=== PATIENT | female | born 1965 | race Two or more races ===

== ENCOUNTER → 2020-03-02 13:28 | Outpatient (BNVA) | payer OTHER, SELFPAY | PROVIDERS: PCP Internal Medicine; Visit Provider Urology | DX: N39.46 Mixed incontinence (principal) | CPT/HCPCS: 51798; 99204 ==

== ENCOUNTER → 2020-03-20 11:02 | Outpatient (BNVA) | payer OTHER, SELFPAY | PROVIDERS: PCP Internal Medicine; Referring Provider Internal Medicine; Visit Provider Dietitian, Registered | DX: Z76.89 Persons encountering health services in other specified circumstances (principal) ==

== ENCOUNTER 2020-04-12 07:14 | Outpatient (REF) | payer OTHER, SELFPAY ==
[2020-04-12 07:55] LABS: MANUAL DIFF FLAG NO
[2020-04-12 07:57] LABS: Basophils Absolute Auto 0.1 X10*3/uL (0.0-0.2); Basophils Percent Auto 1.4 % (0-2); Eosinophils Absolute Auto 0.3 X10*3/uL (0.0-0.4); Eosinophils Percent Auto 5.2 % (0-4); Hematocrit 37.7 % (37-47); Hemoglobin 12.2 g/dl (12.0-16.0); Imm Gran Abs Auto 0.01 X10*3/uL (0.00-0.03); Imm Gran Pct Auto 0.2 % (0.0-0.4); Lymphocytes Absolute Auto 1.3 X10*3/uL (1.2-4.9); Lymphocytes Percent Auto 25.2 % (20-40); Mean Corpuscular HGB Conc 32.4 g/dl (31.0-35.0); Mean Corpuscular Hemoglobin 28.1 pg (27.0-33.0); Mean Corpuscular Volume 86.9 fL (80-98); Mean Platelet Volume 10.7 fL (9.4-12.3); Monocytes Absolute Auto 0.3 X10*3/uL (0.1-1.2); Monocytes Percent Auto 6.4 % (2-11); Neutrophils Absolute Auto 3.1 X10*3/uL (2.0-8.3); Neutrophils Percent Auto 61.6 % (45-73); Platelet Count 335 X10*3/uL (160-400); Red Blood Count 4.34 X10*6/uL (4.20-5.50); Red Cell Distribution Width 13.6 % (11.0-16.0)
[2020-04-12 08:24] LABS: Alanine Aminotransferase 18 U/L (0-31); Albumin Level 4.3 g/dL (3.5-5.0); Alkaline Phosphatase 98 U/L (39-117); Anion Gap 12 (12-20); Aspartate Amino Transferase 18 U/L (5-31); Bilirubin Total 0.4 mg/dL (0.0-1.0); Blood Urea Nitrogen 15 mg/dL (9-16); Calcium 9.1 mg/dL (8.4-10.2); Carbon Dioxide 27 mmol/L (22-29); Chloride 105 mmol/L (96-108); Cholesterol 195 mg/dL; Estimated Glomerular Filt Rate > 60; Glucose Fasting 116 mg/dL (60-99); HDL Cholesterol 38 mg/dL; LDL Cholesterol Calculated 136 mg/dl; Potassium 4.4 mmol/l (3.3-5.1); Sodium 140 mmol/L (135-145); Total Protein 7.6 g/dL (6.5-8.0); Triglycerides 106 mg/dL
[2020-04-12 08:49] LABS: TSH reflex Free T4 1.27 mIU/mL (0.32-4.0); Vitamin D 25-OH Total 45.8 ng/mL (>30)
== END 2020-04-12 07:15 | disposition home or self-care (01) ==
LOC: HO.LAB 07:14
PROVIDERS: PCP Internal Medicine; Visit Provider Internal Medicine
DX: E78.00 Pure hypercholesterolemia, unspecified (principal); D64.9 Anemia, unspecified; E03.9 Hypothyroidism, unspecified; E55.9 Vitamin D deficiency, unspecified
CPT/HCPCS: 36415; 80053; 80061; 82306; 84443; 85025

== ENCOUNTER → 2020-04-18 13:39 | Outpatient (BNVA) | payer OTHER, SELFPAY | PROVIDERS: PCP Internal Medicine; Referring Provider Internal Medicine; Visit Provider Obstetrics & Gynecology | DX: Z76.89 Persons encountering health services in other specified circumstances (principal) ==

== ENCOUNTER → 2020-04-20 10:43 | Outpatient (BNVA) | payer OTHER, SELFPAY | PROVIDERS: PCP Internal Medicine; Referring Provider Internal Medicine; Visit Provider Dietitian, Registered | DX: Z76.89 Persons encountering health services in other specified circumstances (principal) ==

== ENCOUNTER 2020-05-03 12:18 | Outpatient (REF) | payer OTHER, SELFPAY ==
[2020-05-03 13:57] LABS: Glucose Urine UA NEG (NEG); Leukocyte Esterase Urine NEG (NEG); Nitrite Urine NEG (NEG); PH 6.5 (5.0-8.0); Urine Blood NEG (NEG); Urine Ketones NEG (NEG); Urine Protein NEG (NEG-TRACE)
[2020-05-03 14:11] LABS: Appearance Urine CLEAR; Color Urine YELLOW
== END 2020-05-03 12:19 | disposition home or self-care (01) ==
LOC: HO.LAB 12:18
PROVIDERS: PCP Internal Medicine; Visit Provider Internal Medicine
DX: R30.0 Dysuria (principal)
CPT/HCPCS: 81003

== ENCOUNTER 2020-05-04 14:18 | Outpatient (REF) | payer OTHER, SELFPAY | END 2020-05-04 14:19 | disposition home or self-care (01) | LOC: HO.LAB 14:18 | PROVIDERS: Visit Provider Internal Medicine | DX: Z20.828 Contact with and (suspected) exposure to other viral communicable diseases (principal) | CPT/HCPCS: C9803; U0003 ==

== ENCOUNTER 2020-05-30 04:32 | Emergency (ER) | payer OTHER, SELFPAY ==
[2020-05-30 04:52] VITALS: BP 134/87; PULSE 70; RESP 18; TEMP 36.9; O2SAT 97; BMI 32.6
--- NOTE | 2020-05-30 05:44 | ED_ITS ---
HPI - URI/Sore Throat General Chief Complaint: Upper Respiratory Symptoms Stated Complaint: COVID+ Diff Breathing Time Seen by Provider: 05/30/20 05:44 Source: patient Mode of arrival: ambulatory History of Present Illness HPI Narrative: This is a 54-year-old female who has been recently diagnosed with COVID-19 and comes in with concerns about increased shortness of breath and sore throat. She denies any fevers, chills, chest pain/palpitations at this time or GI symptoms. Related Data Home Medications Medication Instructions Recorded Confirmed aripiprazole 5 mg tablet 5 mg PO DAILY 03/02/20 04/18/20 cetirizine 10 mg tablet 10 mg PO DAILY 03/02/20 04/18/20 cholecalciferol (vitamin D3) 50 50 mcg PO DAILY 03/02/20 04/18/20 mcg (2,000 unit) capsule cyclobenzaprine 10 mg tablet 10 mg PO TID PRN 03/02/20 04/18/20 gabapentin 100 mg capsule mg PO 03/02/20 04/18/20 hydroxyzine HCl 25 mg tablet 25 mg PO TID 03/02/20 04/18/20 loratadine 10 mg tablet 10 mg PO DAILY 03/02/20 04/18/20 lorazepam 0.5 mg tablet 0.5 mg PO DAILY PRN 03/02/20 04/18/20 mometasone 0.1 % topical cream applic TOPICAL DAILY 03/02/20 04/18/20 pantoprazole 40 mg tablet,delayed 40 mg PO DAILY 03/02/20 04/18/20 release ropinirole 0.5 mg tablet 0.5 mg PO BEDTIME 03/02/20 04/18/20 rosuvastatin 10 mg tablet 10 mg PO BEDTIME 03/02/20 04/18/20 sertraline 100 mg tablet mg PO 03/02/20 04/18/20 sertraline 50 mg tablet 50 mg PO DAILY 03/02/20 04/18/20 simethicone 125 mg chewable tablet 125 mg PO QID PRN 03/02/20 04/18/20 Previous Rx's Medication Instructions Recorded oxybutynin chloride 5 mg 5 mg PO DAILY #30 tab 03/02/20 tablet,extended release 24 hr levothyroxine 112 mcg tablet 112 mcg PO DAILY #90 tab 05/02/20 albuterol sulfate 90 mcg/actuation 1 - 2 puff INHALATION Q4-6H PRN 30 05/29/20 aerosol inhaler Days #8.5 g prednisone 40 mg PO DAILY 4 Days #8 tab 05/30/20 Allergies Allergy/AdvReac Type Severity Reaction Status Date / Time Sulfa (Sulfonamide Allergy Severe SWELLING Unverified 02/16/20 15:37 Antibiotics) [Sulfa (Sulfonamides)] cbd Allergy Unknown chest pain Uncoded 01/04/20 00:00 Pt states no known allergy to Allergy Unknown Uncoded 01/03/20 00:00 sulfa Allergy Unknown swelling Uncoded 01/04/20 00:00 Review of Systems Review of Systems: Pertinent positives and negatives as stated in HPI 10 point review of systems is otherwise negative. [facility] Past Medical History Source: nursing notes reviewed Medical History Anxiety Asthma Depression Fatty liver Fibromyalgia High cholesterol Hypothyroid Osteoarthritis Surgical History H/O oophorectomy Tubal ligation status Family History Family History Sister Breast CA Social History Social History Alcohol intake: never Smoking Status: Never smoker Advance Directives: No Advance Directives Information Provided: No Physical Exam Vital Signs: Vital Signs: Last Vital Signs Temp 98.4 F 05/30/20 04:52 Pulse 70 05/30/20 04:52 Resp 18 05/30/20 04:52 BP 134/87 05/30/20 04:52 Pulse Ox 98 05/30/20 06:20 Body Mass Index 32.6 VITAL SIGNS: Reviewed. GENERAL: Well developed, well nourished, in no acute distress. HEAD: Normocephalic/atraumatic, EYES: PERRLA, EOMI intact without pain EARS: Ext canals without abnormality, TMs non-bulging and non-erythematous NOSE: Nares patent bilateral OROPHARYNX: no oral lesions noted, posterior pharynx clear and non-erythematous NECK: Supple, no adenopathy LUNGS: Normal breath sounds. No adventitious sounds or accessory muscle use. SpO2<98> CARDIOVASCULAR: Regular rate and rhythm without noted murmurs, no JVD or lower extremity edema. ABDOMEN: Soft, non-tender, non-distended with bowel sounds. No rigidity. No guarding. No palpable masses or hernias noted NEUROLOGIC: Alert and oriented x 4. Strength and sensation to light touch were grossly intact x 4. Course Course Course Narrative: This is a 54-year-old female with history and clinical presentation consistent with mild asthma exacerbation. Patient is neither hypoxic, tachypneic. Patient received albuterol puffs as well as initial p.o. prednisone and on re-evaluation states she is feeling better. She was discharged in stable condition. Discharge Plan Discharge Clinical Impression: Asthma Qualifiers: Asthma severity: mild Asthma persistence: unspecified Asthma complication type: uncomplicated Qualified Code(s): J45.909 - Unspecified asthma, uncomplicated Patient Disposition: Home, Self-Care Instructions: Asthma (ED) Additional Instructions: Resume all home medications as prescribed. Please do not hesitate to return to the emergency department should you develop any acute worsening of your symptoms. Prescriptions: New prednisone 20 mg tablet 40 mg PO DAILY 4 Days Qty: 8 RF: 0 No Action levothyroxine 112 mcg tablet 112 mcg PO DAILY Qty: 90 RF: 1 albuterol sulfate 90 mcg/actuation HFA aerosol inhaler 1 - 2 puff inhalation Q4-6H PRN (Reason: dyspnea) 30 Days Qty: 8.5 RF: 6 sertraline 50 mg tablet 50 mg PO DAILY RF: 0 pantoprazole 40 mg tablet,delayed release (DR/EC) 40 mg PO DAILY RF: 0 sertraline 100 mg tablet PO RF: 0 cholecalciferol (vitamin D3) 50 mcg (2,000 unit) capsule 50 mcg PO DAILY RF: 0 rosuvastatin 10 mg tablet 10 mg PO BEDTIME RF: 0 lorazepam 0.5 mg tablet 0.5 mg PO DAILY PRNRF: 0 ropinirole 0.5 mg tablet 0.5 mg PO BEDTIME RF: 0 cetirizine 10 mg tablet 10 mg PO DAILY RF: 0 hydroxyzine HCl 25 mg tablet 25 mg PO TID RF: 0 mometasone 0.1 % cream topical DAILY RF: 0 loratadine 10 mg tablet 10 mg PO DAILY RF: 0 gabapentin 100 mg capsule PO RF: 0 simethicone 125 mg tablet,chewable 125 mg PO QID PRNRF: 0 aripiprazole 5 mg tablet 5 mg PO DAILY RF: 0 cyclobenzaprine 10 mg tablet 10 mg PO TID PRNRF: 0 oxybutynin chloride 5 mg tablet extended release 24hr 5 mg PO DAILY Qty: 30 RF: 6 Referrals: Physician,Unknown [Primary Care Provider] - 2 days (Re-evaluation)
[2020-05-30] MEDS: predniSONE 20 MG TABLET 40 MG PO (05:52)
[2020-05-30] MEDS: Albuterol Sulfate 90 MCG 8 GM INHALER 4 PUFF INHALE (06:04)
[2020-05-30 06:20] VITALS: PULSE 78; O2SAT 98
== END 2020-05-30 06:50 | disposition home or self-care (01) ==
PROVIDERS: Emergency Provider Student in an Organized Health Care Education/Training Program
DX: J45.901 Unspecified asthma with (acute) exacerbation (principal); Z86.19 Personal history of other infectious and parasitic diseases; Z79.899 Other long term (current) drug therapy
CPT/HCPCS: 99283; 99284

== ENCOUNTER → 2020-06-05 14:11 | Outpatient (BNVA) | payer OTHER, SELFPAY | PROVIDERS: PCP Internal Medicine; Visit Provider Dietitian, Registered | DX: Z76.89 Persons encountering health services in other specified circumstances (principal) ==

== ENCOUNTER 2020-06-08 10:07 | Outpatient (REF) | payer OTHER, SELFPAY ==
--- NOTE | 2020-06-08 10:24 | XR_ITS ---
EXAMINATION: XR CHEST CLINICAL INFORMATION: Shortness of breath COMPARISON: Previous chest x-ray most recent November 2019 TECHNIQUE: 2 views of the chest were obtained. FINDINGS: The cardiac and mediastinal contours are normal. There are increased markings at the left lung base questionable for bronchial wall thickening or infiltrate. The lungs are otherwise clear. There is no pleural effusion or pneumothorax. Bony structures are unremarkable. XR/XR chest 2V IMPRESSION: Increased markings at the left lung base questionable for infiltrate.
[2020-06-08 10:51] LABS: MANUAL DIFF FLAG NO
[2020-06-08 10:57] LABS: Basophils Percent Auto 0.4 % (0-2); Eosinophils Absolute Auto 0.3 X10*3/uL (0.0-0.4); Eosinophils Percent Auto 3.6 % (0-4); Hematocrit 38.4 % (37-47); Imm Gran Abs Auto 0.03 X10*3/uL (0.00-0.03); Imm Gran Pct Auto 0.4 % (0.0-0.4); Lymphocytes Absolute Auto 1.7 X10*3/uL (1.2-4.9); Lymphocytes Percent Auto 23.4 % (20-40); Mean Corpuscular HGB Conc 31.3 g/dl (31.0-35.0); Mean Corpuscular Hemoglobin 27.5 pg (27.0-33.0); Mean Corpuscular Volume 87.9 fL (80-98); Mean Platelet Volume 10.2 fL (9.4-12.3); Monocytes Absolute Auto 0.5 X10*3/uL (0.1-1.2); Monocytes Percent Auto 6.7 % (2-11); Neutrophils Absolute Auto 4.9 X10*3/uL (2.0-8.3); Neutrophils Percent Auto 65.5 % (45-73); Platelet Count 323 X10*3/uL (160-400); Red Blood Count 4.37 X10*6/uL (4.20-5.50); Red Cell Distribution Width 13.2 % (11.0-16.0); White Blood Count 7.5 X10*3/uL (4.8-10.8)
[2020-06-08 11:25] LABS: Alanine Aminotransferase 19 U/L (0-31); Albumin Level 4.1 g/dL (3.5-5.0); Alkaline Phosphatase 94 U/L (39-117); Anion Gap 14 (12-20); Aspartate Amino Transferase 17 U/L (5-31); Bilirubin Total 0.4 mg/dL (0.0-1.0); Blood Urea Nitrogen 9 mg/dL (9-16); Calcium 8.8 mg/dL (8.4-10.2); Carbon Dioxide 25 mmol/L (22-29); Chloride 106 mmol/L (96-108); Estimated Glomerular Filt Rate > 60; Glucose Random 92 mg/dL (60-115); Potassium 4.5 mmol/l (3.3-5.1); Sodium 140 mmol/L (135-145); Total Protein 7.5 g/dL (6.5-8.0)
== END 2020-06-08 10:08 | disposition home or self-care (01) ==
LOC: HO.LAB 10:07
PROVIDERS: PCP Internal Medicine; Visit Provider Internal Medicine
DX: U07.1 COVID-19 (principal); R06.02 Shortness of breath; R11.0 Nausea
CPT/HCPCS: 36415; 71046; 80053; 85025

== ENCOUNTER → 2020-07-04 10:02 | Outpatient (BNVA) | payer OTHER, SELFPAY | PROVIDERS: Visit Provider Dietitian, Registered ==

== ENCOUNTER 2020-08-13 08:39 | Outpatient (REF) | payer OTHER, SELFPAY | END 2020-08-13 08:40 | disposition home or self-care (01) | LOC: HO.LAB 08:39 | PROVIDERS: PCP Internal Medicine; Visit Provider Obstetrics & Gynecology | DX: N95.0 Postmenopausal bleeding (principal) | CPT/HCPCS: 58100; 88305; 88342; 88360 ==

== ENCOUNTER → 2020-08-15 11:06 | Outpatient (BNVA) | payer OTHER, SELFPAY | PROVIDERS: PCP Internal Medicine; Visit Provider Obstetrics & Gynecology ==

== ENCOUNTER → 2020-08-20 11:43 | Outpatient (BNVA) | payer OTHER, SELFPAY | PROVIDERS: PCP Internal Medicine; Visit Provider Obstetrics & Gynecology ==

== ENCOUNTER → 2020-08-27 13:01 | Outpatient (BNVA) | payer OTHER, SELFPAY | PROVIDERS: PCP Internal Medicine; Visit Provider Physician Assistant ==

== ENCOUNTER → 2020-08-30 13:26 | Outpatient (BNVA) | payer OTHER, SELFPAY | PROVIDERS: PCP Internal Medicine; Visit Provider Student in an Organized Health Care Education/Training Program | DX: M25.50 Pain in unspecified joint (principal) | CPT/HCPCS: 99212 ==

== ENCOUNTER 2020-09-04 09:24 | Outpatient (REF) | payer OTHER, SELFPAY ==
[2020-09-04 10:03] LABS: MANUAL DIFF FLAG NO
[2020-09-04 10:13] LABS: Basophils Absolute Auto 0.1 X10*3/uL (0.0-0.2); Basophils Percent Auto 1.6 % (0-2); Eosinophils Absolute Auto 0.2 X10*3/uL (0.0-0.4); Eosinophils Percent Auto 4.9 % (0-4); Hematocrit 35.7 % (37-47); Hemoglobin 11.3 g/dl (12.0-16.0); Imm Gran Abs Auto 0.01 X10*3/uL (0.00-0.03); Imm Gran Pct Auto 0.2 % (0.0-0.4); Lymphocytes Absolute Auto 1.3 X10*3/uL (1.2-4.9); Lymphocytes Percent Auto 30.1 % (20-40); Mean Corpuscular HGB Conc 31.7 g/dl (31.0-35.0); Mean Corpuscular Hemoglobin 27.8 pg (27.0-33.0); Mean Corpuscular Volume 87.9 fL (80-98); Mean Platelet Volume 10.5 fL (9.4-12.3); Monocytes Absolute Auto 0.3 X10*3/uL (0.1-1.2); Monocytes Percent Auto 7.7 % (2-11); Neutrophils Absolute Auto 2.4 X10*3/uL (2.0-8.3); Neutrophils Percent Auto 55.5 % (45-73); Platelet Count 307 X10*3/uL (160-400); Red Blood Count 4.06 X10*6/uL (4.20-5.50); Red Cell Distribution Width 13.2 % (11.0-16.0); White Blood Count 4.3 X10*3/uL (4.8-10.8)
[2020-09-04 10:21] LABS: Alanine Aminotransferase 21 U/L (0-31); Albumin Level 4.1 g/dL (3.5-5.0); Alkaline Phosphatase 92 U/L (39-117); Anion Gap 11 (12-20); Aspartate Amino Transferase 19 U/L (5-31); Bilirubin Total 0.3 mg/dL (0.0-1.0); Blood Urea Nitrogen 13 mg/dL (9-16); Calcium 9.1 mg/dL (8.4-10.2); Carbon Dioxide 28 mmol/L (22-29); Chloride 105 mmol/L (96-108); Estimated Glomerular Filt Rate > 60; Glucose Random 92 mg/dL (60-115); Potassium 4.6 mmol/L (3.3-5.1); Rheumatoid Factor < 15.0 IU/mL (<15.0); Sodium 139 mmol/L (135-145); Total Protein 7.3 g/dL (6.5-8.0)
[2020-09-04 10:43] LABS: TSH reflex Free T4 1.03 uIU/mL (0.32-4.0)
[2020-09-04 11:25] LABS: Erythrocyte Sedimentation Rate 29 MM/HR (0-20)
[2020-09-05 12:11] LABS: Cyclic Citrullinated Peptide <16 UNITS
[2020-09-08 11:52] LABS: Vitamin D 25-OH, D2 6 ng/mL; Vitamin D 25-OH, D3 38 ng/mL; Vitamin D 25-OH, Total 44 ng/mL (30-100)
== END 2020-09-04 09:25 | disposition home or self-care (01) ==
LOC: HO.LAB 09:24
PROVIDERS: PCP Internal Medicine; Visit Provider Student in an Organized Health Care Education/Training Program
DX: M25.50 Pain in unspecified joint (principal); E03.9 Hypothyroidism, unspecified
CPT/HCPCS: 36415; 80053; 82306; 84443; 85025; 85652; 86140; 86200; 86431

== ENCOUNTER 2020-09-11 11:59 | Outpatient (REF) | payer OTHER, SELFPAY ==
--- NOTE | ~2020-09-11 | XR_ITS ---
EXAMINATION: XR CHEST CLINICAL INFORMATION: Cough COMPARISON: Previous chest x-ray 06/08/2019 TECHNIQUE: 2 views of the chest were obtained. FINDINGS: No significant abnormality is noted involving the heart, lungs, mediastinum, bony thorax or soft tissues. XR/XR chest 2V IMPRESSION: Unremarkable examination.
== END 2020-09-11 12:00 | disposition home or self-care (01) ==
LOC: HO.HMGCX 11:59
PROVIDERS: PCP Internal Medicine; Visit Provider Nurse Practitioner Family
DX: R05 Cough (principal); J45.909 Unspecified asthma, uncomplicated
CPT/HCPCS: 71046

== ENCOUNTER → 2020-10-02 10:00 | Outpatient (BNVA) | payer OTHER, SELFPAY | PROVIDERS: PCP Internal Medicine; Visit Provider Dietitian, Registered | DX: E66.9 Obesity, unspecified (principal); Z68.31 Body mass index [BMI] 31.0-31.9, adult | CPT/HCPCS: 97803 ==

== ENCOUNTER → 2020-10-03 08:13 | Outpatient (BNVA) | payer OTHER, SELFPAY | PROVIDERS: PCP Internal Medicine; Visit Provider Student in an Organized Health Care Education/Training Program | DX: M25.50 Pain in unspecified joint (principal) | CPT/HCPCS: 99212 ==

== ENCOUNTER 2020-10-10 06:18 | Outpatient (REF) | payer OTHER, SELFPAY ==
[2020-10-10 07:45] LABS: Hematocrit 37.2 % (37-47); Hemoglobin 11.8 g/dl (12.0-16.0); Mean Corpuscular HGB Conc 31.7 g/dl (31.0-35.0); Mean Corpuscular Hemoglobin 27.8 pg (27.0-33.0); Mean Corpuscular Volume 87.5 fL (80-98); Mean Platelet Volume 10.5 fL (9.4-12.3); Platelet Count 363 X10*3/uL (160-400); Red Blood Count 4.25 X10*6/uL (4.20-5.50); Red Cell Distribution Width 13.4 % (11.0-16.0); White Blood Count 5.7 X10*3/uL (4.8-10.8)
[2020-10-10 08:20] LABS: Alanine Aminotransferase 25 U/L (0-31); Albumin Level 4.1 g/dL (3.5-5.0); Alkaline Phosphatase 98 U/L (39-117); Anion Gap 14 (12-20); Aspartate Amino Transferase 22 U/L (5-31); Blood Urea Nitrogen 13 mg/dL (9-16); Calcium 9.4 mg/dL (8.4-10.2); Carbon Dioxide 27 mmol/L (22-29); Chloride 105 mmol/L (96-108); Cholesterol 219 mg/dL; Estimated Glomerular Filt Rate > 60; Glucose Fasting 118 mg/dL (60-99); HDL Cholesterol 48 mg/dL; LDL Cholesterol Calculated 152 mg/dl; Potassium 4.6 mmol/L (3.3-5.1); Sodium 141 mmol/L (135-145); Triglycerides 97 mg/dL
[2020-10-10 08:28] LABS: Bilirubin Total 0.3 mg/dL (0.0-1.0)
== END 2020-10-10 06:19 | disposition home or self-care (01) ==
LOC: HO.LAB 06:18
PROVIDERS: PCP Internal Medicine; Visit Provider Physician Assistant
DX: Z13.220 Encounter for screening for lipoid disorders (principal); E03.9 Hypothyroidism, unspecified; I10 Essential (primary) hypertension
CPT/HCPCS: 36415; 80053; 80061; 84443; 85027

== ENCOUNTER 2020-10-24 11:14 | Emergency (ER) | payer OTHER, SELFPAY ==
--- NOTE | 2020-10-24 | ECG_ITS ---
Test Reason : CP Blood Pressure : / mmHG Vent. Rate : 057 BPM Atrial Rate : 057 BPM P-R Int : 110 ms QRS Dur : 116 ms QT Int : 446 ms P-R-T Axes : 015 -08 029 degrees QTc Int : 434 ms Sinus bradycardia Preexcitation pattern; possible WPW ST depression lateral leads Abnormal ECG When compared with ECG of 29-DEC-2019 18:24, changes noted Referred By: Generic ED Physician Electronically Signed By:JOSEPHINE KAPADIA
--- NOTE | ~2020-10-24 | CT_ITS ---
EXAMINATION: CT ANGIOGRAM OF THE CHEST WITH AND WITHOUT CONTRAST (CT PULMONARY ANGIOGRAM FOR PE) CLINICAL INFORMATION: Reason for Exam Chest pain, elevated D-dimer COMPARISON: Previous chest CTA June 2019 chest x-ray most recent from earlier the same day TECHNIQUE: Prior to contrast administration, noncontrast localization images were obtained. Subsequently, multidetector volumetric imaging was performed from the thoracic inlet to below the diaphragms following the administration of 80 mL Omnipaque 350 intravenous contrast. No contrast reaction reported Sagittal, coronal, and MIP oblique sagittal reformatted images were obtained on the CT workstation, uploaded to PACS, and reviewed. This CT examination was performed using dose optimization techniques as appropriate, variously including the following: *Automated exposure control *Adjustment of mA and/or kV according to patient size (this includes techniques or standardized protocols for targeted exams where dose is matched to indication/reason for exam; i.e. extremities or head) *Use of iterative reconstruction technique Total exam dose-length product 308 mGy-cm FINDINGS: QUALITY OF STUDY/CONTRAST BOLUS: Satisfactory. PULMONARY ARTERIES: No central or segmental pulmonary emboli. THORACIC AORTA: No aneurysm or dissection. LUNG: No focal consolidation, nodules or masses. PLEURA: No pleural effusion or pneumothorax. MEDIASTINUM: Normal heart size. No pericardial effusion. No hilar or mediastinal lymphadenopathy. No evidence of septal bowing or right heart strain. The esophagus is slightly dilated and filled with air. There is question of a abnormal wall thickening of the GE junction versus small hiatal hernia. This is similar to previous exam.. CHEST WALL/AXILLA: No axillary or internal mammary lymphadenopathy. OSSEOUS STRUCTURES: No acute or suspicious osseous abnormality. There are mild degenerative changes of the spine. UPPER ABDOMEN: Unremarkable. No reflux of contrast into the hepatic veins to suggest elevated right heart pressures. CT/CT angio chest PE protocol IMPRESSION: No evidence of pulmonary embolism. Dilated air-filled esophagus and question wall thickening at the GE junction versus small hiatal hernia. This is similar to previous exam. VTE: negative
--- NOTE | ~2020-10-24 | XR_ITS ---
EXAMINATION: XR CHEST CLINICAL INFORMATION: Chest pressure, cough COMPARISON: None TECHNIQUE: 2 views of the chest were obtained. FINDINGS: No significant abnormality is noted involving the heart, lungs, mediastinum, bony thorax or soft tissues. XR/XR chest 2V IMPRESSION: Unremarkable chest examination.
[2020-10-24 11:17] VITALS: BP 123/84; PULSE 64; RESP 20; TEMP 36.4; O2SAT 99; BMI 31.3
[2020-10-24 12:00] VITALS: BP 125/76; PULSE 60; RESP 16; O2SAT 97
--- NOTE | 2020-10-24 12:26 | ED.CHESTPAIN ---
HPI - Chest Pain General Chief Complaint: Chest Pain <RIVER Lopez - Last Filed: 10/24/20 23:05> Stated Complaint: chest pain, eye issue <RIVER Lopez - Last Filed: 10/24/20 23:05> Time Seen by Provider: 10/24/20 12:04 <RIVER Lopez - Last Filed: 10/24/20 23:05> Source: patient, RN notes reviewed and old records reviewed <RIVER Lopez - Last Filed: 10/24/20 23:05> Mode of arrival: ambulatory <RIVER Lopez - Last Filed: 10/24/20 23:05> Limitations: no limitations <RIVER Lopez - Last Filed: 10/24/20 23:05> History of Present Illness HPI narrative: 54 years old female with past medical history dyslipidemia, depression with anxiety, shortness of breath, dysphagia, asthma, hypothyroidism, 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 She reports that her symptom has been going on for the last few months since she was diagnosed with COVID back in May. Patient reports that she also has seasonal allergies. She also reports that she has shortness of breath with exertion. Denies any recent COVID exposures. Denies any GI or any other respiratory symptoms. <RIVER Lopez - Last Filed: 10/24/20 23:05> Related Data Home Medications: Home Medications Medication Instructions Recorded Confirmed aripiprazole 5 mg tablet 5 mg PO DAILY 03/02/20 10/17/20 cholecalciferol (vitamin D3) 50 50 mcg PO DAILY 03/02/20 10/17/20 mcg (2,000 unit) capsule lorazepam 0.5 mg tablet 0.5 mg PO DAILY PRN 03/02/20 10/17/20 ropinirole 0.5 mg tablet 0.5 mg PO BEDTIME 03/02/20 10/17/20 rosuvastatin 10 mg tablet 10 mg PO BEDTIME 03/02/20 10/17/20 sertraline 100 mg tablet mg PO 03/02/20 10/17/20 sertraline 50 mg tablet 50 mg PO DAILY 03/02/20 10/17/20 Previous Rx's Medication Instructions Recorded albuterol sulfate 90 mcg/actuation 1 - 2 puff INHALATION Q4-6H PRN 30 05/29/20 aerosol inhaler Days #8.5 g pantoprazole 40 mg tablet,delayed 40 mg PO DAILY 30 Days #30 tab 08/27/20 release albuterol sulfate 90 mcg/actuation 2 puff INHALATION Q4-6H PRN #6.7 g 09/11/20 aerosol inhaler oxybutynin chloride 5 mg 5 mg PO DAILY #30 tab 10/10/20 tablet,extended release 24 hr loratadine 10 mg tablet 10 mg PO DAILY 90 Days #90 tab 10/17/20 simethicone 125 mg chewable tablet 125 mg PO QID PRN 30 Days #120 tab 10/17/20 levothyroxine 112 mcg tablet 112 mcg PO DAILY #90 tab 10/23/20 meloxicam 15 mg tablet 15 mg PO DAILY #30 tab 10/28/20 <[facility] - Last Filed: 10/24/20 23:05> Allergies/Adverse Reactions: Allergies Allergy/AdvReac Type Severity Reaction Status Date / Time Sulfa (Sulfonamide Allergy Severe SWELLING Verified 10/24/20 11:16 Antibiotics) [Sulfa (Sulfonamides)] cbd Allergy Intermediate chest pain Uncoded 10/17/20 15:16 <VOLODYMYR Lopez - Last Filed: 10/24/20 23:05> Review of Systems Review of Systems: Constitutional : No Weight loss, No Fever, No Chills, No Night Sweats, No Fatigue, No Malaise ENT/Mouth : No Hearing loss, No Ear Pain, No Nasal Congestion, No Sinus Pain, No Hoarseness, No sore throat, No Rhinorrhea, No Swallowing Difficulty Eyes: No Eye Pain, No Swelling, right eye Redness, No Foreign Body, No Discharge, No Vision Changes Cardiovascular : Chest Pain, SOB with exertion, Dyspnea on Exertion, No Orthopnea, No Edema, No Palpitations Respiratory : No Cough, No Sputum, No Wheezing, No Smoke Exposure, No Dyspnea Gastrointestinal : No Nausea, No Vomiting, No Diarrhea, No Constipation, No abdominal Pain, No Hematochezia, No Melena Genitourinary : no irregular bleeding, No Dysuria, No Urinary Frequency, No Hematuria, No Urinary Incontinence, No Urgency, No Flank Pain, No Urinary Flow Changes, No Hesitancy Musculoskeletal : No joint pain, No Myalgias, No Joint Swelling Skin : No Skin Lesions, No rash Neuro : No Weakness, No Numbness, No Paresthesias, No Loss of Consciousness, No Dizziness, No Headache Psych : No Anxiety/Panic, No Depression, No SI/HI/AH/VH, No Social Issues, Heme/Lymph: No Bruising, No Bleeding,No Lymphadenopathy Endocrine : No Polyuria, No Polydipsia, No Temperature Intolerance <RIVER Lopez - Last Filed: 10/24/20 23:05> Yes all other systems are reviewed and are negative <RIVER Lopez - Last Filed: 10/24/20 23:05> [facility] Past Medical History Medical History: Medical History Anxiety Asthma COVID-19 Depression Depression with anxiety Dyslipidemia Dysphagia Fatty liver Fibromyalgia High cholesterol Hypothyroid Hypothyroidism Nausea Osteoarthritis Polyarthralgia 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 Shortness of breath <RIVER Lopez - Last Filed: 10/24/20 23:05> Surgical History: Surgical History H/O oophorectomy History of blepharoplasty History of removal of ovarian cyst Tubal ligation status <RIVER Lopez - Last Filed: 10/24/20 23:05> Family History Family History: Family History Sister Breast CA Pancreatic cancer Sister Breast CA Father Myocardial infarction Diabetes Hypertension CVD (cardiovascular disease) Mother Heart problem Daughter In good health <RIVER Lopez - Last Filed: 10/24/20 23:05> Social History Social History: Social History Household Members: None Alcohol intake: never Current occupational status: disabled <SHOAIB LopezP-BC - Last Filed: 10/24/20 23:05> Physical Exam Vital Signs: Vital Signs: Last Vital Signs Temp 97.6 F 10/24/20 11:17 Pulse 58 10/24/20 14:00 Resp 18 10/24/20 14:00 BP 124/78 10/24/20 14:00 Pulse Ox 99 10/24/20 14:00 Body Mass Index 31.3 <Francia Norm Solis SKYLA-BC - Last Filed: 10/24/20 23:05> Vital Signs: Last Vital Signs Temp 97.6 F 10/24/20 11:17 Pulse 58 10/24/20 14:00 Resp 18 10/24/20 14:00 BP 124/78 10/24/20 14:00 Pulse Ox 99 10/24/20 14:00 Body Mass Index 31.3 <Mina Hobson MD - Last Filed: 11/26/20 15:07> Const: General: healthy appearing, no acute distress and well developed <Francia Norm Solis SKYLA-BC - Last Filed: 10/24/20 23:05> Nutritional Appearance: well nourished <Francia Norm Solis SKYLA-BC - Last Filed: 10/24/20 23:05> Orientation/consciousness: patient oriented x3 <Francia Norm Solis VOLODYMYRBC - Last Filed: 10/24/20 23:05> Eyes: Other: Right eye redness <Franciaradha Solis SKYLA-BC - Last Filed: 10/24/20 23:05> Direct Ophthalmoscopy: no photophobia <Francia Norm Solis SKYLA-BC - Last Filed: 10/24/20 23:05> Neck: Neck: Yes normal visual inspection, Yes full ROM and Yes trachea midline <Franciaradha Solis SKYLA-BC - Last Filed: 10/24/20 23:05> Thyroid: Thyroid normal <Franciaradha Solis [employer]INTER-BC - Last Filed: 10/24/20 23:05> Resp: Auscultation: clear to auscultation bilaterally <Franciaradha Solis [employer]BC - Last Filed: 10/24/20 23:05> Cardio: Rate: bradycardic <RIVER Lopez - Last Filed: 10/24/20 23:05> Rhythm: regular rhythm <RIVER Lpoez - Last Filed: 10/24/20 23:05> GI: Inspection: Yes normal to inspection and No distended <RIVER Lopez - Last Filed: 10/24/20 23:05> Palpation (GI): No hepatosplenomegaly present <RIVER Lopez - Last Filed: 10/24/20 23:05> Auscultation: normal bowel sounds <RIVER Lopez - Last Filed: 10/24/20 23:05> Skin: General skin exam: elasticity normal, turgor normal and dry skin <RIVER Lopez - Last Filed: 10/24/20 23:05> Neuro: General: patient oriented x3 <RIVER Lopez - Last Filed: 10/24/20 23:05> Course Course Course Narrative: 54 years old female here today complaining of chest pressure. She reports that the chest pressure has been going on since she was diagnosed with COVID. Will do CT to rule out PE, will order lab work, troponin. Complains of difficulty of swalling, however she has history of GERD and anxiety with depression. Pharynx examined and normal, no neck swelling. Continue to monitor pending CT results <RIVER Lopez - Last Filed: 10/24/20 23:05> Patient with chest pain and likely anxiety, resting comfortably, no neck swelling, pharynx normal, Will CT chest to rule out PE <Mina Hobson MD - Last Filed: 11/26/20 15:07> Reevaluation(s) Reevaluation #1: Patient resting. Reports that her symptoms come and go. Reports that she is feeling better when her mask is off. Just came back from her CT scan awaiting results. All labs reviewed and negative for any abnormal findings. <Franciajacoby AyersoRIVER - Last Filed: 10/24/20 23:05> I have reviewed the chart <Mina Hobson MD - Last Filed: 11/26/20 15:07> Reevaluation #2: CT of the chest negative for PE. Patient is relaxing no signs and symptoms of distress. Her symptom could be related to her asthma and seasonal allergies. I will send her home with Flonase and Zyrtec. Patient verbalizes understanding and is agreeable to plan of care. She was given the opportunity to ask questions and all questions answered. <SKYLA Lopez-BC - Last Filed: 10/24/20 23:05> Time: 15:36 <Francia Solis [employer]INTER-BC - Last Filed: 10/24/20 23:05> MDM - Chest Pain Lab Data Result diagrams: : 10/24/20 12:28 10/24/20 12:28 <SKYLA Lopez-BC - Last Filed: 10/24/20 23:05> Labs: Lab Results 10/24/20 10/24/20 10/24/20 Range/Units 12:28 12:28 12:28 WBC 6.7 (4.8-10.8) X10*3/uL RBC 3.97 L (4.20-5.50) X10*6/uL Hgb 11.1 L (12.0-16.0) g/dl Hct 34.8 L (37-47) % MCV 87.7 (80-98) fL MCH 28.0 (27.0-33.0) pg MCHC 31.9 (31.0-35.0) g/dl RDW 13.2 (11.0-16.0) % Plt Count 299 (160-400) X10*3/uL MPV 10.5 (9.4-12.3) fL Immature Gran % (Auto) 0.3 (0.0-0.4) % Neut % (Auto) 56.2 (45-73) % Lymph % (Auto) 29.1 (20-40) % [place] % (Auto) 7.4 (2-11) % Eos % (Auto) 5.6 H (0-4) % Baso % (Auto) 1.4 (0-2) % Lymph # (Auto) 1.9 (1.2-4.9) X10*3/uL [place] # (Auto) 0.5 (0.1-1.2) X10*3/uL Eos # (Auto) 0.4 (0.0-0.4) X10*3/uL Baso # (Auto) 0.1 (0.0-0.2) X10*3/uL Abs Immat Gran (auto) 0.02 (0.00-0.03) X10*3/uL Absolute Neuts (auto) 3.8 (2.0-8.3) X10*3/uL Absolute Nucleated RBC 0.000 (0.0-0.012) X10*3/uL Nucleated RBC % (auto) 0.0 (0.0-0.2) /100WBC D-Dimer NG/ML Sodium 137 (135-145) mmol/L Potassium 4.7 (3.3-5.1) mmol/L Chloride 103 (96-108) mmol/L Carbon Dioxide 25 (22-29) mmol/L Anion Gap 14 (12-20) BUN 15 (9-16) mg/dL Creatinine 0.84 (0.5-1.4) mg/dL Estim Creat Clear Calc 86.4 Estimated GFR > 60 Random Glucose 85 (60-115) mg/dL Calcium 9.4 (8.4-10.2) mg/dL Total Bilirubin 0.3 (0.0-1.0) mg/dL AST 28 (5-31) U/L ALT 22 (0-31) U/L Alkaline Phosphatase 94 (39-117) U/L Troponin I High Sens < 3.5 (<3.5-17.0) ng/L Total Protein 7.4 (6.5-8.0) g/dL Albumin 4.1 (3.5-5.0) g/dL 10/24/20 Range/Units 12:28 WBC (4.8-10.8) X10*3/uL RBC (4.20-5.50) X10*6/uL Hgb (12.0-16.0) g/dl Hct (37-47) % MCV (80-98) fL MCH (27.0-33.0) pg MCHC (31.0-35.0) g/dl RDW (11.0-16.0) % Plt Count (160-400) X10*3/uL MPV (9.4-12.3) fL Immature Gran % (Auto) (0.0-0.4) % Neut % (Auto) (45-73) % Lymph % (Auto) (20-40) % [place] % (Auto) (2-11) % Eos % (Auto) (0-4) % Baso % (Auto) (0-2) % Lymph # (Auto) (1.2-4.9) X10*3/uL [place] # (Auto) (0.1-1.2) X10*3/uL Eos # (Auto) (0.0-0.4) X10*3/uL Baso # (Auto) (0.0-0.2) X10*3/uL Abs Immat Gran (auto) (0.00-0.03) X10*3/uL Absolute Neuts (auto) (2.0-8.3) X10*3/uL Absolute Nucleated RBC (0.0-0.012) X10*3/uL Nucleated RBC % (auto) (0.0-0.2) /100WBC D-Dimer 899 NG/ML Sodium (135-145) mmol/L Potassium (3.3-5.1) mmol/L Chloride (96-108) mmol/L Carbon Dioxide (22-29) mmol/L Anion Gap (12-20) BUN (9-16) mg/dL Creatinine (0.5-1.4) mg/dL Estim Creat Clear Calc Estimated GFR Random Glucose (60-115) mg/dL Calcium (8.4-10.2) mg/dL Total Bilirubin (0.0-1.0) mg/dL AST (5-31) U/L ALT (0-31) U/L Alkaline Phosphatase (39-117) U/L Troponin I High Sens (<3.5-17.0) ng/L Total Protein (6.5-8.0) g/dL Albumin (3.5-5.0) g/dL <Francia Solis, [employer]INTER-BC - Last Filed: 10/24/20 23:05> Lab Results 10/24/20 10/24/20 10/24/20 Range/Units 12:28 12:28 12:28 WBC 6.7 (4.8-10.8) X10*3/uL RBC 3.97 L (4.20-5.50) X10*6/uL Hgb 11.1 L (12.0-16.0) g/dl Hct 34.8 L (37-47) % MCV 87.7 (80-98) fL MCH 28.0 (27.0-33.0) pg MCHC 31.9 (31.0-35.0) g/dl RDW 13.2 (11.0-16.0) % Plt Count 299 (160-400) X10*3/uL MPV 10.5 (9.4-12.3) fL Immature Gran % (Auto) 0.3 (0.0-0.4) % Neut % (Auto) 56.2 (45-73) % Lymph % (Auto) 29.1 (20-40) % [place] % (Auto) 7.4 (2-11) % Eos % (Auto) 5.6 H (0-4) % Baso % (Auto) 1.4 (0-2) % Lymph # (Auto) 1.9 (1.2-4.9) X10*3/uL [place] # (Auto) 0.5 (0.1-1.2) X10*3/uL Eos # (Auto) 0.4 (0.0-0.4) X10*3/uL Baso # (Auto) 0.1 (0.0-0.2) X10*3/uL Abs Immat Gran (auto) 0.02 (0.00-0.03) X10*3/uL Absolute Neuts (auto) 3.8 (2.0-8.3) X10*3/uL Absolute Nucleated RBC 0.000 (0.0-0.012) X10*3/uL Nucleated RBC % (auto) 0.0 (0.0-0.2) /100WBC D-Dimer NG/ML Sodium 137 (135-145) mmol/L Potassium 4.7 (3.3-5.1) mmol/L Chloride 103 (96-108) mmol/L Carbon Dioxide 25 (22-29) mmol/L Anion Gap 14 (12-20) BUN 15 (9-16) mg/dL Creatinine 0.84 (0.5-1.4) mg/dL Estim Creat Clear Calc 86.4 Estimated GFR > 60 Random Glucose 85 (60-115) mg/dL Calcium 9.4 (8.4-10.2) mg/dL Total Bilirubin 0.3 (0.0-1.0) mg/dL AST 28 (5-31) U/L ALT 22 (0-31) U/L Alkaline Phosphatase 94 (39-117) U/L Troponin I High Sens < 3.5 (<3.5-17.0) ng/L Total Protein 7.4 (6.5-8.0) g/dL Albumin 4.1 (3.5-5.0) g/dL 10/24/20 Range/Units 12:28 WBC (4.8-10.8) X10*3/uL RBC (4.20-5.50) X10*6/uL Hgb (12.0-16.0) g/dl Hct (37-47) % MCV (80-98) fL MCH (27.0-33.0) pg MCHC (31.0-35.0) g/dl RDW (11.0-16.0) % Plt Count (160-400) X10*3/uL MPV (9.4-12.3) fL Immature Gran % (Auto) (0.0-0.4) % Neut % (Auto) (45-73) % Lymph % (Auto) (20-40) % [place] % (Auto) (2-11) % Eos % (Auto) (0-4) % Baso % (Auto) (0-2) % Lymph # (Auto) (1.2-4.9) X10*3/uL [place] # (Auto) (0.1-1.2) X10*3/uL Eos # (Auto) (0.0-0.4) X10*3/uL Baso # (Auto) (0.0-0.2) X10*3/uL Abs Immat Gran (auto) (0.00-0.03) X10*3/uL Absolute Neuts (auto) (2.0-8.3) X10*3/uL Absolute Nucleated RBC (0.0-0.012) X10*3/uL Nucleated RBC % (auto) (0.0-0.2) /100WBC D-Dimer 899 NG/ML Sodium (135-145) mmol/L Potassium (3.3-5.1) mmol/L Chloride (96-108) mmol/L Carbon Dioxide (22-29) mmol/L Anion Gap (12-20) BUN (9-16) mg/dL Creatinine (0.5-1.4) mg/dL Estim Creat Clear Calc Estimated GFR Random Glucose (60-115) mg/dL Calcium (8.4-10.2) mg/dL Total Bilirubin (0.0-1.0) mg/dL AST (5-31) U/L ALT (0-31) U/L Alkaline Phosphatase (39-117) U/L Troponin I High Sens (<3.5-17.0) ng/L Total Protein (6.5-8.0) g/dL Albumin (3.5-5.0) g/dL <Mina Hobson MD - Last Filed: 11/26/20 15:07> Imaging Data Chest x-ray: Radiologist's impression: FINDINGS: No significant abnormality is noted involving the heart, lungs, mediastinum, bony thorax or soft tissues. XR/XR chest 2V IMPRESSION: Unremarkable chest examination. <Francia Solis [employer] PAINTER-BC - Last Filed: 10/24/20 23:05> CT scan - chest: Radiologist's impression: FINDINGS: QUALITY OF STUDY/CONTRAST BOLUS: Satisfactory. PULMONARY ARTERIES: No central or segmental pulmonary emboli. THORACIC AORTA: No aneurysm or dissection. LUNG: No focal consolidation, nodules or masses. PLEURA: No pleural effusion or pneumothorax. MEDIASTINUM: Normal heart size. No pericardial effusion. No hilar or mediastinal lymphadenopathy. No evidence of septal bowing or right heart strain. The esophagus is slightly dilated and filled with air. There is question of a abnormal wall thickening of the GE junction versus small hiatal hernia. This is similar to previous exam.. CHEST WALL/AXILLA: No axillary or internal mammary lymphadenopathy. OSSEOUS STRUCTURES: No acute or suspicious osseous abnormality. There are mild degenerative changes of the spine. UPPER ABDOMEN: Unremarkable. No reflux of contrast into the hepatic veins to suggest elevated right heart pressures. CT/CT angio chest PE protocol IMPRESSION: No evidence of pulmonary embolism. Dilated air-filled esophagus and question wall thickening at the GE junction versus small hiatal hernia. This is similar to previous exam. VTE: negative <RIVER Lopez - Last Filed: 10/24/20 23:05> Discharge Plan Discharge Clinical Impression: Gastro-esophageal reflux disease without esophagitis, Asthma, Shortness of breath, Atypical chest pain <Francia Norm WillRIVER - Last Filed: 10/24/20 23:05> Patient Disposition: Home, Self-Care <RIVER Lopez - Last Filed: 10/24/20 23:05> Instructions: Asthma (ED) <RIVER Lopez - Last Filed: 10/24/20 23:05> Additional Instructions: You were seen here today for shortness of breath and chest pain. Your exam, lab work, chest x-ray and CT scan were all negative for any abnormal findings. Please follow up with your primary care in 2-3 days. You may return to emergency department if you symptoms get worse or if you will experience any other concerning symptoms <RIVER Lopez - Last Filed: 10/24/20 23:05> Prescriptions: No Action albuterol sulfate 90 mcg/actuation HFA aerosol inhaler 1 - 2 puff inhalation Q4-6H PRN (Reason: dyspnea) 30 Days Qty: 8.5 RF: 6 oxybutynin chloride 5 mg tablet extended release 24hr 5 mg PO DAILY Qty: 30 RF: 6 levothyroxine 112 mcg tablet 112 mcg PO DAILY Qty: 90 RF: 1 meloxicam 15 mg tablet 15 mg PO DAILY Qty: 30 RF: 1 loratadine 10 mg tablet 10 mg PO DAILY 90 Days Qty: 90 RF: 2 simethicone 125 mg tablet,chewable 125 mg PO QID PRN (Reason: abdominal distention) 30 Days Qty: 120 RF: 6 albuterol sulfate 90 mcg/actuation HFA aerosol inhaler 2 puff inhalation Q4-6H PRN (Reason: shortness of breath or wheezing) Qty: 6.7 RF: 0 sertraline 50 mg tablet 50 mg PO DAILY RF: 0 sertraline 100 mg tablet PO RF: 0 cholecalciferol (vitamin D3) 50 mcg (2,000 unit) capsule 50 mcg PO DAILY RF: 0 rosuvastatin 10 mg tablet 10 mg PO BEDTIME RF: 0 lorazepam 0.5 mg tablet 0.5 mg PO DAILY PRNRF: 0 ropinirole 0.5 mg tablet 0.5 mg PO BEDTIME RF: 0 aripiprazole 5 mg tablet 5 mg PO DAILY RF: 0 pantoprazole 40 mg tablet,delayed release (DR/EC) 40 mg PO DAILY 30 Days Qty: 30 RF: 11 <RIVER Lopez - Last Filed: 10/24/20 23:05> Interventions: ED Discharge Assessment Last Done: 10/24/20 16:01 <RIVER Lopez - Last Filed: 10/24/20 23:05> Discharge Date/Time: 10/24/20 16:02 <RIVER Lopez - Last Filed: 10/24/20 23:05>
[2020-10-24 12:36] LABS: MANUAL DIFF FLAG NO
[2020-10-24 12:41] LABS: Basophils Absolute Auto 0.1 X10*3/uL (0.0-0.2); Basophils Percent Auto 1.4 % (0-2); Eosinophils Absolute Auto 0.4 X10*3/uL (0.0-0.4); Eosinophils Percent Auto 5.6 % (0-4); Hematocrit 34.8 % (37-47); Hemoglobin 11.1 g/dl (12.0-16.0); Imm Gran Abs Auto 0.02 X10*3/uL (0.00-0.03); Imm Gran Pct Auto 0.3 % (0.0-0.4); Lymphocytes Absolute Auto 1.9 X10*3/uL (1.2-4.9); Lymphocytes Percent Auto 29.1 % (20-40); Mean Corpuscular HGB Conc 31.9 g/dl (31.0-35.0); Mean Corpuscular Volume 87.7 fL (80-98); Mean Platelet Volume 10.5 fL (9.4-12.3); Monocytes Absolute Auto 0.5 X10*3/uL (0.1-1.2); Monocytes Percent Auto 7.4 % (2-11); Neutrophils Absolute Auto 3.8 X10*3/uL (2.0-8.3); Neutrophils Percent Auto 56.2 % (45-73); Platelet Count 299 X10*3/uL (160-400); Red Blood Count 3.97 X10*6/uL (4.20-5.50); Red Cell Distribution Width 13.2 % (11.0-16.0); White Blood Count 6.7 X10*3/uL (4.8-10.8)
[2020-10-24 12:48] LABS: D Dimer 899 NG/ML
[2020-10-24 13:09] LABS: Alanine Aminotransferase 22 U/L (0-31); Albumin Level 4.1 g/dL (3.5-5.0); Alkaline Phosphatase 94 U/L (39-117); Anion Gap 14 (12-20); Aspartate Amino Transferase 28 U/L (5-31); Bilirubin Total 0.3 mg/dL (0.0-1.0); Blood Urea Nitrogen 15 mg/dL (9-16); Calcium 9.4 mg/dL (8.4-10.2); Carbon Dioxide 25 mmol/L (22-29); Chloride 103 mmol/L (96-108); Creatinine Clr Calc Pharmacy 86.4; Estimated Glomerular Filt Rate > 60; Glucose Random 85 mg/dL (60-115); Potassium 4.7 mmol/L (3.3-5.1); Sodium 137 mmol/L (135-145); Total Protein 7.4 g/dL (6.5-8.0)
[2020-10-24 13:15] LABS: Troponin-I High Sensitivity < 3.5 ng/L (<3.5-17.0)
[2020-10-24 14:00] VITALS: BP 124/78; PULSE 58; RESP 18; O2SAT 99
[2020-10-24] MEDS: iohexoL 350 MG/ML 100 ML INFUS..BTL IV (15:01)
--- NOTE | 2020-10-24 15:53 | PC.NURSE ---
late note from 151 This rn went into room to introduce self,patient not inroom at this time
== END 2020-10-24 16:02 | disposition home or self-care (01) ==
PROVIDERS: Nurse Practitioner Family; Emergency Provider Emergency Medicine; PCP Internal Medicine
DX: K21.9 Gastro-esophageal reflux disease without esophagitis (principal); J45.909 Unspecified asthma, uncomplicated; R07.89 Other chest pain; Z79.899 Other long term (current) drug therapy; Z86.16 Personal history of COVID-19
CPT/HCPCS: 36415; 71046; 71275; 80053; 84484; 85025; 85379; 93005; 99284; Q9967

== ENCOUNTER 2020-10-26 08:33 | Outpatient (REF) | payer OTHER, SELFPAY ==
--- NOTE | ~2020-10-26 | FL_ITS ---
EXAMINATION: FL BARIUM SWALLOW CLINICAL INFORMATION: Dysphagia COMPARISON: Previous barium swallow 2014 TECHNIQUE: Barium swallow examination is performed using fluoroscopic evaluation in addition to multiple fluoroscopic spot views. The patient is imaged both upright and prone and using both thick and thin sulfate along with effervescent granules. Barium tablet was also administered Fluoroscopy time: 1.4 minutes DAP: 9.2 Gycm2 Images: 44 FINDINGS: The swallowing mechanism is normal. No aspiration or penetration is seen. Esophageal motility is normal. The esophagus appears slightly distended and filled with air. There is temporary stasis of the barium tablet at the GE junction. There is severe gastroesophageal reflux. No hernia is seen. There is question of slight narrowing and mild mucosal irregularity at the GE junction as this does not appear as patulous and smooth as seen on July 2014 exam. Correlation with endoscopy recommended.. FL/FL barium swallow IMPRESSION: Severe gastroesophageal reflux. There is temporary stasis of barium tablet at the GE junction. There is question of slight narrowing at the GE junction and mild mucosal irregularity when compared with previous exam July 2014. Endoscopic correlation should be considered.
== END 2020-10-26 08:34 | disposition home or self-care (01) ==
LOC: HO.XRAY 08:33
PROVIDERS: PCP Internal Medicine; Visit Provider Internal Medicine
DX: R13.10 Dysphagia, unspecified (principal)
CPT/HCPCS: 74220

== ENCOUNTER 2020-11-13 07:46 | Outpatient (REF) | payer OTHER, SELFPAY ==
--- NOTE | 2020-11-13 | PFT_ITS ---
INDICATION: Shortness of breath. SPIROMETRY: The FEV1 to FVC 87% with an FEV1 of 2.62 L, which is 89% predicted and an FVC of 3 L, which is 82% predicted. No significant response to bronchodilators noted. Maximum voluntary ventilation 113% predicted. LUNG VOLUMES: Total lung capacity 74% predicted with a residual volume of 59% predicted and expiratory reserve volume of 55% predicted. DIFFUSION CAPACITY: DLCO 67% predicted. INTERPRETATION: No obstructive ventilatory defect and no significant response to bronchodilators noted. There is a normal maximum voluntary ventilation. However, the patient does have a mild restrictive ventilatory defect, which could be rental representative underlying interstitial lung conditions. Her expiratory reserve volume is decreased, which suggests that there may be a component of an elevated BMI. In addition to that, there is a [id number] diffusion impairment secondary to the above finding. This number does correct to normal when correcting for the alveolar volume. Clinical correlation warranted. MD SCAR Nuñez/MODL / [id number]
== END 2020-11-13 07:47 | disposition home or self-care (01) ==
LOC: HO.RESP 07:46
PROVIDERS: PCP Internal Medicine; Visit Provider Internal Medicine
DX: R06.02 Shortness of breath (principal)
CPT/HCPCS: 94060; 94727; 94729

== ENCOUNTER 2020-12-06 10:36 | Outpatient (REF) | payer OTHER, SELFPAY ==
--- NOTE | ~2020-12-06 | MM_ITS ---
EXAMINATION: MM SCREENING DIGITAL BREAST TOMOSYNTHESIS, BILATERAL CLINICAL INFORMATION: Screening. Asymptomatic. The lifetime risk of breast cancer based on the Tyrer-Cuzick Model is 14%. COMPARISON: Mammography: December 01, 2019 and studies dating back to August 21, 2014 TECHNIQUE: Digital breast tomosynthesis is performed in both the craniocaudal and mediolateral oblique views along with computer-aided detection (CAD). Synthesized 2D images are generated from the tomosynthesis. FINDINGS: The breasts are heterogeneously dense, which may obscure small masses (ACR BI-RADS breast composition Category c). There are no significant masses, abnormal calcifications, or other abnormalities. MM/MM tomosynthesis screening BI IMPRESSION: There are no significant changes from prior study. ASSESSMENT: BI-RADS 1: Negative RECOMMENDATION: Routine annual mammography screening. This patient's information was entered into a reminder system with a target due date for their next mammogram.
== END 2020-12-06 10:37 | disposition home or self-care (01) ==
LOC: HO.MAMMO 10:36
PROVIDERS: PCP Internal Medicine; Visit Provider Surgery
DX: Z12.31 Encounter for screening mammogram for malignant neoplasm of breast (principal)
CPT/HCPCS: 77063; 77067

== ENCOUNTER 2020-12-13 08:51 | Outpatient (REF) | payer OTHER, SELFPAY ==
--- NOTE | ~2020-12-13 | XR_ITS ---
EXAMINATION: XR KNEE, RIGHT CLINICAL INFORMATION: Right knee osteoarthritis. COMPARISON: Radiographs dated 10/28/2013. TECHNIQUE: Four views of the right knee. FINDINGS: Moderate lateral and mild medial compartment joint space narrowing. Tricompartmental marginal osteophytes. Mild lateral compartment subchondral sclerosis and cystic change. No significant joint effusion. No abnormal soft tissue calcification. XR/XR knee RT 3V IMPRESSION: Icdywpza-[id number]-fbfxmn lateral as well as mild medial and patellofemoral compartment osteophyte arthritis, progressed when compared to the prior radiographs.
== END 2020-12-13 08:52 | disposition home or self-care (01) ==
LOC: HO.XRAY 08:51
PROVIDERS: PCP Internal Medicine; Visit Provider Student in an Organized Health Care Education/Training Program
DX: M17.11 Unilateral primary osteoarthritis, right knee (principal)
CPT/HCPCS: 73562

== ENCOUNTER → 2020-12-25 08:53 | Outpatient (BNVA) | payer OTHER, SELFPAY | PROVIDERS: Visit Provider Orthopaedic Surgery | DX: M17.11 Unilateral primary osteoarthritis, right knee (principal) | CPT/HCPCS: 20610; 99202; J1040 ==

== ENCOUNTER → 2021-01-08 13:14 | Outpatient (BNVA) | payer SELFPAY | PROVIDERS: Visit Provider Physician Assistant ==

== ENCOUNTER 2021-02-14 07:46 | Outpatient (REF) | payer MEDICARE, MEDICAID, SELFPAY ==
[2021-02-14 08:37] LABS: MANUAL DIFF FLAG NO
[2021-02-14 08:45] LABS: Basophils Absolute Auto 0.1 X10*3/uL (0.0-0.2); Basophils Percent Auto 1.2 % (0-2); Eosinophils Absolute Auto 0.3 X10*3/uL (0.0-0.4); Eosinophils Percent Auto 5.8 % (0-4); Hematocrit 36.8 % (37-47); Hemoglobin 11.6 g/dl (12.0-16.0); Imm Gran Abs Auto 0.01 X10*3/uL (0.00-0.03); Imm Gran Pct Auto 0.2 % (0.0-0.4); Lymphocytes Absolute Auto 1.3 X10*3/uL (1.2-4.9); Mean Corpuscular HGB Conc 31.5 g/dl (31.0-35.0); Mean Corpuscular Hemoglobin 28.3 pg (27.0-33.0); Mean Corpuscular Volume 89.8 fL (80-98); Mean Platelet Volume 10.6 fL (9.4-12.3); Monocytes Absolute Auto 0.4 X10*3/uL (0.1-1.2); Monocytes Percent Auto 7.4 % (2-11); Neutrophils Percent Auto 60.4 % (45-73); Platelet Count 283 X10*3/uL (160-400); Red Cell Distribution Width 12.8 % (11.0-16.0)
[2021-02-14 09:03] LABS: Alanine Aminotransferase 22 U/L (0-31); Albumin Level 4.1 g/dL (3.5-5.0); Alkaline Phosphatase 89 U/L (39-117); Anion Gap 9 (12-20); Aspartate Amino Transferase 20 U/L (5-31); Bilirubin Total 0.6 mg/dL (0.0-1.0); Blood Urea Nitrogen 10 mg/dL (9-16); Calcium 9.5 mg/dL (8.4-10.2); Carbon Dioxide 29 mmol/L (22-29); Chloride 107 mmol/L (96-108); Cholesterol 144 mg/dL; Estimated Glomerular Filt Rate > 60; Glucose Fasting 118 mg/dL (60-99); HDL Cholesterol 47 mg/dL; LDL Cholesterol Calculated 82 mg/dl; Potassium 4.3 mmol/L (3.3-5.1); Sodium 141 mmol/L (135-145); Total Protein 7.1 g/dL (6.5-8.0); Triglycerides 76 mg/dL
[2021-02-14 09:34] LABS: Thyroid Stimulating Hormone 0.26 uIU/mL (0.32-4.0)
[2021-02-19 15:56] LABS: Vitamin D 25-OH, D2 5 ng/mL; Vitamin D 25-OH, D3 26 ng/mL; Vitamin D 25-OH, Total 31 ng/mL (30-100)
== END 2021-02-14 07:47 | disposition home or self-care (01) ==
LOC: HO.LAB 07:46
PROVIDERS: Absent Provider Internal Medicine; PCP Internal Medicine; Visit Provider Physician Assistant
DX: E78.5 Hyperlipidemia, unspecified (principal); D64.9 Anemia, unspecified; E03.9 Hypothyroidism, unspecified; E55.9 Vitamin D deficiency, unspecified
CPT/HCPCS: 36415; 80053; 80061; 82306; 84443; 85025

== ENCOUNTER → 2021-04-05 09:54 | Outpatient (BNVA) | payer MEDICARE, MEDICAID, SELFPAY | PROVIDERS: PCP Internal Medicine; Visit Provider Dietitian, Registered | DX: E66.9 Obesity, unspecified (principal) | CPT/HCPCS: 97803 ==

== ENCOUNTER → 2021-05-17 11:33 | Outpatient (BNVA) | payer MEDICARE, MEDICAID, SELFPAY | PROVIDERS: PCP Internal Medicine; Visit Provider Dietitian, Registered | DX: E66.9 Obesity, unspecified (principal); Z68.33 Body mass index [BMI] 33.0-33.9, adult | CPT/HCPCS: 97803 ==

== ENCOUNTER 2021-06-18 08:14 | Outpatient (REF) | payer MEDICARE, MEDICAID, SELFPAY ==
[2021-06-18 08:28] LABS: MANUAL DIFF FLAG NO
[2021-06-18 09:04] LABS: Basophils Absolute Auto 0.1 X10*3/uL (0.0-0.2); Basophils Percent Auto 1.4 % (0-2); Eosinophils Absolute Auto 0.3 X10*3/uL (0.0-0.4); Eosinophils Percent Auto 5.1 % (0-4); Hematocrit 37.5 % (37.0-47.0); Hemoglobin 11.8 g/dl (12.0-16.0); Imm Gran Abs Auto 0.02 X10*3/uL (0.00-0.03); Imm Gran Pct Auto 0.3 % (0.0-0.4); Lymphocytes Absolute Auto 1.8 X10*3/uL (1.2-4.9); Lymphocytes Percent Auto 28.1 % (20-40); Mean Corpuscular HGB Conc 31.5 g/dl (31.0-35.0); Mean Corpuscular Hemoglobin 28.5 pg (27.0-33.0); Mean Corpuscular Volume 90.6 fL (80.0-98.0); Mean Platelet Volume 10.2 fL (9.4-12.3); Monocytes Absolute Auto 0.4 X10*3/uL (0.1-1.2); Monocytes Percent Auto 5.7 % (2-11); Neutrophils Absolute Auto 3.9 x10*3/uL (2.0-8.3); Neutrophils Percent Auto 59.4 % (45-73); Platelet Count 305 X10*3/uL (160-400); Red Blood Count 4.14 X10*6/uL (4.20-5.50); Red Cell Distribution Width 13.9 % (11.0-16.0); White Blood Count 6.5 X10*3/uL (4.8-10.8)
[2021-06-18 09:19] LABS: Estimated Average Glucose 123 mg/dL; Hemoglobin A1C 132.5761 umol/L; Hemoglobin A1c % 5.9 %
[2021-06-18 09:42] LABS: Alanine Aminotransferase 26 U/L (0-31); Albumin Level 4.2 g/dL (3.5-5.0); Alkaline Phosphatase 89 U/L (39-117); Anion Gap 13 (12-20); Aspartate Amino Transferase 24 U/L (5-31); Bilirubin Total 0.5 mg/dL (0.0-1.0); Blood Urea Nitrogen 18 mg/dL (9-16); Calcium 9.8 mg/dL (8.4-10.2); Carbon Dioxide 29 mmol/L (22-29); Chloride 104 mmol/L (96-108); Cholesterol 168 mg/dL; Estimated Glomerular Filt Rate 52; Glucose Random 111 mg/dL (60-115); HDL Cholesterol 46 mg/dL; LDL Cholesterol Calculated 101 mg/dl; Potassium 4.7 mmol/L (3.3-5.1); Sodium 141 mmol/L (135-145); Total Protein 7.8 g/dL (6.5-8.0); Triglycerides 109 mg/dL
[2021-06-18 09:52] LABS: Thyroid Stimulating Hormone 21.18 uIU/mL (0.32-4.0)
== END 2021-06-18 08:15 | disposition home or self-care (01) ==
LOC: HO.LAB 08:14
PROVIDERS: Nurse Practitioner Acute Care; PCP Internal Medicine; Visit Provider Internal Medicine
DX: R10.11 Right upper quadrant pain (principal); K76.0 Fatty (change of) liver, not elsewhere classified; R74.01 Elevation of levels of liver transaminase levels; E03.9 Hypothyroidism, unspecified
CPT/HCPCS: 36415; 80053; 80061; 83036; 84443; 85025

== ENCOUNTER 2021-07-08 12:53 | Outpatient (REF) | payer MEDICARE, MEDICAID, SELFPAY ==
--- NOTE | ~2021-07-08 | XR_ITS ---
EXAMINATION: XR LUMBOSACRAL SPINE CLINICAL INFORMATION: Lower back pain. COMPARISON: Most recent lumbar spine radiographs dated 11/12/2018. TECHNIQUE: Three views of the lumbosacral spine. FINDINGS: Normal vertebral body alignment. The lumbar lordosis is maintained. No acute fracture or subluxation. No loss of vertebral body height. Loss of intervertebral disc height with endplate osteophytes at L4-L5 and L5-S1 with bilateral facet arthropathy, progressed when compared to the prior examination. No lytic or blastic osseous lesion. No abnormal soft tissue calcification. XR/XR lumbar spine 2-3V IMPRESSION: Moderate to severe degenerative disc disease at L4-L5 and L5-S1 with bilateral facet arthropathy, progressed when compared to the radiographs from 2019.
--- NOTE | ~2021-07-08 | US_ITS ---
EXAMINATION: US THYROID CLINICAL INFORMATION: Nontoxic goiter COMPARISON: Thyroid ultrasound 10/27/2017 TECHNIQUE: Linear transducer grayscale and color Doppler examination with attention to the region of the thyroid. FINDINGS: SIZE: Measurements of the thyroid lobes and nodules are given in sagittal, anteroposterior and transverse dimensions respectively. Right Thyroid Lobe: 1.6 x 1.0 x 0.8 cm, volume 0.7 mL. Previously: 2.1 x 1.0 x 1.0 cm, volume 1.1 mL. Parenchyma: The gland echotexture is homogeneous. Thyroid vascularity is normal. Left Thyroid Lobe: 1.2 x 0.6 x 0.8 cm, volume 0.3 mL. Previously 1.5 x 0.6 x 0.5 cm, volume 0.2 mL. Parenchyma: The gland echotexture is homogeneous. Thyroid vascularity is normal. Isthmus: 0.2 cm in maximum AP dimension. NODULES: No suspicious thyroid nodules visualized. NODES: No lymphadenopathy is seen in the tissue surrounding the thyroid gland. US/US thyroid IMPRESSION: Again demonstrated is an atrophic thyroid gland. No discrete thyroid nodules visualized.
== END 2021-07-08 12:54 | disposition home or self-care (01) ==
LOC: HO.US 12:53
PROVIDERS: PCP Internal Medicine; Visit Provider Internal Medicine
DX: E04.9 Nontoxic goiter, unspecified (principal); M54.50 Low back pain, unspecified
CPT/HCPCS: 72100; 76536

== ENCOUNTER → 2021-07-16 07:55 | Outpatient (BNVA) | payer MEDICARE, MEDICAID, SELFPAY | PROVIDERS: PCP Internal Medicine; Referring Provider Internal Medicine; Visit Provider Physician Assistant | DX: K76.0 Fatty (change of) liver, not elsewhere classified (principal); K59.09 Other constipation; R13.10 Dysphagia, unspecified | CPT/HCPCS: 99212 ==

== ENCOUNTER → 2021-07-19 11:27 | Outpatient (BNVA) | payer MEDICARE, MEDICAID, SELFPAY | PROVIDERS: PCP Student in an Organized Health Care Education/Training Program; Visit Provider Dietitian, Registered | DX: E66.9 Obesity, unspecified (principal); Z68.35 Body mass index [BMI] 35.0-35.9, adult | CPT/HCPCS: 97803 ==

== ENCOUNTER 2021-07-21 16:29 | Emergency (ER) | payer MEDICARE, MEDICAID, SELFPAY ==
--- NOTE | 2021-07-21 | ECG_ITS ---
Test Reason : CHEST PAIN Blood Pressure : / mmHG Vent. Rate : 064 BPM Atrial Rate : 064 BPM P-R Int : 146 ms QRS Dur : 090 ms QT Int : 418 ms P-R-T Axes : 023 -05 004 degrees QTc Int : 431 ms Normal sinus rhythm Minimal voltage criteria for LVH, may be normal variant ( R in aVL ) Nonspecific ST and T wave abnormality Abnormal ECG When compared with ECG of 24-OCT-2020 11:44, Hfoud-Qjuaiotrh-Pbaca is no longer Present Referred By: Generic ED Physician Electronically Signed By:JOSEPHINE KAPADIA
[2021-07-21 16:39] VITALS: BP 140/69; PULSE 66; RESP 18; TEMP 36.8; O2SAT 99; BMI 34.4
[2021-07-21 17:08] LABS: MANUAL DIFF FLAG NO
[2021-07-21 17:09] LABS: Basophils Absolute Auto 0.1 X10*3/uL (0.0-0.2); Eosinophils Absolute Auto 0.4 X10*3/uL (0.0-0.4); Eosinophils Percent Auto 4.8 % (0-4); Hematocrit 35.7 % (37.0-47.0); Hemoglobin 11.5 g/dl (12.0-16.0); Imm Gran Abs Auto 0.02 X10*3/uL (0.00-0.03); Imm Gran Pct Auto 0.3 % (0.0-0.4); Lymphocytes Absolute Auto 1.9 X10*3/uL (1.2-4.9); Lymphocytes Percent Auto 26.3 % (20-40); Mean Corpuscular HGB Conc 32.2 g/dl (31.0-35.0); Mean Corpuscular Hemoglobin 29.4 pg (27.0-33.0); Mean Corpuscular Volume 91.3 fL (80.0-98.0); Mean Platelet Volume 10.1 fL (9.4-12.3); Monocytes Absolute Auto 0.4 X10*3/uL (0.1-1.2); Neutrophils Absolute Auto 4.6 x10*3/uL (2.0-8.3); Neutrophils Percent Auto 62.6 % (45-73); Platelet Count 285 X10*3/uL (160-400); Red Blood Count 3.91 X10*6/uL (4.20-5.50); Red Cell Distribution Width 13.2 % (11.0-16.0); White Blood Count 7.3 X10*3/uL (4.8-10.8)
[2021-07-21 17:25] LABS: Alanine Aminotransferase 23 U/L (0-31); Albumin Level 4.4 g/dL (3.5-5.0); Alkaline Phosphatase 93 U/L (39-117); Anion Gap 11 (12-20); Aspartate Amino Transferase 26 U/L (5-31); Bilirubin Total 0.3 mg/dL (0.0-1.0); Blood Urea Nitrogen 10 mg/dL (9-16); Calcium 9.5 mg/dL (8.4-10.2); Carbon Dioxide 28 mmol/L (22-29); Chloride 104 mmol/L (96-108); Creatinine Clr Calc Pharmacy 74.5; Estimated Glomerular Filt Rate 56; Glucose Random 103 mg/dL (60-115); Potassium 4.1 mmol/L (3.3-5.1); Sodium 139 mmol/L (135-145); Total Protein 7.8 g/dL (6.5-8.0)
[2021-07-21 17:30] LABS: Troponin-I High Sensitivity < 3.5 ng/L (<3.5-17.0)
[2021-07-21 20:57] VITALS: BP 126/69; PULSE 64; RESP 18; O2SAT 98
== END 2021-07-21 22:33 | disposition left against medical advice (07) ==
PROVIDERS: Emergency Provider Emergency Medicine; PCP Internal Medicine
DX: M79.601 Pain in right arm (principal); R07.89 Other chest pain; Z79.899 Other long term (current) drug therapy
CPT/HCPCS: 36415; 80053; 84484; 85025; 93005; 99283

== ENCOUNTER 2021-07-23 08:18 | Outpatient (REF) | payer MEDICARE, MEDICAID, SELFPAY | END 2021-07-23 08:19 | disposition home or self-care (01) | LOC: HO.HOSX 08:18 | PROVIDERS: Visit Provider Physician Assistant | DX: Z13.89 Encounter for screening for other disorder (principal) ==

== ENCOUNTER 2021-08-22 06:41 | Outpatient (REF) | payer MEDICARE, MEDICAID, SELFPAY ==
[2021-08-22 08:53] LABS: Thyroid Stimulating Hormone 6.94 uIU/mL (0.32-4.0)
== END 2021-08-22 06:42 | disposition home or self-care (01) ==
LOC: HO.LAB 06:41
PROVIDERS: PCP Internal Medicine; Visit Provider Internal Medicine
DX: E03.9 Hypothyroidism, unspecified (principal)
CPT/HCPCS: 36415; 84443

== ENCOUNTER 2021-08-29 09:42 | Outpatient (REF) | payer MEDICARE, MEDICAID, SELFPAY ==
--- NOTE | ~2021-08-29 | FL_ITS ---
PROCEDURE: FL BARIUM SWALLOW CLINICAL INFORMATION: Acid reflux. Dysphagia. COMPARISON: 10/26/2020 TECHNIQUE: Barium swallow examination is performed using fluoroscopic evaluation in addition to multiple fluoroscopic spot views. The patient is imaged both upright and prone and using both thick and thin sulfate along with effervescent granules. Barium-coated chicken was also ingested. Fluoroscopy time: 1.8 minutes DAP: 8.45 cGy-cm2 Images: 50 FINDINGS: There is normal apposition of the vocal cords while saying E . There is normal elevation of the soft palate while saying candy . Patient swallowed materials without difficulty. No nasopharyngeal reflux or tracheal aspiration identified. No Zenker's diverticulum or cricopharyngeal hypertrophy seen. There is normal esophageal motility. No persistent stricture or mucosal abnormalities are seen. No hiatal hernia is noted. On this study there was no evidence of gastroesophageal reflux including with water siphon test. There is distention of the esophagus. FL/FL barium swallow IMPRESSION: No significant abnormality of the esophagus identified. Previously noted free gastroesophageal reflux was not seen today including with water siphon test.
--- NOTE | ~2021-08-29 | XR_ITS ---
EXAMINATION: XR HIP WITH AP PELVIS, RIGHT CLINICAL INFORMATION: Pain without injury. COMPARISON: None TECHNIQUE: AP and frog-leg lateral views of the right hip are submitted, together with an AP view of the pelvis. FINDINGS: Bony alignment and mineralization are normal. The acetabular joint spaces are well maintained. There are tiny peripheral osteophytes of the acetabular roofs. No fracture or dislocation is seen. The femoral heads are smooth. The sacroiliac joints are symmetric, and the pubic symphysis is intact. The soft tissue planes are unremarkable. XR/XR hip RT w PEL1V IMPRESSION: There are very mild degenerative changes of the bilateral hips. No fracture or dislocation is seen.
== END 2021-08-29 09:43 | disposition home or self-care (01) ==
LOC: HO.XRAY 09:42
PROVIDERS: Visit Provider Physician Assistant
DX: M25.551 Pain in right hip (principal); R13.10 Dysphagia, unspecified
CPT/HCPCS: 73502; 74220

== ENCOUNTER → 2021-09-10 10:16 | Outpatient (BNVA) | payer MEDICARE, MEDICAID, SELFPAY | PROVIDERS: PCP Internal Medicine; Referring Provider Internal Medicine; Visit Provider Physician Assistant | DX: K59.09 Other constipation (principal); K76.0 Fatty (change of) liver, not elsewhere classified; J45.909 Unspecified asthma, uncomplicated; R13.10 Dysphagia, unspecified | CPT/HCPCS: 99212 ==

== ENCOUNTER 2021-09-18 06:00 | Outpatient (REF) | payer MEDICARE, MEDICAID, SELFPAY ==
[2021-09-18 08:28] LABS: Thyroid Stimulating Hormone 5.71 uIU/mL (0.32-4.0)
== END 2021-09-18 06:01 | disposition home or self-care (01) ==
LOC: HO.LAB 06:00
PROVIDERS: PCP Internal Medicine; Visit Provider Internal Medicine
DX: E03.9 Hypothyroidism, unspecified (principal)
CPT/HCPCS: 36415; 84443

== ENCOUNTER → 2021-09-26 12:50 | Outpatient (BNVA) | payer MEDICARE, MEDICAID, SELFPAY | PROVIDERS: Visit Provider Physician Assistant | DX: M17.11 Unilateral primary osteoarthritis, right knee (principal) | CPT/HCPCS: 20610; 99212; J1040 ==

== ENCOUNTER 2021-10-14 13:06 | Outpatient (REF) | payer MEDICARE, MEDICAID, SELFPAY ==
--- NOTE | ~2021-10-14 | XR_ITS ---
EXAMINATION: XR CHEST CLINICAL INFORMATION: Asthma. Acute exacerbation. COMPARISON: None TECHNIQUE: Frontal view of the chest was obtained. FINDINGS: No significant abnormality is noted involving the heart, lungs, mediastinum, bony thorax or soft tissues. XR/XR chest 1V IMPRESSION: Unremarkable chest examination.
== END 2021-10-14 13:07 | disposition home or self-care (01) ==
LOC: HO.XRAY 13:06
PROVIDERS: PCP Internal Medicine; Visit Provider Hospitalist
DX: R07.9 Chest pain, unspecified (principal); J45.901 Unspecified asthma with (acute) exacerbation
CPT/HCPCS: 71045

== ENCOUNTER → 2021-10-16 11:34 | Outpatient (BNVA) | payer MEDICARE, MEDICAID, SELFPAY | PROVIDERS: Visit Provider Obstetrics & Gynecology | DX: Z01.419 Encounter for gynecological examination (general) (routine) without abnormal findings (principal) ==

== ENCOUNTER → 2021-10-29 14:45 | Outpatient (BNVA) | payer MEDICARE, MEDICAID, SELFPAY | PROVIDERS: PCP Internal Medicine; Visit Provider Internal Medicine Endocrinology, Diabetes & Metabolism | DX: E03.9 Hypothyroidism, unspecified (principal) | CPT/HCPCS: 99202 ==

== ENCOUNTER 2021-11-09 08:14 | Outpatient (REF) | payer MEDICARE, MEDICAID, SELFPAY ==
[2021-11-09 10:02] LABS: Free T4 (Free Thyroxine) 1.11 ng/dL (0.71-1.85); Thyroid Stimulating Hormone 0.42 uIU/mL (0.32-4.0)
[2021-11-11 14:45] LABS: Thyroid Peroxidase Antibodies 6 IU/mL (<9)
== END 2021-11-09 08:15 | disposition home or self-care (01) ==
LOC: HO.LAB 08:14
PROVIDERS: Absent Provider Internal Medicine; PCP Internal Medicine; Visit Provider Internal Medicine Endocrinology, Diabetes & Metabolism
DX: E03.9 Hypothyroidism, unspecified (principal)
CPT/HCPCS: 36415; 84439; 84443; 86376

== ENCOUNTER 2021-12-09 10:08 | Outpatient (REF) | payer MEDICARE, MEDICAID, SELFPAY ==
--- NOTE | ~2021-12-09 | MM_ITS ---
EXAMINATION: MM SCREENING DIGITAL BREAST TOMOSYNTHESIS, BILATERAL CLINICAL INFORMATION: Screening. Asymptomatic. The lifetime risk of breast cancer based on the Tyrer-Cuzick Model is 16%. COMPARISON: Mammography: 12/06/2020, 12/01/2019, 08/19/2018 TECHNIQUE: Digital breast tomosynthesis is performed in both the craniocaudal and mediolateral oblique views along with computer-aided detection (CAD). Synthesized 2D images are generated from the tomosynthesis. FINDINGS: The breasts are heterogeneously dense, which may obscure small masses (ACR BI-RADS breast composition Category c). Parenchymal pattern is similar to prior studies. There is no developing density or architectural abnormality. Left breast has incidental small intramammary node mid outer quadrant. Right breast has chronic oval nodular asymmetry with some associated peripheral coarse calcifications suggesting degenerating fibroadenoma. The axilla and skin contours are unremarkable. No significant changes. MM/MM tomosynthesis screening BI IMPRESSION: No significant changes from prior exams. ASSESSMENT: BI-RADS 2: Benign RECOMMENDATION: Routine annual mammography screening. This patient's information was entered into a reminder system with a target due date for their next mammogram.
== END 2021-12-09 10:09 | disposition home or self-care (01) ==
LOC: HO.MAMMO 10:08
PROVIDERS: PCP Internal Medicine; Visit Provider Internal Medicine
DX: Z12.31 Encounter for screening mammogram for malignant neoplasm of breast (principal)
CPT/HCPCS: 77063; 77067

== ENCOUNTER 2021-12-11 17:30 | Outpatient (REF) | payer MEDICARE, MEDICAID, SELFPAY | END 2021-12-11 17:31 | disposition home or self-care (01) | LOC: HO.LNP 17:30 | PROVIDERS: Visit Provider Internal Medicine | DX: R30.0 Dysuria (principal) | CPT/HCPCS: 87086 ==

== ENCOUNTER 2021-12-12 11:47 | Outpatient (REF) | payer MEDICARE, MEDICAID, SELFPAY ==
--- NOTE | ~2021-12-12 | XR_ITS ---
EXAMINATION: XR ABDOMEN KUB CLINICAL INDICATION: Calculus of kidney COMPARISON: None TECHNIQUE: AP view of the abdomen. FINDINGS: There is scattered moderate stool in the colon without any distention. The small bowel loops are normal caliber. There is no organomegaly. No radiopaque calculi seen in the kidneys or the bladder. XR/XR KUB IMPRESSION: Mild constipation. No radiopaque calculi seen in the kidneys, however limited due to overlying colon containing gas and stool.
== END 2021-12-12 11:48 | disposition home or self-care (01) ==
LOC: HO.XRAY 11:47
PROVIDERS: PCP Internal Medicine; Visit Provider Internal Medicine
DX: N20.0 Calculus of kidney (principal)
CPT/HCPCS: 74018

== ENCOUNTER 2021-12-16 06:23 | Outpatient (REF) | payer MEDICARE, MEDICAID, SELFPAY ==
[2021-12-16 08:11] LABS: Thyroid Stimulating Hormone 0.83 uIU/mL (0.32-4.0)
== END 2021-12-16 06:24 | disposition home or self-care (01) ==
LOC: HO.LAB 06:23
PROVIDERS: PCP Internal Medicine; Visit Provider Internal Medicine
DX: R10.2 Pelvic and perineal pain (principal); E03.9 Hypothyroidism, unspecified
CPT/HCPCS: 36415; 84443

== ENCOUNTER 2021-12-17 11:28 | Outpatient (REF) | payer MEDICARE, MEDICAID, SELFPAY ==
[2021-12-17 11:35] LABS: Appearance Urine CLEAR; Color Urine YELLOW; Glucose Urine UA NEG (NEG); Leukocyte Esterase Urine 1+ (NEG); Nitrite Urine NEG (NEG); Specific Gravity - Urine <= 1.005 (1.005-1.025); Urine Blood NEG (NEG); Urine Ketones NEG (NEG); Urine Protein NEG (NEG-TRACE)
[2021-12-17 11:44] LABS: Bacteria Urine 1+ /LPF; RBC Urine 0 /HPF (0); Squamous Epithelial Cell Urine 1+ /LPF
[2021-12-17 11:45] LABS: Amorphous Sediment Urine 1+ /LPF
== END 2021-12-17 11:29 | disposition home or self-care (01) ==
LOC: HO.LNP 11:28
PROVIDERS: Visit Provider Family Medicine
DX: R30.0 Dysuria (principal)
CPT/HCPCS: 81001; 87086

== ENCOUNTER 2021-12-30 07:45 | Outpatient (REF) | payer MEDICARE, MEDICAID, SELFPAY ==
--- NOTE | ~2021-12-30 | XR_ITS ---
EXAMINATION: XR AP STANDING BILATERAL KNEES XR RIGHT KNEE CLINICAL INFORMATION: Pain. COMPARISON: None. TECHNIQUE: AP bilateral knee standing. Right knee 2 views. FINDINGS: AP BILATERAL KNEE: There is a loss of medial compartment joint space both knees with periarticular spurring right knee. No bony erosive changes. No loose bodies. No visible acute fracture or dislocation. Right Knee: There is mild loss of patellofemoral compartment joint space with minimal superior patellar enthesophyte. No abnormal joint effusion seen. No visible acute fracture or dislocation seen. XR/XR knee RT 2V IMPRESSION: Mild degenerative changes tricompartment right knee with periarticular spurring lateral and patellofemoral compartments. No visible acute fracture or dislocation seen. No abnormal joint effusion. Mild reduction in the medial compartment left knee joint suggestive of early degenerative changes.
--- NOTE | ~2021-12-30 | XR_ITS ---
EXAMINATION: XR AP STANDING BILATERAL KNEES XR RIGHT KNEE CLINICAL INFORMATION: Pain. COMPARISON: None. TECHNIQUE: AP bilateral knee standing. Right knee 2 views. FINDINGS: AP BILATERAL KNEE: There is a loss of medial compartment joint space both knees with periarticular spurring right knee. No bony erosive changes. No loose bodies. No visible acute fracture or dislocation. Right Knee: There is mild loss of patellofemoral compartment joint space with minimal superior patellar enthesophyte. No abnormal joint effusion seen. No visible acute fracture or dislocation seen. XR/XR knee standing BI IMPRESSION: Mild degenerative changes tricompartment right knee with periarticular spurring lateral and patellofemoral compartments. No visible acute fracture or dislocation seen. No abnormal joint effusion. Mild reduction in the medial compartment left knee joint suggestive of early degenerative changes.
== END 2021-12-30 07:46 | disposition home or self-care (01) ==
LOC: HO.HOSX 07:45
PROVIDERS: Visit Provider Physician Assistant
DX: M17.11 Unilateral primary osteoarthritis, right knee (principal); M25.562 Pain in left knee
CPT/HCPCS: 73560; 73565; 99212

== ENCOUNTER → 2022-02-07 08:53 | Outpatient (BNVA) | payer MEDICARE, MEDICAID, SELFPAY | PROVIDERS: PCP Internal Medicine; Visit Provider Physician Assistant | DX: M17.11 Unilateral primary osteoarthritis, right knee (principal) | CPT/HCPCS: 20610; J7318 ==

== ENCOUNTER 2022-02-14 08:52 | Outpatient (REF) | payer MEDICARE, MEDICAID, SELFPAY ==
[2022-02-14 10:09] LABS: Appearance Urine Cloudy; Color Urine Yellow; Glucose Urine UA Negative (Negative); Leukocyte Esterase Urine Large (3+) (Negative); Nitrite Urine Negative (Negative); PH 7.5 (5.0-9.0); UMIC TRIGGER UA YES; Urine Blood Negative (Negative); Urine Ketones Negative (Negative); Urine Protein Trace mg/dL (Neg-Trace)
[2022-02-14 10:28] LABS: Bacteria Urine 4+ (None Seen); Squamous Epithelial Cell Urine >20 /HPF (0-2); WBC Urine 21-50 /HPF (0-5)
[2022-02-14 10:41] LABS: Thyroid Stimulating Hormone 1.76 uIU/mL (0.32-4.0)
== END 2022-02-14 08:53 | disposition home or self-care (01) ==
LOC: HO.LAB 08:52
PROVIDERS: Family Medicine; PCP Internal Medicine; Visit Provider Internal Medicine
DX: E03.9 Hypothyroidism, unspecified (principal)
CPT/HCPCS: 36415; 81001; 81003; 84443

== ENCOUNTER 2022-02-18 14:46 | Outpatient (REF) | payer MEDICARE, MEDICAID, SELFPAY ==
--- NOTE | ~2022-02-18 | US_ITS ---
EXAMINATION: US PELVIS CLINICAL INFORMATION: Pain. History of unilateral oophorectomy COMPARISON: Previous pelvic ultrasounds most recent January 2020 TECHNIQUE: Ultrasound of the pelvis is performed using both transabdominal and transvaginal transducers along with Doppler. Transvaginal imaging is performed due to inadequate visualization transabdominally. FINDINGS: The uterus is anteverted and measures 6 x 3.3 x 3.9 cm in dimension. There are 2 focal uterine lesions suggestive of fibroids subserosal to the fundus measuring 1 cm and right lateral uterine body measuring 1 cm. No other focal uterine lesion. Endometrial thickness is normal measuring 0.4 cm. There are nabothian cysts in the cervix. Ovaries are not seen. There is no fluid in the pelvis. US/US pelvic and transvaginal IMPRESSION: Small uterine fibroids. Normal thickness endometrium. Ovaries not seen.
== END 2022-02-18 14:47 | disposition home or self-care (01) ==
LOC: HO.US 14:46
PROVIDERS: Visit Provider Internal Medicine
DX: R10.2 Pelvic and perineal pain (principal)
CPT/HCPCS: 76830; 76856

== ENCOUNTER → 2022-02-25 09:30 | Outpatient (BNVA) | payer MEDICARE, MEDICAID, SELFPAY | PROVIDERS: PCP Internal Medicine; Visit Provider Internal Medicine Endocrinology, Diabetes & Metabolism | DX: E03.9 Hypothyroidism, unspecified (principal) | CPT/HCPCS: 99212 ==

== ENCOUNTER → 2022-02-26 09:13 | Outpatient (BNVA) | payer MEDICARE, MEDICAID, SELFPAY | PROVIDERS: PCP Internal Medicine; Visit Provider Dietitian, Registered | DX: E66.9 Obesity, unspecified (principal); Z71.3 Dietary counseling and surveillance | CPT/HCPCS: 97803 ==

== ENCOUNTER → 2022-03-13 07:59 | Outpatient (BNVA) | payer MEDICARE, MEDICAID, SELFPAY | PROVIDERS: PCP Internal Medicine; Referring Provider Internal Medicine; Visit Provider Physician Assistant | DX: R13.10 Dysphagia, unspecified (principal); R10.11 Right upper quadrant pain; K76.0 Fatty (change of) liver, not elsewhere classified; J45.909 Unspecified asthma, uncomplicated; K21.9 Gastro-esophageal reflux disease without esophagitis | CPT/HCPCS: 99212 ==

== ENCOUNTER 2022-03-17 07:18 | Outpatient (REF) | payer MEDICARE, MEDICAID, SELFPAY ==
[2022-03-17 07:23] LABS: MANUAL DIFF FLAG NO
[2022-03-17 08:10] LABS: Basophils Absolute Auto 0.1 X10*3/uL (0.0-0.2); Basophils Percent Auto 1.3 % (0-2); Eosinophils Absolute Auto 0.3 X10*3/uL (0.0-0.4); Eosinophils Percent Auto 5.8 % (0-4); Hematocrit 36.3 % (37.0-47.0); Hemoglobin 11.7 g/dl (12.0-16.0); Imm Gran Abs Auto 0.01 X10*3/uL (0.00-0.03); Imm Gran Pct Auto 0.2 % (0.0-0.4); Lymphocytes Absolute Auto 1.6 X10*3/uL (1.2-4.9); Lymphocytes Percent Auto 28.3 % (20-40); Mean Corpuscular HGB Conc 32.2 g/dl (31.0-35.0); Mean Corpuscular Hemoglobin 28.8 pg (27.0-33.0); Mean Corpuscular Volume 89.4 fL (80.0-98.0); Mean Platelet Volume 10.8 fL (9.4-12.3); Monocytes Absolute Auto 0.4 X10*3/uL (0.1-1.2); Monocytes Percent Auto 7.1 % (2-11); Neutrophils Absolute Auto 3.1 x10*3/uL (2.0-8.3); Neutrophils Percent Auto 57.3 % (45-73); Platelet Count 300 X10*3/uL (160-400); Red Blood Count 4.06 X10*6/uL (4.20-5.50); White Blood Count 5.5 X10*3/uL (4.8-10.8)
[2022-03-17 08:46] LABS: Alanine Aminotransferase 29 U/L (0-31); Albumin Level 4.3 g/dL (3.5-5.0); Alkaline Phosphatase 95 U/L (39-117); Aspartate Amino Transferase 24 U/L (5-31); Bilirubin Direct 0.2 mg/dL (0.0-0.5); Bilirubin Total 0.5 mg/dL (0.0-1.0); Cholesterol 143 mg/dL; HDL Cholesterol 45 mg/dL; LDL Cholesterol Calculated 81 mg/dl; Total Protein 7.5 g/dL (6.5-8.0); Triglycerides 89 mg/dL
== END 2022-03-17 07:19 | disposition home or self-care (01) ==
LOC: HO.LAB 07:18
PROVIDERS: PCP Internal Medicine; Visit Provider Physician Assistant
DX: R10.11 Right upper quadrant pain (principal); R13.10 Dysphagia, unspecified; K76.0 Fatty (change of) liver, not elsewhere classified
CPT/HCPCS: 36415; 80061; 80076; 85025

== ENCOUNTER 2022-03-27 09:34 | Outpatient (REF) | payer MEDICARE, MEDICAID, SELFPAY ==
[2022-03-27 11:19] LABS: Appearance Urine Clear; Color Urine Yellow; Glucose Urine UA Negative (Negative); Leukocyte Esterase Urine Negative (Negative); Nitrite Urine Negative (Negative); Urine Blood Negative (Negative); Urine Ketones Negative (Negative); Urine Protein Negative (Neg-Trace)
[2022-03-27 11:27] LABS: Bacteria Urine None Seen (None Seen); Hyaline Casts Urine 0-2 /LPF (0-2); RBC Urine 0-2 /HPF (0-2); Squamous Epithelial Cell Urine 0-2 /HPF (0-2); WBC Urine 0-5 /HPF (0-5)
== END 2022-03-27 09:35 | disposition home or self-care (01) ==
LOC: HO.LAB 09:34
PROVIDERS: PCP Internal Medicine; Visit Provider Internal Medicine
DX: R30.0 Dysuria (principal)
CPT/HCPCS: 81003

== ENCOUNTER 2022-04-21 08:14 | Outpatient (REF) | payer MEDICARE, MEDICAID, SELFPAY ==
[2022-04-21 09:03] LABS: Appearance Urine Cloudy; Color Urine Yellow; Glucose Urine UA Negative (Negative); Leukocyte Esterase Urine Trace (Negative); Nitrite Urine Negative (Negative); PH 6.5 (5.0-9.0); UMIC TRIGGER UA YES; Urine Blood Negative (Negative); Urine Ketones Negative (Negative); Urine Protein Negative (Neg-Trace)
[2022-04-21 09:09] LABS: Bacteria Urine 1+ (None Seen); Hyaline Casts Urine 0-2 /LPF (0-2); RBC Urine 0-2 /HPF (0-2); WBC Urine 0-5 /HPF (0-5)
[2022-04-21 09:43] LABS: Thyroid Stimulating Hormone 1.17 uIU/mL (0.32-4.0)
== END 2022-04-21 08:15 | disposition home or self-care (01) ==
LOC: HO.LAB 08:14
PROVIDERS: Family Medicine; PCP Internal Medicine; Visit Provider Internal Medicine
DX: E03.9 Hypothyroidism, unspecified (principal)
CPT/HCPCS: 36415; 81001; 81003; 84443

== ENCOUNTER 2022-05-29 08:25 | Emergency (ER) | payer MEDICARE, MEDICAID, SELFPAY ==
--- NOTE | ~2022-05-29 | XR_ITS ---
EXAMINATION: XR CHEST CLINICAL INFORMATION: SOB/cough COMPARISON: None TECHNIQUE: Frontal view of the chest was obtained. FINDINGS: No significant abnormality is noted involving the heart, lungs, mediastinum, bony thorax or soft tissues. XR/XR chest 1V IMPRESSION: Unremarkable chest.
[2022-05-29 08:29] VITALS: BP 138/90; PULSE 72; RESP 18; TEMP 36.6; O2SAT 96; BMI 35.2
[2022-05-29 08:45] LABS: MANUAL DIFF FLAG NO
[2022-05-29 08:46] LABS: Basophils Percent Auto 0.6 % (0-2); Eosinophils Absolute Auto 0.1 X10*3/uL (0.0-0.4); Eosinophils Percent Auto 1.4 % (0-4); Hemoglobin 12.6 g/dl (12.0-16.0); Imm Gran Abs Auto 0.02 X10*3/uL (0.00-0.03); Imm Gran Pct Auto 0.3 % (0.0-0.4); Lymphocytes Absolute Auto 1.6 X10*3/uL (1.2-4.9); Lymphocytes Percent Auto 25.4 % (20-40); Mean Corpuscular HGB Conc 31.5 g/dl (31.0-35.0); Mean Corpuscular Hemoglobin 27.7 pg (27.0-33.0); Mean Corpuscular Volume 87.9 fL (80.0-98.0); Mean Platelet Volume 9.7 fL (9.4-12.3); Monocytes Absolute Auto 0.5 X10*3/uL (0.1-1.2); Monocytes Percent Auto 7.4 % (2-11); Neutrophils Absolute Auto 4.2 x10*3/uL (2.0-8.3); Neutrophils Percent Auto 64.9 % (45-73); Platelet Count 279 X10*3/uL (160-400); Red Blood Count 4.55 X10*6/uL (4.20-5.50); Red Cell Distribution Width 12.8 % (11.0-16.0); White Blood Count 6.4 X10*3/uL (4.8-10.8)
[2022-05-29 09:23] LABS: Influenza A PCR POSITIVE (Negative); Influenza B PCR NEGATIVE (Negative); Resp Syncy Virus RNA Qual PCR NEGATIVE (Negative); SARS COV2 PCR INHOUSE NEGATIVE (Negative)
[2022-05-29 10:07] LABS: Anion Gap 14 (12-20); Blood Urea Nitrogen 12 mg/dL (9-16); Carbon Dioxide 25 mmol/L (22-29); Chloride 105 mmol/L (96-108); Creatinine Clr Calc Pharmacy 79.2; Estimated Glomerular Filt Rate > 60; Glucose Random 126 mg/dL (60-115); Potassium 4.2 mmol/L (3.3-5.1); Sodium 140 mmol/L (135-145)
--- NOTE | 2022-05-29 10:18 | ED_ITS ---
HPI - URI/Sore Throat General Chief Complaint: Upper Respiratory Symptoms Stated Complaint: diff breathing chest pain cough Time Seen by Provider: 05/29/22 10:16 Source: patient Mode of arrival: ambulatory Limitations: no limitations History of Present Illness HPI Narrative: 56-year-old female with past medical history of asthma, post COVID-19 syndrome, hypothyroid, polyarthralgia, and GERD presents to the emergency department today for complaints of coughing up phlegm with blood x4 days with associated sore th roat, left ear pain, and shortness of breath. She reporst she has used her albuterol inhalers at home with mild reduction in shortness or breath. She states she has been managing her cough at home with van and honey with moderate effect in reduction of cough. She denies fever, chills, headache, changes in vision, or chest pain. MD elicited complaint: cough Pertinent past history: asthma Onset (ago): day(s) (4) Consistency: constant Severity: moderate Description of mucous: clear and bloody Able to tolerate fluids by mouth: Yes Exacerbating factors: deep breaths Relieving factors: nothing Treatments prior to arrival: none Related Data Home Medications Medication Instructions Recorded Confirmed lorazepam 0.5 mg tablet 0.5 mg PO DAILY PRN 03/02/20 05/06/22 ropinirole 0.5 mg tablet 0.5 mg PO BEDTIME 03/02/20 05/06/22 sertraline 50 mg tablet 50 mg PO DAILY 03/02/20 05/06/22 sertraline 100 mg tablet 100 mg PO 10/29/21 05/06/22 Previous Rx's Medication Instructions Recorded loratadine 10 mg tablet 10 mg PO DAILY 90 days #90 tabs 10/17/20 Knee brace #1 ea 12/04/20 cholecalciferol (vitamin D3) 50 50 mcg PO DAILY #30 caps 06/04/21 mcg (2,000 unit) capsule docusate sodium 100 mg capsule 200 mg PO BEDTIME #60 caps 07/16/21 (Colace) polyethylene glycol 3350 17 17 g PO DAILY #510 grams 07/16/21 gram/dose oral powder (Miralax) simethicone 125 mg chewable tablet 125 mg PO QID PRN abdominal 07/16/21 distention 30 days #120 tabs albuterol sulfate 90 mcg/actuation 2 puff inhalation Q4-6H PRN 10/14/21 aerosol inhaler shortness of breath or wheezing #6.7 grams cetirizine 10 mg tablet (All Day 10 mg PO DAILY #90 tabs 10/14/21 Allergy (cetirizine)) fluticasone propionate 50 2 spray intranasal DAILY 1 month 10/14/21 mcg/actuation nasal #16 grams spray,suspension (Allergy Relief (fluticasone)) Grab bar #2 ea 10/15/21 fluticasone furoate 50 1 inh inhalation DAILY 30 days #30 10/15/21 mcg/actuation blister powder for ea inhalation (Arnuity Ellipta) commode #1 ea 12/11/21 levothyroxine 112 mcg tablet 112 mcg PO DAILY 90 days #90 tabs 12/11/21 rosuvastatin 10 mg tablet 10 mg PO BEDTIME 90 days #90 tabs 02/13/22 bisacodyl 5 mg tablet,delayed 10 mg PO ONCE colonoscopy prep 1 03/13/22 release (Dulcolax (bisacodyl)) day #2 tabs polyethylene glycol 3350 17 238 g PO ONCE 1 day #238 grams 03/13/22 gram/dose oral powder (Miralax) pantoprazole 40 mg tablet,delayed 40 mg PO DAILY #30 tabs 03/14/22 release meloxicam 15 mg tablet 15 mg PO DAILY #30 tabs 05/11/22 Allergies Allergy/AdvReac Type Severity Reaction Status Date / Time Sulfa (Sulfonamide Allergy Severe SWELLING Verified 05/06/22 12:54 Antibiotics) [Sulfa (Sulfonamides)] cbd Allergy Intermediate chest pain Uncoded 05/06/22 12:54 Review of Systems Review of Systems: In addition to documented HPI above, the additional ROS was obtained: Constitutional: No Weight loss, No Fever, No Chills ENT/Mouth: No Sinus Pain, No Hoarseness, No Rhinorrhea, No Swallowing Difficulty Cardiovascular: No Chest Pain, Respiratory: No Wheezing Gastrointestinal: No Diarrhea, No Constipation, No Abdominal pain Genitourinary: No Dysuria, No Urinary Frequency, No Hematuria, No Urgency Musculoskeletal: No joint pain, No Myalgias, No Joint Swelling Skin: No Skin Lesions, No rash Neuro: No Weakness, No Numbness, No Paresthesias Yes all other systems are reviewed and are negative PMFSH Past Medical History Attestation statement: The following information was validated with the patient. Source: old records reviewed Medical History Anxiety Asthma COVID-19 Depression with anxiety Dyslipidemia Dysphagia Fatty liver Fibromyalgia HUONG (generalized anxiety disorder) High cholesterol Hypothyroid Hypothyroidism Lumbar pain Mild recurrent major depression Nausea Osteoarthritis Osteoarthritis of left hip Osteoarthritis of right knee Polyarthralgia [id number] syndrome Shortness of breath Surgical History H/O oophorectomy History of blepharoplasty History of removal of ovarian cyst Tubal ligation status Family History Family History Sister Breast CA Pancreatic cancer Sister Breast CA Father Myocardial infarction Diabetes Hypertension CVD (cardiovascular disease) Mother Heart problem Daughter In good health Social History Social History Household Members: None Housing: Apartment Alcohol intake: never Patient Tobacco Use Status: Former Tobacco user Tobacco use type: Cigarette e-Cigarette/Vaping Use: Never Used Second Hand Smoke Exposure: No Advance Directives: No Advance Directives Information Provided: Yes service: No Current occupational status: disabled Cognitive needs: Yes Hearing needs: No Vision needs: No Physical Exam Vital Signs: Vital Signs: Last Vital Signs Temp 98.3 F 05/29/22 11:05 Pulse 76 05/29/22 11:30 Resp 17 05/29/22 11:30 BP 123/83 05/29/22 11:05 Pulse Ox 97 05/29/22 11:05 O2 Del Method 05/29/22 11:05 BMI result Body Mass Index 35.2 Const: General: cooperative, alert and awake Nutritional Appearance: well nourished Orientation/consciousness: patient oriented x3 Limitations: no limitations HEENT: Head: Yes normal to inspection, Yes normocephalic and Yes atraumatic Ears: hearing grossly normal bilaterally, external ears normal, TM normal on the right and TM abnormal with fluid behind the TM on the left General nose exam: Normal external nose present and Normal nares present Face and sinus: Yes normal facial exam and Yes face symmetric Mouth: Normal oral and palatal mucosa present and tongue normal Teeth and gingiva: dentition normal Throat: Yes posterior oropharynx normal, Yes tonsils normal and Yes uvula midline Eyes: General: appearance normal, both eyes and all related structures Visual Beard: normal visual beard by confrontation Alignment and Position: alignment normal Periorbital: periorbital findings normal Eyelids: Yes eyelids normal Conjunctivae: conjunctivae normal Sclerae: sclerae normal Corneas: corneas normal Pupils: Equal, round and reactive pupils present EOM: EOMs intact bilaterally Neck: Neck: Yes normal visual inspection, Yes full ROM and Yes no lymphadenopathy Chest: Chest palpation & inspection: normal inspection of the chest Resp: Effort & Inspection: normal respiratory effort, Actively coughing and not labored Auscultation: clear to auscultation bilaterally, no crackles, no rhonchi and no wheezes Cardio: Rate: regular rate Rhythm: regular rhythm Back/Spine/Pelvis: Cervical Spine: cervical ROM normal Thoracic/Lumbar Spine: thoraco-lumbar ROM normal Skin: General skin exam: no rashes or lesions noted Neuro: General: patient oriented x3, tone normal and moves all extremities Cranial nerves: Yes Equal, round and reactive pupils present Cognition (Neuro): normal cognition Gait exam (Neuro): Normal gait present Motor exam (neuro): 5/5 motor strength present throughout Extrem: General: Yes normal to inspection, Yes full ROM and Yes capillary refill normal Psych: Appearance: grossly normal Mental Status: mental status grossly normal Speech and movement: Normal speech and movement present Affect: normal affect Attitude: cooperative Thought process: Normal thought process present Thought content: Normal thought content present Insight: Good insight present (Psych) Judgement: Good judgement present (Psych) Medications Administered Discontinued Medications Generic Name Dose Route Start Last Admin Trade Name Freq PRN Reason Stop Dose Admin Albuterol Sulfate 2.5 mg/ 5 mg 05/29/22 10:33 05/29/22 11:28 Albuterol Sulfate 2.5 mg INHALE 05/29/22 10:34 5 mg ONCE ONE Administration Medical Decision Making Medical Decision Making MDM Narrative: 56-year-old female with past medical history of asthma, post COVID-19 syndrome, hypothyroid, polyarthralgia, and GERD presents to the emergency department today for complaints of coughing up phlegm with blood x 4 days with associated sore throat, left ear pain, and shortness of breath. Serology positive for influenza A, negative for influenze B, RSV, or Covid-19. Chest xray unremarkable. Albuterol neb treatment given in the ED with Lab Data MDM Lab Attestation statement: I reviewed the patient's lab results. Result Diagrams: 05/29/22 08:41 05/29/22 08:41 Labs: Lab Results 05/29/22 05/29/22 05/29/22 Range/Units 08:41 08:41 08:41 WBC 6.4 (4.8-10.8) X10*3/uL RBC 4.55 (4.20-5.50) X10*6/uL Hgb 12.6 (12.0-16.0) g/dl Hct 40.0 (37.0-47.0) % MCV 87.9 (80.0-98.0) fL MCH 27.7 (27.0-33.0) pg MCHC 31.5 (31.0-35.0) g/dl RDW 12.8 (11.0-16.0) % Plt Count 279 (160-400) X10*3/uL MPV 9.7 (9.4-12.3) fL Immature Gran % (Auto) 0.3 (0.0-0.4) % Neut % (Auto) 64.9 (45-73) % Lymph % (Auto) 25.4 (20-40) % [place] % (Auto) 7.4 (2-11) % Eos % (Auto) 1.4 (0-4) % Baso % (Auto) 0.6 (0-2) % Lymph # (Auto) 1.6 (1.2-4.9) X10*3/uL [place] # (Auto) 0.5 (0.1-1.2) X10*3/uL Eos # (Auto) 0.1 (0.0-0.4) X10*3/uL Baso # (Auto) 0.0 (0.0-0.2) X10*3/uL Abs Immat Gran (auto) 0.02 (0.00-0.03) X10*3/uL Absolute Neuts (auto) 4.2 (2.0-8.3) x10*3/uL Absolute Nucleated RBC 0.000 (0.0-0.012) X10*3/uL Nucleated RBC % (auto) 0.0 (0.0-0.2) /100WBC Sodium 140 (135-145) mmol/L Potassium 4.2 (3.3-5.1) mmol/L Chloride 105 (96-108) mmol/L Carbon Dioxide 25 (22-29) mmol/L Anion Gap 14 (12-20) BUN 12 (9-16) mg/dL Creatinine 0.95 (0.5-1.4) mg/dL Estim Creat Clear Calc 79.2 Estimated GFR > 60 Random Glucose 126 H (60-115) mg/dL Calcium 9.0 (8.4-10.2) mg/dL Influenza Type A (PCR) POSITIVE A (Negative) Influenza Type B (PCR) NEGATIVE (Negative) RSV RNA Qual (PCR) NEGATIVE (Negative) SARS-CoV-2 RNA (RT-PCR) NEGATIVE (Negative) Radiology Impression Discussion of test interpretation with radiology: I have reviewed the radiologist's reading. Radiologist Impression: EXAMINATION: XR CHEST CLINICAL INFORMATION: SOB/cough COMPARISON: None TECHNIQUE: Frontal view of the chest was obtained. FINDINGS: No significant abnormality is noted involving the heart, lungs, mediastinum, bony thorax or soft tissues. XR/XR chest 1V IMPRESSION: Unremarkable chest. ? Dictated By: Mich Small MD Signed By: <Electronically signed by Mich Small MD in OV> 05/29/22 0929 DD/ 0845 TD/TT:? 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 This is a viral infection that does not require antibiotics. He may manage her symptoms at home with the use of [id number] Tylenol, Motrin, and or cough/cold medications. Your chest x-ray is negative for infection. Prescriptions: No Action (DME) Knee brace Misc See Rx Instructions .ROUTE .MEDSUPPLY Qty: 1 0RF Rx Instructions: As directed Arnuity Ellipta 50 mcg/actuation blister with device 1 inh inhalation DAILY 30 Days Qty: 30 2RF (DME) Grab bar Misc See Rx Instructions .Route Qty: 2 0RF Rx Instructions: As directed rosuvastatin 10 mg tablet 10 mg PO BEDTIME 90 Days Qty: 90 3RF pantoprazole 40 mg tablet,delayed release (DR/EC) 40 mg PO DAILY Qty: 30 1RF meloxicam 15 mg tablet 15 mg PO DAILY Qty: 30 1RF loratadine 10 mg tablet 10 mg PO DAILY 90 Days Qty: 90 2RF cholecalciferol (vitamin D3) 50 mcg (2,000 unit) capsule 50 mcg PO DAILY Qty: 30 11RF cetirizine [All Day Allergy (cetirizine)] 10 mg tablet 10 mg PO DAILY Qty: 90 1RF albuterol sulfate 90 mcg/actuation HFA aerosol inhaler 2 puff inhalation Q4-6H PRN (Reason: shortness of breath or wheezing) Qty: 6.7 7RF fluticasone propionate [Allergy Relief (fluticasone)] 50 mcg/actuation spray,suspension 2 spray intranasal DAILY 30 Days Qty: 16 5RF Rx Instructions: administer into each nostril levothyroxine 112 mcg tablet 112 mcg PO DAILY 90 Days Qty: 90 1RF (DME) commode Kit See Rx Instructions .Route Qty: 1 0RF Rx Instructions: As directed sertraline 50 mg tablet 50 mg PO DAILY lorazepam 0.5 mg tablet 0.5 mg PO DAILY PRN ropinirole 0.5 mg tablet 0.5 mg PO BEDTIME sertraline 100 mg tablet 100 mg PO docusate sodium [Colace] 100 mg capsule 200 mg PO BEDTIME Qty: 60 5RF simethicone 125 mg tablet,chewable 125 mg PO QID PRN (Reason: abdominal distention) 30 Days Qty: 120 6RF polyethylene glycol 3350 [Miralax] 17 gram/dose powder 17 g PO DAILY Qty: 510 2RF bisacodyl [Dulcolax (bisacodyl)] 5 mg tablet,delayed release (DR/EC) 10 mg PO ONCE 1 Days Qty: 2 0RF Rx Instructions: Take 2 tablets by mouth at 12:00pm the day before your procedure. polyethylene glycol 3350 [Miralax] 17 gram/dose powder 238 g PO ONCE 1 Days Qty: 238 0RF Rx Instructions: Take as directed by mouth the day before your procedure.
[2022-05-29 11:05] VITALS: BP 123/83; PULSE 76; RESP 16; TEMP 36.8; O2SAT 97
[2022-05-29] MEDS: Albuterol Sulfate 2.5 MG, Albuterol Sulfate (0.083%) 2.5 MG 5 MG INHALE (11:28)
[2022-05-29 11:30] VITALS: PULSE 76; RESP 17; O2SAT 97
== END 2022-05-29 12:21 | disposition home or self-care (01) ==
PROVIDERS: Emergency Provider Student in an Organized Health Care Education/Training Program; PCP Internal Medicine
DX: J11.1 Influenza due to unidentified influenza virus with other respiratory manifestations (principal); Z87.891 Personal history of nicotine dependence; Z20.822 Contact with and (suspected) exposure to COVID-19
CPT/HCPCS: 0241U; 36415; 71045; 80048; 85025; 94640; 99283; 99284

== ENCOUNTER 2022-09-02 11:31 | Outpatient (REF) | payer OTHER, SELFPAY ==
--- NOTE | ~2022-09-02 | XR_ITS ---
EXAMINATION: XR ABDOMEN KUB CLINICAL INDICATION: Unspecified symptoms and signs involving the genitourinary system COMPARISON: None available. TECHNIQUE: AP view of the abdomen. FINDINGS: Evaluation for stone is limited due to overlying bowel gas. No definite stone is seen. No evidence of obstruction or free air. There are degenerative changes of the lower lumbar spine. XR/XR KUB IMPRESSION: Limited evaluation for stone due to overlying bowel gas. No stone seen.
== END 2022-09-02 11:32 | disposition home or self-care (01) ==
LOC: HO.XRAY 11:31
PROVIDERS: PCP Internal Medicine; Visit Provider Nurse Practitioner Family
DX: R39.9 Unspecified symptoms and signs involving the genitourinary system (principal)
CPT/HCPCS: 74018

== ENCOUNTER 2022-09-02 13:51 | Outpatient (REF) | payer OTHER, SELFPAY ==
[2022-09-03 11:59] LABS: Appearance Urine Clear; Color Urine Yellow; Glucose Urine UA Negative (Negative); Leukocyte Esterase Urine Negative (Negative); Nitrite Urine Negative (Negative); Specific Gravity - Urine <= 1.005 (1.005-1.025); Urine Blood Negative (Negative); Urine Ketones Negative (Negative); Urine Protein Negative (Neg-Trace)
== END 2022-09-02 13:52 | disposition home or self-care (01) ==
LOC: HO.LAB 13:51
PROVIDERS: Visit Provider Nurse Practitioner Family
DX: R39.9 Unspecified symptoms and signs involving the genitourinary system (principal)
CPT/HCPCS: 81003

== ENCOUNTER 2022-09-06 06:10 | Emergency (ER) | payer OTHER, SELFPAY ==
--- NOTE | ~2022-09-06 | CT_ITS ---
EXAMINATION: CT abdomen pelvis wo IV con CLINICAL INFORMATION: Right-sided flank pain COMPARISON: Prior CT 2014 TECHNIQUE: Multidetector volumetric imaging was performed from the superior aspect of the liver through the pubic symphysis , noncontrasted study Sagittal and coronal reformatted images were obtained on the technologist's workstation. This CT examination was performed using dose optimization techniques as appropriate, variously including the following: *Automated exposure control *Adjustment of mA and/or kV according to patient size (this includes techniques or standardized protocols for targeted exams where dose is matched to indication/reason for exam; i.e. extremities or head) *Use of iterative reconstruction technique DLP: 853 mGy-cm FINDINGS: LOWER THORAX: Included lung bases are clear. HEPATOBILIARY: No focal hepatic lesions. No biliary ductal dilatation. GALLBLADDER: Gallbladder unremarkable. SPLEEN: Spleen is normal in size. PANCREAS: No focal mass or ductal dilatation. STOMACH AND GASTROINTESTINAL TRACT: There is fullness at the the gastroesophageal junction although nonspecific, commonly found to be nondistended sliding hiatal hernia, this can be further evaluated with barium esophagogram if clinically indicated. Stomach is grossly unremarkable. There is no bowel distention or thickening. No CT evidence of appendicitis. ADRENALS: No adrenal nodules. KIDNEYS/URETERS: No hydronephrosis, stones or solid mass lesions. URINARY BLADDER: Partially decompressed. PELVIC VISCERA: Bilateral uterine tubal ligation devices. Unremarkable PERITONEUM: No free air or fluid. LYMPH NODES: No lymphadenopathy. VASCULAR:Abdominal aorta normal in size, no aneurysm found. BONES, ABDOMINAL WALL AND SOFT TISSUES: There is a right-sided inguinal hernia containing fat only. Spondylosis, degenerative disc disease with vacuum phenomenon at L4-L5 and L5-S1, no destructive bone lesion, no fractures. CT/CT abdomen pelvis wo IV con IMPRESSION: * No CT evidence of kidney stones or hydronephrosis. No evidence of appendicitis, normal appendix identified. * There is a right-sided inguinal hernia containing fat only. * Spondylosis, degenerative disc disease at L4-L5 and L5-S1.
[2022-09-06 06:25] VITALS: BP 124/86; PULSE 70; RESP 18; TEMP 36.6; O2SAT 98; BMI 34.4
--- NOTE | 2022-09-06 07:33 | ED_ITS ---
HPI - Female Genitourinary General Chief complaint: Urogenital-Female Stated complaint: problems urinating /burning/ lower back pain Time Seen by Provider: 09/06/22 07:15 Source: patient Mode of arrival: ambulatory Limitations: no limitations History of Present Illness HPI Narrative: 56-year-old female came in for evaluation of right flank pain and increased frequency urination with dysuria. Patient started to have symptoms about a week ago, symptoms was associated with nausea but no vomiting, no fever, no chills. Declined any history of back injury. Patient with history of osteoarthritis of the back causing chronic back pain and patient needs cane to ambulate for over a year now. No fever, no history of IV drug abuser, no urinary incontinence, no weakness or numbness, no concern of epidural occupying mass. Related Data Home Medications Medication Instructions Recorded Confirmed lorazepam 0.5 mg tablet 0.5 mg PO DAILY PRN 03/02/20 09/02/22 ropinirole 0.5 mg tablet 0.5 mg PO BEDTIME 03/02/20 09/02/22 sertraline 50 mg tablet 50 mg PO DAILY 03/02/20 09/02/22 sertraline 100 mg tablet 100 mg PO 10/29/21 09/02/22 Previous Rx's Medication Instructions Recorded Knee brace #1 ea 12/04/20 polyethylene glycol 3350 17 17 g PO DAILY #510 grams 07/16/21 gram/dose oral powder (Miralax) simethicone 125 mg chewable tablet 125 mg PO QID PRN abdominal 07/16/21 distention 30 days #120 tabs Grab bar #2 ea 10/15/21 commode #1 ea 12/11/21 bisacodyl 5 mg tablet,delayed 10 mg PO ONCE colonoscopy prep 1 03/13/22 release (Dulcolax (bisacodyl)) day #2 tabs polyethylene glycol 3350 17 238 g PO ONCE 1 day #238 grams 03/13/22 gram/dose oral powder (Miralax) levothyroxine 112 mcg tablet 112 mcg PO DAILY 90 days #90 tabs 06/05/22 fluticasone propionate 50 2 spray intranasal DAILY 1 month 06/11/22 mcg/actuation nasal #16 grams spray,suspension (Allergy Relief (fluticasone)) cholecalciferol (vitamin D3) 50 50 mcg PO DAILY #30 caps 06/23/22 mcg (2,000 unit) capsule meloxicam 15 mg tablet 15 mg PO DAILY #30 tabs 07/10/22 albuterol sulfate 90 mcg/actuation 2 puff inhalation Q4-6H PRN 07/29/22 aerosol inhaler shortness of breath or wheezing #6.7 grams cetirizine 10 mg tablet (All Day 10 mg PO DAILY #90 tabs 07/29/22 Allergy (cetirizine)) docusate sodium 100 mg capsule 200 mg PO BEDTIME #60 caps 07/29/22 (Colace) fluticasone furoate 50 1 inh inhalation DAILY 30 days #30 07/29/22 mcg/actuation blister powder for ea inhalation (Arnuity Ellipta) loratadine 10 mg tablet 10 mg PO DAILY 90 days #90 tabs 07/29/22 rosuvastatin 10 mg tablet 10 mg PO BEDTIME 90 days #90 tabs 07/29/22 pantoprazole 40 mg tablet,delayed 40 mg PO DAILY 90 days #90 tabs 08/01/22 release hydroxyzine HCl 25 mg tablet 25 mg PO BEDTIME PRN insomnia #14 08/05/22 tabs ibuprofen 600 mg tablet 600 mg PO Q8H PRN pain #60 tabs 09/02/22 Allergies Allergy/AdvReac Type Severity Reaction Status Date / Time Sulfa (Sulfonamide Allergy Severe SWELLING Verified 09/06/22 06:33 Antibiotics) [Sulfa (Sulfonamides)] cbd Allergy Intermediate chest pain Uncoded 09/02/22 10:51 Review of Systems Review of Systems: All other systems are reviewed and are negative Constitutional: Reports as per HPI and Reports no additional constitutional complaints Eyes: Reports as per HPI and Reports no additional eye complaints Reports system reviewed and no additional complaints, except as documented Cardiovascular: Reports as per HPI and Reports no additional cardiovascular complaints Respiratory: Reports as per HPI and Reports no additional respiratory complaints Gastrointestinal: Reports as per HPI and Reports no additional gastrointestinal complaints Genitourinary: Reports no additional female genitourinary complaints Musculoskeletal: Reports no additional musculoskeletal complaints Skin/Breast: Reports system reviewed and no additional complaints, except as docu Psychiatric: Reports no additional psychiatric complaints Endocrine: Reports no additional endocrine complaints Hematologic/Lymphatic: Reports no additional hematologic/lymphatic complaints Allergic/Immunologic: Reports no additional allergic/immunologic complaints Reports system reviewed and no additional complaints, except as documented and Reports Abnormal speech present [facility] Past Medical History Medical History Anxiety Asthma COVID-19 Depression with anxiety Dyslipidemia Dysphagia Fatty liver Fibromyalgia HUONG (generalized anxiety disorder) High cholesterol Hypothyroid Hypothyroidism Lumbar pain Mild recurrent major depression Nausea Osteoarthritis Osteoarthritis of left hip Osteoarthritis of right knee Polyarthralgia 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 Shortness of breath Surgical History H/O oophorectomy History of blepharoplasty History of removal of ovarian cyst Tubal ligation status Family History Family History Sister Breast CA Pancreatic cancer Sister Breast CA Father Myocardial infarction Diabetes Hypertension CVD (cardiovascular disease) Mother Heart problem Daughter In good health Social History Social History Household Members: None Housing: Apartment Alcohol intake: never Patient Tobacco Use Status: Former Tobacco user Tobacco use type: Cigarette Smoked in Last 30 Days: No e-Cigarette/Vaping Use: Never Used Second Hand Smoke Exposure: No Use of substances other than those prescribed or required for medical reasons: No Advance Directives: No service: No Current occupational status: disabled Cognitive needs: Yes Hearing needs: No Vision needs: No Physical Exam Vital Signs: Vital Signs: Last Vital Signs Temp 97.8 F 09/06/22 06:25 Pulse 58 09/06/22 07:44 Resp 16 09/06/22 07:44 BP 124/80 09/06/22 07:44 Pulse Ox 97 09/06/22 07:44 O2 Del Method Room Air 09/06/22 07:44 BMI result Body Mass Index 34.4 Vital signs have been reviewed as appeared to be correct. Blood pressure normal. Heart rate normal. Respiration rate normal. Temperature normal. Oxygen saturation normal. Appearance: Alert. Oriented X3. No acute distress. Head: Normal external exam. Normocephalic. Atraumatic. No Portillo signs noted. No raccoon eyes noted Eyes: PERRLA. EOMI. Conjunctiva and sclera normal. Eyelids normal. ENT: TM's Normal. Pharynx normal. Uvula midline. Moist mucous membranes. No trismus noted. No drooling noted. No muffled voice noted. Neck: Normal inspection. Neck supple. FROM. No adenopathy. Thyroid Normal. No meningeal signs. No neck mass noted. CVS: Normal heart rate and rhythm. Heart sound normal. No murmurs noted. Pulses normal throughout. Respiratory: No respiratory distress. Painless inspiration. Breath sounds normal. No wheezes/rales/rhonchi noted. Chest nontender. No accessory muscle usage noted or decreased air movement noted. Abdomen: Soft and nontender. Bowel sounds normal in all 4 quadrants. No distention noted. No organomegaly noted. No visible injury noted. Back: No CVA tenderness. Full range of motion noted. Skin: Skin warm and dry. Normal skin color. Normal skin turgor. No rashes/lesions/lacerations noted. Extremities: No lower extremity edema. Extremities exhibit normal range of motion. Extremities nontender. Neuro: Oriented X 3. Cranial nerve exam: II-XII are grossly intact No motor deficit. No sensory deficit. Reflexes normal. Course Course Course Narrative: Back pain which is likely related to patient's chronic osteoarthritis. Unremarkable CT of the abdomen, unremarkable labs and UA. Patient was instructed to follow-up with PCP use NSAIDs if needed for pain. Medical Decision Making Differential Diagnosis Differential Diagnoses: The differential diagnosis associated with the presentation includes (Ureteric stone, pyelonephritis, UTI, acute appendicitis, lumbar radiculopathy, lumbar spine osteoarthritis.) Lab Data MDM Lab Attestation statement: I reviewed the patient's lab results. 09/06/22 07:41 09/06/22 07:41 Labs: Lab Results 09/06/22 09/06/22 09/06/22 Range/Units 06:47 07:41 07:41 WBC 5.3 (4.8-10.8) X10*3/uL RBC 4.43 (4.20-5.50) X10*6/uL Hgb 12.3 (12.0-16.0) g/dl Hct 38.0 (37.0-47.0) % MCV 85.8 (80.0-98.0) fL MCH 27.8 (27.0-33.0) pg MCHC 32.4 (31.0-35.0) g/dl RDW 13.5 (11.0-16.0) % Plt Count 294 (160-400) X10*3/uL MPV 10.2 (9.4-12.3) fL Immature Gran % (Auto) 0.2 (0.0-0.4) % Neut % (Auto) 53.8 (45-73) % Lymph % (Auto) 30.7 (20-40) % [place] % (Auto) 8.5 (2-11) % Eos % (Auto) 5.5 H (0-4) % Baso % (Auto) 1.3 (0-2) % Lymph # (Auto) 1.6 (1.2-4.9) X10*3/uL [place] # (Auto) 0.5 (0.1-1.2) X10*3/uL Eos # (Auto) 0.3 (0.0-0.4) X10*3/uL Baso # (Auto) 0.1 (0.0-0.2) X10*3/uL Abs Immat Gran (auto) 0.01 (0.00-0.03) X10*3/uL Absolute Neuts (auto) 2.8 (2.0-8.3) x10*3/uL Absolute Nucleated RBC 0.000 (0.0-0.012) X10*3/uL Nucleated RBC % (auto) 0.0 (0.0-0.2) /100WBC Sodium 139 (135-145) mmol/L Potassium 4.3 (3.3-5.1) mmol/L Chloride 105 (96-108) mmol/L Carbon Dioxide 27 (22-29) mmol/L Anion Gap 11 L (12-20) BUN 12 (9-16) mg/dL Creatinine 0.81 (0.5-1.4) mg/dL Estim Creat Clear Calc 91.8 Estimated GFR > 60 Random Glucose 117 H (60-115) mg/dL Calcium 9.3 (8.4-10.2) mg/dL Total Bilirubin 0.5 (0.0-1.0) mg/dL Direct Bilirubin < 0.2 (0.0-0.5) mg/dL AST 23 (5-31) U/L ALT 23 (0-31) U/L Alkaline Phosphatase 89 (39-117) U/L Total Protein 7.5 (6.5-8.0) g/dL Albumin 4.1 (3.5-5.0) g/dL Lipase 31 (8-78) U/L Urine Color Yellow Urine Appearance Clear Urine pH 7.5 (5.0-9.0) Ur Specific [place] 1.015 (1.005-1.025) Urine Protein Negative (Neg-Trace) mg/dL Urine Glucose (UA) Negative (Negative) mg/dL Urine Ketones Negative (Negative) mg/dL Urine Blood Negative (Negative) Urine Nitrite Negative (Negative) Ur Leukocyte Esterase Negative (Negative) Independent Interpretation I performed an independent interpretation of an: CT Scan (Abdomen and pelvis: No acute intracranial pathology.) Radiology Impression Discussion of test interpretation with radiology: I have reviewed the radiologist's reading. Discharge Plan Discharge Clinical Impression: Lumbar pain, Back pain Patient Disposition: Home, Self-Care Instructions: Back Pain (ED) Prescriptions: No Action (DME) Knee brace Misc See Rx Instructions .ROUTE .MEDSUPPLY Qty: 1 0RF Rx Instructions: As directed (DME) Grab bar Misc See Rx Instructions .Route Qty: 2 0RF Rx Instructions: As directed levothyroxine 112 mcg tablet 112 mcg PO DAILY 90 Days Qty: 90 1RF cholecalciferol (vitamin D3) 50 mcg (2,000 unit) capsule 50 mcg PO DAILY Qty: 30 11RF meloxicam 15 mg tablet 15 mg PO DAILY Qty: 30 1RF albuterol sulfate 90 mcg/actuation HFA aerosol inhaler 2 puff inhalation Q4-6H PRN (Reason: shortness of breath or wheezing) Qty: 6.7 7RF cetirizine [All Day Allergy (cetirizine)] 10 mg tablet 10 mg PO DAILY Qty: 90 1RF docusate sodium [Colace] 100 mg capsule 200 mg PO BEDTIME Qty: 60 5RF Arnuity Ellipta 50 mcg/actuation blister with device 1 inh inhalation DAILY 30 Days Qty: 30 2RF loratadine 10 mg tablet 10 mg PO DAILY 90 Days Qty: 90 2RF rosuvastatin 10 mg tablet 10 mg PO BEDTIME 90 Days Qty: 90 3RF pantoprazole 40 mg tablet,delayed release (DR/EC) 40 mg PO DAILY 90 Days Qty: 90 3RF (DME) commode Kit See Rx Instructions .Route Qty: 1 0RF Rx Instructions: As directed fluticasone propionate [Allergy Relief (fluticasone)] 50 mcg/actuation spray,suspension 2 spray intranasal DAILY 30 Days Qty: 16 5RF Rx Instructions: administer into each nostril hydroxyzine HCl 25 mg tablet 25 mg PO BEDTIME PRN (Reason: insomnia) Qty: 14 0RF ibuprofen 600 mg tablet 600 mg PO Q8H PRN (Reason: pain) Qty: 60 0RF sertraline 50 mg tablet 50 mg PO DAILY lorazepam 0.5 mg tablet 0.5 mg PO DAILY PRN ropinirole 0.5 mg tablet 0.5 mg PO BEDTIME sertraline 100 mg tablet 100 mg PO simethicone 125 mg tablet,chewable 125 mg PO QID PRN (Reason: abdominal distention) 30 Days Qty: 120 6RF polyethylene glycol 3350 [Miralax] 17 gram/dose powder 17 g PO DAILY Qty: 510 2RF bisacodyl [Dulcolax (bisacodyl)] 5 mg tablet,delayed release (DR/EC) 10 mg PO ONCE 1 Days Qty: 2 0RF Rx Instructions: Take 2 tablets by mouth at 12:00pm the day before your procedure. polyethylene glycol 3350 [Miralax] 17 gram/dose powder 238 g PO ONCE 1 Days Qty: 238 0RF Rx Instructions: Take as directed by mouth the day before your procedure. Referrals: Kim Batres MD [Primary Care Provider] -
[2022-09-06 07:35] LABS: Appearance Urine Clear; Color Urine Yellow; Glucose Urine UA Negative (Negative); Leukocyte Esterase Urine Negative (Negative); Nitrite Urine Negative (Negative); PH 7.5 (5.0-9.0); Specific Gravity - Urine 1.015 (1.005-1.025); Urine Blood Negative (Negative); Urine Ketones Negative (Negative); Urine Protein Negative (Neg-Trace)
[2022-09-06 07:44] VITALS: BP 124/80; PULSE 58; RESP 16; O2SAT 97
[2022-09-06 07:45] LABS: MANUAL DIFF FLAG NO
[2022-09-06 07:46] LABS: Basophils Absolute Auto 0.1 X10*3/uL (0.0-0.2); Basophils Percent Auto 1.3 % (0-2); Eosinophils Absolute Auto 0.3 X10*3/uL (0.0-0.4); Eosinophils Percent Auto 5.5 % (0-4); Hemoglobin 12.3 g/dl (12.0-16.0); Imm Gran Abs Auto 0.01 X10*3/uL (0.00-0.03); Imm Gran Pct Auto 0.2 % (0.0-0.4); Lymphocytes Absolute Auto 1.6 X10*3/uL (1.2-4.9); Lymphocytes Percent Auto 30.7 % (20-40); Mean Corpuscular HGB Conc 32.4 g/dl (31.0-35.0); Mean Corpuscular Hemoglobin 27.8 pg (27.0-33.0); Mean Corpuscular Volume 85.8 fL (80.0-98.0); Mean Platelet Volume 10.2 fL (9.4-12.3); Monocytes Absolute Auto 0.5 X10*3/uL (0.1-1.2); Monocytes Percent Auto 8.5 % (2-11); Neutrophils Absolute Auto 2.8 x10*3/uL (2.0-8.3); Neutrophils Percent Auto 53.8 % (45-73); Platelet Count 294 X10*3/uL (160-400); Red Blood Count 4.43 X10*6/uL (4.20-5.50); Red Cell Distribution Width 13.5 % (11.0-16.0); White Blood Count 5.3 X10*3/uL (4.8-10.8)
--- NOTE | 2022-09-06 07:46 | PC.NURSE ---
Pt is alert/oriented. Reports low back pain x 5 days worse with a full bladder but reports no difficulty voiding or hematuria but urinary incontinence. Skin pwd. Pain 8/. Denies meds for pain at this time. VSS. IV established, labs sent
[2022-09-06 08:03] LABS: Alanine Aminotransferase 23 U/L (0-31); Albumin Level 4.1 g/dL (3.5-5.0); Alkaline Phosphatase 89 U/L (39-117); Anion Gap 11 (12-20); Aspartate Amino Transferase 23 U/L (5-31); Bilirubin Direct < 0.2 mg/dL (0.0-0.5); Bilirubin Total 0.5 mg/dL (0.0-1.0); Blood Urea Nitrogen 12 mg/dL (9-16); Calcium 9.3 mg/dL (8.4-10.2); Carbon Dioxide 27 mmol/L (22-29); Chloride 105 mmol/L (96-108); Creatinine Clr Calc Pharmacy 91.8; Estimated Glomerular Filt Rate > 60; Glucose Random 117 mg/dL (60-115); Lipase 31 U/L (8-78); Potassium 4.3 mmol/L (3.3-5.1); Sodium 139 mmol/L (135-145); Total Protein 7.5 g/dL (6.5-8.0)
== END 2022-09-06 10:05 | disposition home or self-care (01) ==
PROVIDERS: Emergency Provider Emergency Medicine; PCP Internal Medicine
DX: M54.50 Low back pain, unspecified (principal); R10.9 Unspecified abdominal pain; E78.5 Hyperlipidemia, unspecified; Z79.899 Other long term (current) drug therapy; Z79.02 Long term (current) use of antithrombotics/antiplatelets; Z87.891 Personal history of nicotine dependence
CPT/HCPCS: 36415; 74176; 80048; 80076; 81003; 83690; 85025; 99284

== ENCOUNTER 2022-09-16 13:51 | Outpatient (REF) | payer OTHER, SELFPAY ==
[2022-09-16 14:57] LABS: Appearance Urine Clear; Color Urine Yellow; Glucose Urine UA Negative (Negative); Leukocyte Esterase Urine Trace (Negative); Nitrite Urine Negative (Negative); UMIC TRIGGER UACC YES; Urine Blood Negative (Negative); Urine Ketones Negative (Negative); Urine Protein Negative (Neg-Trace)
[2022-09-16 15:00] LABS: Bacteria Urine None Seen (None Seen); Hyaline Casts Urine 0-2 /LPF (0-2); RBC Urine 0-2 /HPF (0-2); WBC Urine 0-5 /HPF (0-5)
[2022-09-16 15:36] LABS: Alanine Aminotransferase 23 U/L (0-31); Albumin Level 4.2 g/dL (3.5-5.0); Alkaline Phosphatase 84 U/L (39-117); Anion Gap 13 (12-20); Aspartate Amino Transferase 21 U/L (5-31); Bilirubin Total 0.4 mg/dL (0.0-1.0); Blood Urea Nitrogen 16 mg/dL (9-16); Calcium 9.3 mg/dL (8.4-10.2); Carbon Dioxide 26 mmol/L (22-29); Chloride 100 mmol/L (96-108); Cholesterol 226 mg/dL; Estimated Glomerular Filt Rate > 60; Glucose Fasting 119 mg/dL (60-99); HDL Cholesterol 42 mg/dL; LDL Cholesterol Calculated 163 mg/dl; Potassium 4.5 mmol/L (3.3-5.1); Sodium 134 mmol/L (135-145); Total Protein 7.5 g/dL (6.5-8.0); Triglycerides 107 mg/dL
[2022-09-16 15:46] LABS: Thyroid Stimulating Hormone 1.23 uIU/mL (0.32-4.0); Vitamin D 25-OH Total 55.2 ng/mL (>30)
== END 2022-09-16 13:52 | disposition home or self-care (01) ==
LOC: HO.LAB 13:51
PROVIDERS: PCP Internal Medicine; Visit Provider Internal Medicine
DX: E03.9 Hypothyroidism, unspecified (principal); E55.9 Vitamin D deficiency, unspecified; E78.5 Hyperlipidemia, unspecified
CPT/HCPCS: 36415; 80053; 80061; 81001; 82306; 84443

== ENCOUNTER 2022-09-17 14:23 | Outpatient (REF) | payer OTHER, SELFPAY ==
[2022-09-18 03:44] LABS: CT PCR NOT DETECTED (Not Detect.); NG PCR NOT DETECTED (Not Detect.)
[2022-09-18 11:07] LABS: BV Int Neg Control Negative (Negative); BV Int Pos Control Positive (Positive)
== END 2022-09-17 14:24 | disposition home or self-care (01) ==
LOC: HO.LNP 14:23
PROVIDERS: PCP Internal Medicine; Visit Provider Obstetrics & Gynecology
DX: R10.2 Pelvic and perineal pain (principal); N94.89 Other specified conditions associated with female genital organs and menstrual cycle
CPT/HCPCS: 0353U; 81003; 87480; 87510; 87660; 99212

== ENCOUNTER 2022-09-19 09:10 | Outpatient (REF) | payer OTHER, SELFPAY ==
[2022-09-19 10:37] LABS: HBsAGNum1 0.38 S/CO (0.00-0.99); HIV AB/AG Nonreactive (Nonreactive); HIV Num 1 0.07 S/CO (0.00-0.99); Hepatitis B Surface Antigen Negative (Negative); Syphilis Screen Nonreactive (Nonreactive); ~HepC Num1 0.12 S/CO (0.00-0.79); ~Hepatitis C Antibody Nonreactive (Nonreactive)
[2022-09-19 11:37] LABS: Appearance Urine Clear; Color Urine Yellow; Glucose Urine UA Negative (Negative); Leukocyte Esterase Urine Trace (Negative); Nitrite Urine Negative (Negative); PH 6.5 (5.0-9.0); Specific Gravity - Urine 1.015 (1.005-1.025); UMIC TRIGGER UACC YES; Urine Blood Negative (Negative); Urine Ketones Negative (Negative); Urine Protein Negative (Neg-Trace)
[2022-09-19 11:43] LABS: Bacteria Urine None Seen (None Seen); Hyaline Casts Urine 0-2 /LPF (0-2); RBC Urine 0-2 /HPF (0-2); WBC Urine 0-5 /HPF (0-5)
== END 2022-09-19 09:11 | disposition home or self-care (01) ==
LOC: HO.LAB 09:10
PROVIDERS: PCP Internal Medicine; Visit Provider Obstetrics & Gynecology
DX: N76.0 Acute vaginitis (principal); B96.89 Other specified bacterial agents as the cause of diseases classified elsewhere; R30.0 Dysuria
CPT/HCPCS: 36415; 81001; 81003; 86780; 86803; 87340; 87389

== ENCOUNTER → 2022-09-23 11:16 | Outpatient (BNVA) | payer OTHER, SELFPAY | PROVIDERS: PCP Internal Medicine; Visit Provider Nurse Practitioner Family | DX: R30.0 Dysuria (principal); R35.0 Frequency of micturition; R39.89 Other symptoms and signs involving the genitourinary system | CPT/HCPCS: 99202 ==

== ENCOUNTER 2022-09-25 12:25 | Outpatient (REF) | payer OTHER, SELFPAY ==
--- NOTE | ~2022-09-25 | US_ITS ---
EXAMINATION: US PELVIS CLINICAL INFORMATION: Pelvic pain COMPARISON: 02/18/2022 history of left oophorectomy TECHNIQUE: Ultrasound of the pelvis is performed using both transabdominal and transvaginal transducers along with Doppler. Transvaginal imaging is performed due to inadequate visualization transabdominally. FINDINGS: Uterus: The uterus is anteverted and measures 7.1 x 3.4 x 3.6 cm. The double wall endometrial thickness is 3 mm. The uterus is smooth in contour and has normal myometrial echogenicity. Left fundal subserosal 1.1 cm fibroid. Right intramural 1.2 cm fibroid. Adnexa: Right ovary is not visualized. No large right adnexal mass. Left ovary is surgically absent. US/US pelvic and transvaginal IMPRESSION: Uterine fibroids.
== END 2022-09-25 12:26 | disposition home or self-care (01) ==
LOC: HO.US 12:25
PROVIDERS: PCP Internal Medicine; Visit Provider Obstetrics & Gynecology
DX: R10.2 Pelvic and perineal pain (principal)
CPT/HCPCS: 76830; 76856

== ENCOUNTER → 2022-10-16 08:41 | Outpatient (BNVA) | payer OTHER, SELFPAY | PROVIDERS: PCP Internal Medicine; Visit Provider Physician Assistant | DX: K21.9 Gastro-esophageal reflux disease without esophagitis (principal); K76.0 Fatty (change of) liver, not elsewhere classified | CPT/HCPCS: 99212 ==

== ENCOUNTER 2022-10-20 09:40 | Outpatient (REF) | payer OTHER, SELFPAY ==
--- NOTE | ~2022-10-20 | US_ITS ---
EXAMINATION: US RETROPERITONEAL COMPLETE (RENAL) CLINICAL INFORMATION: Dysuria. COMPARISON: CT abdomen and pelvis 09/06/2022. X-ray abdomen KUB 09/02/2022 and 12/12/2021. US abdomen complete with liver elastography 05/16/2019. Ultrasound abdomen complete 02/11/2018. TECHNIQUE: Real-time imaging of the kidneys and bladder. FINDINGS: RIGHT KIDNEY: 9.5 x 4.8 x 5.8 cm (SAG x AP x TRV). The kidney is normal in size, contour, and echogenicity. Renal cortical thickness is normal. No calculi or focal parenchymal lesions. No hydronephrosis. Limited visualization of the lower pole due to bowel gas. LEFT KIDNEY: 11.3 x 5.2 x 5.2 cm (SAG x AP x TRV). The kidney is normal in size, contour, and echogenicity. Renal cortical thickness is normal. No calculi or focal parenchymal lesions. No hydronephrosis. BLADDER: Well distended and normal. Bilateral ureteral jets are demonstrated. Prevoid bladder volume is 269.8 mL. Postvoid bladder volume is 16.7 mL. US/US retroperitoneal comp IMPRESSION: Unremarkable exam. Lower pole right kidney not optimally visualized due to bowel gas.
== END 2022-10-20 09:41 | disposition home or self-care (01) ==
LOC: HO.US 09:40
PROVIDERS: PCP Internal Medicine; Visit Provider Nurse Practitioner Family
DX: R30.0 Dysuria (principal); R35.0 Frequency of micturition; R39.89 Other symptoms and signs involving the genitourinary system
CPT/HCPCS: 76770

== ENCOUNTER 2022-10-31 07:23 | Outpatient (REF) | payer OTHER, SELFPAY ==
[2022-10-31 09:22] LABS: Appearance Urine Clear; Color Urine Yellow; Glucose Urine UA Negative (Negative); Leukocyte Esterase Urine Small (1+) (Negative); Nitrite Urine Negative (Negative); PH 7.5 (5.0-9.0); Specific Gravity - Urine 1.015 (1.005-1.025); UMIC TRIGGER UA YES; UMIC TRIGGER UACC YES; Urine Blood Negative (Negative); Urine Ketones Negative (Negative); Urine Protein Negative (Neg-Trace)
[2022-10-31 09:31] LABS: Bacteria Urine Trace (None Seen); Hyaline Casts Urine 0-2 /LPF (0-2); RBC Urine 0-2 /HPF (0-2); UACC Culture Trigger YES; WBC Urine 0-5 /HPF (0-5)
== END 2022-10-31 07:24 | disposition home or self-care (01) ==
LOC: HO.LAB 07:23
PROVIDERS: PCP Internal Medicine; Visit Provider Internal Medicine
DX: Z00.00 Encounter for general adult medical examination without abnormal findings (principal); R30.0 Dysuria
CPT/HCPCS: 81001; 87086

== ENCOUNTER → 2022-11-07 09:22 | Outpatient (BNVA) | payer OTHER, SELFPAY | PROVIDERS: PCP Internal Medicine; Visit Provider Nurse Practitioner Family | DX: R35.0 Frequency of micturition (principal); R30.0 Dysuria; R10.2 Pelvic and perineal pain; R35.1 Nocturia | CPT/HCPCS: 51798; 99212 ==

== ENCOUNTER 2022-11-10 11:04 | Emergency (ER) | payer OTHER, SELFPAY ==
--- NOTE | ~2022-11-10 | XR_ITS ---
EXAMINATION: XR CHEST CLINICAL INFORMATION: Chest pain and shortness of breath COMPARISON: Previous chest x-ray most recent from 2020 TECHNIQUE: 2 views of the chest were obtained. FINDINGS: No significant abnormality is noted involving the heart, lungs, mediastinum, bony thorax or soft tissues. XR/XR chest 2V IMPRESSION: Unremarkable examination.
--- NOTE | 2022-11-10 11:09 | ECG_ITS ---
Test Reason : chest pain Blood Pressure : / mmHG Vent. Rate : 060 BPM Atrial Rate : 060 BPM P-R Int : 138 ms QRS Dur : 090 ms QT Int : 424 ms P-R-T Axes : 022 -02 -10 degrees QTc Int : 424 ms Normal sinus rhythm Minimal voltage criteria for LVH, may be normal variant ( R in aVL ) Anterior infarct (cited on or before 10-NOV-2022) Abnormal ECG When compared with ECG of 21-JUL-2021 16:55, No significant change was found Referred By: Generic ED Physician Electronically Signed By:TITO HUSSEIN MD
--- NOTE | 2022-11-10 11:14 | MHC.EDTECH ---
EKG completed and signed by
[2022-11-10 11:19] VITALS: BP 131/74; PULSE 64; RESP 19; TEMP 36.6; O2SAT 98; BMI 34.5
--- NOTE | 2022-11-10 11:19 | ED_ITS ---
HPI - Chest Pain General Chief Complaint: Chest Pain Stated Complaint: Chest pain Time Seen by Provider: 11/10/22 13:02 Source: patient Mode of arrival: ambulatory Limitations: no limitations History of Present Illness HPI narrative: Patient is a 56 year old assigned female at with a history of HUONG presenting to the emergency department today with left sided chest pain. Patient states that yesterday she had an episode of left sided chest pain. Patient states that the pain is worse with a deep breath. Patient states that she contacted her PCP who recommended she come to the Emergency Department. Patient denies any dizziness, lightheadedness, abdominal pain, nausea, vomiting, fever, chills, blurry vision, double vision, loss of vision, difficulty breathing, shortness of breath, back pain, night sweats, pain with urination, increased urinary frequency, increased urinary urgency, blood in her urine or stool, syncope or a near syncopal episode, recent trauma or falls, bowel incontinence, bladder incontinence, bowel retention, bladder retention, or any other complaints at this time. MD complaint: chest pain Onset (ago): day(s) (2) Severity: mild Pain scale (0-10): 3 Quality: dull Relieving factors: nothing Exacerbating factors: inspiration Treatment prior to arrival: none Related Data Home Medications Medication Instructions Recorded Confirmed lorazepam 0.5 mg tablet 0.5 mg PO DAILY PRN 03/02/20 11/10/22 ropinirole 0.5 mg tablet 0.5 mg PO BEDTIME 03/02/20 11/10/22 sertraline 50 mg tablet 50 mg PO DAILY 03/02/20 11/10/22 sertraline 100 mg tablet 100 mg PO 10/29/21 11/10/22 Previous Rx's Medication Instructions Recorded Knee brace #1 ea 12/04/20 simethicone 125 mg chewable tablet 125 mg PO QID PRN abdominal 07/16/21 distention 30 days #120 tabs Grab bar #2 ea 10/15/21 commode #1 ea 12/11/21 bisacodyl 5 mg tablet,delayed 10 mg PO ONCE colonoscopy prep 1 03/13/22 release (Dulcolax (bisacodyl)) day #2 tabs polyethylene glycol 3350 17 238 g PO ONCE 1 day #238 grams 03/13/22 gram/dose oral powder (Miralax) levothyroxine 112 mcg tablet 112 mcg PO DAILY 90 days #90 tabs 06/05/22 fluticasone propionate 50 2 spray intranasal DAILY 1 month 06/11/22 mcg/actuation nasal #16 grams spray,suspension (Allergy Relief (fluticasone)) cholecalciferol (vitamin D3) 50 50 mcg PO DAILY #30 caps 06/23/22 mcg (2,000 unit) capsule albuterol sulfate 90 mcg/actuation 2 puff inhalation Q4-6H PRN 07/29/22 aerosol inhaler shortness of breath or wheezing #6.7 grams cetirizine 10 mg tablet (All Day 10 mg PO DAILY #90 tabs 07/29/22 Allergy (cetirizine)) docusate sodium 100 mg capsule 200 mg PO BEDTIME #60 caps 07/29/22 (Colace) fluticasone furoate 50 1 inh inhalation DAILY 30 days #30 07/29/22 mcg/actuation blister powder for ea inhalation (Arnuity Ellipta) rosuvastatin 10 mg tablet 10 mg PO BEDTIME 90 days #90 tabs 07/29/22 ibuprofen 600 mg tablet 600 mg PO Q8H PRN pain #60 tabs 09/02/22 mirabegron 25 mg tablet,extended 25 mg PO DAILY 30 days #30 tabs 09/23/22 release 24 hr (Myrbetriq) pantoprazole 40 mg tablet,delayed 40 mg PO DAILY 90 days #90 tabs 09/30/22 release cane #1 ea 11/10/22 meloxicam 15 mg tablet 15 mg PO DAILY #30 tabs 11/10/22 Allergies Allergy/AdvReac Type Severity Reaction Status Date / Time Sulfa (Sulfonamide Allergy Severe SWELLING Verified 11/10/22 11:19 Antibiotics) [Sulfa (Sulfonamides)] cbd Allergy Intermediate chest pain Uncoded 11/10/22 11:19 Review of Systems Constitutional: Constitutional: Reports no additional constitutional complaints, Denies chills, Denies fever(s) and Denies night sweats Eyes: Eyes: Reports no additional eye complaints, Denies blurry vision, Denies change in vision, Denies diplopia, Denies eye discharge, Denies loss of vision and Denies eye pain ENT: Denies dizziness Cardiovascular: Cardiovascular: Reports no additional cardiovascular complaints, Reports chest pain, Denies lightheadedness, Denies Loss of Consciousness and Denies dyspnea Respiratory: Respiratory: Reports no additional respiratory complaints and Den ies dyspnea Gastrointestinal: Gastrointestinal: Reports no additional gastrointestinal complaints, Denies abdominal pain, Denies melena, Denies hematochezia, Denies change in bowel habits and Denies change in stool character Genitourinary: Genitourinary: Denies hematuria, Denies urinary frequency, Denies dysuria, Denies urinary incontinence, Denies urinary hesitancy and Denies urinary urgency Musculoskeletal: Musculoskeletal: Reports no additional musculoskeletal complaints, Denies numbness and Denies tingling Neurologic: Denies dizziness, Denies loss of vision, Denies numbness and Denies tingling Psychiatric: Psychiatric: Reports no additional psychiatric complaints Endocrine: Endocrine: Reports no additional endocrine complaints Hematologic/Lymphatic: Hematologic/Lymphatic: Reports no additional hematologic/lymphatic complaints Allergic/Immunologic: Allergic/Immunologic: Reports no additional allergic/immunologic complaints PMFSH Past Medical History Attestation statement: The following information was validated with the patient. 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 Shortness of breath Surgical History H/O oophorectomy History of blepharoplasty History of removal of ovarian cyst Tubal ligation status Family History Family History Sister Breast CA Pancreatic cancer Sister Breast CA Father Myocardial infarction Diabetes Hypertension CVD (cardiovascular disease) Mother Heart problem Daughter In good health Social History Social History Household Members: None Housing: Apartment Alcohol intake: never Patient Tobacco Use Status: Former Tobacco user Tobacco use type: Cigarette e-Cigarette/Vaping Use: Never Used Second Hand Smoke Exposure: No Advance Directives: No Advance Directives Information Provided: Yes service: No Current occupational status: disabled Cognitive needs: Yes Hearing needs: No Vision needs: No Physical Exam Vital Signs: Vital Signs: Last Vital Signs Temp 98 F 11/10/22 11:19 Pulse 64 11/10/22 11:19 Resp 19 11/10/22 11:19 BP 131/74 11/10/22 11:19 Pulse Ox 98 11/10/22 11:19 O2 Del Method Room Air 11/10/22 11:19 BMI result Body Mass Index 34.5 Const: General: cooperative, no acute distress, alert and awake Nutritional Appearance: well nourished Orientation/consciousness: patient oriented x3 Limitations: no limitations HEENT: Head: Yes normal to inspection and Yes atraumatic Ears: hearing gr ossly normal bilaterally and external ears normal General nose exam: Normal external nose present, no nasal discharge noted and no epistaxis Face and sinus: Yes normal facial exam, No abrasion and No laceration Mouth: Normal oral and palatal mucosa present, no drooling and no muffled voice Eyes: General: appearance normal, both eyes and all related structures Periorbital: periorbital findings normal Eyelids: Yes eyelids normal Conjunctivae: conjunctivae normal Pupils: Equal, round and reactive pupils present EOM: EOMs intact bilaterally Neck: Neck: Yes normal visual inspection, Yes full ROM and Yes no lymphadenopathy Chest: Chest palpation & inspection: normal inspection of the chest Resp: Effort & Inspection: normal respiratory effort and able to speak in c omplete sentences Auscultation: clear to auscultation bilaterally Cardio: Rate: regular rate Rhythm: regular rhythm GI: Inspection: Yes normal to inspection Palpation (GI): Soft to palpation, not firm, nontender and no guarding Neuro: General: patient oriented x3 and moves all extremities Cranial nerves: Yes Equal, round and reactive pupils present Cognition (Neuro): normal cognition Motor exam (neuro): 5/5 motor strength present throughout Sensory Exam: Normal double simultaneous stimulation for sensation Coordination: [id number] test normal Extrem: General: Yes normal to inspection, Yes full ROM and Yes capillary refill normal Psych: Appearance: grossly normal Mental Status: mental status grossly normal Affect: normal affect Attitude: cooperative Thought process: Normal thought process present Thought content: Normal thought content present Insight: Good insight present (Psych) Course Course Course Narrative: RME: 56yo F w/PMHx asthma, OA, HLD, hypothyroid, presenting to the ED complaining of intermittent SOB and CP since yesterday. Describes chest pain worse with deep inspiration. Was seen at PCPs office this morning sent to the ED. Admits to similar sx inthe past Lungs CTA, satting 100% on RA, no pedal edema EKG, labs, CXR, COVID/flu ordered Full HPI, ROS and PE to be performed by primary ED provider. Medical Decision Making Medical Decision Making [facility] Narrative: Patient is a 56 year old assigned female at with a history of HUONG presenting to the emergency department today with left sided chest pain. Patient's physical exam was unremarkable. Patient's blood work was unremarkable. Patient's EKG was unremarkable. Patient's chest x-ray showed no acute process. I explained my physical exam findings as well as all test results to the patient. I answered all questions asked by the patient. I stressed the importance of the patient taking her medication as prescribed. I stressed the importance of the patient following up with her primary care provider and her director inpatient headache program. I stressed the importance of the patient returning to the emergency department immediately if her symptoms were to worsen or if she were to develop any dizziness, shortness of breath, difficulty breathing, chest pain, blurry vision, loss of vision, nausea, vomiting, abdominal pain, fever, chills, back pain, or any other complaints. Patient verbalized agreement and understanding with this treatment plan and discharge. Differential Diagnosis Differential Diagnoses: The differential diagnosis associated with the presentation includes chest pain, chest wall pain Admission/Observation Consideration of admission/observation: Escalation of care including admission/observation considered Patient would have been admitted to the hospital had her work up had any findings where hospital admission was appropriate. Lab Data MDM Lab Attestation statement: I reviewed the patient's lab results. My interpretation of these studies and their corresponding values is that they are grossly normal. 11/10/22 11:26 11/10/22 11:26 Labs: Lab Results 11/10/22 11/10/22 11/10/22 Range/Units 11:26 11:26 11:26 WBC 5.7 (4.8-10.8) X10*3/uL RBC 4.12 L (4.20-5.50) X10*6/uL Hgb 11.5 L (12.0-16.0) g/dl Hct 35.7 L (37.0-47.0) % MCV 86.7 (80.0-98.0) fL MCH 27.9 (27.0-33.0) pg MCHC 32.2 (31.0-35.0) g/dl RDW 13.4 (11.0-16.0) % Plt Count 276 (160-400) X10*3/uL MPV 10.0 (9.4-12.3) fL Immature Gran % (Auto) 0.2 (0.0-0.4) % Neut % (Auto) 53.4 (45-73) % Lymph % (Auto) 30.7 (20-40) % [place] % (Auto) 8.4 (2-11) % Eos % (Auto) 6.1 H (0-4) % Baso % (Auto) 1.2 (0-2) % Lymph # (Auto) 1.8 (1.2-4.9) X10*3/uL [place] # (Auto) 0.5 (0.1-1.2) X10*3/uL Eos # (Auto) 0.4 (0.0-0.4) X10*3/uL Baso # (Auto) 0.1 (0.0-0.2) X10*3/uL Abs Immat Gran (auto) 0.01 (0.00-0.03) X10*3/uL Absolute Neuts (auto) 3.1 (2.0-8.3) x10*3/uL Absolute Nucleated RBC 0.000 (0.0-0.012) X10*3/uL Nucleated RBC % (auto) 0.0 (0.0-0.2) /100WBC PT (10.0-13.1) SEC INR (0.9-1.1) Sodium 137 (135-145) mmol/L Potassium 4.2 (3.3-5.1) mmol/L Chloride 107 (96-108) mmol/L Carbon Dioxide 24 (22-29) mmol/L Anion Gap 10 L (12-20) BUN 17 H (9-16) mg/dL Creatinine 0.84 (0.5-1.4) mg/dL Estim Creat Clear Calc 88.7 Estimated GFR > 60 Random Glucose 91 (60-115) mg/dL Calcium 9.3 (8.4-10.2) mg/dL Total Bilirubin 0.6 (0.0-1.0) mg/dL Direct Bilirubin 0.1 (0.0-0.5) mg/dL AST 23 (5-31) U/L ALT 26 (0-31) U/L Alkaline Phosphatase 81 (39-117) U/L Troponin I High Sens < 2.7 (<3.5-17.0) ng/L B-Natriuretic Peptide (<100) pg/mL Total Protein 7.4 (6.5-8.0) g/dL Albumin 4.1 (3.5-5.0) g/dL COVID-19 (PRIYANKA) (Negative) COVID-19 Clin Com Influenza Type A ([facility]) (Negative) Influenza Type B ([facility]) (Negative) Influenza A & B Note 11/10/22 11/10/22 11/10/22 Range/Units 11:26 11:27 11:27 WBC (4.8-10.8) X10*3/uL RBC (4.20-5.50) X10*6/uL Hgb (12.0-16.0) g/dl Hct (37.0-47.0) % MCV (80.0-98.0) fL MCH (27.0-33.0) pg MCHC (31.0-35.0) g/dl RDW (11.0-16.0) % Plt Count (160-400) X10*3/uL MPV (9.4-12.3) fL Immature Gran % (Auto) (0.0-0.4) % Neut % (Auto) (45-73) % Lymph % (Auto) (20-40) % [place] % (Auto) (2-11) % Eos % (Auto) (0-4) % Baso % (Auto) (0-2) % Lymph # (Auto) (1.2-4.9) X10*3/uL [place] # (Auto) (0.1-1.2) X10*3/uL Eos # (Auto) (0.0-0.4) X10*3/uL Baso # (Auto) (0.0-0.2) X10*3/uL Abs Immat Gran (auto) (0.00-0.03) X10*3/uL Absolute Neuts (auto) (2.0-8.3) x10*3/uL Absolute Nucleated RBC (0.0-0.012) X10*3/uL Nucleated RBC % (auto) (0.0-0.2) /100WBC PT 11.2 (10.0-13.1) SEC INR 1.0 (0.9-1.1) Sodium (135-145) mmol/L Potassium (3.3-5.1) mmol/L Chloride (96-108) mmol/L Carbon Dioxide (22-29) mmol/L Anion Gap (12-20) BUN (9-16) mg/dL Creatinine (0.5-1.4) mg/dL Estim Creat Clear Calc Estimated GFR Random Glucose (60-115) mg/dL Calcium (8.4-10.2) mg/dL Total Bilirubin (0.0-1.0) mg/dL Direct Bilirubin (0.0-0.5) mg/dL AST (5-31) U/L ALT (0-31) U/L Alkaline Phosphatase (39-117) U/L Troponin I High Sens (<3.5-17.0) ng/L B-Natriuretic Peptide 62 (<100) pg/mL Total Protein (6.5-8.0) g/dL Albumin (3.5-5.0) g/dL COVID-19 (PRIYANKA) (Negative) COVID-19 Clin Com Influenza Type A ([facility]) Negative (Negative) Influenza Type B ([facility]) Negative (Negative) Influenza A & B Note See Note 11/10/22 Range/Units 11:27 WBC (4.8-10.8) X10*3/uL RBC (4.20-5.50) X10*6/uL Hgb (12.0-16.0) g/dl Hct (37.0-47.0) % MCV (80.0-98.0) fL MCH (27.0-33.0) pg MCHC (31.0-35.0) g/dl RDW (11.0-16.0) % Plt Count (160-400) X10*3/uL MPV (9.4-12.3) fL Immature Gran % (Auto) (0.0-0.4) % Neut % (Auto) (45-73) % Lymph % (Auto) (20-40) % [place] % (Auto) (2-11) % Eos % (Auto) (0-4) % Baso % (Auto) (0-2) % Lymph # (Auto) (1.2-4.9) X10*3/uL [place] # (Auto) (0.1-1.2) X10*3/uL Eos # (Auto) (0.0-0.4) X10*3/uL Baso # (Auto) (0.0-0.2) X10*3/uL Abs Immat Gran (auto) (0.00-0.03) X10*3/uL Absolute Neuts (auto) (2.0-8.3) x10*3/uL Absolute Nucleated RBC (0.0-0.012) X10*3/uL Nucleated RBC % (auto) (0.0-0.2) /100WBC PT (10.0-13.1) SEC INR (0.9-1.1) Sodium (135-145) mmol/L Potassium (3.3-5.1) mmol/L Chloride (96-108) mmol/L Carbon Dioxide (22-29) mmol/L Anion Gap (12-20) BUN (9-16) mg/dL Creatinine (0.5-1.4) mg/dL Estim Creat Clear Calc Estimated GFR Random Glucose (60-115) mg/dL Calcium (8.4-10.2) mg/dL Total Bilirubin (0.0-1.0) mg/dL Direct Bilirubin (0.0-0.5) mg/dL AST (5-31) U/L ALT (0-31) U/L Alkaline Phosphatase (39-117) U/L Troponin I High Sens (<3.5-17.0) ng/L B-Natriuretic Peptide (<100) pg/mL Total Protein (6.5-8.0) g/dL Albumin (3.5-5.0) g/dL COVID-19 (PRIYANKA) Negative (Negative) COVID-19 Clin Com See Note Influenza Type A ([facility]) (Negative) Influenza Type B ([facility]) (Negative) Influenza A & B Note Independent Interpretation I performed an independent interpretation of an: EKG and Plain X-Ray Interpretation: Vent. Rate: 060 BPM ? ? Atrial Rate: 060 BPM P-R Int: 138 ms? QRS Dur: 090 ms QT Int: 424 ms ? ? ? P-R-T Axes: 022 -02 -10 degrees QTc Int: 424 ms ? Normal sinus rhythm Minimal voltage criteria for LVH, may be normal variant ( R in aVL ) Anterior infarct (cited on or before 10-NOV-2022) Abnormal ECG When compared with ECG of 21-JUL-2021 16:55, No significant change was found ? Electronically Signed By:GREGORY HUSSEIN MD Dictated By: Gregory Hussein MD Signed By: Electronically signed by Gregory Hussein MD 11/10/22 1137 My interpretation is in agreement with the radiologist's impression of this imaging study. EXAMINATION: XR CHEST CLINICAL INFORMATION: Chest pain and shortness of breath COMPARISON: Previous chest x-ray most recent from 2020 TECHNIQUE: 2 views of the chest were obtained. FINDINGS: No significant abnormality is noted involving the heart, lungs, mediastinum, bony thorax or soft tissues. XR/XR chest 2V IMPRESSION: Unremarkable examination. Dictated By: Tamara Hauser MD Signed By: Electronically signed by Tamara Hauser MD 11/10/22 1224 Scores Heart Score History: -0- slightly suspicious ECG: -0- normal Age: -1- >45 - <65 Risk factory: -1- 1 or 2 risk factors Troponin: -0- < or = normal limit Score: 2 Risk: 1.7% Discharge Plan Discharge Clinical Impression: Chest pain Patient Disposition: Home, Self-Care Instructions: Chest Pain (DC) Additional Instructions: Follow up with your primary care provider and a director inpatient headache program. Return to the emergency department immediately if your symptoms worsen or if you develop any dizziness, shortness of breath, difficulty breathing, chest pain, blurry vision, loss of vision, nausea, vomiting, abdominal pain, fever, chills, back pain, or any other complaints. Prescriptions: No Action (DME) Knee brace Misc See Rx Instructions .ROUTE .MEDSUPPLY Qty: 1 0RF Rx Instructions: As directed (DME) Grab bar Misc See Rx Instructions .Route Qty: 2 0RF Rx Instructions: As directed levothyroxine 112 mcg tablet 112 mcg PO DAILY 90 Days Qty: 90 1RF cholecalciferol (vitamin D3) 50 mcg (2,000 unit) capsule 50 mcg PO DAILY Qty: 30 11RF albuterol sulfate 90 mcg/actuation HFA aerosol inhaler 2 puff inhalation Q4-6H PRN (Reason: shortness of breath or wheezing) Qty: 6.7 7RF cetirizine [All Day Allergy (cetirizine)] 10 mg tablet 10 mg PO DAILY Qty: 90 1RF docusate sodium [Colace] 100 mg capsule 200 mg PO BEDTIME Qty: 60 5RF Arnuity Ellipta 50 mcg/actuation blister with device 1 inh inhalation DAILY 30 Days Qty: 30 2RF rosuvastatin 10 mg tablet 10 mg PO BEDTIME 90 Days Qty: 90 3RF pantoprazole 40 mg tablet,delayed release (DR/EC) 40 mg PO DAILY 90 Days Qty: 90 3RF meloxicam 15 mg tablet 15 mg PO DAILY Qty: 30 1RF (DME) commode Kit See Rx Instructions .Route Qty: 1 0RF Rx Instructions: As directed (DME) cane Device See Rx Instructions .Route Qty: 1 0RF Rx Instructions: As directed fluticasone propionate [Allergy Relief (fluticasone)] 50 mcg/actuation spray,suspension 2 spray intranasal DAILY 30 Days Qty: 16 5RF Rx Instructions: administer into each nostril ibuprofen 600 mg tablet 600 mg PO Q8H PRN (Reason: pain) Qty: 60 0RF sertraline 50 mg tablet 50 mg PO DAILY lorazepam 0.5 mg tablet 0.5 mg PO DAILY PRN ropinirole 0.5 mg tablet 0.5 mg PO BEDTIME sertraline 100 mg tablet 100 mg PO simethicone 125 mg tablet,chewable 125 mg PO QID PRN (Reason: abdominal distention) 30 Days Qty: 120 6RF bisacodyl [Dulcolax (bisacodyl)] 5 mg tablet,delayed release (DR/EC) 10 mg PO ONCE 1 Days Qty: 2 0RF Rx Instructions: Take 2 tablets by mouth at 12:00pm the day before your procedure. polyethylene glycol 3350 [Miralax] 17 gram/dose powder 238 g PO ONCE 1 Days Qty: 238 0RF Rx Instructions: Take as directed by mouth the day before your procedure. Myrbetriq 25 mg tablet extended release 24 hr 25 mg PO DAILY 30 Days Qty: 30 1RF Ref[place]: [facility] [place] Group] (Call to establish and follow up with a director inpatient headache program.) Kim Batres MD [Primary Care Provider] - Interventions: ED Discharge Assessment Last Done: 11/10/22 13:28 Discharge Date/Time: 11/10/22 13:28 Print Language: Bhutanese
--- NOTE | 2022-11-10 11:29 | MHC.EDTECH ---
Labs, covid and flu swab collected and sent to lab
[2022-11-10 11:31] LABS: MANUAL DIFF FLAG NO
[2022-11-10 11:38] LABS: Basophils Absolute Auto 0.1 X10*3/uL (0.0-0.2); Basophils Percent Auto 1.2 % (0-2); Eosinophils Absolute Auto 0.4 X10*3/uL (0.0-0.4); Eosinophils Percent Auto 6.1 % (0-4); Hematocrit 35.7 % (37.0-47.0); Hemoglobin 11.5 g/dl (12.0-16.0); Imm Gran Abs Auto 0.01 X10*3/uL (0.00-0.03); Imm Gran Pct Auto 0.2 % (0.0-0.4); Lymphocytes Absolute Auto 1.8 X10*3/uL (1.2-4.9); Lymphocytes Percent Auto 30.7 % (20-40); Mean Corpuscular HGB Conc 32.2 g/dl (31.0-35.0); Mean Corpuscular Hemoglobin 27.9 pg (27.0-33.0); Mean Corpuscular Volume 86.7 fL (80.0-98.0); Monocytes Absolute Auto 0.5 X10*3/uL (0.1-1.2); Monocytes Percent Auto 8.4 % (2-11); Neutrophils Absolute Auto 3.1 x10*3/uL (2.0-8.3); Neutrophils Percent Auto 53.4 % (45-73); Platelet Count 276 X10*3/uL (160-400); Red Blood Count 4.12 X10*6/uL (4.20-5.50); Red Cell Distribution Width 13.4 % (11.0-16.0); White Blood Count 5.7 X10*3/uL (4.8-10.8)
[2022-11-10 11:44] LABS: Prothrombin Time 11.2 SEC (10.0-13.1)
[2022-11-10 11:49] LABS: Alanine Aminotransferase 26 U/L (0-31); Albumin Level 4.1 g/dL (3.5-5.0); Alkaline Phosphatase 81 U/L (39-117); Anion Gap 10 (12-20); Aspartate Amino Transferase 23 U/L (5-31); Bilirubin Direct 0.1 mg/dL (0.0-0.5); Bilirubin Total 0.6 mg/dL (0.0-1.0); Blood Urea Nitrogen 17 mg/dL (9-16); Calcium 9.3 mg/dL (8.4-10.2); Carbon Dioxide 24 mmol/L (22-29); Chloride 107 mmol/L (96-108); Creatinine Clr Calc Pharmacy 88.7; Estimated Glomerular Filt Rate > 60; Glucose Random 91 mg/dL (60-115); Potassium 4.2 mmol/L (3.3-5.1); Sodium 137 mmol/L (135-145); Total Protein 7.4 g/dL (6.5-8.0)
[2022-11-10 11:53] LABS: B Type Natriuretic Peptide 62 pg/mL (<100)
[2022-11-10 11:56] LABS: Troponin-I High Sensitivity < 2.7 ng/L (<3.5-17.0)
[2022-11-10 11:57] LABS: IDNOW Serial# 9DB6401D; Influenza A Negative (Negative); Influenza B2 Negative (Negative)
[2022-11-10 11:58] LABS: COVID-19 Test Negative (Negative); IDNOW Serial# 08D9AD1C
== END 2022-11-10 13:28 | disposition home or self-care (01) ==
PROVIDERS: Physician Assistant; Emergency Provider Emergency Medicine; PCP Internal Medicine
DX: R07.9 Chest pain, unspecified (principal); R06.02 Shortness of breath; Z20.822 Contact with and (suspected) exposure to COVID-19
CPT/HCPCS: 71046; 80048; 80076; 83880; 84484; 85025; 85610; 87502; 87635; 93005; 99283

== ENCOUNTER 2022-11-13 08:15 | Day surgery (SDC) | payer OTHER, SELFPAY ==
--- NOTE | 2022-11-12 13:15 | HO.ANESPROP2 ---
Documented by User: Mirian Temple NP 11/12/22 13:19 HPI - Anesthesia Eval Consult details Narrative: 57yo F for Upper Endoscopy and Colonoscopy Sent to ED by PCP 11/10/22 for CP. Abnormal EKG (no change from previous), but no ACS. Pt to establish care with cardiology. Per PCP, ok to proceed with EGD/[place]. PMFSH Active Problems Active Problems: All Active Problems (Updated 11/11/22 @ 00:06 by Zia Prescott) Chest pain (Acute) Nocturia (Acute) Bladder pain (Acute) Urinary frequency (Acute) Bacterial vaginosis (Acute) Vulvar burning (Acute) Lower urinary tract symptoms (LUTS) (Acute) Insomnia (Acute) URI (upper respiratory infection) (Acute) Physical exam (Acute) Pelvic pain in female (Acute) Osteoarthritis of lumbar spine (Acute) Dysuria (Acute) Well woman exam (Acute) Seasonal allergies (Acute) Right-sided chest pain (Acute) Asthma exacerbation (Acute) Lumbar pain (Acute) Osteoarthritis of left hip (Acute) HUONG (generalized anxiety disorder) (Acute) Mild recurrent major depression (Acute) Chronic constipation (Acute) Primary osteoarthritis of right knee (Acute) Dyslipidemia (Acute) Dysphagia (Acute) Asthma (Acute) Cough (Acute) 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 (Acute) Polyarthralgia (Acute) Hypothyroidism (Acute) COVID-19 (Acute) Nausea (Acute) Stress incontinence (Acute) Urge incontinence (Acute) Urgency of micturition (Acute) Fatty (change of) liver, not elsewhere classified (Acute) Gastro-esophageal reflux disease without esophagitis (Acute) Obesity (BMI 30-39.9) (Acute) Postmenopausal bleeding (Acute) Past Medical History Medical History Anxiety Asthma COVID-19 Depression with anxiety Dyslipidemia Dysphagia Fatty liver Fibromyalgia HUONG (generalized anxiety disorder) High cholesterol Hypothyroid Hypothyroidism Lumbar pain Mild recurrent major depression Nausea Osteoarthritis Osteoarthritis of left hip Osteoarthritis of right knee Polyarthralgia 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 Shortness of breath Family History Family History Sister Breast CA Pancreatic cancer Sister Breast CA Father Myocardial infarction Diabetes Hypertension CVD (cardiovascular disease) Mother Heart problem Daughter In good health Surgical History Surgical History H/O oophorectomy History of blepharoplasty History of removal of ovarian cyst Tubal ligation status Social History Social History Household Members: None Housing: Apartment Alcohol intake: never Patient Tobacco Use Status: Former Tobacco user Tobacco use type: Cigarette e-Cigarette/Vaping Use: Never Used Second Hand Smoke Exposure: No Are you DNR?: No Advance Directives: No Advance Directives Information Provided: Yes Nutrition Risks: No Nutritional Risk service: No Current occupational status: disabled Cognitive needs: Yes Hearing needs: No Vision needs: No Meds Allergies Allergy/AdvReac Type Severity Reaction Status Date / Time Sulfa (Sulfonamide Allergy Severe SWELLING Verified 11/13/22 09:25 Antibiotics) [Sulfa (Sulfonamides)] cbd Allergy Intermediate chest pain Uncoded 11/13/22 09:25 Home Medications Medication Instructions Recorded Confirmed Last Taken Type lorazepam 0.5 mg tablet 0.5 mg PO DAILY PRN 03/02/20 11/10/22 Unknown History ropinirole 0.5 mg tablet 0.5 mg PO BEDTIME 03/02/20 11/10/22 Unknown History sertraline 50 mg tablet 50 mg PO DAILY 03/02/20 11/10/22 Unknown History sertraline 100 mg tablet 100 mg PO 10/29/21 11/10/22 Unknown History Exam Exam Date and Time: November 12, 2022 1315 Pertinent Lab Results Pertinent Lab Results: Laboratory Tests 11/10/22 11/10/22 11:26 11:26 WBC 5.7 Hgb 11.5 L Hct 35.7 L Plt Count 276 Sodium 137 Potassium 4.2 Chloride 107 Carbon Dioxide 24 BUN 17 H Creatinine 0.84 Narrative Narrative: EKG 10/2022 Vent. Rate : 060 BPM ? ? Atrial Rate : 060 BPM ?? P-R Int : 138 ms? QRS Dur : 090 ms ? ? QT Int : 424 ms ? ? ? P-R-T Axes : 022 -02 -10 degrees ?? QTc Int : 424 ms ? Normal sinus rhythm Minimal voltage criteria for LVH, may be normal variant ( R in aVL ) Anterior infarct (cited on or before 10-NOV-2022) Abnormal ECG When compared with ECG of 21-JUL-2021 16:55, No significant change was found Assessment and Plan Assessment Anesthesia Assessment: Chart Reviewed Documented by User: Tri Lui MD 11/13/22 12:24 [facility] Past Medical History Medical History Anxiety Asthma COVID-19 Depression with anxiety Dyslipidemia Dysphagia Fatty liver Fibromyalgia HUONG (generalized anxiety disorder) High cholesterol Hypothyroid Hypothyroidism Lumbar pain Mild recurrent major depression Nausea Osteoarthritis Osteoarthritis of left hip Osteoarthritis of right knee Polyarthralgia [id number] syndrome Shortness of breath Family History Family History Sister Breast CA Pancreatic cancer Sister Breast CA Father Myocardial infarction Diabetes Hypertension CVD (cardiovascular disease) Mother Heart problem Daughter In good health Family history of problems with anesthesia: No Surgical History Surgical History H/O oophorectomy History of blepharoplasty History of removal of ovarian cyst Tubal ligation status History of Problems with Anesthesia: No Social History Social History Household Members: None Housing: Apartment Alcohol intake: never Patient Tobacco Use Status: Former Tobacco user Tobacco use type: Cigarette e-Cigarette/Vaping Use: Never Used Second Hand Smoke Exposure: No Are you DNR?: No Advance Directives: No Advance Directives Information Provided: Yes Nutrition Risks: No Nutritional Risk service: No Current occupational status: disabled Cognitive needs: Yes Hearing needs: No Vision needs: No Meds Allergies Allergy/AdvReac Type Severity Reaction Status Date / Time Sulfa (Sulfonamide Allergy Severe SWELLING Verified 11/13/22 09:25 Antibiotics) [Sulfa (Sulfonamides)] cbd Allergy Intermediate chest pain Uncoded 11/13/22 09:25 Home Medications Medication Instructions Recorded Confirmed Last Taken Type lorazepam 0.5 mg tablet 0.5 mg PO DAILY PRN 03/02/20 11/10/22 Unknown History ropinirole 0.5 mg tablet 0.5 mg PO BEDTIME 03/02/20 11/10/22 Unknown History sertraline 50 mg tablet 50 mg PO DAILY 03/02/20 11/10/22 Unknown History sertraline 100 mg tablet 100 mg PO 10/29/21 11/10/22 Unknown History Exam Airway Mallampati Class: I TM Dist: >3cm Neck ROM: Full Partial: Upper Loose/Missing/Broken Teeth: No Heart: rr Lungs: cta Assessment and Plan Final Anesthetic Review Family History of Problems with Anesthesia: No History of Problems with Anesthesia: No NPO: Yes ASA Class: II Final Preanesthetic Review: No Changes in Pt Med Stat, Meds/Allgs Chart Reviewed, Consent Obtained/Reviewed and Anes Risks/Benef Reviewed Patient Risk: Low Anesthetic Plan Anesthetic Plan: MAC:
[2022-11-13] MEDS: Lactated Ringers 1,000 ML 100 ML IVCONT (08:29)
[2022-11-13 08:38] VITALS: BMI 34.5
[2022-11-13 08:55] VITALS: BP 122/83; PULSE 65; RESP 18; TEMP 36.7; O2SAT 96
--- NOTE | 2022-11-13 09:14 | MHC.SHP ---
Pre-Procedural Eval Section A Date of Service: 11/13/22 The History & Physical has been completed within 30 days and I have reviewed it.: Yes Section B Chief Complaint: Dysphagia, rectal bleed Allergies: Allergies Allergy/AdvReac Type Severity Reaction Status Date / Time Sulfa (Sulfonamide Allergy Severe SWELLING Verified 11/10/22 11:19 Antibiotics) [Sulfa (Sulfonamides)] cbd Allergy Intermediate chest pain Uncoded 11/10/22 11:19 Plan Diagnosis/Plan: Unchanged I have reviewed the history and physical and performed a pertinent physical examination on my patient. No changes have occurred unless specified. Time Spent With Patient Time: Total time managing care of this patient today ____ minutes.
--- NOTE | 2022-11-13 10:51 | P.OP_ITS ---
Operative Note Operative Note Date of Service: 11/13/22 Narrative: Procedure:?Esophagogastroduodenoscopy and colonoscopy Endoscopist:?Nanda Streeter MD Indication:?Dysphagia, rectal bleeding ?? Anesthesia Provider:?Dr Tri Lui Anesthesia Type:?MAC Instrument:?Olympus GIF-H190, PCF-190L, [id number] EGD Procedure:?? The procedure, indications, preparation and potential complications were reviewed with the patient, who indicated understanding and gave written informed consent to proceed. A physical exam was performed. The endoscope was introduced through the mouth, and advanced to the second part of duodenum. The mucosa was carefully examined on slow withdrawal of the endoscope. The patient tolerated the procedure well. There were no immediate complications.? EGD Findings:? * Esophagus:? Normal mucosa noted in the entire esophagus. The Z line was at 30 cm.? A hiatal hernia was seen with diaphragmatic hiatus at 35 cm. * Stomach:? Normal gastric mucosa. Retroflexion in the fundus confirmed size and morphology of the hiatal hernia as Hill grade 3. * Duodenum:? Normal mucosa was noted in the duodenum to the extent examined. Cold forceps biopsies were taken from the second portion of the duodenum to r/o celiac disease. Additional intervention: Soft tip Savary wire was advanced through the biopsy channel in left in the antrum. The gastroscope was then backed out. A Savary Davi bougie was advanced over the wire and the esophagus was intimately dilated from 18 mm to 20 mm. No heme or tear was noted post dilation. Colonoscopy Procedure:? The patient was then turned for the colonoscopy. A digital rectal exam was performed which was abnormal for external hemorrhoids.? A distal attachment cap was affixed to the tip of the scope and the colonoscope was then inserted through the anus and advanced through the colon however cecum could not be reached through the PCF scope so it was then changed to CF (adult) scope. We were then able advance to the cecum at 80 cm, and terminal ileum.? Appendiceal orifice and ileocecal valve were identified.? Mucosa was carefully examined under high definition white light as the instrument was slowly withdrawn in a retrograde panoramic fashion. Retroflexion was performed in rectum. The procedure was difficult due to looping of the scope and redundant colon. There were no immediate obvious complications. The quality of the prep was BBPS: 2+3+3 = adequate Withdrawal time 8 minutes. Limitations: No limitations.? Findings: Mucosa: Normal mucosa to cecum and terminal ileum. Protruding lesions: * Large internal hemorrhoids without stigmata of recent bleeding. Impression: 1. Normal esophagus (dilation) 2. Hill grade III hiatal hernia 3. Normal stomach 4. Normal duodenum (biopsy) 5. Normal colon and terminal ileum mucosa 6. Internal and external hemorrhoids Recommendations:?? * Follow biopsy results, office will call or send a letter within 7-10 days.? * Future colonoscopy for asymptomatic CRC screening in 10 years. Findings were reviewed with the patient.
[2022-11-13 11:45] VITALS: BP 116/67; PULSE 68; RESP 16; TEMP 36.1; O2SAT 98
[2022-11-13 12:00] VITALS: BP 103/80; PULSE 64; RESP 16; TEMP 36.1; O2SAT 98
== END 2022-11-13 13:19 | disposition home or self-care (01) ==
PROVIDERS: PCP Internal Medicine; Visit Provider Internal Medicine
PROC: (CPT 45378; principal; 2022-11-13 10:00)
DX: K62.5 Hemorrhage of anus and rectum (principal); K64.8 Other hemorrhoids; K64.4 Residual hemorrhoidal skin tags; K76.0 Fatty (change of) liver, not elsewhere classified; R13.10 Dysphagia, unspecified; K21.9 Gastro-esophageal reflux disease without esophagitis; K44.9 Diaphragmatic hernia without obstruction or gangrene; E78.00 Pure hypercholesterolemia, unspecified; M79.7 Fibromyalgia; J45.909 Unspecified asthma, uncomplicated; E03.9 Hypothyroidism, unspecified; F41.8 Other specified anxiety disorders; M15.9 Polyosteoarthritis, unspecified; Z79.51 Long term (current) use of inhaled steroids; Z79.1 Long term (current) use of non-steroidal anti-inflammatories (NSAID); Z79.899 Other long term (current) drug therapy; Z88.2 Allergy status to sulfonamides; Z88.8 Allergy status to other drugs, medicaments and biological substances; Z86.16 Personal history of COVID-19; Z87.891 Personal history of nicotine dependence
CPT/HCPCS: 45378; 43249; 43239; 88305; C1769; J2405; J2765

== ENCOUNTER 2022-12-03 09:13 | Outpatient (REF) | payer OTHER, SELFPAY | END 2022-12-03 09:14 | disposition home or self-care (01) | LOC: HO.LAB 09:13 | PROVIDERS: PCP Internal Medicine; Visit Provider Physician Assistant | DX: K21.9 Gastro-esophageal reflux disease without esophagitis (principal); K59.09 Other constipation; K64.9 Unspecified hemorrhoids; E66.9 Obesity, unspecified; Z79.899 Other long term (current) drug therapy | CPT/HCPCS: 36415; 83036; 99212 ==

== ENCOUNTER 2022-12-11 08:08 | Outpatient (REF) | payer OTHER, SELFPAY ==
--- NOTE | ~2022-12-11 | MM_ITS ---
EXAMINATION: MM SCREENING DIGITAL BREAST TOMOSYNTHESIS, BILATERAL CLINICAL INFORMATION: Screening. Asymptomatic. The lifetime risk of breast cancer based on the Tyrer-Cuzick Model is 14.6%. COMPARISON: Mammography: This study is compared with prior exams dating back to 2018. TECHNIQUE: Digital breast tomosynthesis is performed in both the craniocaudal and mediolateral oblique views along with computer-aided detection (CAD). Synthesized 2D images are generated from the tomosynthesis. FINDINGS: There are scattered areas of fibroglandular density (ACR BI-RADS breast composition Category b). There are no significant masses, abnormal calcifications, or other abnormalities. There is an unchanged, or oval, partially coarsely calcified mass in the upper outer quadrant of the right breast. This is an involuting fibroadenoma which is a benign entity. MM/MM tomosynthesis screening BI IMPRESSION: No mammographic evidence of malignancy. ASSESSMENT: BI-RADS BI-RADS 2 - Benign Findings RECOMMENDATION: Routine annual mammography screening. 1 year F/U This examination should not preclude the clinical evaluation of a suspicious palpable abnormality. This patient's information was entered into a reminder system with a target due date for their next mammogram.
== END 2022-12-11 08:09 | disposition home or self-care (01) ==
LOC: HO.MAMMO 08:08
PROVIDERS: PCP Internal Medicine; Visit Provider Internal Medicine
DX: Z12.31 Encounter for screening mammogram for malignant neoplasm of breast (principal)
CPT/HCPCS: 77063; 77067

== ENCOUNTER → 2022-12-11 08:15 | Outpatient (BNV) | payer OTHER, SELFPAY | PROVIDERS: PCP Internal Medicine; Visit Provider Radiology Diagnostic Radiology | DX: Z12.31 Encounter for screening mammogram for malignant neoplasm of breast (principal) | CPT/HCPCS: 77063; 77067 ==

== ENCOUNTER → 2023-02-23 12:59 | Outpatient (BNVA) | payer OTHER, SELFPAY | PROVIDERS: Visit Provider Obstetrics & Gynecology ==

== ENCOUNTER 2023-02-23 13:05 | Outpatient (AMB) | payer OTHER, SELFPAY ==
[2023-02-23 13:08] VITALS: BP 116/76; BMI 34.5
--- NOTE | 2023-02-23 13:08 | A.OFFVIS_ITS ---
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 No complaints. Last Pap/HPV was negative in 02/18 Last Mammogram was BI-RADS 2 in 12/18 Last Colonoscopy was done in 11/21, the recommendation was to repeat in 10 years [facility], [facility] Medical History Lumbar pain Osteoarthritis of left hip UHONG (generalized anxiety disorder) Mild recurrent major depression Osteoarthritis of right knee Dyslipidemia Depression with anxiety Shortness of breath Dysphagia [id number] syndrome Polyarthralgia Hypothyroidism COVID-19 Nausea Osteoarthritis Fatty liver Anxiety Fibromyalgia Hypothyroid High cholesterol Asthma Surgical History History of esophagogastroduodenoscopy (EGD) Hx of colonoscopy History of blepharoplasty History of removal of ovarian cyst Tubal ligation status H/O oophorectomy Family History Sister Breast CA Pancreatic cancer Sister Breast CA Father Myocardial infarction Diabetes Hypertension CVD (cardiovascular disease) Mother Heart problem Daughter In good health Social History Household Members: None Housing: Apartment Alcohol intake: never Patient Tobacco Use Status: Former Tobacco user Tobacco use type: Cigarette e-Cigarette/Vaping Use: Never Used Second Hand Smoke Exposure: No service: No Current occupational status: disabled Cognitive needs: Yes Hearing needs: No Vision needs: No Female Reproductive History Menstrual Age of Menarche: 11 control method: permanent sterilization Total pregnancies: 3 Full term: 3 Number of Living Children: 3 Date of last pap smear: 02/21/20 (negative) Date of Mammogram: 12/11/22 Review of Systems Const All systems reviewed & are unremarkable except as noted in HPI and below Card Reports as per HPI Resp Reports as per HPI GI Reports as per HPI and Reports no additional complaints Reports as per HPI Physical Exam Vital Signs: Last Vital Signs BP 116/76 02/23/23 13:08 BMI result Body Mass Index 34.5 Const General: cooperative, healthy appearing and comfortable Chest Chest palpation & inspection: normal inspection of the chest and normal palpation of entire chest wall Breast/axilla inspection: normal inspection of the breasts and normal inspection of the axillae Breast/axilla palpation: normal palpation of the breasts, normal palpation of the axillae and no axillary lymphadenopathy Resp Effort & Inspection: normal respiratory effort Auscultation: clear to auscultation bilaterally Percussion: percussion normal Cardio Palpation: normal PMI Rate: regular rate Rhythm: regular rhythm Heart sounds: no murmurs and no rubs Peripheral pulses: Peripheral pulses 2+ throughout GI Inspection: Yes normal to inspection Palpation (GI): Soft to palpation, nontender, no guarding, not rigid and No hepatosplenomegaly present Percussion: Yes normal to percussion Auscultation: normal bowel sounds Rectal Exam - Female: deferred General: Yes bladder normal to palpation External Female Exam: No lesion Speculum Exam - Vagina: normal appearance of the vagina, normal palpation, normal vaginal discharge and not erythematous Speculum Exam - Cervix: normal appearance of the cervix and normal palpation Bimanual exam- vagina & uterus: normal bimanual exam, normal palpation, uterine size normal, bladder normal to palpation, consistency normal and normal palpation Bimanual Exam- Adnexa, other: normal adnexae, no masses and no tenderness Assessment & Plan Assessment & Plan (1) Well woman exam: Code(s): Z01.419 - Encounter for gynecological examination (general) (routine) without abnormal findings Plan: Co testing not indicated this year. Counseled the patient about the recommended dietary allowance of 1200 mg of Calcium & 600 IU of vitamin D. Instruction given to patient to schedule next screening Mammogram in 12/22 The patient was referred to GI for screening colonoscopy . The patient was instructed to perform monthly self-breast exams and schedule annual exam in a year. All questions answered and the patient verbalized understanding. Coding Level of Care Code Est Pt Prev Care 40-64y(82213) Diagnoses Well woman exam Z01.419
== END 2023-02-23 13:41 | disposition home or self-care (01) ==
PROVIDERS: PCP Internal Medicine; Visit Provider Obstetrics & Gynecology
DX: Z01.419 Encounter for gynecological examination (general) (routine) without abnormal findings (principal)
CPT/HCPCS: 99396

== ENCOUNTER 2023-03-12 10:03 | Outpatient (REF) | payer OTHER, SELFPAY ==
[2023-03-12 10:52] LABS: Appearance Urine Clear; Color Urine Yellow; Glucose Urine UA Negative (Negative); Leukocyte Esterase Urine Trace (Negative); Nitrite Urine Negative (Negative); PH 7.5 (5.0-9.0); UMIC TRIGGER UA YES; Urine Blood Negative (Negative); Urine Ketones Negative (Negative); Urine Protein Negative (Neg-Trace)
[2023-03-12 10:57] LABS: Bacteria Urine None Seen (None Seen); Hyaline Casts Urine 0-2 /LPF (0-2); RBC Urine 0-2 /HPF (0-2); Squamous Epithelial Cell Urine 0-2 /HPF (0-2); WBC Urine 0-5 /HPF (0-5)
== END 2023-03-12 10:04 | disposition home or self-care (01) ==
LOC: HO.LAB 10:03
PROVIDERS: Nurse Practitioner Family; PCP Internal Medicine; Visit Provider Internal Medicine
DX: R35.0 Frequency of micturition (principal)
CPT/HCPCS: 81001; 87086

== ENCOUNTER 2023-03-17 13:41 | Outpatient (AMB) | payer OTHER, SELFPAY ==
--- NOTE | 2023-03-17 13:53 | MHC.PC.OV ---
Vital Signs 03/17/23 14:11 Height 5 ft 7 in Weight 218 lb 4 oz BMI 34.2 BP 118/72 Blood Pressure Location Lt brachial Position Sitting Respiration 17 Pulse 65 Pulse Source Pulse Oximeter Pulse Oximetry (%) 98 Oxygen Delivery Method Room Air Intake Visit Reasons: lower back pain for two weeks, frequent urination Intake Note: Pt here for LBP and frequent urination for the past three weeks. 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 Required: No Accompanied by: Self / Same As Patient Allergies Sulfa (Sulfonamide Antibiotics) [Sulfa (Sulfonamides)] Allergy (Severe, Verified 03/17/23 14:15) SWELLING cbd Allergy (Intermediate, Uncoded 03/17/23 14:12) chest pain Medication List - Last Reconciled 03/17/23 by Jono Contreras PA-C albuterol sulfate 90 mcg/actuation 2 puffs inhalation Q4-6H PRN cane As directed cetirizine (All Day Allergy (cetirizine)) 10 mg PO DAILY cholecalciferol (vitamin D3) 50 mcg PO DAILY commode As directed docusate sodium (Colace) 200 mg (2 x 100 mg) PO BEDTIME fluticasone furoate 50 mcg/actuation (Arnuity Ellipta) 1 inh inhalation DAILY 30 days fluticasone propionate 50 mcg/actuation (Allergy Relief (fluticasone)) 2 sprays intranasal DAILY 1 month Grab bar As directed ibuprofen 600 mg PO Q8H PRN Knee brace As directed levothyroxine 112 mcg PO DAILY 90 days lorazepam 0.5 mg PO DAILY PRN meloxicam 15 mg PO DAILY mirabegron ER (Myrbetriq) 25 mg PO DAILY 90 days pantoprazole 40 mg PO DAILY 90 days polyethylene glycol 3350 (Miralax) 17 grams PO DAILY rosuvastatin 10 mg PO BEDTIME 90 days sertraline 50 mg PO DAILY sertraline 100 mg PO simethicone 125 mg PO QID PRN 30 days Tobacco use date assessed: 08/05/22 Dental Screening Dental Screen Date: 03/17/23 Did you have a dental visit in the last 12 months?: Yes Did you have a dental problem in the last 6 months where you did not have access to dental care?: No Was dental information given to patient?: Patient has dentist HPI lower back pain for two weeks, frequent urination HPI Details Patient is a 57-year-old female here today for problem visit. She reports having lower back pain and frequent urination over the last 2 weeks. She has a history of cystitis and she reached out to urologist and got urinalysis that did show leukocytes though no evident UTI. She reports she continues to have lower back pain . Has tried lidocaine patches and Aleve without much relief. Urinalysis today in office showing 1+ leukocytes Otherwise denies any fever chills. 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 Polyarthralgia Hypothyroidism COVID-19 Nausea Osteoarthritis Fatty liver Anxiety Fibromyalgia Hypothyroid High cholesterol Asthma Surgical History History of esophagogastroduodenoscopy (EGD) Hx of colonoscopy History of blepharoplasty History of removal of ovarian cyst Tubal ligation status H/O oophorectomy Family History Sister Breast CA Pancreatic cancer Sister Breast CA Father Myocardial infarction Diabetes Hypertension CVD (cardiovascular disease) Mother Heart problem Daughter In good health Social History Household Members: None Housing: Apartment Alcohol intake: never Patient Tobacco Use Status: Former Tobacco user Tobacco use type: Cigarette e-Cigarette/Vaping Use: Never Used Second Hand Smoke Exposure: No service: No Current occupational status: disabled Cognitive needs: Yes Hearing needs: No Vision needs: No Female Reproductive History Menstrual Age of Menarche: 11 Questionnaire Thrive Questionnaire Date Thrive assessed: 06/11/22 HUONG-7 AMB Questionnaire HUONG-7 Date HUONG - 7 assessed: 06/11/22 Source: Developed by Drs. William Noel, Gavi Yu, Hayden Sagastume and colleagues, with an educational gris from [employer]. Review of Systems Const Denies headache(s) Eyes Denies loss of vision ENT Denies vertigo, Denies dizziness, Denies headache(s) and Denies sore throat Card Denies chest pain, Denies leg edema and Denies lightheadedness Resp Denies cough, Denies hemoptysis and Denies wheezing GI Denies abdominal pain, Denies melena, Denies constipation, Denies diarrhea and Denies vomiting Details: + urinary frequency Denies urinary frequency, Denies dysuria and Denies urinary urgency Musc Reports back pain, Denies arthralgias, Denies joint swelling, Denies numbness and Denies tingling Neuro Denies Abnormal speech present, Denies behavioral changes, Denies vertigo, Denies dizziness, Denies headache(s), Denies loss of vision, Denies memory loss, Denies numbness and Denies tingling Psych Denies anxiety, Denies behavioral changes, Denies depression, Denies memory loss and Denies panic attacks Sudhakar/Lymph Denies easy bleeding and Denies easy bruising Aller/Immun Denies wheezing Physical exam (Primary Care) Vital Signs: Last Vital Signs Pulse 65 03/17/23 14:11 Resp 17 03/17/23 14:11 BP 118/72 03/17/23 14:11 Pulse Ox 98 03/17/23 14:11 Oxygen Delivery Method Room Air 03/17/23 14:11 BMI result Body Mass Index 34.2 Tobacco/Smoking Status: Tobacco use Status Tobacco use date assessed 08/05/22 03/17/23 13:53 Patient Tobacco Use Status Former Tobacco user 03/17/23 13:53 Tobacco use type Cigarette 03/17/23 13:53 e-Cigarette/Vaping Use Never Used 03/17/23 13:53 Thrive Assessment: Date of Thrive Assessment Date Thrive assessed 06/11/22 03/17/23 13:53 Const General: healthy appearing, no acute distress, alert and awake Nutritional Appearance: well nourished Orientation/consciousness: oriented to person, oriented to place and oriented to time HENMT Ears: TM's normal bilaterally General nose exam: Normal nasal mucous membranes and turbinates present Eyes Conjunctivae: conjunctivae normal Sclerae: sclerae normal Pupils: Equal, round and reactive pupils present Neck Neck: Yes no lymphadenopathy and Yes no JVD Thyroid: Thyroid normal Carotids: no bruits Resp Effort & Inspection: normal respiratory effort and not tachypneic Auscultation: no crackles, no rales, no rhonchi and no wheezes Cardio Rate: regular rate Rhythm: regular rhythm Heart sounds: no murmurs and normal S1 and S2 GI Palpation (GI): Soft to palpation, nontender, no hepatomegaly and no splenomegaly Auscultation: normal bowel sounds Skin General skin exam: no rashes or lesions noted and dry skin Neuro General: oriented to person, oriented to place and oriented to time Cranial nerves: Yes Equal, round and reactive pupils present Speech: No Abnormal speech present Gait exam (Neuro): Normal gait present Motor exam (neuro): no tremor noted Extrem Right upper extremity: full ROM Left upper extremity: full ROM Right lower extremity: full ROM; no edema Left lower extremity: full ROM; no edema Psych Mental Status: mental status grossly normal Speech and movement: Normal speech and movement present Affect: normal affect Attitude: cooperative Thought process: Normal thought process present Results AMB Urinalysis, Automated UA Leukoctes 15 Akua/uL Last Edit by LINDA Partida on 03/17/23 14:15 UA Nitrite Negative Last Edit by LINDA Partida on 03/17/23 14:15 UA Urobilinogen 0 mg/dL Last Edit by LINDA Partida on 03/17/23 14:15 UA Protein 0 mg/dL Last Edit by LINDA Partida on 03/17/23 14:15 UA pH 6.0 Last Edit by LINDA Partida on 03/17/23 14:15 UA Blood 0 Jacobo/uL Last Edit by LINDA Partida on 03/17/23 14:15 UA Specific [place] 1.015 Last Edit by LINDA Partida on 03/17/23 14:15 UA Ketone Negative Last Edit by LINDA Partida on 03/17/23 14:15 UA Bilirubin 0 mg/dL Last Edit by LINDA Partida on 03/17/23 14:15 UA Glucose 0 mg/dL Last Edit by LINDA Partida on 03/17/23 14:15 Results Reviewed Results Reviewed: Laboratory Last Values Urine pH (Auto) 6.0 03/17/23 14:13 Specific [place] (Auto) 1.015 03/17/23 14:13 Urine Protein (Auto) 0 mg/dL 03/17/23 14:13 Glucose (UA)(Auto) 0 mg/dL 03/17/23 14:13 Urine Ketones (Auto) Negative 03/17/23 14:13 Urine Blood (Auto) 0 Jacobo/uL 03/17/23 14:13 Urine Nitrite (Auto) Negative 03/17/23 14:13 Urine Bilirubin (Auto) 0 mg/dL 03/17/23 14:13 Urine Urobilinogen (Auto) 0 mg/dL 03/17/23 14:13 Leukocyte Esterase (Auto) 15 Akua/uL 03/17/23 14:13 Assessment and Plan Assessment & Plan (1) Cystitis: Code(s): N30.90 - Cystitis, unspecified without hematuria Plan: Patient does follow urology has been diagnosis cystitis. Urinalysis showing 1+ leukocytes though urine culture without evident UTI. Patient continues to have urinary frequency thus will empirically treat with Augmentin. For the inflammation will send a few days of prednisone and for pain Tylenol 3. (2) Lumbar radiculopathy: Code(s): M54.16 - Radiculopathy, lumbar region Orders: Orders AMB Urinalysis Automated Today R35.0 - Frequency of micturition XR lumbar spine 2-3V Today M54.16 - Radiculopathy, lumbar region XR KUB Today N30.90 - Cystitis, unspecified without hematuria Urine Culture Today N30.90 - Cystitis, unspecified without hematuria Medications: New prednisone 20 mg PO DAILY 5 days 5 tabs 0RF N30.90 - Cystitis, unspecified without hematuria amoxicillin-pot clavulanate 875-125 mg 1 tab PO BID 7 days 14 tabs 0RF N30.90 - Cystitis, unspecified without hematuria acetaminophen-codeine 300-30 mg 1 tab PO Q8H 4 days PRN 12 tabs 0RF pain N30.90 - Cystitis, unspecified without hematuria Coding Level of Care Code Est Pt Level 3 (43888) Diagnoses Cystitis N30.90 Lumbar radiculopathy M54.16
[2023-03-17 14:11] VITALS: BP 118/72; PULSE 65; RESP 17; O2SAT 98; BMI 34.2
== END 2023-03-17 15:25 | disposition home or self-care (01) ==
PROVIDERS: PCP Internal Medicine; Visit Provider Physician Assistant
DX: N30.90 Cystitis, unspecified without hematuria (principal); M54.16 Radiculopathy, lumbar region; R35.0 Frequency of micturition
CPT/HCPCS: 81003; 99213

== ENCOUNTER 2023-03-17 18:02 | Outpatient (REF) | payer OTHER, SELFPAY | END 2023-03-17 18:03 | disposition home or self-care (01) | LOC: HO.LNP 18:02 | PROVIDERS: Visit Provider Physician Assistant | DX: N30.90 Cystitis, unspecified without hematuria (principal); R35.0 Frequency of micturition | CPT/HCPCS: 87086 ==

== ENCOUNTER 2023-03-18 07:38 | Outpatient (REF) | payer OTHER, SELFPAY ==
--- NOTE | ~2023-03-18 | XR_ITS ---
EXAMINATION: XR ABDOMEN KUB XR LUMBAR SPINE CLINICAL INDICATION: Radiculopathy lumbar region. Cystitis without hematuria. Pain within 2 weeks. COMPARISON: Ultrasound retroperitoneum 10/20/2022. CT abdomen and pelvis 09/06/2022. KUB 09/02/2022. TECHNIQUE: 2 AP views of the abdomen. 3 views of the lumbar spine. FINDINGS: ABDOMEN: Visualization limited due to multiple air-filled loops of bowel. Moderate amount of stool in the colon. No definitive renal calculi identified, although visualization limited due to overlying bowel. LUMBAR SPINE: Progression of advanced degenerative changes at L4-L5 and L5-S1 with loss of disc space height and hypertrophic change. Asymmetric degenerative changes in the right sacroiliac joint greater than left. XR/XR KUB IMPRESSION: 1. No definitive renal calculi identified, although visualization limited due to overlying bowel. 2. Multiple air-filled loops of bowel. Correlation with clinical exam recommended to determine further management including possible followup imaging. 3. Progression of advanced degenerative changes at L4-L5 and L5-S1 with loss of disc space height and hypertrophic change.
--- NOTE | ~2023-03-18 | XR_ITS ---
EXAMINATION: XR ABDOMEN KUB XR LUMBAR SPINE CLINICAL INDICATION: Radiculopathy lumbar region. Cystitis without hematuria. Pain within 2 weeks. COMPARISON: Ultrasound retroperitoneum 10/20/2022. CT abdomen and pelvis 09/06/2022. KUB 09/02/2022. TECHNIQUE: 2 AP views of the abdomen. 3 views of the lumbar spine. FINDINGS: ABDOMEN: Visualization limited due to multiple air-filled loops of bowel. Moderate amount of stool in the colon. No definitive renal calculi identified, although visualization limited due to overlying bowel. LUMBAR SPINE: Progression of advanced degenerative changes at L4-L5 and L5-S1 with loss of disc space height and hypertrophic change. Asymmetric degenerative changes in the right sacroiliac joint greater than left. XR/XR lumbar spine 2-3V IMPRESSION: 1. No definitive renal calculi identified, although visualization limited due to overlying bowel. 2. Multiple air-filled loops of bowel. Correlation with clinical exam recommended to determine further management including possible followup imaging. 3. Progression of advanced degenerative changes at L4-L5 and L5-S1 with loss of disc space height and hypertrophic change.
== END 2023-03-18 07:39 | disposition home or self-care (01) ==
LOC: HO.XRAY 07:38
PROVIDERS: PCP Internal Medicine; Visit Provider Physician Assistant
DX: M54.16 Radiculopathy, lumbar region (principal); N30.90 Cystitis, unspecified without hematuria
CPT/HCPCS: 72100; 74018

== ENCOUNTER 2023-05-06 09:13 | Outpatient (AMB) | payer OTHER, SELFPAY ==
--- NOTE | 2023-05-06 09:46 | MHC.OFFVIS ---
Intake Intake Visit Reasons: 6m follow up/PVR Intake Note: Patient is Present for Follow Up PVR Urology Medication: Myrbetriq, Antibiotic Allergies: Sulfa Blood Thinners: None PVR: 37 Compliants: Patient states she believes that the myrbetriq has helped Allergies Sulfa (Sulfonamide Antibiotics) [Sulfa (Sulfonamides)] Allergy (Severe, Verified 05/06/23 10:15) SWELLING cbd Allergy (Intermediate, Uncoded 05/06/23 10:15) chest pain Medication List - Last Reconciled 05/06/23 by SKYLA Camacho- acetaminophen-codeine 300-30 mg 1 tab PO Q8H PRN 4 days albuterol sulfate 90 mcg/actuation 2 puffs inhalation Q4-6H PRN cane As directed cetirizine (All Day Allergy (cetirizine)) 10 mg PO DAILY cholecalciferol (vitamin D3) 50 mcg PO DAILY commode As directed docusate sodium (Colace) 200 mg (2 x 100 mg) PO BEDTIME fluticasone furoate 50 mcg/actuation (Arnuity Ellipta) 1 inh inhalation DAILY 30 days fluticasone propionate 50 mcg/actuation (Allergy Relief (fluticasone)) 2 sprays intranasal DAILY 1 month Grab bar As directed ibuprofen 600 mg PO Q8H PRN Knee brace As directed levothyroxine 112 mcg PO DAILY 90 days lorazepam 0.5 mg PO DAILY PRN meloxicam 15 mg PO DAILY mirabegron ER (Myrbetriq) 25 mg PO DAILY 90 days pantoprazole 40 mg PO DAILY 90 days polyethylene glycol 3350 (Miralax) 17 grams PO DAILY prednisone 20 mg PO DAILY 5 days rosuvastatin 10 mg PO BEDTIME 90 days sertraline 50 mg PO DAILY sertraline 100 mg PO simethicone 125 mg PO QID PRN 30 days HPI HPI Comments History of Present Illness Details Harini is a pleasant 57 year old Greenlandic speaking patient of Dr. Gilbert Wang. She has a PMH of asthma, depression, anxiety, dyslipidemia, fatty liver, fibromyalgia, hypothyroidism, and osteoarthritis. She presents to the office today for a follow up. When asked patient reports to be doing and feeling well. She reports compliance with Myrbetriq 25 mg daily and feels this has significantly improved her urinary symptoms. She does discuss following up with her PCP approximately 2 months ago for lower back pain as well as urinary frequency. She reports the symptoms have since subsided. However, she discusses feeling urinary issues arise when she is constipated. Discussed at length correlation of constipation with lower urinary tract symptoms and or urinary tract infections. She currently denies any bothersome urinary issues or concerns. In office urinalysis results reviewed with the patient today. PVR 37 mL. Previous workup has included a retroperitoneal ultrasound noting bilateral kidneys with no lesions, calculi, or hydronephrosis noted. The bladder is well distended and normal. Prevoid bladder volume is approximately 270 mL. Postvoid bladder volume is approximately 15 mL. Discussed bladder triggers/irritants as well as importance of maintaining adequate amount of fluid daily. Patient otherwise denies any issues or concerns at this time. [facility] Medical History Lumbar pain Osteoarthritis of left hip HUONG (generalized anxiety disorder) Mild recurrent major depression Osteoarthritis of right knee Dyslipidemia Depression with anxiety Shortness of breath Dysphagia [id number] syndrome Polyarthralgia Hypothyroidism COVID-19 Nausea Osteoarthritis Fatty liver Anxiety Fibromyalgia Hypothyroid High cholesterol Asthma Surgical History History of esophagogastroduodenoscopy (EGD) Hx of colonoscopy History of blepharoplasty History of removal of ovarian cyst Tubal ligation status H/O oophorectomy Family History Sister Breast CA Pancreatic cancer Sister Breast CA Father Myocardial infarction Diabetes Hypertension CVD (cardiovascular disease) Mother Heart problem Daughter In good health Social History Household Members: None Housing: Apartment Alcohol intake: never Patient Tobacco Use Status: Former Tobacco user Tobacco use type: Cigarette e-Cigarette/Vaping Use: Never Used Second Hand Smoke Exposure: No service: No Current occupational status: disabled Cognitive needs: Yes Hearing needs: No Vision needs: No Female Reproductive History Menstrual Age of Menarche: 11 Review of Systems Const Reports as per HPI Eyes Reports no additional complaints ENT Reports no additional complaints Card Reports no additional complaints Resp Reports as per HPI GI Reports no additional complaints Reports as per HPI Musc Reports as per HPI Neuro Reports no additional complaints Psych Reports as per [facility] Sudhakar/Lymph Reports no additional complaints Aller/Immun Reports as per [facility] Physical Exam Const General: cooperative, comfortable, no acute distress, well developed, alert and awake Nutritional Appearance: overweight Orientation/consciousness: patient oriented x3 Limitations: ambulation with cane HEENT Head: Yes normal to inspection, Yes normocephalic and Yes atraumatic Ears: hearing grossly normal bilaterally Eyes General: appearance normal, both eyes and all related structures Neck Neck: Yes normal visual inspection and Yes trachea midline Chest Chest palpation & inspection: normal inspection of the chest Resp Effort & Inspection: normal respiratory effort and able to speak in complete sentences Cardio Rate: regular rate GI Inspection: Yes normal to inspection General: Yes no CVA tenderness Back/Spine/Pelvis Back: no CVA tenderness Skin General skin exam: no rashes or lesions noted Neuro General: patient oriented x3 Extrem General: Yes normal to inspection Psych Appearance: grossly normal and well kempt Mental Status: mental status grossly normal Speech and movement: Normal speech and movement present and Clear speech present Affect: normal affect Attitude: cooperative Thought process: Normal thought process present Thought content: Normal thought content present Insight: Fair insight present (Psych) Judgement: Fair judgement present (Psych) Office Procedures Post Void Residual Post Residual Void Post Void Residual (PVR): 37 [id number] Void Residual by ultrasound Results AMB Urinalysis, Automated UA Leukoctes 0 Akua/uL Last Edit by DANY Key on 05/06/23 10:03 UA Nitrite Negative Last Edit by DANY Key on 05/06/23 10:03 UA Urobilinogen 0.2 mg/dL Last Edit by DANY Key on 05/06/23 10:03 UA Protein 0 mg/dL Last Edit by DANY Key on 05/06/23 10:03 UA pH 6.5 Last Edit by DANY Key on 05/06/23 10:03 UA Blood 0 Jacobo/uL Last Edit by DANY Key on 05/06/23 10:03 UA Specific [place] 1.015 Last Edit by DANY Key on 05/06/23 10:03 UA Ketone Negative Last Edit by DANY Key on 05/06/23 10:03 UA Bilirubin 0 mg/dL Last Edit by DANY Key on 05/06/23 10:03 UA Glucose 0 mg/dL Last Edit by DANY Key on 05/06/23 10:03 Results Reviewed Results Reviewed: Laboratory Last Values Urine pH (Auto) 6.5 05/06/23 09:53 Specific [place] (Auto) 1.015 05/06/23 09:53 Urine Protein (Auto) 0 mg/dL 05/06/23 09:53 Glucose (UA)(Auto) 0 mg/dL 05/06/23 09:53 Urine Ketones (Auto) Negative 05/06/23 09:53 Urine Blood (Auto) 0 Jacobo/uL 05/06/23 09:53 Urine Nitrite (Auto) Negative 05/06/23 09:53 Urine Bilirubin (Auto) 0 mg/dL 05/06/23 09:53 Urine Urobilinogen (Auto) 0.2 mg/dL 05/06/23 09:53 Leukocyte Esterase (Auto) 0 Akua/uL 05/06/23 09:53 Assessment & Plan Assessment & Plan (1) Cystitis: Code(s): N30.90 - Cystitis, unspecified without hematuria (2) Urinary frequency: Code(s): R35.0 - Frequency of micturition (3) Lower urinary tract symptoms (LUTS): Code(s): R39.9 - Unspecified symptoms and signs involving the genitourinary system Plan In office urinalysis results reviewed with the patient today; as noted above. PVR 37 mL Patient denies any bothersome urinary issues or concerns at this time. Continue Myrbetriq 25 mg daily as discussed and prescribed. Discussed, educated, and encouraged on the importance of drinking plenty of water daily. Discussed bladder triggers/irritants. Follow-up in 3 months with PVR; or sooner with any issues, concerns, and or questions. Orders: Orders AMB Urinalysis Automated Today Z13.9 - Encounter for screening, unspecified AMB Post Void Residual by ultrasound Today N39.41 - Urge incontinence Patient Instructions: The patient had an opportunity to ask questions regarding the treatment plan. All questions were answered. Physical exam, labs, and imaging were discussed and reviewed in detail. As well as risks, benefits, and discussion of treatment choices. No major barriers to understanding were identified. The patient expressed understanding and agreement with the above treatment plan. The patient was made aware they should contact our office by phone for worsening of their current condition, the appearance of new symptoms, or with any questions or concerns. Compliance is encouraged with any medications and follow up testing that is ordered. It is a privilege to be allowed the opportunity to participate in? your urological care.? Again, if you have any questions or concerns If you have any questions or concerns please do not hesitate to contact me. The office is [phone]. This note is constructed using voice recognition software. While every effort has been made to ensure accuracy agricultural equipment sales manager errors may have been included. Yours sincerely, RIVER Camacho Coding Level of Care Code Est Pt Level 3 (06632) Diagnoses Cystitis N30.90 Urinary frequency R35.0 Lower urinary tract symptoms (LUTS) R39.9 CPT Codes Post Residual Void - PVR CPT Code: 56590-Mjgn Void Residual by ultrasound ([id number])
== END 2023-05-06 10:17 | disposition home or self-care (01) ==
PROVIDERS: PCP Internal Medicine; Visit Provider Nurse Practitioner Family
DX: N30.90 Cystitis, unspecified without hematuria (principal); R35.0 Frequency of micturition; R39.9 Unspecified symptoms and signs involving the genitourinary system
CPT/HCPCS: 99213

== ENCOUNTER → 2023-05-06 09:13 | Outpatient (BNVA) | payer OTHER, SELFPAY | PROVIDERS: PCP Internal Medicine; Visit Provider Nurse Practitioner Family | DX: N30.90 Cystitis, unspecified without hematuria (principal); R35.0 Frequency of micturition; R39.9 Unspecified symptoms and signs involving the genitourinary system | CPT/HCPCS: 51798; 81003; 99212 ==

== ENCOUNTER 2023-05-20 10:32 | Outpatient (AMB) | payer OTHER, SELFPAY ==
[2023-05-20 10:34] VITALS: BP 120/80; BMI 35.4
--- NOTE | 2023-05-20 10:34 | A.OFFPC_ITS ---
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 Accompanied by: Self / Same As Patient Allergies Sulfa (Sulfonamide Antibiotics) [Sulfa (Sulfonamides)] Allergy (Severe, Verified 05/20/23 10:46) SWELLING cbd Allergy (Intermediate, Uncoded 05/20/23 10:46) chest pain Medication List - Last Reconciled 05/20/23 by Kim Wang MD albuterol sulfate 90 mcg/actuation 2 puffs inhalation Q4-6H PRN cane As directed cetirizine (All Day Allergy (cetirizine)) 10 mg PO DAILY cholecalciferol (vitamin D3) 50 mcg PO DAILY commode As directed docusate sodium (Colace) 200 mg (2 x 100 mg) PO BEDTIME fluticasone furoate 50 mcg/actuation (Arnuity Ellipta) 1 inh inhalation DAILY 30 days fluticasone propionate 50 mcg/actuation (Allergy Relief (fluticasone)) 2 sprays intranasal DAILY 1 month Grab bar As directed ibuprofen 600 mg PO Q8H PRN Knee brace As directed levothyroxine 112 mcg PO DAILY 90 days lorazepam 0.5 mg PO DAILY PRN meloxicam 15 mg PO DAILY mirabegron ER (Myrbetriq) 25 mg PO DAILY 90 days pantoprazole 40 mg PO DAILY 90 days polyethylene glycol 3350 (Miralax) 17 grams PO DAILY rosuvastatin 10 mg PO BEDTIME 90 days sertraline 50 mg PO DAILY sertraline 100 mg PO simethicone 125 mg PO QID PRN 30 days Tobacco use date assessed: 08/05/22 Dental Screening Dental Screen Date: 05/20/23 Did you have a dental visit in the last 12 months?: Yes Did you have a dental problem in the last 6 months where you did not have access to dental care?: No Was dental information given to patient?: Patient has dentist HPI HPI Comments History of Present Illness Details This is a 57-year-old female with mild recurrent major depression that comes for her physical exam. Last mammogram was 2022 and was normal. Last Pap smear was 2019. Last colonoscopy was October 2022. No chest pain or shortness of breath. Compliant with medications. Complains of occasional dizziness and polyuria and polydipsia. Has gained weight. Depression stable with sertraline. [facility] Medical History Lumbar pain Osteoarthritis of left hip HUONG (generalized anxiety disorder) Mild recurrent major depression Osteoarthritis of right knee Dyslipidemia Depression with anxiety Shortness of breath Dysphagia [id number] syndrome Polyarthralgia Hypothyroidism COVID-19 Nausea Osteoarthritis Fatty liver Anxiety Fibromyalgia Hypothyroid High cholesterol Asthma Surgical History History of esophagogastroduodenoscopy (EGD) Hx of colonoscopy History of blepharoplasty History of removal of ovarian cyst Tubal ligation status H/O oophorectomy Family History Sister Breast CA Pancreatic cancer Sister Breast CA Father Myocardial infarction Diabetes Hypertension CVD (cardiovascular disease) Mother Heart problem Daughter In good health Social History (Updated 05/20/23 @ 10:50 by Kim Wang MD) Household Members: None Housing: Apartment Alcohol intake: current Alcohol intake frequency: holidays/special occasions only Alcohol type: hard liquor Patient Tobacco Use Status: Former Tobacco user Tobacco use type: Cigarette e-Cigarette/Vaping Use: Never Used Second Hand Smoke Exposure: No service: No Current occupational status: disabled Cognitive needs: Yes Hearing needs: No Vision needs: No Female Reproductive History Menstrual Age of Menarche: 11 Questionnaire Thrive Questionnaire Date Thrive assessed: 06/11/22 HUONG-7 AMB Questionnaire HUONG-7 Date HUONG - 7 assessed: 06/11/22 Source: Developed by Drs. William Noel, Gavi Yu, Hayden Sagastume and colleagues, with an educational gris from [employer]. Review of Systems Const All systems reviewed & are unremarkable except as noted in HPI and below Eyes Reports no additional complaints, Denies change in vision and Denies other visual disturbances Card Denies chest pain at rest, Denies chest pain with activity, Denies edema, Denies irregular heart rhythm, Denies claudication, Denies dyspnea, Denies dyspnea on exertion, Denies orthopnea, Denies paroxysmal nocturnal dyspnea and Denies slow heart rate Resp Denies cough, Denies dyspnea and Denies dyspnea on exertion GI Denies abdominal pain, Denies change in bowel habits, Denies excessive flatus, Denies nausea and Denies vomiting Denies urinary incontinence, Denies urinary hesitancy and Denies urinary urgency Musc Denies abnormal gait, Denies atrophy, Denies deformity and Denies limited range of motion Skin/Breast Denies bleeding lesions, Denies changing lesions and Denies rash Neuro Denies abnormal gait, Denies behavioral changes, Denies confusion and Denies lack of coordination Psych Denies behavioral changes and Denies confusion Physical exam (Primary Care) BMI result Body Mass Index 35.4 Tobacco/Smoking Status: Tobacco use Status Tobacco use date assessed 08/05/22 05/20/23 10:38 Patient Tobacco Use Status Former Tobacco user 05/20/23 10:50 Tobacco use type Cigarette 05/20/23 10:50 e-Cigarette/Vaping Use Never Used 05/20/23 10:50 Thrive Assessment: Date of Thrive Assessment Date Thrive assessed 06/11/22 05/20/23 10:38 Const General: No confusion Orientation/consciousness: patient oriented x3 and No confusion HENMT Head: Yes normal to inspection, Yes normocephalic and Yes atraumatic Ears: external ears normal Eyes General: appearance normal, both eyes and all related structures Eyelids: Yes eyelids normal Conjunctivae: conjunctivae normal Neck Neck: Yes normal visual inspection and Yes supple Resp Effort & Inspection: normal respiratory effort Auscultation: clear to auscultation bilaterally Cardio Jugular venous distension: no JVD Rate: regular rate Rhythm: regular rhythm Heart sounds: S1 normal heart sound present and S2 normal heart sound present GI Inspection: Yes normal to inspection Palpation (GI): Soft to palpation and nontender Auscultation: normal bowel sounds Skin General skin exam: no rashes or lesions noted Neuro General: patient oriented x3, no focal motor deficits and No confusion Extrem General: Yes full ROM Psych Appearance: grossly normal Assessment and Plan Assessment & Plan (1) Physical exam: Code(s): Z00.00 - Encounter for general adult medical examination without abnormal findings Plan: Repeat in a year. (2) Mild recurrent major depression: Code(s): F33.0 - Major depressive disorder, recurrent, mild Plan: Continue Sertraline. Orders: Orders Lipid Panel Today E78.5 - Hyperlipidemia, unspecified Complete Blood Count Auto Diff Today D64.9 - Anemia, unspecified IRON PROFILE Today D64.9 - Anemia, unspecified Vitamin B12 and Folate Today E53.8 - Deficiency of other specified B group vitamins Vitamin D 25-OH Total Today E55.9 - Vitamin D deficiency, unspecified Comprehensive Satartia. Panel Fast Today Z00.00 - Encounter for general adult medical examination without abnormal findings Thyroid Stimulating Hormone Today E03.9 - Hypothyroidism, unspecified Medications: Refilled cholecalciferol (vitamin D3) 50 mcg PO DAILY 30 caps 11RF Coding Level of Care Code Est Pt Prev Care 40-64y(21027) Diagnoses Physical exam Z00.00 Mild recurrent major depression F33.0 Time Spent (min) 33
== END 2023-05-20 10:59 | disposition home or self-care (01) ==
PROVIDERS: Visit Provider Internal Medicine
DX: Z00.00 Encounter for general adult medical examination without abnormal findings (principal); F33.0 Major depressive disorder, recurrent, mild
CPT/HCPCS: 99396

== ENCOUNTER 2023-05-21 08:22 | Outpatient (REF) | payer OTHER, SELFPAY ==
[2023-05-21 08:48] LABS: MANUAL DIFF FLAG NO
[2023-05-21 09:23] LABS: Basophils Absolute Auto 0.1 X10*3/uL (0.0-0.2); Basophils Percent Auto 1.5 % (0-2); Eosinophils Absolute Auto 0.4 X10*3/uL (0.0-0.4); Eosinophils Percent Auto 6.6 % (0-4); Hematocrit 38.3 % (37.0-47.0); Hemoglobin 12.3 g/dl (12.0-16.0); Imm Gran Abs Auto 0.01 X10*3/uL (0.00-0.03); Imm Gran Pct Auto 0.2 % (0.0-0.4); Lymphocytes Absolute Auto 1.4 X10*3/uL (1.2-4.9); Mean Corpuscular HGB Conc 32.1 g/dl (31.0-35.0); Mean Corpuscular Hemoglobin 28.7 pg (27.0-33.0); Mean Corpuscular Volume 89.5 fL (80.0-98.0); Mean Platelet Volume 10.4 fL (9.4-12.3); Monocytes Absolute Auto 0.4 X10*3/uL (0.1-1.2); Monocytes Percent Auto 7.5 % (2-11); Neutrophils Absolute Auto 3.1 x10*3/uL (2.0-8.3); Neutrophils Percent Auto 58.2 % (45-73); Platelet Count 302 X10*3/uL (160-400); Red Blood Count 4.28 X10*6/uL (4.20-5.50); Red Cell Distribution Width 13.1 % (11.0-16.0); White Blood Count 5.3 X10*3/uL (4.8-10.8)
[2023-05-21 09:32] LABS: Appearance Urine Cloudy; Color Urine Yellow; Glucose Urine UA Negative (Negative); Leukocyte Esterase Urine Small (1+) (Negative); Nitrite Urine Negative (Negative); PH 8.5 (5.0-9.0); UMIC TRIGGER UACC YES; Urine Blood Negative (Negative); Urine Ketones Negative (Negative); Urine Protein Negative (Neg-Trace)
[2023-05-21 09:38] LABS: Bacteria Urine 1+ (None Seen); Hyaline Casts Urine 0-2 /LPF (0-2); RBC Urine 0-2 /HPF (0-2); UACC Culture Trigger YES
[2023-05-21 09:56] LABS: Alanine Aminotransferase 24 U/L (0-31); Albumin Level 4.2 g/dL (3.5-5.0); Alkaline Phosphatase 94 U/L (39-117); Anion Gap 12 (12-20); Aspartate Amino Transferase 24 U/L (5-31); Bilirubin Total 0.4 mg/dL (0.0-1.0); Blood Urea Nitrogen 17 mg/dL (9-16); Calcium 9.6 mg/dL (8.4-10.2); Carbon Dioxide 28 mmol/L (22-29); Chloride 106 mmol/L (96-108); Cholesterol 173 mg/dL (<200); Estimated Glomerular Filt Rate > 60; Glucose Fasting 117 mg/dL (60-99); HDL Cholesterol 50 mg/dL (>40); Iron 69 mcg/dL (30-160); LDL Cholesterol Calculated 103 mg/dL (<100); Percent Iron Saturation 20 % (15-50); Potassium 4.2 mmol/L (3.3-5.1); Sodium 142 mmol/L (135-145); Total Iron Binding Capacity 344 mcg/dL (228-428); Total Protein 8.1 g/dL (6.5-8.0); Triglycerides 103 mg/dL (<150); Unsaturated Iron Binding 275 ug/dL
[2023-05-21 10:16] LABS: Folate 15.1 ng/mL (> or = 4.0); Vitamin B12 731 pg/mL (200-900)
[2023-05-21 10:17] LABS: Thyroid Stimulating Hormone 0.64 uIU/mL (0.32-4.0); Vitamin D 25-OH Total 53.4 ng/mL (>30)
== END 2023-05-21 08:23 | disposition home or self-care (01) ==
LOC: HO.LAB 08:22
PROVIDERS: PCP Internal Medicine; Visit Provider Internal Medicine
DX: Z00.00 Encounter for general adult medical examination without abnormal findings (principal); D64.9 Anemia, unspecified; E53.8 Deficiency of other specified B group vitamins; E55.9 Vitamin D deficiency, unspecified; E03.9 Hypothyroidism, unspecified; E78.5 Hyperlipidemia, unspecified; R30.0 Dysuria
CPT/HCPCS: 36415; 80053; 80061; 81001; 82306; 82607; 82746; 83540; 84443; 85025; 87086

== ENCOUNTER 2023-08-13 07:27 | Outpatient (AMB) | payer OTHER, SELFPAY ==
--- NOTE | 2023-08-13 07:39 | A.OFFVIS_ITS ---
Intake Vital Signs 08/13/23 07:42 Height 5 ft 7 in Weight 226 lb BMI 35.4 BP 112/65 Blood Pressure Location Lt brachial Position Sitting Pulse 66 Intake Visit Reasons: follow up Dysphagia Intake Note: Patient follow up for Dysphagia Patient cc: swallowing problems with solid and even saliva, acid reflex on and off, and constipation. 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 Streeter-she was fine up until 2 mos ago- began with dfifficulty swallowing- with meals- seems to be more - she drinks more liquids -she has choked- no issues swallowing saliva or liquids- odynophagia- last 1-2 months Daily inhalers- rinses- good oral hygiene Treated for strep throat in July- she retuned after antibx- strep negative per her report Appetite is good- she does eat soft diet- No N/V/D/ abdominalpain- fever or chills No URI sx-no cough, SOB- CP, HARRIS No bowel c/o 10/2022 Impression: 1. Normal esophagus (dilation) 2. Hill grade III hiatal hernia 3. Normal stomach 4. Normal duodenum (biopsy) 5. Normal colon and terminal ileum mucos a 6. Internal and external hemorrhoids PFSH Medical History Lumbar pain Osteoarthritis of left hip HUONG (generalized anxiety disorder) Mild recurrent major depression Osteoarthritis of right knee Dyslipidemia Depression with anxiety Shortness of breath Dysphagia [id number] syndrome Polyarthralgia Hypothyroidism COVID-19 Nausea Osteoarthritis Fatty liver Anxiety Fibromyalgia Hypothyroid High cholesterol Asthma Surgical History History of esophagogastroduodenoscopy (EGD) Hx of colonoscopy History of blepharoplasty History of removal of ovarian cyst Tubal ligation status H/O oophorectomy Family History Sister Breast CA Pancreatic cancer Sister Breast CA Father Myocardial infarction Diabetes Hypertension CVD (cardiovascular disease) Mother Heart problem Daughter In good health Social History Household Members: None Housing: Apartment Alcohol intake: current Alcohol intake frequency: holidays/special occasions only Alcohol type: hard liquor Patient Tobacco Use Status: Former Tobacco user Tobacco use type: Cigarette e-Cigarette/Vaping Use: Never Used Second Hand Smoke Exposure: No service: No Current occupational status: disabled Cognitive needs: Yes Hearing needs: No Vision needs: No Female Reproductive History Menstrual Age of Menarche: 11 Review of Systems Const All systems reviewed & are unremarkable except as noted in HPI and below Denies body aches, Denies chills, Denies fever(s) and Denies headache(s) ENT Reports dysphagia, Denies headache(s), Denies mouth lesions, Denies post nasal drip, Denies sinus pain, Reports sore throat, Denies throat swelling and Denies tongue swelling Card Denies chest pain and Denies dyspnea Resp Denies dyspnea GI Denies abdominal pain, Denies bloating, Denies hematochezia, Denies change in bowel habits, Reports dysphagia, Denies nausea and Denies vomiting Neuro Denies headache(s) Aller/Immun Denies throat swelling and Denies tongue swelling Physical Exam Vital Signs: Last Vital Signs Pulse 66 08/13/23 07:42 BP 112/65 08/13/23 07:42 BMI result Body Mass Index 35.4 Const General: cooperative, healthy appearing, comfortable and no acute distress Orientation/consciousness: patient oriented x3 Limitations: no limitations HEENT Mouth: Normal oral and palatal mucosa present, tongue normal and no drooling Throat: Yes uvula midline Eyes Sclerae: sclerae normal Neck Neck: Yes full ROM, Yes no lymphadenopathy and Yes supple Resp Effort & Inspection: normal respiratory effort and able to speak in complete sentences Auscultation: clear to auscultation bilaterally, no rales, no rhonchi and no wheezes Cardio Rate: regular rate Rhythm: regular rhythm Heart sounds: S1 normal heart sound present and S2 normal heart sound present GI Palpation (GI): Soft to palpation and nontender Auscultation: normal bowel sounds Skin General skin exam: no rashes or lesions noted Neuro General: patient oriented x3 Extrem General: Yes full ROM Results Reviewed Results Reviewed: 10/2022-Dr. Streeter- EGD Findings:? * Esophagus:? Normal mucosa noted in the entire esophagus. The Z line was at 30 cm.? A hiatal hernia was seen with diaphragmatic hiatus at 35 cm. * Stomach:? Normal gastric mucosa. Retroflexion in the fundus confirmed size and morphology of the hiatal hernia as Hill grade 3. * Duodenum:? Normal mucosa was noted in the duodenum to the extent examined. Cold forceps biopsies were taken from the second portion of the duodenum to r/o celiac disease.Additional intervention: Soft tip Savary wire was advanced through the biopsy channel in left in the antrum. The gastroscope was then backed out. A Savary Davi bougie was advanced over the wire and the esophagus was intimately dilated from 18 mm to 20 mm. No heme or tear was noted post dilation. * * Name: Harini Hoyos Age/Sex: 57/F Attending: Nanda Streeter MD : 1965 Submitted by: Nanda Streeter MD Copies to: Kim Batres MD MR #: [id number] Status: [facility] Collected: 11/13/22 Location: [facility] Received: 11/13/22 Diagnosis A. Duodenum, biopsy: Duodenal mucosa with preserved villi and no specific change. B. Esophagus, lower, biopsy: Squamocolumnar and cardia-fundic type mucosa with moderate chronic active inflammation; negative for intestinal metaplasia and dysplasia. C. Esophagus, middle, biopsy: Squamous mucosa with few focal intraepithelial neutrophils and eosinophils (up to 2 per high-power field), compatible with esophagitis; no evidence of eosinophilic esophagitis; no columnar mucosa present. Clinical History Pre-Op Dx: Dysphagia, rectal bleeding Post-Op Dx: Hiatal hernia, hemorrhoids Microscopic Description Microscopic sections examined. Material Received A: Bx duodenum B: Bx lower esophagus (r/o Garcia's) C: Bx middle esophagus (r/o EOE) 08/20 FL/FL barium swallow IMPRESSION: No significant abnormality of the esophagus identified. Previously noted free gastroesophageal reflux was not seen today including with water siphon test. Assessment & Plan Assessment & Plan (1) Dysphagia: Comment: Hx dilation- Dysphagia r/o strict/ esophagitis Viral- no lymph- Chew food well eat slowly Continue PPI-avoid culprits EGD poss dil- Dr. Streeter Code(s): R13.10 - Dysphagia, unspecified Plan EGD poss dil- Medications: New sucralfate 1 g (10 mL) PO QIDACHS 4 weeks 420 mL 0RF Patient Instructions: Worsening sx- ED- do not ignore Avoid choking/ aspiration Eat slowly Chew well Trial carafate- reflux precautions Encourage to call question or concerns Coding Level of Care Code Est Pt Level 3 (51299) Diagnoses Dysphagia R13.10 Time Spent (min) 35
[2023-08-13 07:42] VITALS: BP 112/65; PULSE 66; BMI 35.4
== END 2023-08-13 08:20 | disposition home or self-care (01) ==
PROVIDERS: PCP Internal Medicine; Visit Provider Physician Assistant
DX: R13.10 Dysphagia, unspecified (principal)
CPT/HCPCS: 99213

== ENCOUNTER → 2023-08-13 07:27 | Outpatient (BNVA) | payer OTHER, SELFPAY | PROVIDERS: PCP Internal Medicine; Visit Provider Physician Assistant | DX: R13.10 Dysphagia, unspecified (principal) | CPT/HCPCS: 99212 ==

== ENCOUNTER 2023-08-19 07:55 | Day surgery (SDC) | payer OTHER, SELFPAY ==
--- NOTE | 2023-08-18 08:17 | HO.ANESPROP2 ---
Documented by User: Mirian Temple NP 08/18/23 08:17 HPI - Anesthesia Eval Consult details Narrative: 57yo F for Upper Endoscopy with Dilitation PMFSH Active Problems Active Problems: All Active Problems (Updated 08/13/23 @ 08:21 by Neva Li PA-C) Lumbar radiculopathy (Acute) Cystitis (Acute) Cyclitis (Acute) Hemorrhoids (Acute) Chest pain (Acute) Nocturia (Acute) Bladder pain (Acute) Urinary frequency (Acute) Bacterial vaginosis (Acute) Vulvar burning (Acute) Lower urinary tract symptoms (LUTS) (Acute) Insomnia (Acute) URI (upper respiratory infection) (Acute) Physical exam (Acute) Pelvic pain in female (Acute) Osteoarthritis of lumbar spine (Acute) Dysuria (Acute) Well woman exam (Acute) Seasonal allergies (Acute) Right-sided chest pain (Acute) Asthma exacerbation (Acute) Lumbar pain (Acute) Osteoarthritis of left hip (Acute) HUONG (generalized anxiety disorder) (Acute) Mild recurrent major depression (Acute) Chronic constipation (Acute) Primary osteoarthritis of right knee (Acute) Dyslipidemia (Acute) Dysphagia (Acute) Asthma (Acute) Cough (Acute) [id number] syndrome (Acute) Polyarthralgia (Acute) Hypothyroidism (Acute) COVID-19 (Acute) Nausea (Acute) Stress incontinence (Acute) Urge incontinence (Acute) Urgency of micturition (Acute) Fatty (change of) liver, not elsewhere classified (Acute) Gastro-esophageal reflux disease without esophagitis (Acute) Obesity (BMI 30-39.9) (Acute) Postmenopausal bleeding (Acute) Past Medical History Medical History Lumbar pain Osteoarthritis of left hip HUONG (generalized anxiety disorder) Mild recurrent major depression Osteoarthritis of right knee Dyslipidemia Depression with anxiety Shortness of breath Dysphagia [id number] syndrome Polyarthralgia Hypothyroidism COVID-19 Nausea Osteoarthritis Fatty liver Anxiety Fibromyalgia Hypothyroid High cholesterol Asthma Family History Family History Sister Breast CA Pancreatic cancer Sister Breast CA Father Myocardial infarction Diabetes Hypertension CVD (cardiovascular disease) Mother Heart problem Daughter In good health Family history of problems with anesthesia: No Surgical History Surgical History History of esophagogastroduodenoscopy (EGD) Hx of colonoscopy History of blepharoplasty History of removal of ovarian cyst Tubal ligation status H/O oophorectomy History of Problems with Anesthesia: No Social History Social History Household Members: None Housing: Apartment Alcohol intake: current Alcohol intake frequency: holidays/special occasions only Alcohol type: hard liquor Patient Tobacco Use Status: Former Tobacco user Tobacco use type: Cigarette e-Cigarette/Vaping Use: Never Used Second Hand Smoke Exposure: No Use of substances other than those prescribed or required for medical reasons: No Are you DNR?: No Advance Directives: No Advance Directives Information Provided: Yes service: No Current occupational status: disabled Cognitive needs: Yes Hearing needs: No Vision needs: No Meds Allergies Allergy/AdvReac Type Severity Reaction Status Date / Time Sulfa (Sulfonamide Allergy Severe SWELLING Verified 08/19/23 08:37 Antibiotics) [Sulfa (Sulfonamides)] cbd Allergy Intermediate chest pain Uncoded 08/19/23 08:37 Home Medications Medication Instructions Recorded Confirmed Last Taken Type lorazepam 0.5 mg tablet 0.5 mg PO DAILY PRN Anxiety 03/02/20 05/20/23 Unknown History sertraline 50 mg tablet 50 mg PO DAILY 03/02/20 08/19/23 Unknown History sertraline 100 mg tablet 100 mg PO DAILY 10/29/21 08/19/23 Unknown History Assessment and Plan Assessment Anesthesia Assessment: Chart Reviewed Final Anesthetic Review Family History of Problems with Anesthesia: No History of Problems with Anesthesia: No Documented by User: Juana Castillo MD 08/19/23 09:12 [facility] Past Medical History Medical History Lumbar pain Osteoarthritis of left hip HUONG (generalized anxiety disorder) Mild recurrent major depression Osteoarthritis of right knee Dyslipidemia Depression with anxiety Shortness of breath Dysphagia [id number] syndrome Polyarthralgia Hypothyroidism COVID-19 Nausea Osteoarthritis Fatty liver Anxiety Fibromyalgia Hypothyroid High cholesterol Asthma Family History Family History Sister Breast CA Pancreatic cancer Sister Breast CA Father Myocardial infarction Diabetes Hypertension CVD (cardiovascular disease) Mother Heart problem Daughter In good health Surgical History Surgical History History of esophagogastroduodenoscopy (EGD) Hx of colonoscopy History of blepharoplasty History of removal of ovarian cyst Tubal ligation status H/O oophorectomy Social History Social History Household Members: None Housing: Apartment Alcohol intake: current Alcohol intake frequency: holidays/special occasions only Alcohol type: hard liquor Patient Tobacco Use Status: Former Tobacco user Tobacco use type: Cigarette e-Cigarette/Vaping Use: Never Used Second Hand Smoke Exposure: No Use of substances other than those prescribed or required for medical reasons: No Are you DNR?: No Advance Directives: No Advance Directives Information Provided: Yes service: No Current occupational status: disabled Cognitive needs: Yes Hearing needs: No Vision needs: No Meds Allergies Allergy/AdvReac Type Severity Reaction Status Date / Time Sulfa (Sulfonamide Allergy Severe SWELLING Verified 08/19/23 08:37 Antibiotics) [Sulfa (Sulfonamides)] cbd Allergy Intermediate chest pain Uncoded 08/19/23 08:37 Home Medications Medication Instructions Recorded Confirmed Last Taken Type lorazepam 0.5 mg tablet 0.5 mg PO DAILY PRN Anxiety 03/02/20 05/20/23 Unknown History sertraline 50 mg tablet 50 mg PO DAILY 03/02/20 08/19/23 Unknown History sertraline 100 mg tablet 100 mg PO DAILY 10/29/21 08/19/23 Unknown History Exam Airway Mallampati Class: II TM Dist: >3cm Neck ROM: Full Partial: Upper Heart: rrr Lungs: cta Assessment and Plan Assessment Anesthesia Assessment: Anesthesia Plan Discussed Final Anesthetic Review NPO: Yes ASA Class: III Final Preanesthetic Review: No Changes in Pt Med Stat, Meds/Allgs Chart Reviewed and Consent Obtained/Reviewed Patient Risk: Low Procedure Risk: Intermediate Anesthetic Plan Anesthetic Plan: MAC: Disposition: Standard PACU
[2023-08-19 08:18] VITALS: BMI 35.1
[2023-08-19 08:38] VITALS: BP 136/87; PULSE 74; RESP 16; O2SAT 97
[2023-08-19] MEDS: Lactated Ringers 1,000 ML 100 ML IVCONT (08:48)
--- NOTE | 2023-08-19 09:09 | MHC.SHP ---
Pre-Procedural Eval Section A - 24 Hr Update-Section A only Date of Service: 08/19/23 Section B - Complete if H&P > 30 days Chief Complaint: Dysphagia, unspecified Relevant Family History (Specify if Yes): No Relevant Social History: None Present Medications: see Short Stay Collaborative assessment Medical History: Significant History (nxiety Asthma COVID-19 Depression with anxiety Dyslipidemia Dysphagia Fatty liver Fibromyalgia HUONG (generalized anxiety disorder) High cholesterol Hypothyroid Hypothyroidism Lumbar pain Mild recurrent major depression Nausea Osteoarthritis Osteoarthritis of left hip Osteoarthritis of right knee Poly) History of Previous Operations: Relevant previous surgery/procedure and date(s) (H/O oophorectomy History of blepharoplasty History of removal of ovarian cyst Tubal ligation status) Allergies: Allergies Allergy/AdvReac Type Severity Reaction Status Date / Time Sulfa (Sulfonamide Allergy Severe SWELLING Verified 08/19/23 08:37 Antibiotics) [Sulfa (Sulfonamides)] cbd Allergy Intermediate chest pain Uncoded 08/19/23 08:37 Review of Systems Sugical H&P ROS: Negative: Constitution, Cardiovascular, Respiratory, Neurological, Psychiatric, Hem-Onc, Allergic/Immunologic, Gastrointestinal, Genitourinary, Musculoskeletal, Integumentary, Endocrine and Eyes/Ears/Nose/Throat Exam Surgical H&P Exam: Normal: HEENT, Normal: Heart, Normal: Lungs, Normal: Extremities, Normal: Abdomen, Normal: Skin and Normal: Neurological Plan Diagnosis/Plan: Unchanged I have reviewed the history and physical and performed a pertinent physical examination on my patient. No changes have occurred unless specified. Time Spent With Patient Time: Total time managing care of this patient today ____ minutes.
--- NOTE | 2023-08-19 09:16 | W.PM.OPN ---
Operative Note Operative Note Date of Service: 08/19/23 Narrative: Procedure Description: EGD Indication: dysphagia Anesthesia: MAC FLEXIBLE TRANSORAL UPPER GASTROINTESTINAL ENDOSCOPY UPPER ENDOSCOPY Consent: Indications for the procedure and potential complications of bleeding, perforation, reaction to medications and missed diagnosis were discussed with the patient and informed consent was obtained. Instrument: Olympus GIF H 190 J mid size upper endoscope Monitoring: Vital signs and clinical assessment, continuous EKG monitoring, Pulse oximetry, Carbon Dioxide monitoring and blood pressure monitoring were done throughout the procedure. Procedure: The patient was placed in the left lateral decubitis position and pre-procedure medications were administered and a bite block was placed. The endoscope was inserted into the mouth and advanced under direct vision to the third part of duodenum. A careful inspection was made as the upper endoscope was withdrawn including a retroflexed examination of the proximal stomach; Findings and interventions are described below. Findings: Larynx:normal Esophagus: GE junction at 35 cm, diaphragm hiatus at 38 cm, consistent with 3 cm sliding hiatal hernia, bx taken from GEJ, distal and proximal esophagus , balloon dilation done to 20 mm at UES and LES--no tears seen Stomach: mild gastritis . Biopsies were obtained. Grade 2 flap valve on retroflexed examination of the cardia. Duodenum: Normal bulb and descending duodenum, Intervention: Biopsies as noted above, balloon dilation Impression/Findings: gastritis esophagitis hiatal hernia schatzki ring PLAN: if compliant with PPI, consider changing and see if helps sx consider surgical referral for hernia repair if ongoing sx GERD precautions
[2023-08-19 09:35] VITALS: BP 113/70; PULSE 72; RESP 16; TEMP 37.4; O2SAT 92
[2023-08-19 09:50] VITALS: BP 120/94; PULSE 64; RESP 16; TEMP 36.4; O2SAT 98
== END 2023-08-19 10:35 | disposition home or self-care (01) ==
PROVIDERS: PCP Internal Medicine; Visit Provider Internal Medicine Gastroenterology
PROC: (CPT 43249; principal; 2023-08-19 09:10)
DX: R13.10 Dysphagia, unspecified (principal); K29.50 Unspecified chronic gastritis without bleeding; K22.2 Esophageal obstruction; K20.80 Other esophagitis without bleeding; K44.9 Diaphragmatic hernia without obstruction or gangrene; K76.0 Fatty (change of) liver, not elsewhere classified; E78.00 Pure hypercholesterolemia, unspecified; J45.909 Unspecified asthma, uncomplicated; M79.7 Fibromyalgia; F41.8 Other specified anxiety disorders; Z79.899 Other long term (current) drug therapy; Z88.2 Allergy status to sulfonamides; Z88.8 Allergy status to other drugs, medicaments and biological substances; Z87.891 Personal history of nicotine dependence; Z98.890 Other specified postprocedural states
CPT/HCPCS: 43249; 43239; 88305; 88313; 88342; C1726; J2704

== ENCOUNTER → 2023-08-19 07:55 | Outpatient (BNV) | payer OTHER, SELFPAY | PROVIDERS: PCP Internal Medicine; Visit Provider Internal Medicine Gastroenterology | DX: K22.2 Esophageal obstruction (principal); K29.70 Gastritis, unspecified, without bleeding; K20.90 Esophagitis, unspecified without bleeding | CPT/HCPCS: 43239; 43249 ==

== ENCOUNTER 2023-08-20 12:42 | Emergency (ER) | payer OTHER, SELFPAY ==
[2023-08-20 13:05] VITALS: BP 135/75; PULSE 59; RESP 16; TEMP 37.2; O2SAT 99; BMI 35.7
--- NOTE | 2023-08-20 13:07 | ED.GENADULT ---
HPI - General Adult General Chief complaint: Headache Stated complaint: r eye red swollen Time Seen by Provider: 08/20/23 18:42 Source: patient Mode of arrival: ambulatory Limitations: no limitations History of Present Illness HPI narrative: 57-year-old female came in for evaluation of lightheadedness, dizziness, right subconjunctival hemorrhage started after patient had a hard hug and squeezed by her son from the neck area. No syncopal episode, no severe headache, no neurological deficit. No blurry vision, no AC. Related Data Home Medications Medication Instructions Recorded Confirmed lorazepam 0.5 mg tablet 0.5 mg PO DAILY PRN Anxiety 03/02/20 05/20/23 sertraline 50 mg tablet 50 mg PO DAILY 03/02/20 08/19/23 sertraline 100 mg tablet 100 mg PO DAILY 10/29/21 08/19/23 Previous Rx's Medication Instructions Recorded Knee brace #1 ea 12/04/20 simethicone 125 mg chewable tablet 125 mg PO QID PRN abdominal 07/16/21 distention 30 days #120 tabs Grab bar #2 ea 10/15/21 commode #1 ea 12/11/21 fluticasone propionate 50 2 spray intranasal DAILY 1 month 06/11/22 mcg/actuation nasal #16 grams spray,suspension (Allergy Relief (fluticasone)) docusate sodium 100 mg capsule 200 mg (2 x 100 mg) PO BEDTIME #60 07/29/22 (Colace) caps fluticasone furoate 50 1 inh inhalation DAILY 30 days #30 07/29/22 mcg/actuation blister powder for ea inhalation (Arnuity Ellipta) rosuvastatin 10 mg tablet 10 mg PO BEDTIME 90 days #90 tabs 07/29/22 ibuprofen 600 mg tablet 600 mg PO Q8H PRN pain #60 tabs 09/02/22 pantoprazole 40 mg tablet,delayed 40 mg PO DAILY 90 days #90 tabs 09/30/22 release cane #1 ea 11/10/22 polyethylene glycol 3350 17 17 g PO DAILY #510 grams 12/03/22 gram/dose oral powder (Miralax) cetirizine 10 mg tablet (All Day 10 mg PO DAILY #90 tabs 02/07/23 Allergy (cetirizine)) mirabegron 25 mg tablet,extended 25 mg PO DAILY 90 days #90 tabs 03/12/23 release 24 hr (Myrbetriq) levothyroxine 112 mcg tablet 112 mcg PO DAILY 90 days #90 tabs 05/11/23 cholecalciferol (vitamin D3) 50 50 mcg PO DAILY #30 caps 06/03/23 mcg (2,000 unit) capsule meloxicam 15 mg tablet 15 mg PO DAILY #30 tabs 07/21/23 albuterol sulfate 90 mcg/actuation 2 puff inhalation Q4-6H PRN 08/04/23 aerosol inhaler shortness of breath or wheezing #6.7 grams sucralfate 100 mg/mL oral 1 g (10 mL) PO QIDACHS 4 weeks 08/13/23 suspension #420 mL Allergies Allergy/AdvReac Type Severity Reaction Status Date / Time Sulfa (Sulfonamide Allergy Severe SWELLING Verified 08/20/23 13:05 Antibiotics) [Sulfa (Sulfonamides)] cbd Allergy Intermediate chest pain Uncoded 08/19/23 08:37 Review of Systems Review of Systems: All other systems are reviewed and are negative Constitutional: Reports as per HPI and Reports no additional constitutional complaints Eyes: Reports as per HPI and Reports no additional eye complaints Reports system reviewed and no additional complaints, except as documented Cardiovascular: Reports as per HPI and Reports no additional cardiovascular complaints Respiratory: Reports as per HPI and Reports no additional respiratory complaints Gastrointestinal: Reports as per HPI and Reports no additional gastrointestinal complaints Genitourinary: Reports no additional female genitourinary complaints Musculoskeletal: Reports no additional musculoskeletal complaints Skin/Breast: Reports system reviewed and no additional complaints, except as docu Psychiatric: Reports no additional psychiatric complaints Endocrine: Reports no additional endocrine complaints Hematologic/Lymphatic: Reports no additional hematologic/lymphatic complaints Allergic/Immunologic: Reports no additional allergic/immunologic complaints Reports system reviewed and no additional complaints, except as documented and Reports Abnormal speech present [facility] Past Medical History Medical History Lumbar pain Osteoarthritis of left hip HUONG (generalized anxiety disorder) Mild recurrent major depression Osteoarthritis of right knee Dyslipidemia Depression with anxiety Shortness of breath Dysphagia [id number] syndrome Polyarthralgia Hypothyroidism COVID-19 Nausea Osteoarthritis Fatty liver Anxiety Fibromyalgia Hypothyroid High cholesterol Asthma Surgical History History of esophagogastroduodenoscopy (EGD) Hx of colonoscopy History of blepharoplasty History of removal of ovarian cyst Tubal ligation status H/O oophorectomy Family History Family History Sister Breast CA Pancreatic cancer Sister Breast CA Father Myocardial infarction Diabetes Hypertension CVD (cardiovascular disease) Mother Heart problem Daughter In good health Social History Social History Household Members: None Housing: Apartment Alcohol intake: current Alcohol intake frequency: does not drink Alcohol type: hard liquor Patient Tobacco Use Status: Former Tobacco user Tobacco use type: Cigarette Smoked in Last 30 Days: No e-Cigarette/Vaping Use: Never Used Second Hand Smoke Exposure: No Use of substances other than those prescribed or required for medical reasons: No Advance Directives: No service: No Current occupational status: disabled Cognitive needs: Yes Hearing needs: No Vision needs: No Physical Exam ED Vital Signs: Vital Signs - 24 hr 08/20/23 13:05 08/20/23 18:17 Temperature 98.9 F 97.9 F Pulse Rate 59 66 Respiratory Rate 16 18 Blood Pressure 135/75 128/70 Pulse Oximetry 99 98 Oxygen Delivery Method Room Air Room Air BMI result Body Mass Index 35.7 Vital signs have been reviewed and appear to be correct. Blood pressure elevated. Heart rate normal. Respiratory rate normal. Temperature normal. Oxygen saturation normal. Appearance: Alert. Oriented X3. No acute distress. Head: Normal external exam. Normocephalic. Atraumatic. No Portillo signs noted. No raccoon eyes noted Eyes: PERRLA. EOMI. Right subconjunctival hemorrhage from 3-9 o'clock, Eyelids normal. Patient eloped before checking visual acuity. ENT: TM's Normal. Pharynx normal. Uvula midline. Moist mucous membranes. No trismus noted. No drooling noted. No muffled voice noted. Neck: Normal inspection. Neck supple. FROM. No adenopathy. Thyroid Normal. No meningeal signs. No neck mass noted. CVS: Normal heart rate and rhythm. Heart sound normal. No murmurs noted. Pulses normal throughout. Respiratory: No respiratory distress. Painless inspiration. Breath sounds normal. No wheezes/rales/rhonchi noted. Chest nontender. No accessory muscle usage noted or decreased air movement noted. Abdomen: Soft and nontender. Bowel sounds normal in all 4 quadrants. No distention noted. No organomegaly noted. No visible injury noted. Back: No CVA tenderness. Full range of motion noted. Skin: Skin warm and dry. Normal skin color. Normal skin turgor. No rashes/lesions/lacerations noted. Extremities: No lower extremity edema. Extremities exhibit normal range of motion. Extremities nontender. Neuro: Oriented X 3. Cranial nerve exam: II-XII are grossly intact No motor deficit. No sensory deficit. Reflexes normal. Course Course Course Narrative: This is an RME: Additional HPI, ROS, PE not included below will be deferred to primary provider. 57 year old female present w/ r injected eye and headache s/p getting a big hug from son went to urgent care and told to come to ED for MRI... PE - R eye subconjunctival hemorrage. No pain w/ eye movments Plan- viral test, CT Reevaluation(s) Reevaluation #1: Patient eloped before CT head/neck, complete eye exam. Time: 21:05 Medical Decision Making Differential Diagnosis Differential Diagnoses: The differential diagnosis associated with the presentation includes (Subconjunctival hemorrhage, aortic dissection, neck contusion, CLARK, severe anemia.) Lab Data Labs: Lab Results 08/20/23 Range/Units 13:13 Influenza Type A (PCR) NEGATIVE (Negative) Influenza Type B (PCR) NEGATIVE (Negative) RSV RNA Qual (PCR) NEGATIVE (Negative) SARS-CoV-2 RNA (RT-PCR) NEGATIVE (Negative) Discharge Plan Discharge Clinical Impression: Subconjunctival bleed, Dizziness Patient Disposition: Elopement Prescriptions: No Action (DME) [facility] Instructions .ROUTE .MEDSUPPLY Qty: 1 0RF Rx Instructions: As directed (DME) Grab bar [facility] See Rx Instructions .Route Qty: 2 0RF Rx Instructions: As directed docusate sodium [Colace] 100 mg capsule 200 mg PO BEDTIME Qty: 60 5RF Arnuity Ellipta 50 mcg/actuation blister with device 1 inh inhalation DAILY 30 Days Qty: 30 2RF rosuvastatin 10 mg tablet 10 mg PO BEDTIME 90 Days Qty: 90 3RF pantoprazole 40 mg tablet,delayed release (DR/EC) 40 mg PO DAILY 90 Days Qty: 90 3RF cetirizine [All Day Allergy (cetirizine)] 10 mg tablet 10 mg PO DAILY Qty: 90 1RF Myrbetriq 25 mg tablet extended release 24 hr 25 mg PO DAILY 90 Days Qty: 90 1RF levothyroxine 112 mcg tablet 112 mcg PO DAILY 90 Days Qty: 90 1RF cholecalciferol (vitamin D3) 50 mcg (2,000 unit) capsule 50 mcg PO DAILY Qty: 30 11RF meloxicam 15 mg tablet 15 mg PO DAILY Qty: 30 1RF albuterol sulfate 90 mcg/actuation HFA aerosol inhaler 2 puff inhalation Q4-6H PRN (Reason: shortness of breath or wheezing) Qty: 6.7 7RF (DME) commode Kit See Rx Instructions .Route Qty: 1 0RF Rx Instructions: As directed (DME) cane Device See Rx Instructions .Route Qty: 1 0RF Rx Instructions: As directed fluticasone propionate [Allergy Relief (fluticasone)] 50 mcg/actuation spray,suspension 2 spray intranasal DAILY 30 Days Qty: 16 5RF Rx Instructions: administer into each nostril ibuprofen 600 mg tablet 600 mg PO Q8H PRN (Reason: pain) Qty: 60 0RF sertraline 50 mg tablet 50 mg PO DAILY lorazepam 0.5 mg tablet 0.5 mg PO DAILY PRN (Reason: Anxiety) sertraline 100 mg tablet 100 mg PO DAILY simethicone 125 mg tablet,chewable 125 mg PO QID PRN (Reason: abdominal distention) 30 Days Qty: 120 6RF polyethylene glycol 3350 [Miralax] 17 gram/dose powder 17 g PO DAILY Qty: 510 6RF sucralfate 100 mg/mL suspension 1 g PO QIDACHS 28 Days Qty: 420 0RF
[2023-08-20 14:30] LABS: Influenza A PCR NEGATIVE (Negative); Influenza B PCR NEGATIVE (Negative); Resp Syncy Virus RNA Qual PCR NEGATIVE (Negative); SARS COV2 PCR INHOUSE NEGATIVE (Negative)
[2023-08-20 18:17] VITALS: BP 128/70; PULSE 66; RESP 18; TEMP 36.6; O2SAT 98
--- NOTE | 2023-08-20 20:34 | PC.NURSE ---
Upon Pt contact, pt not in stretcher.
== END 2023-08-20 21:05 | disposition left against medical advice (07) ==
PROVIDERS: Physician Assistant; Emergency Provider Emergency Medicine; PCP Internal Medicine
DX: H11.31 Conjunctival hemorrhage, right eye (principal); R51.9 Headache, unspecified; Z11.52 Encounter for screening for COVID-19; Z20.822 Contact with and (suspected) exposure to COVID-19
CPT/HCPCS: 0241U; 99283; 99284

== ENCOUNTER 2023-09-02 11:25 | Outpatient (AMB) | payer OTHER, SELFPAY ==
--- NOTE | 2023-09-02 11:26 | A.OFFVIS_ITS ---
Intake Vital Signs 09/02/23 11:29 Height 5 ft 7 in Weight 222 lb BMI 34.8 BP 117/64 Blood Pressure Location Lt brachial Position Sitting Pulse 66 Intake Visit Reasons: s/p egd dil Intake Note: Patient follow up for EGD results. Patient cc: swallowing problem, gassy and constipation. 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 Accompanied by: Self / Same As Patient Allergies Sulfa (Sulfonamide Antibiotics) [Sulfa (Sulfonamides)] Allergy (Severe, Verified 09/02/23 11:26) SWELLING cbd Allergy (Intermediate, Uncoded 08/19/23 08:37) chest pain Medication List - Last Reconciled 09/02/23 by Neva Li PA-C albuterol sulfate 90 mcg/actuation 2 puffs inhalation Q4-6H PRN bismuth subsalicylate (Bismuth) 2 tabs PO QID PRN 14 days cane As directed cetirizine (All Day Allergy (cetirizine)) 10 mg PO DAILY cholecalciferol (vitamin D3) 50 mcg PO DAILY commode As directed docusate sodium (Colace) 200 mg (2 x 100 mg) PO BEDTIME fluticasone furoate 50 mcg/actuation (Arnuity Ellipta) 1 inh inhalation DAILY 30 days fluticasone propionate 50 mcg/actuation (Allergy Relief (fluticasone)) 2 sprays intranasal DAILY 1 month Grab bar As directed ibuprofen 600 mg PO Q8H PRN Knee brace As directed levothyroxine 112 mcg PO DAILY 90 days lorazepam 0.5 mg PO DAILY PRN meloxicam 15 mg PO DAILY metronidazole 250 mg PO QID 14 days mirabegron ER (Myrbetriq) 25 mg PO DAILY 90 days pantoprazole 20 mg PO BID 14 days pantoprazole 40 mg PO DAILY 90 days polyethylene glycol 3350 (Miralax) 17 grams PO DAILY rosuvastatin 10 mg PO BEDTIME 90 days sertraline 50 mg PO DAILY sertraline 100 mg PO DAILY simethicone 125 mg PO QID PRN 30 days tetracycline 500 mg PO Q6H 14 days HPI HPI Comments History of Present Illness Details A 57 y/o female f/u after repeat EGD with balloon dilation -for dysphagia-Dr. Quinones She tolerated procedure well-seems to have control symptoms Reviewed procedure report, pathology and recommendations Pathology reveals H pylori will treat quadruple therapy No nausea, vomiting, hematemesis, hematochezia fever or PFSH Medical History (Updated 09/02/23 @ 12:11 by Neva Li PA-C) Lumbar pain Osteoarthritis of left hip HUONG (generalized anxiety disorder) Mild recurrent major depression Osteoarthritis of right knee Dyslipidemia Depression with anxiety Shortness of breath Dysphagia [id number] syndrome Polyarthralgia Hypothyroidism COVID-19 Nausea Osteoarthritis Fatty liver Anxiety Fibromyalgia Hypothyroid High cholesterol Asthma Surgical History History of esophagogastroduodenoscopy (EGD) Hx of colonoscopy History of blepharoplasty History of removal of ovarian cyst Tubal ligation status H/O oophorectomy Family History Sister Breast CA Pancreatic cancer Sister Breast CA Father Myocardial infarction Diabetes Hypertension CVD (cardiovascular disease) Mother Heart problem Daughter In good health Social History Household Members: None Housing: Apartment Alcohol intake: current Alcohol intake frequency: does not drink Alcohol type: hard liquor Patient Tobacco Use Status: Former Tobacco user Tobacco use type: Cigarette e-Cigarette/Vaping Use: Never Used Second Hand Smoke Exposure: No service: No Current occupational status: disabled Cognitive needs: Yes Hearing needs: No Vision needs: No Female Reproductive History Menstrual Age of Menarche: 11 Review of Systems Const All systems reviewed & are unremarkable except as noted in HPI and below Physical Exam Vital Signs: Last Vital Signs Pulse 66 09/02/23 11:29 BP 117/64 09/02/23 11:29 BMI result Body Mass Index 34.8 Const General: cooperative, healthy appearing, comfortable and no acute distress Orientation/consciousness: patient oriented x3 Limitations: language barrier Resp Effort & Inspection: normal respiratory effort and able to speak in complete sentences Neuro General: patient oriented x3 Psych Appearance: grossly normal and well kempt Mental Status: mental status grossly normal Speech and movement: Normal speech and movement present Affect: normal affect Attitude: cooperative Thought process: Normal thought process present Results Reviewed Results Reviewed: 08/19/23- Joni Impression/Findings: gastritis esophagitis hiatal hernia schatzki ring PLAN: if compliant with PPI, consider changing and see if helps sx consider surgical referral for hernia repair if ongoing sx GERD precautions ddendum #1 (B): H. pylori immunostain is positive for rare organisms with appropriate control. Electronically Signed By: Imelda Rice 08/24/23 1237 Diagnosis A. Stomach, biopsy: Chronic gastritis with mild activity; negative for intestin al metaplasia and dysplasia (see comment). B. Gastroesophageal junction, biopsy: Columnar mucosa with chronic active inflammation; negative for intestinal metaplasia and dysplasia; no squamous component present. C. Esophagus, distal, biopsy: Squamous mucosa with no specific change; no columnar mucosa present. D. Esophagus, proximal, biopsy: Squamous mucosa with no specific change; no columnar mucosa present. Comment: (A): Immunostain for H. pylori is pending; addendum to follow. Clinical History Pre-Op Dx: Dysphagia, unspecified Post-Op Dx: Schatzki's ring, mild esophagitis, hiatal hernia, gastritis Microscopic Description Microscopic sections reviewed. AB/PAS stain on B is negative for intestinal metaplasia. Control stains appropriately. Material Received A. Stomach bx's B. GE junction C. Distal esophagus Patient: Harini Hoyos Age/Sex: 57/F MR#: [id number] Page 1 of 2 COLONOSCOPY 10/2022-Ferdinand-10/202211/13/22 Impression: 1. Normal esophagus (dilation) 2. Hill grade III hiatal hernia 3. Normal stomach 4. Normal duodenum (biopsy) 5. Normal colon and terminal ileum mucosa 6. Internal and external hemorrhoids Recommendations:?? * Follow biopsy results, office will call or send a letter within 7-10 days.? * Future colonoscopy for asymptomatic CRC screening in 10 years. Assessment & Plan Assessment & Plan (1) Gastro-esophageal reflux disease without esophagitis: Comment: Reviewed EGD pathology and recomm. Daughter present via phone for grades 1 6 tutor- patient declined H device Code(s): K21.9 - Gastro-esophageal reflux disease without esophagitis Plan: Consider surgical consult for hiatal hernia if symptoms proceed= (2) H. pylori infection: Code(s): A04.8 - Other specified bacterial intestinal infections Plan: 2 weeks quadruple Return 6 weeks for SAMANTHA NPO 1 hour prior to testing No antibiotics or PPI for 2 weeks prior testing Plan Treat H pylori Return 6 weeks for SAMANTHA Orders: Orders H Pylori Breath Test 6 Weeks A04.8 - Other specified bacterial intestinal infections Medications: New metronidazole 250 mg PO QID 56 tabs 0RF 14 days tetracycline 500 mg PO Q6H 56 caps 0RF 14 days bismuth subsalicylate (Bismuth) 2 tabs PO QID PRN 112 tabs 0RF diarrhea 14 days pantoprazole 20 mg PO BID 28 tabs 6RF 14 days Patient Instructions: H pylori positive EGD pathology 2 weeks quadruple Return 6 weeks for SAMANTHA NPO 1 hour prior to testing No antibiotics or PPI for 2 weeks prior testing Will further discuss symptoms-if persist recommend surgical consult for hiatal hernia Coding Level of Care Code Est Pt Level 3 (16561) Diagnoses Gastro-esophageal reflux disease without esophagitis K21.9 H. pylori infection A04.8 Time Spent (min) 25
[2023-09-02 11:29] VITALS: BP 117/64; PULSE 66; BMI 34.8
== END 2023-09-02 12:37 | disposition home or self-care (01) ==
PROVIDERS: PCP Internal Medicine; Visit Provider Physician Assistant
DX: K21.9 Gastro-esophageal reflux disease without esophagitis (principal); A04.8 Other specified bacterial intestinal infections
CPT/HCPCS: 99213

== ENCOUNTER → 2023-09-02 11:25 | Outpatient (BNVA) | payer OTHER, SELFPAY | PROVIDERS: PCP Internal Medicine; Visit Provider Physician Assistant | DX: K21.9 Gastro-esophageal reflux disease without esophagitis (principal); A04.8 Other specified bacterial intestinal infections | CPT/HCPCS: 99212 ==

== ENCOUNTER 2023-09-15 08:32 | Outpatient (AMB) | payer OTHER, SELFPAY ==
--- NOTE | 2023-09-15 08:53 | MHC.OFFVIS ---
Intake Intake Visit Reasons: 3m/PVR Intake Note: Patient presents today to established treatment for nocturia, frequency, and dysuria: Urology Medications: Myrbetriq Allergies to Antibiotic: Sulfa Blood Thinner: none PVR: 0ml's Surveyor Geophysical Prospecting Required: No Surveyor Geophysical Prospecting Name: SHRADDHA ALMONTESABINE Accompanied by: Self / Same As Patient Allergies Sulfa (Sulfonamide Antibiotics) [Sulfa (Sulfonamides)] Allergy (Severe, Verified 09/15/23 11:25) SWELLING cbd Allergy (Intermediate, Uncoded 09/15/23 11:25) chest pain Medication List - Last Reconciled 09/15/23 by SKYLA Camacho- albuterol sulfate 90 mcg/actuation 2 puffs inhalation Q4-6H PRN bismuth subsalicylate (Bismuth) 2 tabs PO QID PRN 14 days cane As directed cetirizine (All Day Allergy (cetirizine)) 10 mg PO DAILY cholecalciferol (vitamin D3) 50 mcg PO DAILY commode As directed docusate sodium (Colace) 200 mg (2 x 100 mg) PO BEDTIME fluticasone furoate 50 mcg/actuation (Arnuity Ellipta) 1 inh inhalation DAILY 30 days fluticasone propionate 50 mcg/actuation (Allergy Relief (fluticasone)) 2 sprays intranasal DAILY 1 month Grab bar As directed ibuprofen 600 mg PO Q8H PRN Knee brace As directed levothyroxine 112 mcg PO DAILY 90 days lorazepam 0.5 mg PO DAILY PRN meloxicam 15 mg PO DAILY metronidazole 250 mg PO QID 14 days mirabegron ER (Myrbetriq) 50 mg (2 x 25 mg) PO DAILY 90 days pantoprazole 20 mg PO BID 14 days pantoprazole 40 mg PO DAILY 90 days polyethylene glycol 3350 (Miralax) 17 grams PO DAILY rosuvastatin 10 mg PO BEDTIME 90 days sertraline 50 mg PO DAILY sertraline 100 mg PO DAILY simethicone 125 mg PO QID PRN 30 days tetracycline 500 mg PO Q6H 14 days HPI HPI Comments History of Present Illness Details Harini is a pleasant 57 year old Divehi speaking patient of Dr. Gilbert Wang. She has a PMH of asthma, depression, anxiety, dyslipidemia, fatty liver, fibromyalgia, hypothyroidism, and osteoarthritis. She presents to the office today for a follow up. When asked patient reports to be doing and feeling well. She reports compliance with Myrbetriq 25 mg daily and feels this has significantly improved her urinary symptoms. She reports feeling Myrbetriq has significantly improved her bladder spasm she had been experiencing. She does continue with episodes of nocturia up to 4 times per night and urinary urgency and frequency at times. She otherwise denies hematuria, dysuria, foul smelling urine, changes to urinary stream, flank pain, fever, and or chills. Previous workup has included a retroperitoneal ultrasound noting bilateral kidneys with no lesions, calculi, or hydronephrosis noted. The bladder is well distended and normal. Prevoid bladder volume is approximately 270 mL. Postvoid bladder volume is approximately 15 mL. Discussed bladder triggers/irritants as well as importance of maintaining adequate amount of fluid daily. In office urinalysis results reviewed with the patient today. PVR 0 mL. Patient otherwise denies any issues or concerns at this time. 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 Polyarthralgia Hypothyroidism COVID-19 Nausea Osteoarthritis Fatty liver Anxiety Fibromyalgia Hypothyroid High cholesterol Asthma Surgical History History of esophagogastroduodenoscopy (EGD) Hx of colonoscopy History of blepharoplasty History of removal of ovarian cyst Tubal ligation status H/O oophorectomy Family History Sister Breast CA Pancreatic cancer Sister Breast CA Father Myocardial infarction Diabetes Hypertension CVD (cardiovascular disease) Mother Heart problem Daughter In good health Social History Household Members: None Housing: Apartment Alcohol intake: current Alcohol intake frequency: does not drink Alcohol type: hard liquor Patient Tobacco Use Status: Former Tobacco user Tobacco use type: Cigarette e-Cigarette/Vaping Use: Never Used Second Hand Smoke Exposure: No service: No Current occupational status: disabled Cognitive needs: Yes Hearing needs: No Vision needs: No Female Reproductive History Menstrual Age of Menarche: 11 Review of Systems Const Reports as per [facility] Eyes Reports no additional complaints ENT Reports no additional complaints Card Reports no additional complaints Resp Reports as per [facility] GI Reports no additional complaints Reports as per [facility] Musc Reports as per [facility] Neuro Reports no additional complaints Psych Reports as per [facility] Sudhakar/Lymph Reports no additional complaints Aller/Immun Reports as per [facility] Physical Exam Const General: cooperative, healthy appearing, comfortable, no acute distress, well developed, alert and awake Nutritional Appearance: overweight Orientation/consciousness: patient oriented x3 Limitations: ambulation with cane HEENT Head: Yes normal to inspection, Yes normocephalic and Yes atraumatic Ears: hearing grossly normal bilaterally Eyes General: appearance normal, both eyes and all related structures Neck Neck: Yes normal visual inspection and Yes trachea midline Chest Chest palpation & inspection: normal inspection of the chest Resp Effort & Inspection: normal respiratory effort and able to speak in complete sentences Cardio Rate: regular rate GI Inspection: Yes normal to inspection General: Yes no CVA tenderness Back/Spine/Pelvis Back: no CVA tenderness Skin General skin exam: no rashes or lesions noted Neuro General: patient oriented x3 Extrem General: Yes normal to inspection Psych Appearance: grossly normal and well kempt Mental Status: mental status grossly normal Speech and movement: Normal speech and movement present and Clear speech present Affect: normal affect Attitude: cooperative Thought process: Normal thought process present Thought content: Normal thought content present Insight: Fair insight present (Psych) Judgement: Fair judgement present (Psych) Office Procedures Post Void Residual Post Residual Void Post Void Residual (PVR): 0 13065-Mcyx Void Residual by ultrasound Results AMB Urinalysis, Automated UA Leukoctes 15 Akua/uL Last Edit by Craig Freeman on 09/15/23 09:11 UA Nitrite Negative Last Edit by Craig Freeman on 09/15/23 09:11 UA Urobilinogen 0.2 mg/dL Last Edit by [email or web address] Freeman on 09/15/23 09:11 UA Protein 0 mg/dL Last Edit by Craig Freeman on 09/15/23 09:11 UA pH 6.5 Last Edit by Craig Freeman on 09/15/23 09:11 UA Blood 0 Jacobo/uL Last Edit by Craig Freeman on 09/15/23 09:11 UA Specific Hamlet 1.015 Last Edit by Craig Freeman on 09/15/23 09:11 UA Ketone Negative Last Edit by Craig Callespawan on 09/15/23 09:11 UA Bilirubin 0 mg/dL Last Edit by Craig Callespawan on 09/15/23 09:11 UA Glucose 0 mg/dL Last Edit by Craig Callespawan on 09/15/23 09:11 Results Reviewed Results Reviewed: Laboratory Last Values Urine pH (Auto) 6.5 09/15/23 09:10 Specific Hamlet (Auto) 1.015 09/15/23 09:10 Urine Protein (Auto) 0 mg/dL 09/15/23 09:10 Glucose (UA)(Auto) 0 mg/dL 09/15/23 09:10 Urine Ketones (Auto) Negative 09/15/23 09:10 Urine Blood (Auto) 0 Jacobo/uL 09/15/23 09:10 Urine Nitrite (Auto) Negative 09/15/23 09:10 Urine Bilirubin (Auto) 0 mg/dL 09/15/23 09:10 Urine Urobilinogen (Auto) 0.2 mg/dL 09/15/23 09:10 Leukocyte Esterase (Auto) 15 Akua/uL 09/15/23 09:10 Assessment & Plan Assessment & Plan (1) Cystitis: Code(s): N30.90 - Cystitis, unspecified without hematuria (2) Urinary frequency: Code(s): R35.0 - Frequency of micturition (3) Lower urinary tract symptoms (LUTS): Code(s): R39.9 - Unspecified symptoms and signs involving the genitourinary system Plan In office urinalysis results reviewed with the patient today; as noted above. PVR 0mls Patient denies any bothersome urinary issues or concerns at this time. Will increase Myrbetriq to 50 mg daily; refill provided Discussed trial of low-dose VESIcare for dual therapy. However will try increase in Myrbetriq prior as this has been helpful for her. Discussed, educated, and encouraged on the importance of drinking plenty of water daily. Discussed bladder triggers/irritants. Discussed importance of limiting fluids 2-3 hours prior to bed to decrease episodes of nocturia. Follow-up in 6-8 weeks; or sooner with any issues, concerns, and or questions. Orders: Orders AMB Urinalysis Automated Today Z13.9 - Encounter for screening, unspecified AMB Post Void Residual by ultrasound Today R35.1 - Nocturia Medications: Changed From mirabegron ER (Myrbetriq) 25 mg PO DAILY 90 days 90 tabs 1RF N30.10 - Interstitial cystitis (chronic) without hematuria, N32.81 - Overactive bladder, R35.1 - Nocturia, R39.15 - Urgency of urination To mirabegron ER (Myrbetriq) 50 mg (2 x 25 mg) PO DAILY 180 tabs 1RF 90 days N30.10 - Interstitial cystitis (chronic) without hematuria, N32.81 - Overactive bladder, R35.1 - Nocturia, R39.15 - Urgency of urination Patient Instructions: The patient had an opportunity to ask questions regarding the treatment plan. All questions were answered. Physical exam, labs, and imaging were discussed and reviewed in detail. As well as risks, benefits, and discussion of treatment choices. No major barriers to understanding were identified. The patient expressed understanding and agreement with the above treatment plan. The patient was made aware they should contact our office by phone for worsening of their current condition, the appearance of new symptoms, or with any questions or concerns. Compliance is encouraged with any medications and follow up testing that is ordered. It is a privilege to be allowed the opportunity to participate in? your urological care.? Again, if you have any questions or concerns If you have any questions or concerns please do not hesitate to contact me. The office is [phone]. This note is constructed using voice recognition software. While every effort has been made to ensure accuracy embroidery worker errors may have been included. Yours sincerely, VOLODYMYR Camacho Coding Level of Care Code Est Pt Level 3 (26134) Diagnoses Cystitis N30.90 Urinary frequency R35.0 Lower urinary tract symptoms (LUTS) R39.9 CPT Codes Post Residual Void - PVR CPT Code: 34815-Dbqb Void Residual by ultrasound ([id number])
== END 2023-09-15 09:21 | disposition home or self-care (01) ==
PROVIDERS: PCP Internal Medicine; Visit Provider Nurse Practitioner Family
DX: N30.90 Cystitis, unspecified without hematuria (principal); R35.0 Frequency of micturition; R39.9 Unspecified symptoms and signs involving the genitourinary system; Z13.9 Encounter for screening, unspecified
CPT/HCPCS: 99213

== ENCOUNTER → 2023-09-15 08:32 | Outpatient (BNVA) | payer OTHER, SELFPAY | PROVIDERS: PCP Internal Medicine; Visit Provider Nurse Practitioner Family | DX: N30.90 Cystitis, unspecified without hematuria (principal); R35.0 Frequency of micturition; R39.9 Unspecified symptoms and signs involving the genitourinary system | CPT/HCPCS: 51798; 81003; 99212 ==

== ENCOUNTER 2023-10-06 16:16 | Outpatient (AMB) | payer OTHER, SELFPAY ==
[2023-10-06 16:21] VITALS: BP 122/80; BMI 34.8
--- NOTE | 2023-10-06 16:21 | MHC.PC.OV ---
Vital Signs 10/06/23 16:21 Height 5 ft 7 in Weight 222 lb BMI 34.8 BP 122/80 Blood Pressure Location Lt brachial Position Sitting Intake Visit Reasons: Bronchitis Intake Note: Patient here for follow up Bronchitis Computed Tomography Technician Required: No Accompanied by: Self / Same As Patient Allergies Sulfa (Sulfonamide Antibiotics) [Sulfa (Sulfonamides)] Allergy (Severe, Verified 10/06/23 16:38) SWELLING cbd Allergy (Intermediate, Uncoded 10/06/23 16:38) chest pain Medication List - Last Reconciled 10/06/23 by Kim Wang MD albuterol sulfate 90 mcg/actuation 2 puffs inhalation Q4-6H PRN bismuth subsalicylate (Bismuth) 2 tabs PO QID PRN 14 days cane As directed cetirizine (All Day Allergy (cetirizine)) 10 mg PO DAILY cholecalciferol (vitamin D3) 50 mcg PO DAILY commode As directed docusate sodium (Colace) 200 mg (2 x 100 mg) PO BEDTIME fluticasone furoate 50 mcg/actuation (Arnuity Ellipta) 1 inh inhalation DAILY 30 days fluticasone propionate 50 mcg/actuation (Allergy Relief (fluticasone)) 2 sprays intranasal DAILY 1 month Grab bar As directed ibuprofen 600 mg PO Q8H PRN Knee brace As directed levothyroxine 112 mcg PO DAILY 90 days lorazepam 0.5 mg PO DAILY PRN meloxicam 15 mg PO DAILY mirabegron ER (Myrbetriq) 50 mg (2 x 25 mg) PO DAILY 90 days pantoprazole 40 mg PO DAILY 90 days polyethylene glycol 3350 (Miralax) 17 grams PO DAILY rosuvastatin 10 mg PO BEDTIME 90 days sertraline 50 mg PO DAILY sertraline 100 mg PO DAILY simethicone 125 mg PO QID PRN 30 days Tobacco use date assessed: 10/06/23 Dental Screening Dental Screen Date: 10/06/23 Did you have a dental visit in the last 12 months?: Yes Did you have a dental problem in the last 6 months where you did not have access to dental care?: No Was dental information given to patient?: Patient has dentist HPI HPI Comments History of Present Illness Details This is a 57-year-old female with hypothyroidism, dyslipidemia, chronic constipation and mild recurrent major depression that complains of cough that has been persistent after having bronchiolitis. X-ray of the chest will be order. TSH and lipid panel will be order. Constipation stable with Linzess. Depression well controlled with sertraline and this is follow by Psychiatry. No chest pain or shortness of breath. [facility] Medical History Lumbar pain Osteoarthritis of left hip HUONG (generalized anxiety disorder) Mild recurrent major depression Osteoarthritis of right knee Dyslipidemia Depression with anxiety Shortness of breath Dysphagia [id number]-80 syndrome Polyarthralgia Hypothyroidism COVID-19 Nausea Osteoarthritis Fatty liver Anxiety Fibromyalgia Hypothyroid High cholesterol Asthma Surgical History History of esophagogastroduodenoscopy (EGD) Hx of colonoscopy History of blepharoplasty History of removal of ovarian cyst Tubal ligation status H/O oophorectomy Family History Sister Breast CA Pancreatic cancer Sister Breast CA Father Myocardial infarction Diabetes Hypertension CVD (cardiovascular disease) Mother Heart problem Daughter In good health Social History Household Members: None Housing: Apartment Alcohol intake: current Alcohol intake frequency: does not drink Alcohol type: hard liquor Patient Tobacco Use Status: Former Tobacco user Tobacco use type: Cigarette e-Cigarette/Vaping Use: Never Used Second Hand Smoke Exposure: No service: No Current occupational status: disabled Cognitive needs: Yes Hearing needs: No Vision needs: No Female Reproductive History Menstrual Age of Menarche: 11 Questionnaire PHQ-9 Over the last 2 weeks, how often have you been bothered by any of the following problems? 1. Little interest or pleasure in doing things: not at all 2. Feeling down, depressed, or hopeless: not at all 3. Trouble falling or staying asleep, or sleeping too much: not at all 4. Feeling tired or having little energy: not at all 5. Poor appetite or overeating: not at all 6. Feeling bad about yourself - or that you are a failure or have let yourself or your family down: not at all 7. Trouble concentrating on things, such as reading the newspaper or watching television: not at all 8. Moving or speaking so slowly that other people could have noticed. Or the opposite - being so fidgety or restless that you have been moving around a lot more than usual: not at all 9. Thoughts that you would be better off or of hurting yourself in some way: not at all Total score: 0 Depression Screening Interpretation: Negative Depression Screening Done: Yes 46952 - PHQ-9 Billing: Yes Source: Developed by Drs. William Noel, Gavi Yu, Hayden Sagastume and colleagues, with an educational gris from [employer]. Thrive Questionnaire Date Thrive assessed: 10/06/23 I am a: Patient What is your living situation today?: I have a steady place to live Within the past 12 months, did the food you bought not last and you didn't have the money to get more?: Never true Within the past 12 months, did you worry whether your food would run out before you got money to buy more?: Never true Do you have trouble paying for medicines?: No Do you have trouble getting transportation to medical appointments?: No Do you have trouble paying your heating and electricity bill?: No Do you have trouble taking care of your child, family member or friend?: No Do you have trouble with day-to-day activities such as bathing, preparing meals, shopping, managing finances, etc.?: No Are you currently unemployed and looking for a job?: No Are you interested in more education?: No Please select the resources that you would like help with: None Currently or been in a relationship where the following occur: no concerns reported THRIVE Score: 0 AUDIT C Alcohol Use Questionnaire (AUDIT-C) 1. How often do you have a drink containing alcohol?: Never Total Score: 0 HUONG-7 AMB Questionnaire HUONG-7 Date HUONG - 7 assessed: 10/06/23 Feeling nervous, anxious, or on edge: 0 = Not at all Not being able to stop or control worryin = Not at all Worrying too much about different things: 0 = Not at all Trouble relaxin = Not at all Being so restless that it is hard to sit still: 0 = Not at all Becoming easily annoyed or irritable: 0 = Not at all Feeling afraid as if something awful might happen: 0 = Not at all Total HUONG-7 score (0-4 normal; 5-9 mild; 10-14 moderate; 15-21 severe): 0 Source: Developed by Drs. William Noel, Gavi Yu, Hayden Sagastume and colleagues, with an educational gris from [employer]. HUONG-7 Assessment Billing HUONG-7 Assessment Tool: HUONG-7 Assessment 04692 Review of Systems Const All systems reviewed & are unremarkable except as noted in HPI and below Eyes Reports no additional complaints, Denies change in vision and Denies other visual disturbances Card Denies chest pain at rest, Denies chest pain with activity, Denies edema, Denies irregular heart rhythm, Denies claudication, Denies dyspnea, Denies dyspnea on exertion, Denies orthopnea, Denies paroxysmal nocturnal dyspnea and Denies slow heart rate Resp Reports cough, Denies dyspnea and Denies dyspnea on exertion GI Denies abdominal pain, Denies change in bowel habits, Denies excessive flatus, Denies nausea and Denies vomiting Denies urinary incontinence, Denies urinary hesitancy and Denies urinary urgency Physical exam (Primary Care) Vital Signs: Last Vital Signs BP 122/80 10/06/23 16:21 BMI result Body Mass Index 34.8 Tobacco/Smoking Status: Tobacco use Status Tobacco use date assessed 10/06/23 10/06/23 16:29 Patient Tobacco Use Status Former Tobacco user 10/06/23 16:29 Tobacco use type Cigarette 10/06/23 16:29 e-Cigarette/Vaping Use Never Used 10/06/23 16:29 PHQ-9: PHQ-9 Score PHQ-9: Total score 0 10/06/23 16:41 Depression Screening Interpretation: Negative Thrive Assessment: Date of Thrive Assessment Date Thrive assessed 10/06/23 10/06/23 16:29 Currently or been in a relationship where the following occur: no concerns reported Resp Effort & Inspection: normal respiratory effort Auscultation: clear to auscultation bilaterally Cardio Jugular venous distension: no JVD Rate: regular rate Rhythm: regular rhythm Heart sounds: S1 normal heart sound present and S2 normal heart sound present Extrem General: Yes full ROM Assessment and Plan Assessment & Plan (1) Mild recurrent major depression: Code(s): F33.0 - Major depressive disorder, recurrent, mild Plan: Continue sertraline. Follow-up by Psychiatry. (2) Dyslipidemia: Code(s): E78.5 - Hyperlipidemia, unspecified Plan: Continue statins. Repeat lipid panel. (3) Chronic constipation: Comment: HFD, bowel regimen-be consistent-MiraLax prescription sent to pharmacy - repeat asymptomatic- 10years Code(s): K59.09 - Other constipation Plan: Continue Linzess. (4) Hypothyroidism: Code(s): E03.9 - Hypothyroidism, unspecified Qualifiers: Hypothyroidism type: unspecified Qualified Code(s): E03.9 - Hypothyroidism, unspecified Plan: Continue levothyroxine. Monitor TSH. (5) Cough: Code(s): R05 - Cough Plan: X-ray of the chest order. Orders: Orders XR chest 2V Today R05 - Cough Comprehensive Point Clear. Panel Fast Today M54.16 - Radiculopathy, lumbar region Thyroid Stimulating Hormone Today E03.9 - Hypothyroidism, unspecified Lipid Panel Today E78.5 - Hyperlipidemia, unspecified Vitamin D 25-OH Total Today E55.9 - Vitamin D deficiency, unspecified Complete Blood Count Auto Diff Today M54.16 - Radiculopathy, lumbar region Medications: Refilled fluticasone furoate 50 mcg/actuation (Arnuity Ellipta) 1 inh inhalation DAILY 30 ea 2RF 30 days Coding Level of Care Code Est Pt Level 4 (86298) Diagnoses Mild recurrent major depression F33.0 Dyslipidemia E78.5 Chronic constipation K59.09 Hypothyroidism, unspecified type E03.9 Hypothyroidism type: unspecified Cough R05 Additional Codes HUONG-7 Assessment Billing - HUONG-7 Assessment Tool: HUONG-7 Assessment 10456 ([id number]) Time Spent (min) 24
== END 2023-10-06 16:50 | disposition home or self-care (01) ==
PROVIDERS: PCP Internal Medicine; Visit Provider Internal Medicine
DX: R05.9 Cough, unspecified (principal); F33.0 Major depressive disorder, recurrent, mild; E78.5 Hyperlipidemia, unspecified; K59.09 Other constipation; E03.9 Hypothyroidism, unspecified
CPT/HCPCS: 99214

== ENCOUNTER 2023-10-07 07:00 | Outpatient (REF) | payer OTHER, SELFPAY ==
--- NOTE | ~2023-10-07 | XR_ITS ---
EXAMINATION: XR CHEST CLINICAL INFORMATION: Cough COMPARISON: Chest 11/10/2022, 05/29/2022 TECHNIQUE: 2 views of the chest were obtained. FINDINGS: No significant abnormality is noted involving the heart, lungs, mediastinum, bony thorax or soft tissues. XR/XR chest 2V IMPRESSION: Unremarkable examination.
[2023-10-07 07:12] LABS: MANUAL DIFF FLAG NO
[2023-10-07 08:03] LABS: Basophils Absolute Auto 0.1 X10*3/uL (0.0-0.2); Basophils Percent Auto 0.7 % (0-2); Eosinophils Absolute Auto 0.1 X10*3/uL (0.0-0.4); Eosinophils Percent Auto 1.5 % (0-4); Hematocrit 38.6 % (37.0-47.0); Hemoglobin 12.3 g/dl (12.0-16.0); Imm Gran Abs Auto 0.02 X10*3/uL (0.00-0.03); Imm Gran Pct Auto 0.2 % (0.0-0.4); Lymphocytes Absolute Auto 3.3 X10*3/uL (1.2-4.9); Lymphocytes Percent Auto 40.6 % (20-40); Mean Corpuscular HGB Conc 31.9 g/dl (31.0-35.0); Mean Corpuscular Hemoglobin 28.1 pg (27.0-33.0); Mean Corpuscular Volume 88.3 fL (80.0-98.0); Mean Platelet Volume 9.9 fL (9.4-12.3); Monocytes Absolute Auto 0.6 X10*3/uL (0.1-1.2); Monocytes Percent Auto 7.3 % (2-11); Neutrophils Absolute Auto 4.1 x10*3/uL (2.0-8.3); Neutrophils Percent Auto 49.7 % (45-73); Platelet Count 318 X10*3/uL (160-400); Red Blood Count 4.37 X10*6/uL (4.20-5.50); Red Cell Distribution Width 13.4 % (11.0-16.0); White Blood Count 8.2 X10*3/uL (4.8-10.8)
[2023-10-07 08:39] LABS: Alanine Aminotransferase 27 U/L (0-31); Albumin Level 4.1 g/dL (3.5-5.0); Alkaline Phosphatase 77 U/L (39-117); Anion Gap 13 (12-20); Aspartate Amino Transferase 19 U/L (5-31); Bilirubin Total 0.5 mg/dL (0.0-1.0); Blood Urea Nitrogen 14 mg/dL (9-16); Calcium 9.5 mg/dL (8.4-10.2); Carbon Dioxide 30 mmol/L (22-29); Chloride 105 mmol/L (96-108); Cholesterol 132 mg/dL (<200); Estimated Glomerular Filt Rate > 60; Glucose Fasting 86 mg/dL (60-99); HDL Cholesterol 48 mg/dL (>40); LDL Cholesterol Calculated 68 mg/dL (<100); Potassium 3.9 mmol/L (3.3-5.1); Sodium 144 mmol/L (135-145); Total Protein 7.8 g/dL (6.5-8.0); Triglycerides 83 mg/dL (<150)
[2023-10-07 08:57] LABS: Vitamin D 25-OH Total 46.2 ng/mL (>30)
== END 2023-10-07 07:01 | disposition home or self-care (01) ==
LOC: HO.XRAY 07:00
PROVIDERS: PCP Internal Medicine; Visit Provider Internal Medicine
DX: M54.16 Radiculopathy, lumbar region (principal); E78.5 Hyperlipidemia, unspecified; E55.9 Vitamin D deficiency, unspecified; E03.9 Hypothyroidism, unspecified; R05.9 Cough, unspecified
CPT/HCPCS: 36415; 71046; 80053; 80061; 82306; 84443; 85025

== ENCOUNTER 2023-11-04 08:11 | Outpatient (AMB) | payer OTHER, SELFPAY ==
--- NOTE | 2023-11-04 08:16 | A.OFFVIS_ITS ---
Vital Signs 11/04/23 08:27 Height 5 ft 7 in Weight 219 lb BMI 34.3 BP 117/70 Blood Pressure Location Lt brachial Position Sitting Pulse 61 Intake Visit Reasons: 8 week follow up Intake Note: Patient follow up for GERD. Patient cc: abdominal bloating, acid reflex with burning sensation, and constipation, Patient said she is swallowing better. Senior Asp Net Developer Required: Yes Senior Asp Net Developer Name: [facility] interpeter Accompanied by: Self / Same As Patient Allergies Sulfa (Sulfonamide Antibiotics) [Sulfa (Sulfonamides)] Allergy (Severe, Verified 11/04/23 08:15) SWELLING cbd Allergy (Intermediate, Uncoded 10/06/23 16:38) chest pain HPI Comments Details: A 57 y/o female f/u after tx HP- tolerated ok- She does regurg however unable to identify anything specific she begin She was to have SAMANTHA today however taking pantoprazole- She has nausea, vomiting, hematemesis, hematochezia, dysphagia, fever or chills PFSH Medical History (Updated 11/04/23 @ 09:05 by Neva Li PA-C) Lumbar pain Osteoarthritis of left hip HUONG (generalized anxiety disorder) Mild recurrent major depression Osteoarthritis of right knee Dyslipidemia Depression with anxiety Shortness of breath Dysphagia [id number] syndrome Polyarthralgia Hypothyroidism COVID-19 Nausea Osteoarthritis Fatty liver Anxiety Fibromyalgia Hypothyroid High cholesterol Asthma Surgical History History of esophagogastroduodenoscopy (EGD) Hx of colonoscopy History of blepharoplasty History of removal of ovarian cyst Tubal ligation status H/O oophorectomy Family History Sister Breast CA Pancreatic cancer Sister Breast CA Father Myocardial infarction Diabetes Hypertension CVD (cardiovascular disease) Mother Heart problem Daughter In good health Social History Household Members: None Housing: Apartment Alcohol intake: current Alcohol intake frequency: does not drink Alcohol type: hard liquor Patient Tobacco Use Status: Former Tobacco user Tobacco use type: Cigarette e-Cigarette/Vaping Use: Never Used Second Hand Smoke Exposure: No service: No Current occupational status: disabled Cognitive needs: Yes Hearing needs: No Vision needs: No Female Reproductive History Menstrual Age of Menarche: 11 Review of Systems Const All systems reviewed & are unremarkable except as noted in HPI and below GI Reports heartburn Physical Exam Vital Signs: Last Vital Signs Pulse 61 11/04/23 08:27 BP 117/70 11/04/23 08:27 BMI result Body Mass Index 34.3 Const General: cooperative, healthy appearing, comfortable and no acute distress Orientation/consciousness: patient oriented x3 Limitations: language barrier Eyes Sclerae: sclerae normal Neuro General: patient oriented x3 Extrem General: Yes full ROM Psych Appearance: grossly normal and well kempt Mental Status: mental status grossly normal Speech and movement: Normal speech and movement present Affect: normal affect Attitude: cooperative Thought process: Normal thought process present Thought content: Hallucination(s) present Assessment & Plan Assessment & Plan (1) H. pylori infection: Comment: Very pleasant 57-year-old female follows up after 2 week course antibiotics for H pylori diagnosed at EGD Code(s): A04.8 - Other specified bacterial intestinal infections Category: Medical Plan: d/c ppi x 2 week- carafate interim SAMANTHA HP stool 2 wks- she will call 48 hrs for result-plan of care- Orders: Orders H pylori Ag Stool 2 Weeks A04.8 - Other specified bacterial intestinal infections Medications: New sucralfate 1 g (10 mL) PO QIDACHS 2 weeks 420 mL 0RF Patient Instructions: d/c ppi x 2 week- carafate interim SAMANTHA HP stool 2 wks- she will call 48 hrs for result-plan of care- Coding Level of Care Code Est Pt Level 3 (18937) Diagnoses H. 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
[2023-11-04 08:27] VITALS: BP 117/70; PULSE 61; BMI 34.3
== END 2023-11-04 10:03 | disposition home or self-care (01) ==
PROVIDERS: PCP Internal Medicine; Visit Provider Physician Assistant
DX: A04.8 Other specified bacterial intestinal infections (principal)
CPT/HCPCS: 99213

== ENCOUNTER → 2023-11-04 08:11 | Outpatient (BNVA) | payer OTHER, SELFPAY | PROVIDERS: PCP Internal Medicine; Visit Provider Physician Assistant | DX: A04.8 Other specified bacterial intestinal infections (principal) | CPT/HCPCS: 99212 ==

== ENCOUNTER 2023-11-16 08:46 | Outpatient (AMB) | payer OTHER, SELFPAY ==
--- NOTE | 2023-11-16 08:47 | MHC.OFFVIS ---
Intake Visit Reasons: 2m follow up Intake Note: Patient presents today for tele visit follow up : Frequency and Incontinence Urology Medications: Myrbetriq Allergies to Antibiotic: Sulfa Blood Thinner: none Tumbler Plater Required: Yes Tumbler Plater Name: SHRADDHA ROSEANNE Accompanied by: Self / Same As Patient Allergies Sulfa (Sulfonamide Antibiotics) [Sulfa (Sulfonamides)] Allergy (Severe, Verified 11/16/23 09:03) SWELLING cbd Allergy (Intermediate, Uncoded 11/16/23 09:03) chest pain Medication List - Last Reconciled 11/16/23 by SKYLA Camacho- albuterol sulfate 90 mcg/actuation 2 puffs inhalation Q4-6H PRN bismuth subsalicylate (Bismuth) 2 tabs PO QID PRN 14 days cane As directed cetirizine (All Day Allergy (cetirizine)) 10 mg PO DAILY cholecalciferol (vitamin D3) 50 mcg PO DAILY commode As directed docusate sodium (Colace) 200 mg (2 x 100 mg) PO BEDTIME fluticasone furoate 50 mcg/actuation (Arnuity Ellipta) 1 inh inhalation DAILY 30 days fluticasone propionate 50 mcg/actuation (Allergy Relief (fluticasone)) 2 sprays intranasal DAILY 1 month Grab bar As directed ibuprofen 600 mg PO Q8H PRN Knee brace As directed levothyroxine 112 mcg PO DAILY 90 days lorazepam 0.5 mg PO DAILY PRN meloxicam 15 mg PO DAILY mirabegron ER (Myrbetriq) 50 mg (2 x 25 mg) PO DAILY 90 days pantoprazole 40 mg PO DAILY 90 days polyethylene glycol 3350 (Miralax) 17 grams PO DAILY rosuvastatin 10 mg PO BEDTIME 90 days sertraline 50 mg PO DAILY sertraline 100 mg PO DAILY simethicone 125 mg PO QID PRN 30 days sucralfate 1 g (10 mL) PO QIDACHS 2 weeks HPI Comments Details: Harini is a pleasant 58 year old Setswana speaking patient of Dr. Gilbert Wang. She has a PMH of asthma, depression, anxiety, dyslipidemia, fatty liver, fibromyalgia, hypothyroidism, and osteoarthritis. She is being followed up on today via telehealth. Of note, patient was seen approximately 2 months ago at which time her Myrbetriq was increased to 50 mg daily due to continuation of lower urinary tract symptoms patient had been reporting (urinary urgency, urinary frequency and nocturia.) In discussion with the patient today she reports feeling increase in Myrbetriq to 50 mg daily has been extremely helpful. She reports lower urinary tract symptoms she had been experiencing have significantly improved. She currently denies any bothersome urinary issues or concerns. She denies hematuria, dysuria, foul smelling urine, changes to urinary stream, flank pain, fever, and or chills. Previous workup has included a retroperitoneal ultrasound noting bilateral kidneys with no lesions, calculi, or hydronephrosis noted. The bladder is well distended and normal. Prevoid bladder volume is approximately 270 mL. Postvoid bladder volume is approximately 15 mL. Patient otherwise denies any issues or concerns at this time. [facility] Medical History Lumbar pain Osteoarthritis of left hip HUONG (generalized anxiety disorder) Mild recurrent major depression Osteoarthritis of right knee Dyslipidemia Depression with anxiety Shortness of breath Dysphagia [id number] syndrome Polyarthralgia Hypothyroidism COVID-19 Nausea Osteoarthritis Fatty liver Anxiety Fibromyalgia Hypothyroid High cholesterol Asthma Surgical History History of esophagogastroduodenoscopy (EGD) Hx of colonoscopy History of blepharoplasty History of removal of ovarian cyst Tubal ligation status H/O oophorectomy Family History Sister Breast CA Pancreatic cancer Sister Breast CA Father Myocardial infarction Diabetes Hypertension CVD (cardiovascular disease) Mother Heart problem Daughter In good health Social History Household Members: None Housing: Apartment Alcohol intake: current Alcohol intake frequency: does not drink Alcohol type: hard liquor Patient Tobacco Use Status: Former Tobacco user Tobacco use type: Cigarette e-Cigarette/Vaping Use: Never Used Second Hand Smoke Exposure: No service: No Current occupational status: disabled Cognitive needs: Yes Hearing needs: No Vision needs: No Female Reproductive History Menstrual Age of Menarche: 11 Review of Systems Const Reports as per HPI Eyes Reports no additional complaints ENT Reports no additional complaints Card Reports no additional complaints Resp Reports as per HPI GI Reports no additional complaints Reports as per HPI Musc Reports as per HPI Neuro Reports no additional complaints Psych Reports as per HPI Sudhakar/Lymph Reports no additional complaints Aller/Immun Reports as per HPI Physical Exam Const General: cooperative Orientation/consciousness: patient oriented x3 Resp Effort & Inspection: able to speak in complete sentences Neuro General: patient oriented x3 Psych Speech and movement: Clear speech present Attitude: cooperative Thought process: Normal thought process present Thought content: Normal thought content present Insight: Fair insight present (Psych) Judgement: Fair judgement present (Psych) Telehealth Telehealth Telehealth Platform: [employer] Location of provider rendering services: practice address Location of patient: address on file Patient Identification confirmed using: Name, : Yes Telehealth method: voice only Patient verbally consented to treatment: Yes Patient verbally consented to billing insurance company: Yes Patient informed of any privacy concerns related to visit: Yes Minutes spent on Phone/Video with Pt.: 15 Assessment & Plan Assessment & Plan (1) Cystitis: Code(s): N30.90 - Cystitis, unspecified without hematuria Category: Medical (2) Urinary frequency: Code(s): R35.0 - Frequency of micturition Category: Medical (3) Lower urinary tract symptoms (LUTS): Code(s): R39.9 - Unspecified symptoms and signs involving the genitourinary system Category: Medical Plan Patient denies any bothersome urinary issues or concerns at this time. Patient reports be happy with current voiding parameters on 50 mg of Myrbetriq daily; will continue; refill provided Discussed, educated, and encouraged on the importance of drinking plenty of water daily. Discussed bladder triggers/irritants. Follow-up in 6 months with [facility]; or sooner with any issues, concerns, and or questions. Medications: Refilled mirabegron ER (Myrbetriq) 50 mg (2 x 25 mg) PO DAILY 180 tabs 3RF 90 days N30.10 - Interstitial cystitis (chronic) without hematuria, N32.81 - Overactive bladder, R35.1 - Nocturia, R39.15 - Urgency of urination Patient Instructions: The patient had an opportunity to ask questions regarding the treatment plan. All questions were answered. Physical exam, labs, and imaging were discussed and reviewed in detail. As well as risks, benefits, and discussion of treatment choices. No major barriers to understanding were identified. The patient expressed understanding and agreement with the above treatment plan. The patient was made aware they should contact our office by phone for worsening of their current condition, the appearance of new symptoms, or with any questions or concerns. Compliance is encouraged with any medications and follow up testing that is ordered. It is a privilege to be allowed the opportunity to participate in? your urological care.? Again, if you have any questions or concerns If you have any questions or concerns please do not hesitate to contact me. The office is [phone]. This note is constructed using voice recognition software. While every effort has been made to ensure accuracy media arts professor errors may have been included. Yours sincerely, RIVER Camacho Coding Level of Care Code Tele Est Pt Level 3 (26324) Diagnoses Cystitis N30.90 Urinary frequency R35.0 Lower urinary tract symptoms (LUTS) R39.9
== END 2023-11-16 09:51 | disposition home or self-care (01) ==
LOC: HO.HUSH 08:46
PROVIDERS: PCP Internal Medicine; Visit Provider Nurse Practitioner Family
DX: N30.90 Cystitis, unspecified without hematuria (principal); R35.0 Frequency of micturition; R39.9 Unspecified symptoms and signs involving the genitourinary system
CPT/HCPCS: 99442

== ENCOUNTER → 2023-11-16 08:46 | Outpatient (BNVA) | payer OTHER, SELFPAY | PROVIDERS: PCP Internal Medicine; Visit Provider Nurse Practitioner Family ==

== ENCOUNTER 2023-11-18 08:08 | Outpatient (REF) | payer OTHER, SELFPAY | END 2023-11-18 08:09 | disposition home or self-care (01) | LOC: HO.LNP 08:08 | PROVIDERS: Visit Provider Physician Assistant | DX: A04.8 Other specified bacterial intestinal infections (principal) | CPT/HCPCS: 87338 ==

== ENCOUNTER 2023-11-24 09:59 | Outpatient (AMB) | payer OTHER, SELFPAY ==
--- NOTE | 2023-11-24 10:19 | MHC.PC.OV ---
Vital Signs 11/24/23 10:20 Height 5 ft 7 in Weight 216 lb BMI 33.8 BP 118/80 Blood Pressure Location Lt brachial Position Sitting Intake Visit Reasons: thyroid Intake Note: Patient here for a follow up Thyroid Medicare Specialist Required: No Accompanied by: Self / Same As Patient Allergies Sulfa (Sulfonamide Antibiotics) [Sulfa (Sulfonamides)] Allergy (Severe, Verified 11/24/23 10:41) SWELLING cbd Allergy (Intermediate, Uncoded 11/24/23 10:41) chest pain Medication List - Last Reconciled 11/24/23 by Kim Wang MD albuterol sulfate 90 mcg/actuation 2 puffs inhalation Q4-6H PRN bismuth subsalicylate (Bismuth) 2 tabs PO QID PRN 14 days cane As directed cetirizine (All Day Allergy (cetirizine)) 10 mg PO DAILY cholecalciferol (vitamin D3) 50 mcg PO DAILY commode As directed docusate sodium (Colace) 200 mg (2 x 100 mg) PO BEDTIME fluticasone furoate 50 mcg/actuation (Arnuity Ellipta) 1 inh inhalation DAILY 30 days fluticasone propionate 50 mcg/actuation (Allergy Relief (fluticasone)) 2 sprays intranasal DAILY 1 month Grab bar As directed ibuprofen 600 mg PO Q8H PRN Knee brace As directed levothyroxine 112 mcg PO DAILY 90 days lorazepam 0.5 mg PO DAILY PRN meloxicam 15 mg PO DAILY mirabegron ER (Myrbetriq) 50 mg PO DAILY 90 days pantoprazole 40 mg PO DAILY 90 days polyethylene glycol 3350 (Miralax) 17 grams PO DAILY rosuvastatin 10 mg PO BEDTIME 90 days sertraline 50 mg PO DAILY sertraline 100 mg PO DAILY simethicone 125 mg PO QID PRN 30 days Tobacco use date assessed: 10/06/23 Dental Screening Dental Screen Date: 10/06/23 HPI HPI Comments History of Present Illness Details This is a 58-year-old female with mild major depression, anxiety, chronic constipation and hypothyroidism that comes today for follow-up on her conditions. Depression and anxiety are follow by Psychiatry and has been stable with medications. Constipation well controlled with MiraLax and docusate as needed. Was advised to add more fiber to her diet. Last TSH was normal and this will be repeated in 6 months. Compliant with medications. Denies any chest pain or shortness on breath. [facility] Medical History Lumbar pain Osteoarthritis of left hip HUONG (generalized anxiety disorder) Mild recurrent major depression Osteoarthritis of right knee Dyslipidemia Depression with anxiety Shortness of breath Dysphagia [id number] syndrome Polyarthralgia Hypothyroidism COVID-19 Nausea Osteoarthritis Fatty liver Anxiety Fibromyalgia Hypothyroid High cholesterol Asthma Surgical History History of esophagogastroduodenoscopy (EGD) Hx of colonoscopy History of blepharoplasty History of removal of ovarian cyst Tubal ligation status H/O oophorectomy Family History Sister Breast CA Pancreatic cancer Sister Breast CA Father Myocardial infarction Diabetes Hypertension CVD (cardiovascular disease) Mother Heart problem Daughter In good health Social History Household Members: None Housing: Apartment Alcohol intake: current Alcohol intake frequency: does not drink Alcohol type: hard liquor Patient Tobacco Use Status: Former Tobacco user Tobacco use type: Cigarette e-Cigarette/Vaping Use: Never Used Second Hand Smoke Exposure: No service: No Current occupational status: disabled Cognitive needs: Yes Hearing needs: No Vision needs: No Female Reproductive History Menstrual Age of Menarche: 11 Questionnaire Thrive Questionnaire Date Thrive assessed: 10/06/23 HUONG-7 AMB Questionnaire HUONG-7 Date HUONG - 7 assessed: 10/06/23 Source: Developed by Drs. William Noel, Gavi Yu, Hayden Sagastume and colleagues, with an educational gris from [employer]. Review of Systems Const All systems reviewed & are unremarkable except as noted in HPI and below Card Denies chest pain at rest, Denies chest pain with activity, Denies edema, Denies irregular heart rhythm, Denies claudication, Denies dyspnea, Denies dyspnea on exertion, Denies orthopnea, Denies paroxysmal nocturnal dyspnea and Denies slow heart rate Resp Denies cough, Denies dyspnea and Denies dyspnea on exertion Physical exam (Primary Care) Vital Signs: Last Vital Signs BP 118/80 11/24/23 10:20 BMI result Body Mass Index 33.8 Tobacco/Smoking Status: Tobacco use Status Tobacco use date assessed 10/06/23 11/24/23 10:25 Patient Tobacco Use Status Former Tobacco user 11/24/23 10:25 Tobacco use type Cigarette 11/24/23 10:25 e-Cigarette/Vaping Use Never Used 11/24/23 10:25 Thrive Assessment: Date of Thrive Assessment Date Thrive assessed 10/06/23 11/24/23 10:25 Resp Effort & Inspection: normal respiratory effort Auscultation: clear to auscultation bilaterally Cardio Jugular venous distension: no JVD Rate: regular rate Rhythm: regular rhythm Heart sounds: S1 normal heart sound present and S2 normal heart sound present Extrem General: Yes full ROM Assessment and Plan Assessment & Plan (1) Mild recurrent major depression: Code(s): F33.0 - Major depressive disorder, recurrent, mild Plan: Continue sertraline. Follow-up with psychiatry. (2) HUONG (generalized anxiety disorder): Code(s): F41.1 - Generalized anxiety disorder Plan: Continue benzodiazepines as needed. Follow-up with psychiatry. (3) Chronic constipation: Comment: HFD, bowel regimen-be consistent-MiraLax prescription sent to pharmacy - repeat asymptomatic- 10years Code(s): K59.09 - Other constipation Plan: Continue MiraLax as needed. Start a high-fiber diet. (4) Hypothyroidism: Code(s): E03.9 - Hypothyroidism, unspecified Qualifiers: Hypothyroidism type: unspecified Qualified Code(s): E03.9 - Hypothyroidism, unspecified Plan: Continue levothyroxine. Monitor TSH. Orders: Orders Thyroid Stimulating Hormone 6 Months E03.9 - Hypothyroidism, unspecified Lipid Panel 6 Months E78.5 - Hyperlipidemia, unspecified Vitamin D 25-OH Total 6 Months E55.9 - Vitamin D deficiency, unspecified Comprehensive [place]. Panel Fast 6 Months E78.5 - Hyperlipidemia, unspecified Coding Level of Care Code Est Pt Level 4 (01910) Complex EM visit Add On G2211 Diagnoses Mild recurrent major depression F33.0 HUONG (generalized anxiety disorder) F41.1 Chronic constipation K59.09 Hypothyroidism, unspecified type E03.9 Hypothyroidism type: unspecified Time Spent (min) 22
[2023-11-24 10:20] VITALS: BP 118/80; BMI 33.8
== END 2023-11-24 10:53 | disposition home or self-care (01) ==
PROVIDERS: PCP Internal Medicine; Visit Provider Internal Medicine
DX: F33.0 Major depressive disorder, recurrent, mild (principal); F41.1 Generalized anxiety disorder; K59.09 Other constipation; E03.9 Hypothyroidism, unspecified
CPT/HCPCS: 99214; G2211

== ENCOUNTER 2023-12-15 08:14 | Outpatient (REF) | payer OTHER, SELFPAY ==
--- NOTE | ~2023-12-15 | MM_ITS ---
EXAMINATION: MM SCREENING DIGITAL BREAST TOMOSYNTHESIS, BILATERAL CLINICAL INFORMATION: Screening. Asymptomatic. COMPARISON: Mammography: This study is compared with prior exams dating back to 2020. TECHNIQUE: Digital breast tomosynthesis is performed in both the craniocaudal and mediolateral oblique views along with computer-aided detection (CAD). Synthesized 2D images are generated from the tomosynthesis. FINDINGS: There are scattered areas of fibroglandular density (ACR BI-RADS breast composition Category b). There are no significant masses, abnormal calcifications, or other abnormalities. There is a benign, coarsely calcified ,oval mass in the upper outer quadrant of the right breast in the anterior depth. This is an involuting fibroadenoma. MM/MM tomosynthesis screening BI IMPRESSION: No mammographic evidence of malignancy. ASSESSMENT: BI-RADS BI-RADS 2 - Benign Findings RECOMMENDATION: Routine annual mammography screening. 1 year F/U This examination should not preclude the clinical evaluation of a suspicious palpable abnormality. This patient's information was entered into a reminder system with a target due date for their next mammogram.
== END 2023-12-15 08:15 | disposition home or self-care (01) ==
LOC: HO.MAMMO 08:14
PROVIDERS: PCP Internal Medicine; Visit Provider Internal Medicine
DX: Z12.31 Encounter for screening mammogram for malignant neoplasm of breast (principal)
CPT/HCPCS: 77063; 77067

== ENCOUNTER → 2023-12-15 08:30 | Outpatient (BNV) | payer OTHER, SELFPAY | PROVIDERS: PCP Internal Medicine; Visit Provider Radiology Diagnostic Radiology | DX: Z12.31 Encounter for screening mammogram for malignant neoplasm of breast (principal) | CPT/HCPCS: 77063; 77067 ==

== ENCOUNTER 2024-01-04 08:57 | Outpatient (REF) | payer OTHER, SELFPAY ==
[2024-01-04 10:52] LABS: Appearance Urine Clear; Color Urine Yellow; Glucose Urine UA Negative (Negative); Leukocyte Esterase Urine Small (1+) (Negative); Nitrite Urine Negative (Negative); PH 7.5 (5.0-9.0); UMIC TRIGGER UA YES; Urine Blood Negative (Negative); Urine Ketones Negative (Negative); Urine Protein Negative (Neg-Trace)
[2024-01-04 11:13] LABS: Bacteria Urine None Seen (None Seen); Hyaline Casts Urine 0-2 /LPF (0-2); RBC Urine 0-2 /HPF (0-2); WBC Urine 0-5 /HPF (0-5)
== END 2024-01-04 08:58 | disposition home or self-care (01) ==
LOC: HO.LAB 08:57
PROVIDERS: PCP Internal Medicine; Visit Provider Nurse Practitioner Family
DX: R39.89 Other symptoms and signs involving the genitourinary system (principal); R35.0 Frequency of micturition; R39.9 Unspecified symptoms and signs involving the genitourinary system; R35.1 Nocturia
CPT/HCPCS: 81001; 87086

== ENCOUNTER 2024-02-18 10:08 | Outpatient (AMB) | payer OTHER, SELFPAY ==
[2024-02-18 10:13] VITALS: BP 112/82; PULSE 70; O2SAT 95; BMI 34.2
--- NOTE | 2024-02-18 10:13 | A.OFFPC_ITS ---
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 Accompanied by: Self / Same As Patient Allergies Sulfa (Sulfonamide Antibiotics) [Sulfa (Sulfonamides)] Allergy (Severe, Verified 02/18/24 10:14) SWELLING cbd Allergy (Intermediate, Uncoded 02/18/24 10:14) chest pain Tobacco use date assessed: 02/18/24 Dental Screening Dental Screen Date: 02/18/24 Did you have a dental visit in the last 12 months?: Yes Did you have a dental problem in the last 6 months where you did not have access to dental care?: No Was dental information given to patient?: Patient has dentist HPI HPI Comments History of Present Illness Details 58 y/o female patient who presents [facility] today for HDF. [place] [facility] for U[place]. She was treated with IV ABX and discharged home 02/01/24 stable condition. Today she c/o Lower abdominal cramping and low back pain. Denies fevers, chills, nausea or vomiting. Denies Vaginal symptoms. Denies Constipation or diarrhea. 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 Polyarthralgia Hypothyroidism COVID-19 Nausea Osteoarthritis Fatty liver Anxiety Fibromyalgia Hypothyroid High cholesterol Asthma Surgical History History of esophagogastroduodenoscopy (EGD) Hx of colonoscopy History of blepharoplasty History of removal of ovarian cyst Tubal ligation status H/O oophorectomy Family History Sister Breast CA Pancreatic cancer Sister Breast CA Father Myocardial infarction Diabetes Hypertension CVD (cardiovascular disease) Mother Heart problem Daughter In good health Social History Household Members: None Housing: Apartment Alcohol intake: current Alcohol intake frequency: does not drink Alcohol type: hard liquor Patient Tobacco Use Status: Former Tobacco user Tobacco use type: Cigarette e-Cigarette/Vaping Use: Never Used Second Hand Smoke Exposure: No service: No Current occupational status: disabled Cognitive needs: Yes Hearing needs: No Vision needs: No Female Reproductive History Menstrual Age of Menarche: 11 Questionnaire PHQ-9 Over the last 2 weeks, how often have you been bothered by any of the following problems? 1. Little interest or pleasure in doing things: not at all 2. Feeling down, depressed, or hopeless: not at all 3. Trouble falling or staying asleep, or sleeping too much: not at all 4. Feeling tired or having little energy: not at all 5. Poor appetite or overeating: not at all 6. Feeling bad about yourself - or that you are a failure or have let yourself or your family down: not at all 7. Trouble concentrating on things, such as reading the newspaper or watching television: not at all 8. Moving or speaking so slowly that other people could have noticed. Or the opposite - being so fidgety or restless that you have been moving around a lot more than usual: not at all 9. Thoughts that you would be better off or of hurting yourself in some way: not at all Total score: 0 Depression Screening Interpretation: Negative Depression Screening Done: Yes 70335 - PHQ-9 Billing: Yes Source: Developed by Drs. William Noel, Gavi Yu, Hayden Sagastume and colleagues, with an educational gris from [employer]: turn off the lights. Thrive Questionnaire Date Thrive assessed: 02/18/24 I am a: Patient What is your living situation today?: I have a steady place to live Within the past 12 months, did the food you bought not last and you didn't have the money to get more?: Never true Within the past 12 months, did you worry whether your food would run out before you got money to buy more?: Never true Do you have trouble paying for medicines?: No Do you have trouble getting transportation to medical appointments?: No Do you have trouble paying your heating and electricity bill?: No Do you have trouble taking care of your child, family member or friend?: No Do you have trouble with day-to-day activities such as bathing, preparing meals, shopping, managing finances, etc.?: No Are you currently unemployed and looking for a job?: I choose not to answer this question Are you interested in more education?: No Please select the resources that you would like help with: None Currently or been in a relationship where the following occur: No concerns reported THRIVE Score: 0 AUDIT C Alcohol Use Questionnaire (AUDIT-C) 1. How often do you have a drink containing alcohol?: Never Total Score: 0 HUONG-7 AMB Questionnaire HUONG-7 Date HUONG - 7 assessed: 02/18/24 Feeling nervous, anxious, or on edge: 0 = Not at all Not being able to stop or control worryin = Not at all Worrying too much about different things: 0 = Not at all Trouble relaxin = Not at all Being so restless that it is hard to sit still: 0 = Not at all Becoming easily annoyed or irritable: 0 = Not at all Feeling afraid as if something awful might happen: 0 = Not at all Total HUONG-7 score (0-4 normal; 5-9 mild; 10-14 moderate; 15-21 severe): 0 Source: Developed by Drs. William Noel, Gavi Yu, Hayden Sagastume and colleagues, with an educational gris from [employer]: turn off the lights. Review of Systems Const All systems reviewed & are unremarkable except as noted in HPI and below Physical exam (Primary Care) Vital Signs: Last Vital Signs Pulse 70 02/18/24 10:13 BP 112/82 02/18/24 10:13 Pulse Ox 95 02/18/24 10:13 Oxygen Delivery Method Room Air 02/18/24 10:13 BMI result Body Mass Index 34.2 Tobacco/Smoking Status: Tobacco use Status Tobacco use date assessed 02/18/24 02/18/24 10:15 Patient Tobacco Use Status Former Tobacco user 02/18/24 10:15 Tobacco use type Cigarette 02/18/24 10:15 e-Cigarette/Vaping Use Never Used 02/18/24 10:15 PHQ-9: PHQ-9 Score PHQ-9: Total score 0 02/18/24 10:26 Depression Screening Interpretation: Negative Thrive Assessment: Date of Thrive Assessment Date Thrive assessed 02/18/24 02/18/24 10:15 Currently or been in a relationship where the following occur: No concerns reported Const General: cooperative and no acute distress Nutritional Appearance: obese morbidly obese Orientation/consciousness: patient oriented x3 Resp Effort & Inspection: normal respiratory effort Auscultation: clear to auscultation bilaterally Cardio Heart sounds: S1 normal heart sound present and S2 normal heart sound present GI Inspection: Yes Abdominal panniculus present Palpation (GI): Soft to palpation, not firm, Tenderness to palpation present (GI) suprapubicly, no guarding, not rigid and No hepatosplenomegaly present Rectal Exam - Female: deferred Other: Pelvic Exam deferred General: Yes no CVA tenderness Back/Spine/Pelvis Back: no CVA tenderness and back tenderness Thoracic/Lumbar Spine: thoracic spinal tenderness Neuro Other: Walks with a Cane General: patient oriented x3, gait normal and moves all extremities Psych Speech and movement: Normal speech and movement present Results AMB Urinalysis, Automated UA Leukoctes 1 Akua/uL Last Edit by Snehal Kimbrough [facility] on 02/18/24 10:40 UA Nitrite Negative Last Edit by Snehal Kimbrough [facility] on 02/18/24 10:40 UA Urobilinogen 2 mg/dL Last Edit by Snehal Kimbrough [facility] on 02/18/24 10: 40 UA Protein 0 mg/dL Last Edit by Snehal Kimbrough [facility] on 02/18/24 10:40 UA pH 7.5 Last Edit by Snehal Kimbrough [facility] on 02/18/24 10:40 UA Blood 0 Jacobo/uL Last Edit by Snehal Kimbrough [facility] on 02/18/24 10:40 UA Specific [place] 1.010 Last Edit by Snehal Kimbrough [facility] on 02/18/24 10:40 UA Ketone Positive Last Edit by Snehal Kimbrough [facility] on 02/18/24 10:40 UA Bilirubin 0 mg/dL Last Edit by Snehal Kimbrough [facility] on 02/18/24 10:40 UA Glucose 0 mg/dL Last Edit by Snehal Kimbrough [facility] on 02/18/24 10:40 Assessment and Plan Assessment & Plan (1) Cyclitis: Code(s): H20.9 - Unspecified iridocyclitis Plan: Amb Urinalysis negative today. Advised to hydrate well with water and not to hold urine for long periods. Advised to RTC if not better (Walk in clinic in [place]). Orders: Orders AMB Urinalysis Automated Today Z13.9 - Encounter for screening, unspecified Coding Level of Care Code Est Pt Level 4 (72986) Diagnoses Cyclitis H20.9 Time Spent (min) 20
== END 2024-02-18 11:39 | disposition home or self-care (01) ==
PROVIDERS: PCP Internal Medicine; Visit Provider Nurse Practitioner Family
DX: H20.9 Unspecified iridocyclitis (principal); Z13.9 Encounter for screening, unspecified

== ENCOUNTER → 2024-02-18 10:08 | Outpatient (BNVA) | payer OTHER, SELFPAY | PROVIDERS: PCP Internal Medicine; Visit Provider Nurse Practitioner Family | DX: H20.9 Unspecified iridocyclitis (principal); M54.50 Low back pain, unspecified | CPT/HCPCS: 81003; 99212 ==

== ENCOUNTER 2024-03-29 11:08 | Outpatient (AMB) | payer OTHER, SELFPAY ==
--- NOTE | 2024-03-29 11:17 | A.OFFVIS_ITS ---
Intake Visit Reasons: ER FOLLOW UP Intake Note: Patient presents today for tele visit follow up : Frequency and Incontinence Urology Medications: Myrbetriq Allergies to Antibiotic: Sulfa Blood Thinner: none Manager Supplier Required: Yes Manager Supplier Services: Manager Supplier Present Manager Supplier Name: SHRADDHA ROSEANNE Accompanied by: Self / Same As Patient Allergies Sulfa (Sulfonamide Antibiotics) [Sulfa (Sulfonamides)] Allergy (Severe, Verified 03/29/24 11:54) SWELLING cbd Allergy (Intermediate, Uncoded 03/29/24 11:54) chest pain Medication List - Last Reconciled 03/29/24 by SKYLA Camacho- albuterol sulfate 90 mcg/actuation 2 puffs inhalation Q4-6H PRN bismuth subsalicylate (Bismuth) 2 tabs PO QID PRN 14 days cane As directed cetirizine (All Day Allergy (cetirizine)) 10 mg PO DAILY cholecalciferol (vitamin D3) 50 mcg PO DAILY commode As directed docusate sodium (Colace) 200 mg (2 x 100 mg) PO BEDTIME estradiol 0.01%(0.1mg/gram) pea sized amount to urethra daily for the first month and then 3 times per week thereafter. 30 days fluticasone furoate 50 mcg/actuation (Arnuity Ellipta) 1 inh inhalation DAILY 30 days fluticasone propionate 50 mcg/actuation (Allergy Relief (fluticasone)) 2 sprays intranasal DAILY 1 month Grab bar As directed ibuprofen 600 mg PO Q8H PRN Knee brace As directed levothyroxine 112 mcg PO DAILY 90 days lorazepam 0.5 mg PO DAILY PRN meloxicam 15 mg PO DAILY mirabegron ER (Myrbetriq) 50 mg PO DAILY 90 days pantoprazole 40 mg PO DAILY 90 days polyethylene glycol 3350 (Miralax) 17 grams PO DAILY rosuvastatin 10 mg PO BEDTIME 90 days sertraline 50 mg PO DAILY sertraline 100 mg PO DAILY simethicone 125 mg PO QID PRN 30 days HPI Comments Details: Harini is a pleasant 58 year old German speaking patient of Dr. Gilbert Wang. She has a PMH of asthma, depression, anxiety, dyslipidemia, fatty liver, fibromyalgia, hypothyroidism, and osteoarthritis. She presents to the office today for follow-up. Of note, in discussion with the patient today she reports having seeked emergency room care at [facility] the end of December and was admitted for 3 days at which time she was treated for urinary tract infection. She reports lower urinary tract symptoms she had been experiencing has since subsided. She reports prior to her ER visit she has seeked urgent care services for UTI like symptoms. In office urinalysis results reviewed with the patient today. Negative leukocytes, negative nitrates, and negative microscopic hematuria. PVR 0 mL. When asked she does report a longstanding history of constipation and reports taking Metamucil at times due to ongoing issues with constipation. She discusses having issues with refill on her Myrbetriq due to potential insurance coverage. She reports feeling 50 mg of Myrbetriq was helpful in treating her urinary urgency and frequency. We discussed at length potential causes for irritative voiding symptoms she had been experiencing. She reports baseline urinary urgency and frequency however she denies hematuria, dysuria, foul smelling urine, changes to urinary stream, flank pain, fever, and or chills. Discussed obtaining retroperitoneal ultrasound for further assessment evaluation as possible near future in office cystoscopy for further assessment evaluation. She otherwise denies any other isues or concnerns at this time. [facility] Medical History Lumbar pain Osteoarthritis of left hip HUONG (generalized anxiety disorder) Mild recurrent major depression Osteoarthritis of right knee Dyslipidemia Depression with anxiety Shortness of breath Dysphagia [id number] syndrome Polyarthralgia Hypothyroidism COVID-19 Nausea Osteoarthritis Fatty liver Anxiety Fibromyalgia Hypothyroid High cholesterol Asthma Surgical History History of esophagogastroduodenoscopy (EGD) Hx of colonoscopy History of blepharoplasty History of removal of ovarian cyst Tubal ligation status H/O oophorectomy Family History Sister Breast CA Pancreatic cancer Sister Breast CA Father Myocardial infarction Diabetes Hypertension CVD (cardiovascular disease) Mother Heart problem Daughter In good health Social History Household Members: None Housing: Apartment Alcohol intake: current Alcohol intake frequency: does not drink Alcohol type: hard liquor Patient Tobacco Use Status: Former Tobacco user Tobacco use type: Cigarette e-Cigarette/Vaping Use: Never Used Second Hand Smoke Exposure: No service: No Current occupational status: disabled Cognitive needs: Yes Hearing needs: No Vision needs: No Female Reproductive History Menstrual Age of Menarche: 11 Review of Systems Const Reports as per HPI Eyes Reports no additional complaints ENT Reports no additional complaints Card Reports no additional complaints Resp Reports as per HPI GI Reports no additional complaints Reports as per HPI Musc Reports as per HPI Neuro Reports no additional complaints Psych Reports as per HPI Sudhakar/Lymph Reports no additional complaints Aller/Immun Reports as per HPI Physical Exam Const General: cooperative, healthy appearing, comfortable, no acute distress, well developed, alert and awake Nutritional Appearance: overweight Orientation/consciousness: patient oriented x3 Limitations: no limitations HEENT Head: Yes normal to inspection, Yes normocephalic and Yes atraumatic Ears: hearing grossly normal bilaterally Eyes General: appearance normal, both eyes and all related structures Neck Neck: Yes normal visual inspection and Yes trachea midline Chest Chest palpation & inspection: normal inspection of the chest Resp Effort & Inspection: normal respiratory effort and able to speak in complete sentences Cardio Rate: regular rate GI Inspection: Yes normal to inspection General: Yes no CVA tenderness Back/Spine/Pelvis Back: no CVA tenderness Skin General skin exam: no rashes or lesions noted Neuro General: patient oriented x3 Extrem General: Yes normal to inspection Psych Appearance: grossly normal and well kempt Mental Status: mental status grossly normal Speech and movement: Normal speech and movement present and Clear speech present Affect: normal affect Attitude: cooperative Thought process: Normal thought process present Thought content: Normal thought content present Insight: Fair insight present (Psych) Judgement: Fair judgement present (Psych) Office Procedures Post Void Residual Post Residual Void Post Void Residual (PVR): 0 [id number] Void Residual by ultrasound Results AMB Urinalysis, Automated UA Leukoctes 0 Akua/uL Last Edit by Craig Freeman on 03/29/24 11:40 UA Nitrite Last Edit by Craig Freeman on 03/29/24 11:40 UA Urobilinogen 0.2 mg/dL Last Edit by Craig Freeman on 03/29/24 11:40 UA Protein 0 mg/dL Last Edit by Craig Freeman on 03/29/24 11:40 UA pH 7.5 Last Edit by Craig Freeman on 03/29/24 11:40 UA Blood 0 Jacobo/uL Last Edit by Craig Freeman on 03/29/24 11:40 UA Specific [place] 1.015 Last Edit by Craig Freeman on 03/29/24 11:40 UA Ketone Negative Last Edit by Craig Freeman on 03/29/24 11:40 UA Bilirubin 0 mg/dL Last Edit by Craig Freeman on 03/29/24 11:40 UA Glucose 0 mg/dL Last Edit by Craig Freeman on 03/29/24 11:40 Results Reviewed Results Reviewed: Laboratory Last Values Urine pH (Auto) 7.5 03/29/24 11:39 Specific [place] (Auto) 1.015 03/29/24 11:39 Urine Protein (Auto) 0 mg/dL 03/29/24 11:39 Glucose (UA)(Auto) 0 mg/dL 03/29/24 11:39 Urine Ketones (Auto) Negative 03/29/24 11:39 Urine Blood (Auto) 0 Jacobo/uL 03/29/24 11:39 Urine Bilirubin (Auto) 0 mg/dL 03/29/24 11:39 Urine Urobilinogen (Auto) 0.2 mg/dL 03/29/24 11:39 Leukocyte Esterase (Auto) 0 Akua/uL 03/29/24 11:39 Assessment & Plan Assessment & Plan (1) Complicated urinary tract infection: Code(s): N39.0 - Urinary tract infection, site not specified Category: Medical (2) Lower urinary tract symptoms (LUTS): Code(s): R39.9 - Unspecified symptoms and signs involving the genitourinary system Category: Medical (3) Stress incontinence: Code(s): N39.3 - Stress incontinence (female) (male) Category: Medical (4) Urge incontinence: Code(s): N39.41 - Urge incontinence Category: Medical Plan In office urinalysis results reviewed with the patient today; as noted above. Patient currently denies any UTI like symptoms. We discussed at length potential causes of recurrent urinary tract infections as well as lower urinary tract symptoms. Start Estrace cream as discussed and prescribed. Will obtain retroperitoneal ultrasound for further assessment evaluation. Discussed UTI prevention with D mannose supplement, vitamin-C, increasing fluid intake, behavioral therapy with timed voiding, perineal hygiene and postcoital voiding, and management of constipation with stool softeners and increased fiber intake. Will attempt to obtain records from [facility] for continuity of care. Will resend script for Aimebetriq as requested. Discussed possible near future in office cystoscopy and or microgen for further assessment and evaluation. Follow-up in 1-3 months with imaging to be completed prior; or sooner with any issues, concerns, and or questions. Orders: Orders US retroperitoneal comp Today N39.0 - Urinary tract infection, site not specified AMB Urinalysis Automated Today Z13.9 - Encounter for screening, unspecified AMB Post Void Residual by ultrasound Today R35.1 - Nocturia Medications: New estradiol 0.01%(0.1mg/gram) pea sized amount to urethra daily for the first month and then 3 times per week thereafter. 42.5 grams 0RF 30 days Patient Instructions: The patient had an opportunity to ask questions regarding the treatment plan. All questions were answered. Physical exam, labs, and imaging were discussed and reviewed in detail. As well as risks, benefits, and discussion of treatment choices. No major barriers to understanding were identified. The patient expressed understanding and agreement with the above treatment plan. The patient was made aware they should contact our office by phone for worsening of their current condition, the appearance of new symptoms, or with any questions or concerns. Compliance is encouraged with any medications and follow up testing that is ordered. It is a privilege to be allowed the opportunity to participate in? your urological care.? Again, if you have any questions or concerns If you have any questions or concerns please do not hesitate to contact me. The office is [phone]. This note is constructed using voice recognition software. While every effort has been made to ensure accuracy sales clerk supervisor errors may have been included. Yours sincerely, RIVER Camacho Coding Level of Care Code Est Pt Level 4 (27915) Complex EM visit Add On G2211 Diagnoses Complicated urinary tract infection N39.0 Lower urinary tract symptoms (LUTS) R39.9 Stress incontinence N39.3 Urge incontinence N39.41 CPT Codes Post Residual Void - PVR CPT Code: 56536-Fluc Void Residual by ultrasound ([id number])
== END 2024-03-29 11:53 | disposition home or self-care (01) ==
LOC: HO.HUSH 11:09
PROVIDERS: PCP Internal Medicine; Visit Provider Nurse Practitioner Family
DX: N39.0 Urinary tract infection, site not specified (principal); R39.9 Unspecified symptoms and signs involving the genitourinary system; N39.3 Stress incontinence (female) (male); N39.41 Urge incontinence; Z13.9 Encounter for screening, unspecified
CPT/HCPCS: 99214; G2211

== ENCOUNTER → 2024-03-29 11:08 | Outpatient (BNVA) | payer OTHER, SELFPAY | PROVIDERS: PCP Internal Medicine; Visit Provider Nurse Practitioner Family | DX: R35.0 Frequency of micturition (principal); N39.0 Urinary tract infection, site not specified; R39.9 Unspecified symptoms and signs involving the genitourinary system; N39.46 Mixed incontinence; Z71.2 Person consulting for explanation of examination or test findings | CPT/HCPCS: 51798; 81003; 99212 ==

== ENCOUNTER 2024-04-06 07:51 | Outpatient (AMB) | payer OTHER, SELFPAY ==
--- NOTE | 2024-04-06 08:11 | A.OFFVIS_ITS ---
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 No complaints. Last Pap/HPV was negative in 02/18 Last Mammogram was BI-RADS 2 in 12/22 Last Colonoscopy was done in 11/21, the recommendation was to repeat in 10 years [facility] Medical History Lumbar pain Osteoarthritis of left hip HUONG (generalized anxiety disorder) Mild recurrent major depression Osteoarthritis of right knee Dyslipidemia Depression with anxiety Shortness of breath Dysphagia [id number] syndrome Polyarthralgia Hypothyroidism COVID-19 Nausea Osteoarthritis Fatty liver Anxiety Fibromyalgia Hypothyroid High cholesterol Asthma Surgical History History of esophagogastroduodenoscopy (EGD) Hx of colonoscopy History of blepharoplasty History of removal of ovarian cyst Tubal ligation status H/O oophorectomy Family History Sister Breast CA Pancreatic cancer Sister Breast CA Father Myocardial infarction Diabetes Hypertension CVD (cardiovascular disease) Mother Heart problem Daughter In good health Social History Household Members: None Housing: Apartment Alcohol intake: current Alcohol intake frequency: does not drink Alcohol type: hard liquor Patient Tobacco Use Status: Former Tobacco user Tobacco use type: Cigarette e-Cigarette/Vaping Use: Never Used Second Hand Smoke Exposure: No service: No Current occupational status: disabled Cognitive needs: Yes Hearing needs: No Vision needs: No Female Reproductive History Menstrual Age of Menarche: 11 control method: permanent sterilization Permanent Sterilization: BTL Total pregnancies: 3 Full term: 3 Number of Living Children: 3 Date of last pap smear: 02/21/20 (neg pap and hpv) Date of Mammogram: 12/15/23 (Birad 2) Review of Systems Const All systems reviewed & are unremarkable except as noted in HPI and below Card Reports as per HPI Resp Reports as per HPI GI Reports as per HPI and Reports no additional complaints Reports as per HPI Physical Exam Vital Signs: Last Vital Signs BP 110/72 04/06/24 08:20 BMI result Body Mass Index 34.5 Const General: cooperative, healthy appearing and comfortable Chest Chest palpation & inspection: normal inspection of the chest and normal palpation of entire chest wall Breast/axilla inspection: normal inspection of the breasts and normal inspection of the axillae Breast/axilla palpation: normal palpation of the breasts, normal palpation of the axillae and no axillary lymphadenopathy Resp Effort & Inspection: normal respiratory effort Auscultation: clear to auscultation bilaterally Percussion: percussion normal Cardio Palpation: normal PMI Rate: regular rate Rhythm: regular rhythm Heart sounds: no murmurs and no rubs Peripheral pulses: Peripheral pulses 2+ throughout GI Inspection: Yes normal to inspection Palpation (GI): Soft to palpation, nontender, no guarding, not rigid and No hepatosplenomegaly present Percussion: Yes normal to percussion Auscultation: normal bowel sounds Rectal Exam - Female: deferred General: Yes bladder normal to palpation External Female Exam: No lesion Speculum Exam - Vagina: normal appearance of the vagina, normal palpation, normal vaginal discharge and not erythematous Speculum Exam - Cervix: normal appearance of the cervix and normal palpation Bimanual exam- vagina & uterus: normal bimanual exam, normal palpation, uterine size normal, bladder normal to palpation, consistency normal and normal palpation Bimanual Exam- Adnexa, other: normal adnexae, no masses and no tenderness Assessment & Plan Assessment & Plan (1) Well woman exam: Code(s): Z01.419 - Encounter for gynecological examination (general) (routine) without abnormal findings Category: Medical Plan: Co testing not indicated this year. Counseled the patient about the recommended dietary allowance of 1200 mg of Calcium & 600 IU of vitamin D. Instructions given to patient to schedule her next screening Mammogram in 12/23. The patient was instructed to perform monthly self-breast exams and schedule annual exam in a year. All questions answered and the patient verbalized understanding. Coding Level of Care Code Est Pt Prev Care 40-64y(95397) Diagnoses Well woman exam Z01.419
[2024-04-06 08:20] VITALS: BP 110/72; BMI 34.5
== END 2024-04-06 08:40 | disposition home or self-care (01) ==
LOC: HO.HWS 07:52
PROVIDERS: PCP Internal Medicine; Visit Provider Obstetrics & Gynecology
DX: Z01.419 Encounter for gynecological examination (general) (routine) without abnormal findings (principal)
CPT/HCPCS: 99396

== ENCOUNTER → 2024-04-06 07:51 | Outpatient (BNVA) | payer OTHER, SELFPAY | PROVIDERS: PCP Internal Medicine; Visit Provider Obstetrics & Gynecology | DX: Z01.419 Encounter for gynecological examination (general) (routine) without abnormal findings (principal) | CPT/HCPCS: 99396 ==

== ENCOUNTER 2024-05-23 09:23 | Outpatient (REF) | payer OTHER, SELFPAY | END 2024-05-23 09:24 | disposition home or self-care (01) | LOC: HO.US 09:23 | PROVIDERS: PCP Internal Medicine; Visit Provider Nurse Practitioner Family | DX: N39.0 Urinary tract infection, site not specified (principal) | CPT/HCPCS: 76770 ==

== ENCOUNTER 2024-06-06 09:03 | Outpatient (AMB) | payer OTHER, SELFPAY ==
[2024-06-06 09:42] VITALS: BP 110/80; PULSE 72; O2SAT 97; BMI 34.5
--- NOTE | 2024-06-06 09:42 | MHC.PC.OV ---
Vital Signs 06/06/24 09:42 Height 5 ft 7 in Weight 220 lb 2 oz BMI 34.5 BP 110/80 Blood Pressure Location Lt brachial Position Sitting Pulse 72 Pulse Source Pulse Oximeter Pulse Oximetry (%) 97 Oxygen Delivery Method Room Air Intake Visit Reasons: Annual Exam Cdl B Driver Required: No Accompanied by: Self / Same As Patient Allergies Sulfa (Sulfonamide Antibiotics) [Sulfa (Sulfonamides)] Allergy (Severe, Verified 06/06/24 10:00) SWELLING cbd Allergy (Intermediate, Uncoded 06/06/24 10:00) chest pain Medication List - Last Reconciled 06/06/24 by Kim Wang MD albuterol sulfate 90 mcg/actuation 2 puffs inhalation Q4-6H PRN bismuth subsalicylate (Bismuth) 2 tabs PO QID PRN 14 days cane As directed cetirizine (All Day Allergy (cetirizine)) 10 mg PO DAILY cholecalciferol (vitamin D3) 50 mcg PO DAILY commode As directed estradiol 0.01%(0.1mg/gram) pea sized amount to urethra daily for the first month and then 3 times per week thereafter. 30 days fluticasone furoate 50 mcg/actuation (Arnuity Ellipta) 1 inh inhalation DAILY 30 days fluticasone propionate 50 mcg/actuation (Allergy Relief (fluticasone)) 2 sprays intranasal DAILY 1 month Grab bar As directed ibuprofen 600 mg PO Q8H PRN Knee brace As directed levothyroxine 112 mcg PO DAILY 90 days lorazepam 0.5 mg PO DAILY PRN meloxicam 15 mg PO DAILY mirabegron ER (Myrbetriq) 50 mg PO DAILY 90 days pantoprazole 40 mg PO DAILY 90 days polyethylene glycol 3350 (Miralax) 17 grams PO DAILY rosuvastatin 10 mg PO BEDTIME 90 days sertraline 50 mg PO DAILY sertraline 100 mg PO DAILY Tobacco use date assessed: 02/18/24 Dental Screening Dental Screen Date: 02/18/24 HPI HPI Comments History of Present Illness Details The patient is a 58-year-old female presenting with a focus on routine health maintenance and examination. She reported a previous mammography conducted six months ago, during the summer of the past year. Colonoscopy was performed in 2022, which revealed hemorrhoids. Discussions about her vaccinations highlighted that she received a tetanus vaccine last year. The patient mentioned a past surgical history of left ovary removal. - Mammography: Last performed six months ago. - Colonoscopy: Last done in 2022; findings included hemorrhoids. - Tetanus vaccination: Received last year. - Regular Pap Smear: Frequency mentioned as up to date with annual visits. 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 Polyarthralgia Hypothyroidism COVID-19 Nausea Osteoarthritis Fatty liver Anxiety Fibromyalgia Hypothyroid High cholesterol Asthma Surgical History History of esophagogastroduodenoscopy (EGD) Hx of colonoscopy History of blepharoplasty History of removal of ovarian cyst Tubal ligation status H/O oophorectomy Family History Sister Breast CA Pancreatic cancer Sister Breast CA Father Myocardial infarction Diabetes Hypertension CVD (cardiovascular disease) Mother Heart problem Daughter In good health Social History (Updated 06/06/24 @ 10:06 by Kim Wang MD) Household Members: None Housing: Apartment Alcohol intake: current Alcohol intake frequency: holidays/special occasions only Alcohol type: wine Patient Tobacco Use Status: Former Tobacco user Tobacco use type: Cigarette e-Cigarette/Vaping Use: Never Used Second Hand Smoke Exposure: No service: No Current occupational status: disabled Cognitive needs: Yes Hearing needs: No Vision needs: No Female Reproductive History Menstrual Age of Menarche: 11 Questionnaire PHQ-9 Over the last 2 weeks, how often have you been bothered by any of the following problems? 1. Little interest or pleasure in doing things: several days 2. Feeling down, depressed, or hopeless: several days 3. Trouble falling or staying asleep, or sleeping too much: several days 4. Feeling tired or having little energy: more than half the days 5. Poor appetite or overeating: several days 6. Feeling bad about yourself - or that you are a failure or have let yourself or your family down: more than half the days 7. Trouble concentrating on things, such as reading the newspaper or watching television: nearly every day 8. Moving or speaking so slowly that other people could have noticed. Or the opposite - being so fidgety or restless that you have been moving around a lot more than usual: nearly every day 9. Thoughts that you would be better off or of hurting yourself in some way: not at all Total score: 14 Depression Screening Interpretation: Positive Depression Screening Follow-up: Existing condition, In treatment, Community Mental Health Worker F/U and Follow-up Visit Requested Depression Screening Done: Yes 40004 - PHQ-9 Billing: Yes Source: Developed by Drs. William Noel, Gavi Yu, Hayden Sagastume and colleagues, with an educational gris from [employer]. Thrive Questionnaire Date Thrive assessed: 06/06/24 I am a: Patient What is your living situation today?: I have a steady place to live Within the past 12 months, did the food you bought not last and you didn't have the money to get more?: Sometimes True Within the past 12 months, did you worry whether your food would run out before you got money to buy more?: Sometimes True Do you have trouble paying for medicines?: No Do you have trouble getting transportation to medical appointments?: No Do you have trouble paying your heating and electricity bill?: Yes Do you have trouble taking care of your child, family member or friend?: Yes Do you have trouble with day-to-day activities such as bathing, preparing meals, shopping, managing finances, etc.?: No Are you currently unemployed and looking for a job?: No Are you interested in more education?: No Please select the resources that you would like help with: None THRIVE Score: 3 AUDIT C Alcohol Use Questionnaire (AUDIT-C) 1. How often do you have a drink containing alcohol?: Never 3. How often do you have six or more drinks on one occasion?: Never Total Score: 0 Score Reviewed/Action Taken: No HUONG-7 AMB Questionnaire HUONG-7 Date HUONG - 7 assessed: 06/06/24 Feeling nervous, anxious, or on edge: 1 = Several days Not being able to stop or control worryin = More than half the days Worrying too much about different things: 3 = Nearly every day Trouble relaxin = More than half the days Being so restless that it is hard to sit still: 3 = Nearly every day Becoming easily annoyed or irritable: 2 = More than half the days Feeling afraid as if something awful might happen: 3 = Nearly every day Total HUONG-7 score (0-4 normal; 5-9 mild; 10-14 moderate; 15-21 severe): 16 Source: Developed by Drs. William Noel, Gavi Yu, Hayden Sagastume and colleagues, with an educational gris from [employer]. HUONG-7 Assessment Billing HUONG-7 Assessment Tool: HUONG-7 Assessment 38964 Review of Systems Const All systems reviewed & are unremarkable except as noted in HPI and below Card Denies chest pain at rest, Denies chest pain with activity, Denies edema, Denies irregular heart rhythm, Denies claudication, Denies dyspnea, Denies dyspnea on exertion, Denies orthopnea, Denies paroxysmal nocturnal dyspnea and Denies slow heart rate Resp Denies cough, Denies dyspnea and Denies dyspnea on exertion GI Denies abdominal pain, Denies change in bowel habits, Denies excessive flatus, Denies nausea and Denies vomiting Denies urinary incontinence, Denies urinary hesitancy and Denies urinary urgency Physical exam (Primary Care) Vital Signs: Last Vital Signs Pulse 72 06/06/24 09:42 BP 110/80 06/06/24 09:42 Pulse Ox 97 06/06/24 09:42 Oxygen Delivery Method Room Air 06/06/24 09:42 BMI result Body Mass Index 34.5 BMI Assessment/Plan discussion: High BMI High, discussed plan: lifestyle, weight reduction, dietary and physical activity Tobacco/Smoking Status: Tobacco use Status Tobacco use date assessed 02/18/24 06/06/24 09:44 Patient Tobacco Use Status Former Tobacco user 06/06/24 10:06 Tobacco use type Cigarette 06/06/24 10:06 e-Cigarette/Vaping Use Never Used 06/06/24 10:06 PHQ-9: PHQ-9 Score PHQ-9: Total score 14 06/06/24 10:08 Depression Screening Interpretation: Positive Depression Screening Follow-up: Existing condition, In treatment, Community Mental Health Worker F/U and Follow-up Visit Requested Thrive Assessment: Date of Thrive Assessment Date Thrive assessed 06/06/24 06/06/24 09:44 [facility] Head: Yes normal to inspection, Yes normocephalic and Yes atraumatic Ears: external ears normal Eyes General: appearance normal, both eyes and all related structures Eyelids: Yes eyelids normal Conjunctivae: conjunctivae normal Neck Neck: Yes normal visual inspection and Yes supple Resp Effort & Inspection: normal respiratory effort Auscultation: clear to auscultation bilaterally Cardio Jugular venous distension: no JVD Rate: regular rate Rhythm: regular rhythm Heart sounds: S1 normal heart sound present and S2 normal heart sound present GI Inspection: Yes normal to inspection Palpation (GI): Soft to palpation and nontender Auscultation: normal bowel sounds Skin General skin exam: no rashes or lesions noted Neuro General: no focal motor deficits Extrem General: Yes full ROM Psych Appearance: grossly normal Office Procedures Flu Questionnaire Does the patient have a severe egg allergy?: No Immunizations Fluarix Triv [id number] (PF) 45 mcg (15 mcg x 3)/0.5 mL IM syringe Performing Provider: Kim Wang MD [facility] Documented (not given) by: LINDA Partida on 06/06/24 09:48 Reason Not Given: Patient Refused Coding Level of Care Code Est Pt Prev Care 40-64y(33308) Diagnoses Physical exam Z00.00 Mild recurrent major depression F33.0 Additional Codes HUONG-7 Assessment Billing - HUONG-7 Assessment Tool: HUONG-7 Assessment 62082 ([id number]) PHQ-9 - 21211 - PHQ-9 Billing: Yes ([id number]) Time Spent (min) 31 Assessment & Plan Assessment & Plan (1) Physical exam: Code(s): Z00.00 - Encounter for general adult medical examination without abnormal findings Category: Medical (2) Mild recurrent major depression: Code(s): F33.0 - Major depressive disorder, recurrent, mild Category: Medical Plan - Continue current health maintenance schedule, including routine screenings and vaccinations. - Encourage maintenance of a healthy lifestyle with limited alcohol consumption. Patient was informed and verbally consented to the use of an ambient scribe for clinic note documentation during this visit. I discussed the importance of keeping up with routine screenings like mammography, colonoscopy, and vaccinations for optimal health. We reviewed her recent medical procedures and surgeries. The significance of health maintenance practices, including Pap smears and vaccinations, was emphasized. Orders: Orders Lipid Panel Today E78.5 - Hyperlipidemia, unspecified Thyroid Stimulating Hormone Today E03.9 - Hypothyroidism, unspecified Free T4 (Free Thyroxine) Today E03.9 - Hypothyroidism, unspecified Influenza 7180-2931 Immunization Today Z23 - Encounter for immunization Vitamin D 25-OH Total Today E55.9 - Vitamin D deficiency, unspecified Comprehensive [place]. Panel Fast Today Z00.00 - Encounter for general adult medical examination without abnormal findings Patient Instructions: - Maintain routine health screenings as scheduled. - Continue regular visits for Pap smears and recep follow-ups.
== END 2024-06-06 10:17 | disposition home or self-care (01) ==
PROVIDERS: PCP Internal Medicine; Visit Provider Internal Medicine
DX: Z00.00 Encounter for general adult medical examination without abnormal findings (principal); F33.0 Major depressive disorder, recurrent, mild; Z23 Encounter for immunization

== ENCOUNTER 2024-06-06 09:03 | Outpatient (REF) | payer OTHER, SELFPAY ==
[2024-06-06 13:15] LABS: Alanine Aminotransferase 22 U/L (0-31); Albumin Level 4.1 g/dL (3.5-5.0); Alkaline Phosphatase 98 U/L (39-117); Anion Gap 9 (12-20); Aspartate Amino Transferase 22 U/L (5-31); Bilirubin Total 0.3 mg/dL (0.0-1.0); Blood Urea Nitrogen 18 mg/dL (9-16); Calcium 9.6 mg/dL (8.4-10.2); Carbon Dioxide 27 mmol/L (22-29); Chloride 110 mmol/L (96-108); Cholesterol 174 mg/dL (<200); Estimated Glomerular Filt Rate > 60; Glucose Fasting 103 mg/dL (60-99); HDL Cholesterol 46 mg/dL (>40); LDL Cholesterol Calculated 105 mg/dL (<100); Potassium 4.1 mmol/L (3.3-5.1); Sodium 142 mmol/L (135-145); Thyroid Stimulating Hormone 0.07 uIU/mL (0.32-4.0); Total Protein 7.8 g/dL (6.5-8.0); Triglycerides 119 mg/dL (<150); Vitamin D 25-OH Total 46.1 ng/mL (>30)
== END 2024-06-06 09:04 | disposition home or self-care (01) ==
LOC: HO.LAB 09:03
PROVIDERS: PCP Internal Medicine; Visit Provider Internal Medicine
DX: Z00.00 Encounter for general adult medical examination without abnormal findings (principal); E03.9 Hypothyroidism, unspecified; E55.9 Vitamin D deficiency, unspecified; E78.5 Hyperlipidemia, unspecified; F33.0 Major depressive disorder, recurrent, mild
CPT/HCPCS: 36415; 80053; 80061; 82306; 84439; 84443; 90471; 96127; 99396

== ENCOUNTER 2024-06-22 10:28 | Outpatient (AMB) | payer OTHER, SELFPAY ==
--- OUTSIDE RECORDS SUMMARY | 2024-06-22 11:35 | XMS_ITS | Clinical Summary ---
Author Organization [employer] [facility] ity Address [address] [place] [address] Care Team Providers Care Supervisor Liquefaction Name Role Phone Unavailable Primary Care Provider Unavailabl e Social History Tobacco Use Types Packs/Day Years Used Date Smoking Tobacco: Never Assessed Sex and Gender Information Value Date Recorded Sex Assigned at Not on file Gender Identity Not on file Sexual Orientation Not on file Plan of Treatment Health Maintenance Due Date Last Done Comments Breast Cancer Screening 1965 DTaP,Tdap,and Td Vaccines (1 - Tdap) 11/11/1982 Cervical Cancer Screening: P ap Smear 11/11/1984 Zoster Vaccines (1 of 2) 11/11/2013 COVID-19 Vaccine (2023-2 5 season) 2024 Influenza Vaccine (#1) 2024 RSV Immunization Patients 60 + Years Old (1 - 1-dose 75+ series) 11/11/2038 HIB Vaccines Aged Out No longer eligi ble based on patient's age to complete this topic HPV Vaccines Aged Out No longer eligi ble based on patient's age to complete this topic Hepatitis A Vaccines Aged Out No long er eligible based on patient's age to complete this topic Hepatitis B Vaccines Aged Out No long er eligible based on patient's age to complete this topic IPV Vaccines Aged Out No longer eligi ble based on patient's age to complete this topic MMR Vaccines Aged Out No longer eligi ble based on patient's age to complete this topic Meningococcal ACWY Vaccine Aged Out N o longer eligible based on patient's age to complete this topic Pneumococcal Vaccine: Pediat rics (0 to 5 Years) and At-Risk Patients (6 to 64 Years) Aged Out No longer eligible b ased on patient's age to complete this topic RSV Immunization Patients Un ina 20 months Aged Out No longer eligible b ased on patient's age to complete this topic Varicella Vaccines Aged Out No longer eligible based on patient's age to complete this topic
--- OUTSIDE RECORDS SUMMARY | 2024-06-22 11:35 | XMS_ITS | Clinical Summary ---
Author Organization [employer] Address [address] [place] [address] Care Team Providers Care Founder Name Role Phone Unavailable Primary Care Provider Unavailabl e Immunizations Name Administration Dates Next Due Hep A, Adult 10/25/2014,01/18/2014 Hep B, Adolescent or Pediatric 06/18/2004 Hep B, adult 08/06/2004 INFLUENZA VACCINE QUADRIVALE NT RECOMBINANT PRESERVATIVE FREE RIV4 04/04/2020 Influenza Injectable Quadriv alant Preservative Free IIV4 MDCK 03/13/2022,02/13/2019 Influenza injectable quadriv alent IIV4 with preservative 02/24/2018 Influenza injectable quadriv alent preservative free 03/07/2021,03/16/2019,02/25/2017,03/25 Influenza, IIV3, injectable 02/20/2014,0 02/19/2011,02/11/2010,04/06 Influenza, Split (incl. peter fied surface antigen) 04/10/2017,01/29/2012 Moderna Covid-19 Vaccine 6+ Bivalent 07/17/2022 Pneumococcal Polysaccharide PPSV23 10/25/2014 TD (adult), 2 Lf tetanus tox oid, preservative free, adsorbed 06/18/2004 Tdap 07/02/2009 Social History Tobacco Use Types Packs/Day Years Used Date Smoking Tobacco: Never Assessed Comments Unknown Sex and Gender Information Value Date Recorded Sex Assigned at Female 03/31/2022 10:14 AM EDT Legal Sex Female 10:14 AM EDT Gender Identity Female 07/17/2022 9:54 AM EST Sexual Orientation Straight 07/17/2022 9: 54 AM EST Plan of Treatment Health Maintenance Due Date Last Done Comments CT Colonography 1963 Colonoscopy 1963 Colorectal Cancer Screening 1963 Depression Screening 1963 FIT DNA/Cologuard 1963 FIT 1963 FOBT 1965 HIV Screening 1965 Lipid Panel 1963 SDOH Screening 1963 Sigmoidoscopy 1963 Alcohol/Substance Use Screening 1975 Tobacco Screening 1975 Hepatitis C Screening 11/11/1981 Pap Smear 11/11/1984 Hepatitis B Vaccines (2 of 3 - Risk 3-dose series) 09/03/2004 08/06/2004, 06/18/2004 Zoster Vaccines (1 of 2) 11/11/2013 DTaP/Tdap/Td Vaccines (2 - Td or Tdap) 07/02/2019 07/02/2009, 06/18/2004 Mammogram 08/19/2020 08/19/2018, 01/30, 09/03/2017 Cervical Cancer Screening 07/18/2021 HPV/Cotest 07/18/2021 07/18/2016 RSV Patients and Patients Aged 60 years or older (1 - Risk 60-74 years 1-dose series) 2023 COVID-19 Vaccine ( season) 2024 07/17/2022, 05/02/2021, 09/22/2020, Additional history exists Influenza Vaccine (#1) 2024 , 03/07/2021, 04/04/2020, Additional history exists Hepatitis A Vaccines Completed 10/25/2014, 01/19/20 14 Pneumococcal Vaccine: Pediatrics (0 to 5 Years) and At-Risk Patients (6 to 64 Years) Aged Out 10/25/2014 No longer eligible based on patient's age to complete this topic HIB Vaccines Aged Out No longer eligi ble based on patient's age to complete this topic HPV Vaccines Aged Out No longer eligi ble based on patient's age to complete this topic IPV Vaccines Aged Out No longer eligi ble based on patient's age to complete this topic Meningococcal Vaccine Aged Out No brea jenny eligible based on patient's age to complete this topic RSV under 20 months Aged Out No longe r eligible based on patient's age to complete this topic Rotavirus Vaccines Aged Out No longer eligible based on patient's age to complete this topic Procedures Procedure Name Priority Date/Time Associated Diagnosis Comments BI MAMMOGRAM DIAGNOSTIC BILATERAL Routine 08/19/2018 3:22 PM EDT [facility]INA HISTORICAL HPV E6/E7 RFLX MARYBEL 16 18/45 Routine 07/18/2016 10:58 AM EST from Last 3 Months or Most Recently Relevant to Health Maintenance Results * 3D BILATERAL DIAGN MAMMO 1 (08/19/2018 3:22 PM EDT) Anatomical Region Laterality Modality Breast Bilateral Mammography 08/19/2018 3:22 PM EDT Narrative 08/19/2018 3:23 PM EDT Refer to the Notes tab for result details [facility] Procedure: 3D BILATERAL DIAGN MAMMO 1 Procedure Note Provider, Valeria, - 08/23/2022 Refer to the Notes tab for result details [facility] Procedure: 3D BILATERAL DIAGN MAMMO 1 Trupti Hopper DO IMG BI PROCEDURES Final Resu lt * HPV E6/E7 RFLX MARYBEL 16 18/45 (07/18/2016 10:58 AM EST) ADDITIONAL TESTING Not indicated () [facility] Comment: Test Performed by [facility], [facility], [address] [place] [address] Issa Renner M.D., Ph.D., Director of Laboratories , [place] [id number] HPV 16 RNA Test not performed [facility] HPV 18/45 RNA Test not performed [facility] HPV mRNA E6/E7 Not Detected NOT DETECTED [facility] Comment: This test was performed using the APTIMA(R) HPV Assay ([employer] This assay detects E6/E7 viral messenger RNA (mRNA) from 14 high-risk HPV types (16,18,31,33,35,39,45,51, 52,56,58,59,66,68). For additional information please refer to: http://education.WellMet[employer].Broota/faq/BHU020q2 (This link is being provided for informational/ educational purposes only.) Please note: ??Effective 02/11/2016, HPV testing will be performed using [employer] ([employer]s APTIMA test which targets mRNA. Detecting mRNA instead of DNA, as in older methods, offers significant improvements in specificity. 07/18/2016 10:5 8 AM EST us Trupti Hopper DO HISTORICAL/NON ORDERABLE LAB S Final Result [facility]where [address] from Last 3 Months or Most Recently Relevant to Health Maintenance Insurance [employer]
--- NOTE | 2024-06-22 11:45 | MHC.OFFVIS ---
Intake Visit Reasons: 2m/US Intake Note: Patient is Present for Follow Up Ultrasound Urology Medication: Myrbetriq, Estradiol Antibiotic Allergies: Sulfa Blood Thinners: None PVR:0ml Medical Officer Required: Yes Medical Officer Name: [id number] Allergies Sulfa (Sulfonamide Antibiotics) [Sulfa (Sulfonamides)] Allergy (Severe, Verified 06/22/24 20:10) SWELLING cbd Allergy (Intermediate, Uncoded 06/22/24 20:10) chest pain Medication List - Last Reconciled 06/22/24 by SKYLA Camacho- albuterol sulfate 90 mcg/actuation 2 puffs inhalation Q4-6H PRN bismuth subsalicylate (Bismuth) 2 tabs PO QID PRN 14 days cane As directed cetirizine (All Day Allergy (cetirizine)) 10 mg PO DAILY cholecalciferol (vitamin D3) 50 mcg PO DAILY commode As directed estradiol 0.01%(0.1mg/gram) pea sized amount to urethra daily for the first month and then 3 times per week thereafter. 30 days fluticasone furoate 50 mcg/actuation (Arnuity Ellipta) 1 inh inhalation DAILY 30 days fluticasone propionate 50 mcg/actuation (Allergy Relief (fluticasone)) 2 sprays intranasal DAILY 1 month Grab bar As directed ibuprofen 600 mg PO Q8H PRN Knee brace As directed levothyroxine 100 mcg PO DAILY 90 days lorazepam 0.5 mg PO DAILY PRN meloxicam 15 mg PO DAILY mirabegron ER (Myrbetriq) 50 mg PO DAILY 90 days pantoprazole 40 mg PO DAILY 90 days polyethylene glycol 3350 (Miralax) 17 grams PO DAILY rosuvastatin 10 mg PO BEDTIME 90 days sertraline 50 mg PO DAILY sertraline 100 mg PO DAILY HPI Comments Details: Harini is a pleasant 58 year old Bengali speaking patient of Dr. Gilbert Wang. She has a PMH of asthma, depression, anxiety, dyslipidemia, fatty liver, fibromyalgia, hypothyroidism, and osteoarthritis. She presents to the office today for follow-up of her lower urinary tract symptoms. In discussion with the patient today she reports to be doing and feeling well. She denies having had any bothersome urinary issues or concerns since her last office visit here approximately 3 months ago. She reports compliance with Myrbetriq as prescribed and feels this has been helpful in alleviating her lower urinary tract symptoms of urinary urgency and frequency. Recent renal imaging results reviewed with the patient today. Bilateral kidneys with no hydronephrosis or renal calculi. 1.0 cm left upper pole benign cyst the bladder is well distended. Bilateral jets are demonstrated. Pre void bladder volume is approximatly 300 mL. Postvoid bladder volume was not obtained. She currently denies any bothersome urinary issues. She denies having had any UTI like symptoms and or UTIs since her last visit. In office urinalysis results reviewed with the patient today. PVR 0 mL. She denies hematuria, dysuria, foul smelling urine, changes to urinary stream, flank pain, fever, and or chills. She otherwise denies any other isues or concnerns at this time. [facility] Medical History Lumbar pain Osteoarthritis of left hip HUONG (generalized anxiety disorder) Mild recurrent major depression Osteoarthritis of right knee Dyslipidemia Depression with anxiety Shortness of breath Dysphagia [id number] syndrome Polyarthralgia Hypothyroidism COVID-19 Nausea Osteoarthritis Fatty liver Anxiety Fibromyalgia Hypothyroid High cholesterol Asthma Surgical History History of esophagogastroduodenoscopy (EGD) Hx of colonoscopy History of blepharoplasty History of removal of ovarian cyst Tubal ligation status H/O oophorectomy Family History Sister Breast CA Pancreatic cancer Sister Breast CA Father Myocardial infarction Diabetes Hypertension CVD (cardiovascular disease) Mother Heart problem Daughter In good health Social History (Updated 06/06/24 @ 10:06 by Kim Wang MD) Household Members: None Housing: Apartment Alcohol intake: current Alcohol intake frequency: holidays/special occasions only Alcohol type: wine Patient Tobacco Use Status: Former Tobacco user Tobacco use type: Cigarette e-Cigarette/Vaping Use: Never Used Second Hand Smoke Exposure: No service: No Current occupational status: disabled Cognitive needs: Yes Hearing needs: No Vision needs: No Female Reproductive History Menstrual Age of Menarche: 11 Review of Systems Const Reports as per HPI Eyes Reports no additional complaints ENT Reports no additional complaints Card Reports no additional complaints Resp Reports as per [facility] GI Reports no additional complaints Reports as per [facility] Musc Reports as per [facility] Neuro Reports no additional complaints Psych Reports as per [facility] Sudhakar/Lymph Reports no additional complaints Aller/Immun Reports as per [facility] Physical Exam Const General: cooperative, healthy appearing, comfortable, no acute distress, well developed, alert and awake Nutritional Appearance: overweight Orientation/consciousness: patient oriented x3 Limitations: no limitations HEENT Head: Yes normal to inspection, Yes normocephalic and Yes atraumatic Ears: hearing grossly normal bilaterally Eyes General: appearance normal, both eyes and all related structures Neck Neck: Yes normal visual inspection and Yes trachea midline Chest Chest palpation & inspection: normal inspection of the chest Resp Effort & Inspection: normal respiratory effort and able to speak in complete sentences Cardio Rate: regular rate GI Inspection: Yes normal to inspection General: Yes no CVA tenderness Back/Spine/Pelvis Back: no CVA tenderness Skin General skin exam: no rashes or lesions noted Neuro General: patient oriented x3 Extrem General: Yes normal to inspection Psych Appearance: grossly normal and well kempt Mental Status: mental status grossly normal Speech and movement: Normal speech and movement present and Clear speech present Affect: normal affect Attitude: cooperative Thought process: Normal thought process present Thought content: Normal thought content present Insight: Fair insight present (Psych) Judgement: Fair judgement present (Psych) Office Procedures Post Void Residual Post Residual Void Post Void Residual (PVR): 0 [id number]-[id number] Void Residual by ultrasound Results AMB Urinalysis, Automated UA Leukoctes 0 Akua/uL Last Edit by DANY Key on 06/22/24 11:59 UA Nitrite Negative Last Edit by Trupti Mcgee [facility] on 06/22/24 11:59 UA Urobilinogen 0.2 mg/dL Last Edit by SHILOH Key on 06/22/24 11:59 UA Protein 0 mg/dL Last Edit by DANY Key on 06/22/24 11:59 UA pH 6.0 Last Edit by SHILOH Key on 06/22/24 11:59 UA Blood 0 Jacobo/uL Last Edit by Trupti Mcgee [facility] on 06/22/24 11:59 UA Specific [place] 1.010 Last Edit by DANY Key on 06/22/24 11:59 UA Ketone Negative Last Edit by SHILOH KeyA on 06/22/24 11:59 UA Bilirubin 0 mg/dL Last Edit by Trupti Mcgee RMA on 06/22/24 11:59 UA Glucose 0 mg/dL Last Edit by Trupti Mcgee A on 06/22/24 11:59 Results Reviewed Results Reviewed: Laboratory Last Values Urine pH (Auto) 6.0 06/22/24 11:59 Specific [place] (Auto) 1.010 06/22/24 11:59 Urine Protein (Auto) 0 mg/dL 06/22/24 11:59 Glucose (UA)(Auto) 0 mg/dL 06/22/24 11:59 Urine Ketones (Auto) Negative 06/22/24 11:59 Urine Blood (Auto) 0 Jacobo/uL 06/22/24 11:59 Urine Nitrite (Auto) Negative 06/22/24 11:59 Urine Bilirubin (Auto) 0 mg/dL 06/22/24 11:59 Urine Urobilinogen (Auto) 0.2 mg/dL 06/22/24 11:59 Leukocyte Esterase (Auto) 0 Akua/uL 06/22/24 11:59 Date of Service: 05/23/24 EXAMINATION: US RETROPERITONEAL COMPLETE (RENAL) FINDINGS: RIGHT KIDNEY: 10.6 x 4.8 x 4.5 cm (SAG x AP x TRV). No hydronephrosis. No renal calculi. Renal cortical thickness is normal. Please note that lower pole of right kidney remains particularly difficult to visualize due to bowel gas. LEFT KIDNEY: 11.2 x 4.8 x 4.2 cm (SAG x AP x TRV). No hydronephrosis. Left renal mid to upper pole tiny echogenic focus, possibly a nonobstructive calculus. 1.0 cm upper pole cyst with benign features. There is no indication for followup imaging. Renal cortical thickness is normal. Limited visualization. BLADDER: Well distended. Bilateral ureteral jets are demonstrated. Prevoid bladder volume is 296.9 mL. Postvoid bladder volume was not obtained. IMPRESSION: Left renal mid to upper pole tiny echogenic focus, possibly a nonobstructive calculus. No hydronephrosis. Assessment & Plan Assessment & Plan (1) Lower urinary tract symptoms (LUTS): Code(s): R39.9 - Unspecified symptoms and signs involving the genitourinary system Category: Medical (2) Renal cyst: Code(s): N28.1 - Cyst of kidney, acquired Category: Medical Plan In office urinalysis results reviewed with the patient today; as noted above. PVR 0 mL. Patient currently denies any bothersome urinary issues or concerns. She reports be happy with current voiding parameters. Continue Myrbetriq as discussed and prescribed; refill provided. Recent retroperitoneal ultrasound results reviewed with the patient today; as noted above. Follow-up in 6 months with PVR; or sooner with any issues, concerns, and or questions. Orders: Orders AMB Urinalysis Automated Today Z13.9 - Encounter for screening, unspecified AMB Post Void Residual by ultrasound Today R35.0 - Frequency of micturition Medications: Refilled mirabegron ER (Myrbetriq) 50 mg PO DAILY 90 days 90 tabs 2RF Patient Instructions: The patient had an opportunity to ask questions regarding the treatment plan. All questions were answered. Physical exam, labs, and imaging were discussed and reviewed in detail. As well as risks, benefits, and discussion of treatment choices. No major barriers to understanding were identified. The patient expressed understanding and agreement with the above treatment plan. The patient was made aware they should contact our office by phone for worsening of their current condition, the appearance of new symptoms, or with any questions or concerns. Compliance is encouraged with any medications and follow up testing that is ordered. It is a privilege to be allowed the opportunity to participate in? your urological care.? Again, if you have any questions or concerns If you have any questions or concerns please do not hesitate to contact me. The office is [phone]. This note is constructed using voice recognition software. While every effort has been made to ensure accuracy biological scientist errors may have been included. Yours sincerely, RIVER Camacho Coding Level of Care Code Est Pt Level 3 (55641) Diagnoses Lower urinary tract symptoms (LUTS) R39.9 Renal cyst N28.1 CPT Codes Post Residual Void - PVR CPT Code: 69450-Deli Void Residual by ultrasound ([id number])
== END 2024-06-22 12:24 | disposition home or self-care (01) ==
PROVIDERS: PCP Internal Medicine; Visit Provider Nurse Practitioner Family
DX: R39.9 Unspecified symptoms and signs involving the genitourinary system (principal); N28.1 Cyst of kidney, acquired; Z13.9 Encounter for screening, unspecified
CPT/HCPCS: 99213

== ENCOUNTER → 2024-06-22 10:28 | Outpatient (BNVA) | payer OTHER, SELFPAY | PROVIDERS: PCP Internal Medicine; Visit Provider Nurse Practitioner Family | DX: R35.0 Frequency of micturition (principal); R39.15 Urgency of urination; N28.1 Cyst of kidney, acquired; Z79.899 Other long term (current) drug therapy | CPT/HCPCS: 51798; 81003; 99212 ==

== ENCOUNTER 2024-07-11 08:05 | Outpatient (REF) | payer OTHER, SELFPAY ==
--- OUTSIDE RECORDS SUMMARY | 2024-07-11 08:14 | XMS_ITS | Clinical Summary ---
Author Organization [employer] Address [address] [place] [address] Care Team Providers Care Claim Manager Name Role Phone Unavailable Primary Care Provider [...] 06/18/2004 Zoster Vaccines (1 of 2) 11/11/2013 Pneumococcal Vaccine: 50+ Years (2 of 2 - PCV) 10/26/2015 10/25/2014 DTaP/Tdap/Td Vaccines (2 - Td or Tdap) [...] Hepatitis A Vaccines Completed 10/25/2014, 01/19/20 14 HIB Vaccines Aged Out No longer eligi [...] DIAGNOSTIC BILATERAL Routine 08/19/2018 3:22 PM EDT ZZZ HISTORICAL HPV E6/E7 RFLX MARYBEL 16 18/45 [...] AM EST) ADDITIONAL TESTING Not indicated () [facility] Comment: Test Performed by Triventus Rita, [employer] [facility], [address] [place] [address] Issa Renner M.D., Ph.D., Director of Laboratories , [place] [id number] HPV 16 RNA Test not performed [facility] HPV 18/45 RNA Test not performed [facility] HPV mRNA E6/E7 Not Detected NOT DETECTED [facility] Comment: This test was performed using the APTIMA(R) HPV Assay ([employer] This assay detects E6/E7 viral messenger RNA (mRNA) from 14 high-risk HPV types (16,18,31,33,35,39,45,51, 52,56,58,59,66,68). For additional information please refer to: http://education.youbeQ - Maps With Life/faq/CEV283a0 (This link is being provided for informational/ educational purposes only.) Please note: ??Effective 02/11/2016, HPV testing will be performed using [employer]'s APTIMA test which targets mRNA. Detecting mRNA instead of DNA, as in older methods, offers significant improvements in specificity. 07/18/2016 10:5 8 AM EST us Trupti Ward DO HISTORICAL/NON ORDERABLE LAB S Final Result [facility] [address] from Last 3 Months or Most Recently Relevant to Health Maintenance Insurance [facility] STANDARD
--- OUTSIDE RECORDS SUMMARY | 2024-07-11 08:14 | XMS_ITS | Clinical Summary ---
Author Organization [employer] [facility] ity Address [address] [place] [address] Care Team Providers Care Sap Basis Architect Name Role Phone Unavailable Primary Care Provider Unavailabl e Social History Tobacco Use Types Packs/Day Years Used Date Smoking Tobacco: Never Assessed Comments Unknown Sex and Gender Information Value Date Recorded Sex Assigned at Not on file Legal Sex Female 11:13 PM EST Gender Identity Not on file Sexual Orientation Not on file Plan of Treatment Health Maintenance Due Date Last Done Comments Breast Cancer Screening 1965 DTaP,Tdap,and Td Vaccines (1 - Tdap) 11/11/1982 Cervical Cancer Screening: P ap Smear 11/11/1984 Zoster Vaccines (1 of 2) 11/11/2013 COVID-19 Vaccine ( - 2023-2 5 season) 2024 Influenza Vaccine (#1) 2024 [...]
[2024-07-11 09:10] LABS: Alanine Aminotransferase 22 U/L (0-31); Albumin Level 4.1 g/dL (3.5-5.0); Alkaline Phosphatase 95 U/L (39-117); Anion Gap 12 (12-20); Aspartate Amino Transferase 22 U/L (5-31); Bilirubin Total 0.4 mg/dL (0.0-1.0); Blood Urea Nitrogen 14 mg/dL (9-16); Calcium 9.6 mg/dL (8.4-10.2); Carbon Dioxide 27 mmol/L (22-29); Chloride 107 mmol/L (96-108); Cholesterol 173 mg/dL (<200); Estimated Glomerular Filt Rate > 60; Glucose Fasting 121 mg/dL (60-99); HDL Cholesterol 45 mg/dL (>40); LDL Cholesterol Calculated 100 mg/dL (<100); Potassium 4.3 mmol/L (3.3-5.1); Sodium 142 mmol/L (135-145); Total Protein 8.1 g/dL (6.5-8.0); Triglycerides 140 mg/dL (<150)
[2024-07-11 09:20] LABS: Vitamin D 25-OH Total 48.9 ng/mL (>30)
== END 2024-07-11 08:06 | disposition home or self-care (01) ==
LOC: HO.LAB 08:05
PROVIDERS: PCP Internal Medicine; Visit Provider Internal Medicine
DX: E78.5 Hyperlipidemia, unspecified (principal); E03.9 Hypothyroidism, unspecified; E55.9 Vitamin D deficiency, unspecified
CPT/HCPCS: 36415; 80053; 80061; 82306; 84443

== ENCOUNTER 2024-08-19 07:58 | Outpatient (REF) | payer OTHER, SELFPAY | END 2024-08-19 07:59 | disposition home or self-care (01) | LOC: HO.LAB 07:58 | PROVIDERS: PCP Internal Medicine; Visit Provider Internal Medicine | DX: E03.9 Hypothyroidism, unspecified (principal) | CPT/HCPCS: 36415; 84443 ==

== ENCOUNTER 2024-09-07 07:22 | Outpatient (AMB) | payer OTHER, SELFPAY ==
--- OUTSIDE RECORDS SUMMARY | 2024-09-07 07:25 | XMS_ITS | Clinical Summary ---
Author Organization [employer] Address [address] [place] [address] Care Team Providers Care Business Development Director Name Role Phone Unavailable Primary Care Provider [...] AM EST) ADDITIONAL TESTING Not indicated () [facility] Comment: Test Performed by Netero Rita, [employer] [facility], [address] [place] [address] Issa Renner M.D., Ph.D., Director of Laboratories , [place] [id number] HPV 16 RNA Test not performed [facility] HPV 18/45 RNA Test not performed [facility] HPV mRNA E6/E7 Not Detected NOT DETECTED [facility] Comment: This test was performed using the APTIMA(R) HPV Assay ([employer] This assay detects E6/E7 viral messenger RNA (mRNA) from 14 high-risk HPV types (16,18,31,33,35,39,45,51, 52,56,58,59,66,68). For additional information please refer to: http://education.LocalView/faq/HNO021o3 (This link is being provided for informational/ educational purposes only.) Please note: ??Effective 02/11/2016, HPV testing will be performed using [employer]'s APTIMA test which targets mRNA. Detecting mRNA instead of DNA, as in older methods, offers significant improvements in specificity. 07/18/2016 10:5 8 AM EST us Trupti Ward DO HISTORICAL/NON ORDERABLE LAB S Final Result [facility] [address] from Last 3 Months or Most Recently Relevant to Health Maintenance Insurance [facility] STANDARD
--- OUTSIDE RECORDS SUMMARY | 2024-09-07 07:25 | XMS_ITS | Clinical Summary ---
Author Organization [employer] [facility] ity Address [address] [place] [address] Care Team Providers Care City Director Name Role Phone Unavailable Primary Care [...] Cervical Cancer Screening: P ap Smear 11/11/1984 Pneumococcal Vaccine: 50+ Ye ars (1 of 1 - PCV) 11/11/2013 Zoster Vaccines (1 of 2) 11/11/2013 COVID-19 Vaccine ( - 2023-2 5 season) 2024 Influenza Vaccine (#1) 2024 RSV Immunization Adult Patie nts (1 - 1-dose 75+ series) 11/11/2038 HIB [...] patient's age to complete this topic Meningococcal B Vaccine Aged Out No l onger eligible based on patient's age to complete [...]
--- NOTE | 2024-09-07 07:35 | A.OFFVIS_ITS ---
Vital Signs 09/07/24 07:43 Height 5 ft 7 in Weight 222 lb BMI 34.8 BP 107/68 Blood Pressure Location Lt brachial Position Sitting Pulse 65 Pulse Oximetry (%) 98 Oxygen Delivery Method Room Air Intake Visit Reasons: Gerd f/u, Gonzalo Ly' patient jean 11/03/53 Intake Note: Patient follow up for Gerd / Gonzalo Ly' patient jean 11/04/23. Fecal results/h pylori stool Patient cc: gasses, constipation with some blood on and off due hemorrhoids, occasional GERD. Some discomfort on her esophagus when swallowing due a hernia. Examination Proctor Required: Yes Examination Proctor Name: Caren [email or web address] Accompanied by: Self / Same As Patient Allergies Sulfa (Sulfonamide Antibiotics) [Sulfa (Sulfonamides)] Allergy (Severe, Verified 09/07/24 07:32) SWELLING cbd Allergy (Intermediate, Uncoded 06/22/24 20:10) chest pain Medication List - Last Reconciled 09/07/24 by Liz King CNP albuterol sulfate 90 mcg/actuation 2 puffs inhalation Q4-6H PRN bismuth subsalicylate (Bismuth) 2 tabs PO QID PRN 14 days cane As directed cetirizine (All Day Allergy (cetirizine)) 10 mg PO DAILY cholecalciferol (vitamin D3) 50 mcg PO DAILY commode As directed estradiol 0.01%(0.1mg/gram) pea sized amount to urethra daily for the first month and then 3 times per week thereafter. 30 days fluticasone furoate 50 mcg/actuation (Arnuity Ellipta) 1 inh inhalation DAILY 30 days fluticasone propionate 50 mcg/actuation (Allergy Relief (fluticasone)) 2 sprays intranasal DAILY 1 month Grab bar As directed ibuprofen 600 mg PO Q8H PRN Knee brace As directed levothyroxine 100 mcg PO DAILY 90 days lorazepam 0.5 mg PO DAILY PRN meclizine 25 mg PO DAILY PRN 30 days meloxicam 15 mg PO DAILY mirabegron ER (Myrbetriq) 50 mg PO DAILY 90 days pantoprazole 40 mg PO DAILY 90 days polyethylene glycol 3350 (Miralax) 17 grams PO DAILY rosuvastatin 10 mg PO BEDTIME 90 days sertraline 50 mg PO DAILY sertraline 100 mg PO DAILY HPI HPI Gerd f/uGonzalonancy' patient jean 11/03/53: Details: Patient is a 58-year-old female with PMH of HUONG, major depression, dyslipidemia, hypothyroidism, GERD and obesity. Last visit with ABILIO Anderson 11/03/2023 for follow-up after H pylori treatment. Examination Proctor Marquita [id number] used during our visit today. Pt is here today for follow-up on GERD. She reports taking pantoprazole 40 mg daily with relief. However, states she continues to experience dysphasia (liquid and solids) if she misses a dose. Shares she misses a dose approx once/week. States sensation begin at initiation of swallowing. Associated symptoms: pain with swallowing, chronic SOA, intermittent chest pain, flatulence Aggravating factors:missing PPI dose, bread Alleviating attempts: eating slowly and consuming small meals Patient denies: systemic symptoms, n/v, appetite changes, unintentional wt loss, bladder changes or melena. Hx of hemorrhoids with occasional bleeding, denies active symptoms. Last episode of hematochezia two weeks ago Continues with constipation with BMs once daily. States she is getting relief with a English tea . Does report type 3-4 on [facility] stool chart. Consumes vegetables, potatoes, green beans, rice , eggs and legumes. She minimizes dairy. She is drinking approx 48 oz of water/day. Reports workup by PCP for chronic SOA and intermittent chest pain with normal findings. She denies active symptoms. Prescribed inhalers. Not regularly taking ibuprofen, last use approx one year ago. Taking meloxicam as prescribed by outside provider. Social hx: approx one glass of wine 1x/month denies recreational drug use Denies personal hx of CA Family hx: Sister- breast CA ( age 30) + pancreatic CA, passed at age 54. [facility] Medical History (Updated 09/07/24 @ 15:55 by Liz King CNP) Cystitis H. pylori infection Lumbar pain Osteoarthritis of left hip HUONG (generalized anxiety disorder) Mild recurrent major depression Osteoarthritis of right knee Dyslipidemia Depression with anxiety Shortness of breath Dysphagia [id number] syndrome Polyarthralgia Hypothyroidism COVID-19 Nausea Osteoarthritis Fatty liver Anxiety Fibromyalgia Hypothyroid High cholesterol Asthma Surgical History History of esophagogastroduodenoscopy (EGD) Hx of colonoscopy History of blepharoplasty History of removal of ovarian cyst Tubal ligation status H/O oophorectomy Family History Sister Breast CA Pancreatic cancer Sister Breast CA Father Myocardial infarction Diabetes Hypertension CVD (cardiovascular disease) Mother Heart problem Daughter In good health Social History Household Members: None Housing: Apartment Alcohol intake: current Alcohol intake frequency: holidays/special occasions only Alcohol type: wine Patient Tobacco Use Status: Former Tobacco user Tobacco use type: Cigarette e-Cigarette/Vaping Use: Never Used Second Hand Smoke Exposure: No service: No Current occupational status: disabled Cognitive needs: Yes Hearing needs: No Vision needs: No Female Reproductive History Menstrual Age of Menarche: 11 Physical Exam Vital Signs: Last Vital Signs Pulse 65 09/07/24 07:43 BP 107/68 09/07/24 07:43 Pulse Ox 98 09/07/24 07:43 Oxygen Delivery Method Room Air 09/07/24 07:43 BMI result Body Mass Index 34.8 Const General: healthy appearing, no acute distress and well developed Nutritional Appearance: well nourished Orientation/consciousness: patient oriented x3 HEENT Head: Yes normal to inspection, Yes normocephalic and Yes atraumatic Face and sinus: Yes normal facial exam Eyes General: appearance normal, both eyes and all related structures Neck Neck: Yes normal visual inspection Resp Effort & Inspection: normal respiratory effort, able to speak in complete sentences, no tracheal deviation and symmetric chest movement Auscultation: clear to auscultation bilaterally Cardio Jugular venous distension: no JVD Rate: regular rate Rhythm: regular rhythm Heart sounds: S1 normal heart sound present, S2 normal heart sound present, no gallops and no murmurs GI Inspection: Yes normal to inspection and No distended Palpation (GI): Soft to palpation, not firm, nontender and No hepatosplenomegaly present Auscultation: normal bowel sounds Neuro General: patient oriented x3 Gait exam (Neuro): Normal gait present Psych Appearance: grossly normal Mental Status: mental status grossly normal Speech and movement: Normal speech and movement present Affect: normal affect Attitude: cooperative Thought process: Normal thought process present Thought content: Normal thought content present Insight: Good insight present (Psych) Judgement: Good judgement present (Psych) Results Reviewed Results Reviewed: UPPER ENDOSCOPY Collected: 08/19/23 Procedure: The patient was placed in the left lateral decubitis position and pre-procedure medications were administered and a bite block was placed. The endoscope was inserted into the mouth and advanced under direct vision to the third part of duodenum. A careful inspection was made as the upper endoscope was withdrawn including a retroflexed examination of the proximal stomach; Findings and interventions are described below. Findings: Larynx:normal Esophagus: GE junction at 35 cm, diaphragm hiatus at 38 cm, consistent with 3 cm sliding hiatal hernia, bx taken from GEJ, distal and proximal esophagus , balloon dilation done to 20 mm at UES and LES--no tears seen Stomach: mild gastritis . Biopsies were obtained. Grade 2 flap valve on retroflexed examination of the cardia. Duodenum: Normal bulb and descending duodenum, Intervention: Biopsies as noted above, balloon dilation Impression/Findings: gastritis esophagitis hiatal hernia schatzki ring PATHOLOGY : Upper endoscopy, Collected: 08/19/23 ADDENDUM REPORT (B): H. pylori immunostain is positive for rare organisms with appropriate control. Electronically Signed By: Imelda Rice 08/24/23 1237 Diagnosis A. Stomach, biopsy: Chronic gastritis with mild activity; negative for intestinal metaplasia and dysplasia (see comment). B. Gastroesophageal junction, biopsy: Columnar mucosa with chronic active in flammation; negative for intestinal metaplasia and dysplasia; no squamous component present. C. Esophagus, distal, biopsy: Squamous mucosa with no specific change; no columnar mucosa present. D. Esophagus, proximal, biopsy: Squamous mucosa with no specific change; no columnar mucosa present. Comment: (A): Immunostain for H. pylori is pending; addendum to follow. Clinical History Pre-Op Dx: Dysphagia, unspecified Post-Op Dx: Schatzki's ring, mild esophagitis, hiatal hernia, gastritis Microscopic Description/Microscopic sections reviewed. AB/PAS stain on B is negative for intestinal metaplasia. Control stains appropriately. Material Received A. Stomach bx's B. GE junction C. Distal esophagus D. Proximal esophagus 11/13/22 Procedure:?Esophagogastroduodenoscopy and colonoscopy EGD Procedure:?? The procedure, indications, preparation and potential complications were reviewed with the patient, who indicated understanding and gave written informed consent to proceed. A physical exam was performed. The endoscope was introduced through the mouth, and advanced to the second part of duodenum. The mucosa was carefully examined on slow withdrawal of the endoscope. The patient tolerated the procedure well. There were no immediate complications.? EGD Findings:? * Esophagus:? Normal mucosa noted in the entire esophagus. The Z line was at 30 cm.? A hiatal hernia was seen with diaphragmatic hiatus at 35 cm. * Stomach:? Normal gastric mucosa. Retroflexion in the fundus confirmed size and morphology of the hiatal hernia as Hill grade 3. * Duodenum:? Normal mucosa was noted in the duodenum to the extent examined. Cold forceps biopsies were taken from the second portion of the duodenum to r/o celiac disease. * Additional intervention: Soft tip Savary wire was advanced through the biopsy channel in left in the antrum. The gastroscope was then backed out. A Savary Davi bougie was advanced over the wire and the esophagus was intimately dilated from 18 mm to 20 mm. No heme or tear was noted post dilation. Colonoscopy Procedure:? The patient was then turned for the colonoscopy. A digital rectal exam was performed which was abnormal for external hemorrhoids.? A distal attachment cap was affixed to the tip of the scope and the colonoscope was then inserted through the anus and advanced through the colon however cecum could not be reached through the PCF scope so it was then changed to CF (adult) scope. We were then able advance to the cecum at 80 cm, and terminal ileum.? Appendiceal orifice and ileocecal valve were identified.? Mucosa was carefully examined under high definition white light as the instrument was slowly withdrawn in a retrograde panoramic fashion. Retroflexion was performed in rectum. The procedure was difficult due to looping of the scope and redundant colon. There were no immediate obvious complications. The quality of the prep was BBPS: 2+3+3 = adequate Withdrawal time 8 minutes. Limitations: No limitations.? Findings: Mucosa: Normal mucosa to cecum and terminal ileum. Protruding lesions: * Large internal hemorrhoids without stigmata of recent bleeding. Impression: 1. Normal esophagus (dilation) 2. Hill grade III hiatal hernia 3. Normal stomach 4. Normal duodenum (biopsy) 5. Normal colon and terminal ileum mucosa 6. Internal and external hemorrhoids Recommendations:?? * Follow biopsy results, office will call or send a letter within 7-10 days.? * Future colonoscopy for asymptomatic CRC screening in 10 years. Assessment & Plan Assessment & Plan (1) Hemorrhoids: Code(s): K64.9 - Unspecified hemorrhoids Category: Medical Qualifiers: Hemorrhoid type: unspecified Qualified Code(s): K64.9 - Unspecified hemorrhoids Plan: Not active. Avoid constipation and/or straining. Follow-up PRN (2) Gastro-esophageal reflux disease without esophagitis: Comment: EGD 08/24/2023 , 11/13/2022 both with dilation Code(s): K21.9 - Gastro-esophageal reflux disease without esophagitis Category: Medical Plan: EGD 08/24/2023 with balloon dilation. Noted sliding 3 cm hiatal hernia. Also positive H. pylori with successful eradication following quadruple therapy. Educated on the importance of daily compliance of PPI. Education on GERD prevention-Advised against heavy meals. Encouraged small frequent meals VS large meals, remaining upright after meals x 2-3 hours, avoid spicy foods/caffeine/alcohol and known triggers. Can consider repeat barium swallow if symptoms persist with daily PPI compliance to re-evaluate hernia. (3) Obesity (BMI 30-39.9): Code(s): E66.9 - Obesity, unspecified Category: Medical Plan: BMI 34.8. Discussion on lifestyle modifications to promote healthy weight: -Well-balanced diet -Adequate hydration with water -150 minutes of moderate intensity exercise per week (4) Chronic constipation: Comment: 11/13/2022 : Future colonoscopy for asymptomatic CRC screening in 10 years. Code(s): K59.09 - Other constipation Category: Medical Plan: Managed well with current interventions. Reinforced lifestyle modifications for prevention: - higher fiber diet -adequate hydration of at least 60 oz of water per day -150 minutes of moderate intensity exercise/week Plan Follow-up in 6 months or sooner as needed Time: I spent a total of 45 minutes on the date of encounter which includes: Preparing to see the patient (reviewed previous documentation, test results and medical history) Performing a medically appropriate exam and/or evaluation Ordering medications, tests, and procedures Documenting clinical information in the health record Medications: Refilled pantoprazole 40 mg PO DAILY 90 days 90 tabs 3RF Discontinued ibuprofen Discontinued Reason: No Longer Medically Relevant 600 mg PO Q8H PRN 60 tabs 0RF pain Coding Level of Care Code Established Pt Est Pt Level 4 (26857) Patient Type Established Diagnoses Hemorrhoids, unspecified hemorrhoid type K64.9 Hemorrhoid type: unspecified Gastro-esophageal reflux disease without esophagitis K21.9 Obesity (BMI 30-39.9) E66.9 Chronic constipation K59.09
[2024-09-07 07:43] VITALS: BP 107/68; PULSE 65; O2SAT 98; BMI 34.8
== END 2024-09-07 08:36 | disposition home or self-care (01) ==
LOC: HO.HGI 07:23
PROVIDERS: PCP Internal Medicine; Visit Provider Nurse Practitioner Family
DX: K64.9 Unspecified hemorrhoids (principal); K21.9 Gastro-esophageal reflux disease without esophagitis; E66.9 Obesity, unspecified; K59.09 Other constipation
CPT/HCPCS: 99215

== ENCOUNTER → 2024-09-07 07:22 | Outpatient (BNVA) | payer OTHER, SELFPAY | PROVIDERS: PCP Internal Medicine; Visit Provider Nurse Practitioner Family | DX: K21.9 Gastro-esophageal reflux disease without esophagitis (principal); K64.9 Unspecified hemorrhoids; K59.09 Other constipation; E66.9 Obesity, unspecified; Z68.34 Body mass index [BMI] 34.0-34.9, adult | CPT/HCPCS: 99212 ==

== ENCOUNTER 2024-09-12 09:28 | Outpatient (AMB) | payer OTHER, SELFPAY ==
[2024-09-12 09:37] VITALS: BP 110/80; BMI 34.6
--- NOTE | 2024-09-12 09:37 | A.OFFPC_ITS ---
Vital Signs 09/12/24 09:37 Height 5 ft 7 in Weight 221 lb BMI 34.6 BP 110/80 Blood Pressure Location Lt brachial Position Sitting Intake Visit Reasons: breast tenderness Applied Biology Professor Required: Yes Applied Biology Professor Language: Harm Reduction Worker Name: Kim Wang MD Information Interpreted: non-clinical & clinical Accompanied by: Self / Same As Patient Allergies Sulfa (Sulfonamide Antibiotics) [Sulfa (Sulfonamides)] Allergy (Severe, Verified 09/12/24 09:55) SWELLING cbd Allergy (Intermediate, Uncoded 09/12/24 09:55) chest pain Medication List - Last Reconciled 09/12/24 by Kim Wang MD albuterol sulfate 90 mcg/actuation 2 puffs inhalation Q4-6H PRN bismuth subsalicylate (Bismuth) 2 tabs PO QID PRN 14 days cane As directed cetirizine (All Day Allergy (cetirizine)) 10 mg PO DAILY cholecalciferol (vitamin D3) 50 mcg PO DAILY commode As directed estradiol 0.01%(0.1mg/gram) pea sized amount to urethra daily for the first month and then 3 times per week thereafter. 30 days fluticasone furoate 50 mcg/actuation (Arnuity Ellipta) 1 inh inhalation DAILY 30 days fluticasone propionate 50 mcg/actuation (Allergy Relief (fluticasone)) 2 sprays intranasal DAILY 1 month Grab bar As directed Knee brace As directed levothyroxine 100 mcg PO DAILY 90 days lorazepam 0.5 mg PO DAILY PRN meclizine 25 mg PO DAILY PRN 30 days meloxicam 15 mg PO DAILY mirabegron ER (Myrbetriq) 50 mg PO DAILY 90 days pantoprazole 40 mg PO DAILY 90 days polyethylene glycol 3350 (Miralax) 17 grams PO DAILY rosuvastatin 10 mg PO BEDTIME 90 days sertraline 50 mg PO DAILY sertraline 100 mg PO DAILY Tobacco use date assessed: 09/12/24 Dental Screening Dental Screen Date: 09/12/24 Did you have a dental visit in the last 12 months?: No Did you have a dental problem in the last 6 months where you did not have access to dental care?: No Was dental information given to patient?: Patient has dentist HPI HPI Comments History of Present Illness Details The patient is a 58-year-old female presenting with breast mass, mild major depression, anxiety, pure hypercholesterolemia and hypothyroidism. She has detected small, painless lump in her breast over the last few months, particularly in the left breast, with occasional appearance in the right. Her previous mammogram in November last year was normal. She denies any nipple discharge, skin changes, or retraction. Additionally, the patient reports dizziness and concerns around her prediabetic state, experiencing excessive hunger and nocturnal urination, waking up multiple times per night. These symptoms may be related to her medication regimen. Her son helped test her blood glucose levels, which were within normal limits. Last TSH was normal. Cholesterol well control. Depression with anxiety stable with sertraline. [facility] Medical History (Updated 09/12/24 @ 10:03 by Kim Wang MD) Cystitis H. 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 Polyarthralgia Hypothyroidism COVID-19 Nausea Osteoarthritis Fatty liver Anxiety Fibromyalgia Hypothyroid High cholesterol Asthma Surgical History History of esophagogastroduodenoscopy (EGD) Hx of colonoscopy History of blepharoplasty History of removal of ovarian cyst Tubal ligation status H/O oophorectomy Family History Sister Breast CA Pancreatic cancer Sister Breast CA Father Myocardial infarction Diabetes Hypertension CVD (cardiovascular disease) Mother Heart problem Daughter In good health Social History Household Members: None Housing: Apartment Alcohol intake: current Alcohol intake frequency: holidays/special occasions only Alcohol type: wine Patient Tobacco Use Status: Former Tobacco user Tobacco use type: Cigarette e-Cigarette/Vaping Use: Never Used Second Hand Smoke Exposure: No service: No Current occupational status: disabled Cognitive needs: Yes Hearing needs: No Vision needs: No Female Reproductive History Menstrual Age of Menarche: 11 Questionnaire Thrive Questionnaire Date Thrive assessed: 06/06/24 I am a: Patient What is your living situation today?: I have a steady place to live Within the past 12 months, did the food you bought not last and you didn't have the money to get more?: Sometimes True Within the past 12 months, did you worry whether your food would run out before you got money to buy more?: Sometimes True Do you have trouble paying for medicines?: No Do you have trouble getting transportation to medical appointments?: No Do you have trouble paying your heating and electricity bill?: Yes Do you have trouble taking care of your child, family member or friend?: Yes Do you have trouble with day-to-day activities such as bathing, preparing meals, shopping, managing finances, etc.?: No Are you currently unemployed and looking for a job?: No Are you interested in more education?: No Please select the resources that you would like help with: None THRIVE Score: 3 HUONG-7 AMB Questionnaire HUONG-7 Date HUONG - 7 assessed: 06/06/24 Source: Developed by Drs. William Noel, Gavi Yu, Hayden Sagastume and colleagues, with an educational gris from [employer]. Review of Systems Const All systems reviewed & are unremarkable except as noted in HPI and below Card Denies chest pain at rest, Denies chest pain with activity, Denies edema, Denies irregular heart rhythm, Denies claudication, Denies dyspnea, Denies dyspnea on exertion, Denies orthopnea, Denies paroxysmal nocturnal dyspnea and Denies slow heart rate Resp Denies cough, Denies dyspnea and Denies dyspnea on exertion GI Denies abdominal pain, Denies change in bowel habits, Denies excessive flatus, Denies nausea and Denies vomiting Denies urinary incontinence, Denies urinary hesitancy and Denies urinary urgency Musc Denies atrophy, Denies deformity and Denies limited range of motion Skin/Breast Denies bleeding lesions, Denies changing lesions and Denies rash Physical exam (Primary Care) Vital Signs: Last Vital Signs BP 110/80 09/12/24 09:37 BMI result Body Mass Index 34.6 BMI Assessment/Plan discussion: High BMI High, discussed plan: lifestyle, weight reduction, dietary and physical activity Tobacco/Smoking Status: Tobacco use Status Tobacco use date assessed 09/12/24 09/12/24 09:41 Patient Tobacco Use Status Former Tobacco user 09/12/24 09:39 Tobacco use type Cigarette 09/12/24 09:39 e-Cigarette/Vaping Use Never Used 09/12/24 09:39 Thrive Assessment: Date of Thrive Assessment Date Thrive assessed 06/06/24 09/12/24 09:39 Chest Breast/axilla inspection: normal inspection of the breasts and normal inspection of the axillae Breast/axilla palpation: abnormal palpation of the breast (Left breast mass) Resp Effort & Inspection: normal respiratory effort Auscultation: clear to auscultation bilaterally Cardio Jugular venous distension: no JVD Rate: regular rate Rhythm: regular rhythm Heart sounds: S1 normal heart sound present and S2 normal heart sound present Extrem General: Yes full ROM Coding Level of Care Code Est Pt Level 4 (24472) Complex EM visit Add On G2211 Diagnoses Left breast mass N63.20 Mild recurrent major depression F33.0 HUONG (generalized anxiety disorder) F41.1 Hypothyroidism, unspecified type E03.9 Hypothyroidism type: unspecified Dyslipidemia E78.5 Time Spent (min) 22 Assessment & Plan Assessment & Plan (1) Left breast mass: Code(s): N63.20 - Unspecified lump in the left breast, unspecified quadrant Category: Medical (2) Mild recurrent major depression: Code(s): F33.0 - Major depressive disorder, recurrent, mild Category: Medical (3) HUONG (generalized anxiety disorder): Code(s): F41.1 - Generalized anxiety disorder Category: Medical (4) Hypothyroidism: Code(s): E03.9 - Hypothyroidism, unspecified Category: Medical Qualifiers: Hypothyroidism type: unspecified Qualified Code(s): E03.9 - Hypothyroidism, unspecified (5) Dyslipidemia: Code(s): E78.5 - Hyperlipidemia, unspecified Category: Medical Plan To address the patient's breast mass, further diagnostic imaging, specifically mammography and breast ultrasound, will be conducted to rule out any concerning pathology. For prediabetes, we will conduct fasting labs in November to evaluate her glucose levels and monitor for any necessary changes in her management plan. [facility] blood glucose levels have been normal as checked by her son, symptoms of frequent urination and hunger are noted. We will review her medications for potential side effects. The patient's thyroid disease is managed with levothyroxine, confirmed by normal levels in prior checks. Depression and anxiety are being followed by psychiatry with sertraline therapy. We will consider her lipid management effective under rosuvastatin, with plans to revisit her lipid profile during her next scheduled visit. Patient was informed and verbally consented to the use of an ambient scribe for clinic note documentation during this visit. I have discussed with the patient the concerns regarding her breast masses and the steps we will take for further imaging to clarify any potential issues. We have also addressed her prediabetes, deciding on fasting lab tests in November to assess her glucose control more closely. The patient was informed about the need to evaluate her medication side effects, and the management of her thyroid disease and hyperlipidemia will continue as per current practices. Our discussions included the importance of psychiatric support for her depression and anxiety, for which she is under appropriate care. We agreed on the monitoring of her overall health with subsequent appointments and re-evaluation based on findings. Orders: Orders Vitamin D 25-OH Total Today E55.9 - Vitamin D deficiency, unspecified Lipid Panel Today E78.5 - Hyperlipidemia, unspecified US breast LT limited Today N63.20 - Unspecified lump in the left breast, unspecified quadrant MM diagnostic mammo BI Today N63.20 - Unspecified lump in the left breast, unspecified quadrant Comprehensive Orwell. Panel Fast Today K59.09 - Other constipation Thyroid Stimulating Hormone Today E03.9 - Hypothyroidism, unspecified Patient Instructions: - Follow up with scheduled imaging tests for breast evaluation. - Undergo fasting lab test in November for glucose level monitoring. - Continue current medications as prescribed. - Monitor blood sugar levels and report any unusual symptoms promptly. - Attend psychiatric follow-ups for depression and anxiety as scheduled. - Return for lipid profile assessment in next scheduled check-up. - Maintain a balanced diet and moderate physical activity.
--- OUTSIDE RECORDS SUMMARY | 2024-09-12 10:32 | XMS_ITS | Clinical Summary ---
Author Organization [employer] Address [address] [place] [address] Care Team Providers Care Automobile Upholstery Trim Installer Name Role Phone Unavailable Primary Care Provider [...] AM EST) ADDITIONAL TESTING Not indicated () [facility] Comment: Test Performed by [employer] [facility], [employer] [facility], [address] [place] [address] Issa Renner M.D., Ph.D., Director of Laboratories , [place] [id number] HPV 16 RNA Test not performed [facility] HPV 18/45 RNA Test not performed [facility] HPV mRNA E6/E7 Not Detected NOT DETECTED [facility] Comment: This test was performed using the APTIMA(R) HPV Assay ([employer] / [employer] This assay detects E6/E7 viral messenger RNA (mRNA) from 14 high-risk HPV types (16,18,31,33,35,39,45,51, 52,56,58,59,66,68). For additional information please refer to: http://education.Soldsie/faq/CHP204l8 (This link is being provided for informational/ educational purposes only.) Please note: ??Effective 02/11/2016, HPV testing will be performed using [employer]'s APTIMA test which targets mRNA. Detecting mRNA instead of DNA, as in older methods, offers significant improvements in specificity. 07/18/2016 10:5 8 AM EST us Trupti Ward DO HISTORICAL/NON ORDERABLE LAB S Final Result [facility] [address]where [address] from Last 3 Months or Most Recently Relevant to Health Maintenance Insurance [facility] STANDARD
--- OUTSIDE RECORDS SUMMARY | 2024-09-12 10:32 | XMS_ITS | Clinical Summary ---
Author Organization [facility] ity Address [address] [place] [address] Care Team Providers Care Bellstand Attendant Name Role Phone Unavailable Primary Care Provider [...] - 2023-2 5 season) 2024 Influenza Vaccine (Season Ended) 2025 RSV Immunization Adult Patie nts (1 - [...]
== END 2024-09-12 10:03 | disposition home or self-care (01) ==
LOC: HO.HMCH 09:29
PROVIDERS: PCP Internal Medicine; Visit Provider Internal Medicine
DX: N63.20 Unspecified lump in the left breast, unspecified quadrant (principal); F33.0 Major depressive disorder, recurrent, mild; F41.1 Generalized anxiety disorder; E03.9 Hypothyroidism, unspecified; E78.5 Hyperlipidemia, unspecified

== ENCOUNTER → 2024-09-12 09:28 | Outpatient (BNVA) | payer OTHER, SELFPAY | PROVIDERS: PCP Internal Medicine; Visit Provider Internal Medicine | DX: N63.20 Unspecified lump in the left breast, unspecified quadrant (principal); F41.1 Generalized anxiety disorder; F33.0 Major depressive disorder, recurrent, mild; E03.9 Hypothyroidism, unspecified; E78.5 Hyperlipidemia, unspecified | CPT/HCPCS: 99212 ==

== ENCOUNTER 2024-10-06 10:40 | Outpatient (REF) | payer OTHER, SELFPAY ==
--- NOTE | ~2024-10-06 | MM_ITS ---
EXAMINATION: MM DIAGNOSTIC DIGITAL BREAST TOMOSYNTHESIS, BILATERAL Limited left breast ultrasound. CLINICAL INFORMATION: Left breast palpable lump. COMPARISON: Mammography: Comparison is made with relevant prior exams. TECHNIQUE: Digital breast mammography with tomosynthesis is performed in both the craniocaudal and mediolateral oblique views along with computer-aided detection (CAD). FINDINGS: The breasts are heterogeneously dense, which may obscure small masses (ACR BI-RADS breast composition Category c). Left: BB marker in the upper outer breast without underlying abnormality. There is a normal-appearing intramammary lymph node in the upper outer quadrant which is stable. No suspicious calcifications masses or other abnormal findings. Targeted color Doppler ultrasound scanning in the upper outer left breast demonstrates a normal-appearing intramammary lymph node at 2:00 5 cm from the nipple. Otherwise scanning from 12-4 o'clock demonstrates normal fibroglandular breast tissue. Right: There are no significant masses, abnormal calcifications, or other abnormalities. Results are provided to the patient at time of visit by the technologist. MM/MM tomosynthesis diagnostic BI IMPRESSION: Right: Negative. Left: No mammographic or sonographic abnormality to account for the patient's left breast palpable lump. Recommend clinical evaluation and follow-up. ASSESSMENT: BI-RADS BI-RADS 2 - Benign Findings RECOMMENDATION: 1 year F/U This patient's information was entered into a reminder system with a target due date for their next mammogram. Electronically signed by: Nereyda Oliver DO 10/06/2024 11:30 AM EDT
--- OUTSIDE RECORDS SUMMARY | 2024-10-06 12:05 | XMS_ITS | Clinical Summary ---
Author Organization [employer] Address [address] [facility] [address] [place] [address] Care Team Providers Care Apparatus Cleaner Name Role Phone Unavailable Primary Care Provider [...] [facility] Comment: [facility], [address] [place] [address] Issa Renner M.D., Ph.D., Director of Laboratories , CLIA [id number] HPV 16 RNA Test not performed [facility] HPV 18/45 RNA Test not performed [facility] HPV mRNA E6/E7 Not Detected NOT DETECTED [facility] Comment: This test was performed using the APTIMA(R) HPV Assay ([employer] This assay detects E6/E7 viral messenger RNA (mRNA) from 14 high-risk HPV types (16,18,31,33,35,39,45,51, 52,56,58,59,66,68). For additional information please refer to: http://education.WAYN/faq/UZA451i8 (This link is being provided for informational/ educational purposes only.) Please note: ??Effective 02/11/2016, HPV testing will be performed using [employer]'s APTIMA test which targets mRNA. Detecting mRNA instead of DNA, as in older methods, offers significant improvements in specificity. 07/18/2016 10:5 8 AM EST us Trupti Ward DO HISTORICAL/NON ORDERABLE LAB S Final Result [facility] [address] from Last 3 Months or Most Recently Relevant to Health Maintenance [place] [address] [address] STANDARD
--- OUTSIDE RECORDS SUMMARY | 2024-10-06 12:05 | XMS_ITS | Clinical Summary ---
Author Organization [employer] [facility] ity Address [address] [place] [address] Care Team Providers Care Quality Control Expert Name Role Phone Unavailable Primary Care Provider [...]
== END 2024-10-06 10:41 | disposition home or self-care (01) ==
LOC: HO.MAMMO 10:40
PROVIDERS: PCP Internal Medicine; Visit Provider Internal Medicine
DX: N63.25 Unspecified lump in the left breast, overlapping quadrants (principal)
CPT/HCPCS: 76642; 77062; 77066

== ENCOUNTER → 2024-10-06 11:00 | Outpatient (BNV) | payer OTHER, SELFPAY | PROVIDERS: PCP Internal Medicine; Visit Provider Internal Medicine | DX: N63.21 Unspecified lump in the left breast, upper outer quadrant (principal) | CPT/HCPCS: 76642; 77066; G0279 ==

== ENCOUNTER 2024-10-21 07:11 | Emergency (ER) | payer OTHER, SELFPAY ==
--- NOTE | ~2024-10-21 | XR_ITS ---
EXAMINATION: XR CHEST CLINICAL INFORMATION: cough COMPARISON: October 07, 2023. TECHNIQUE: 2 views of the chest were obtained. FINDINGS: No consolidation, pleural effusion or pneumothorax. No hyperinflation. Cardiomediastinal silhouette size is normal. Mild multilevel thoracic spondylosis. Patient's large body habitus/obesity. Gas filled prominent intestine not fully included in the [id number]. No free air beneath the diaphragm. XR/XR chest 2V IMPRESSION: No acute airspace disease. Acute intra-abdominal process cannot be excluded. Electronically signed by: Edwin Morris MD 10/21/2024 08:57 AM EDT
[2024-10-21 07:25] VITALS: BP 102/73; PULSE 94; RESP 18; TEMP 36.3; O2SAT 94; BMI 35.8
[2024-10-21 08:00] VITALS: RESP 16
[2024-10-21] MEDS: Albuterol Sulfate 2.5 MG, Albuterol/Iprat 2.5/0.5MG 3 ML 3 ML INHALE (08:09)
[2024-10-21 08:12] VITALS: PULSE 86; RESP 18; O2SAT 97
--- OUTSIDE RECORDS SUMMARY | 2024-10-21 08:14 | XMS_ITS | Clinical Summary ---
Author Organization [employer] [facility] ity Address [address] [place] [address] Care Team Providers Care Bottom Stop Attacher Name Role Phone Unavailable Primary Care Provider [...]
--- NOTE | 2024-10-21 08:21 | ECG_ITS ---
Test Reason : sob Blood Pressure : */* mmHG Vent. Rate : 81 BPM Atrial Rate : 81 BPM P-R Int : 122 ms QRS Dur : 90 ms QT Int : 376 ms P-R-T Axes : 18 -5 -2 degrees QTcB Int : 436 ms Normal sinus rhythm with sinus arrhythmia Minimal voltage criteria for LVH, may be normal variant ( R in aVL ) ST & T wave abnormality, consider anterior ischemia Abnormal ECG When compared with ECG of 10-Nov-2022 11:08, No significant change was found Referred By: Max Beaulieu Electronically Signed By: Lc Diego
--- NOTE | 2024-10-21 08:21 | ED_ITS ---
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 No pleurisy no chest pain no abdominal pain no nausea or vomiting or diarrhea reported. Related Data Home Medications ?Medication ?Instructions ?Recorded ?Confirmed lorazepam 0.5 mg tablet 0.5 mg PO DAILY PRN Anxiety 03/02/20 09/12/24 sertraline 50 mg tablet 50 mg PO DAILY 03/02/20 09/12/24 sertraline 100 mg tablet 100 mg PO DAILY 10/29/21 09/12/24 Previous Rx's ?Medication ?Instructions ?Recorded Knee brace #1 ea 12/04/20 Grab bar #2 ea 10/15/21 commode #1 ea 12/11/21 fluticasone propionate 50 2 spray intranasal DAILY 1 month 06/11/22 mcg/actuation nasal #16 grams spray,suspension (Allergy Relief (fluticasone)) cane #1 ea 11/10/22 bismuth subsalicylate 262 mg 2 tab PO QID PRN diarrhea 14 days 09/02/23 chewable tablet (Bismuth) #112 tabs rosuvastatin 10 mg tablet 10 mg PO BEDTIME 90 days #90 tabs 11/02/23 estradiol 0.01% (0.1 mg/gram) See Rx Instructions vaginal 3XW 30 03/29/24 vaginal cream days #42.5 grams levothyroxine 100 mcg tablet 100 mcg PO DAILY 90 days #90 tabs 06/06/24 mirabegron 50 mg tablet,extended 50 mg PO DAILY 90 days #90 tabs 06/22/24 release 24 hr (Myrbetriq) cetirizine 10 mg tablet (All Day 10 mg PO DAILY #90 tabs 06/23/24 Allergy (cetirizine)) polyethylene glycol 3350 17 17 g PO DAILY #510 grams 07/19/24 gram/dose oral powder (Miralax) meclizine 25 mg tablet 25 mg PO DAILY PRN motion sickness 08/17/24 30 days #30 tabs pantoprazole 40 mg tablet,delayed 40 mg PO DAILY 90 days #90 tabs 09/07/24 release albuterol sulfate 90 mcg/actuation 2 puff inhalation Q4-6H PRN 09/09/24 aerosol inhaler shortness of breath or wheezing #6.7 grams cholecalciferol (vitamin D3) 50 50 mcg PO DAILY #30 caps 10/08/24 mcg (2,000 unit) capsule meloxicam 15 mg tablet 15 mg PO DAILY #30 tabs 10/13/24 fluticasone furoate 50 1 inh inhalation DAILY 30 days #30 10/19/24 mcg/actuation blister powder for ea inhalation (Arnuity Ellipta) benzonatate 200 mg capsule 200 mg PO TID PRN cough #14 caps 10/21/24 fluticasone propionate 50 1 spray intranasal DAILY #16 grams 10/21/24 mcg/actuation nasal spray,suspension (Flonase Allergy Relief) methylprednisolone 4 mg tablets in 4 mg PO DAILY #21 ea 10/21/24 a dose pack (Medrol (Obed)) Allergies Allergy/AdvReac Type Severity Reaction Status Date / Time Sulfa (Sulfonamide Allergy Severe SWELLING Verified 10/21/24 07:27 Antibiotics) [Sulfa (Sulfonamides)] cbd Allergy Intermediate chest pain Uncoded 09/12/24 09:55 Review of Systems Review of Systems: Yes all other systems are reviewed and are negative Constitutional: Constitutional: Reports as per [facility] Past Medical History Medical History Cystitis H. 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 Polyarthralgia Hypothyroidism COVID-19 Nausea Osteoarthritis Fatty liver Anxiety Fibromyalgia Hypothyroid High cholesterol Asthma Surgical History History of esophagogastroduodenoscopy (EGD) Hx of colonoscopy History of blepharoplasty History of removal of ovarian cyst Tubal ligation status H/O oophorectomy Family History Family History Sister Breast CA Pancreatic cancer Sister Breast CA Father Myocardial infarction Diabetes Hypertension CVD (cardiovascular disease) Mother Heart problem Daughter In good health Social History Social History Household Members: None Housing: Apartment Alcohol intake: current Alcohol intake frequency: holidays/special occasions only Alcohol type: wine Patient Tobacco Use Status: Former Tobacco user Tobacco use type: Cigarette Smoked in Last 30 Days: No e-Cigarette/Vaping Use: Never Used Second Hand Smoke Exposure: No Use of substances other than those prescribed or required for medical reasons: No Advance Directives: No Advance Directives Information Provided: Yes Patient : No service: No Current occupational status: disabled Cognitive needs: Yes Hearing needs: No Vision needs: No Physical Exam Vital Signs: Vital Signs: Last Vital Signs Temp 97.4 F 10/21/24 07:25 Pulse 86 10/21/24 08:12 Resp 18 10/21/24 08:12 BP 102/73 10/21/24 07:25 Pulse Ox 96 10/21/24 09:36 O2 Del Method Room Air 10/21/24 09:36 BMI result Body Mass Index 35.8 Const: Other: * Gen: ?Overall well-appearing patient * HEENT: Uvula midline, no tonsillar exudates, postnasal drip is present, boggy nasal mucosa, * Neck: Supple, no LAD * CV: RRR, no obvious murmurs appreciated * Resp: ?Expiratory wheezing throughout * Abd: ?Bowel sounds are present, no tenderness no rebound no rigidity * MSK: FROM, strength 5/5 all extremities, no lower extremity edema noted * Skin: Warm, dry, intact, * Neuro: ?Alert and oriented x3, moving upper and lower extremities symmetrically, no obvious facial asymmetry noted Medications Administered Discontinued Medications Generic Name Dose Route Start Last Admin Trade Name Freq PRN Reason Stop Dose Admin Albuterol Sulfate 2.5 mg/ 0 mg 10/21/24 08:05 10/21/24 08:09 Albuterol/Ipratropium 3 ml INHALE 10/21/24 08:06 5 dose ONCE ONE Administration Dexamethasone 10 mg 10/21/24 08:21 10/21/24 09:15 Dexamethasone 2 Mg Tablet PO 10/21/24 08:22 10 mg ONCE ONE Administration Medical Decision Making Medical Decision Making [facility] Narrative: 08:25 patient is presenting with symptoms of cough and wheezing for the past 2 weeks since she returned from a cruise, possibly seasonal allergies baseline examination of her nasal mucosa, she does have expiratory wheezing we will provide nebulizer treatments, other considerations for workup as below, if workup is negative anticipating discharge. 09:38 patient feels better, wheezing has resolved, ready for discharge Differential Diagnosis Differential Diagnoses: The differential diagnosis associated with the presentation includes Allergies, CHF, ACS, PE, pneumonia, pneumothorax, upper respiratory infection ,peritonsillar abscess Admission/Observation Consideration of admission/observation: Escalation of care including admission /observation considered Lab Data MDM Lab Attestation statement: I reviewed the patient's lab results. Labs: Lab Results 10/21/24 Range/Units 07:35 Influenza Type A (PCR) NEGATIVE (Negative) Influenza Type B (PCR) NEGATIVE (Negative) RSV RNA Qual (PCR) NEGATIVE (Negative) SARS-CoV-2 RNA (RT-PCR) NEGATIVE (Negative) ABG Data Attestation ABG: I personally reviewed and interpreted this ABG as follows: Independent Interpretation I performed an independent interpretation of an: EKG and Plain X-Ray (My independent chest xray interpretation: Lungs: Lungs are clear bilaterally without evidence of focal consolidation, pleural effusion, or pneumothorax. Cardiac silhouette is unremarkable, no obvious mediastinal widening, no obvious bony abnormalities such as fractures. Impression: Normal chest X-r) Interpretation: 81 otherwise normal ECG without dysrhythmia, AV chad blocks or ST-T changes to suspect underlying ACS, my independent interpretation Radiology Impression Discussion of test interpretation with radiology: I have reviewed the radiologist's reading. Radiologist Impression: XR/XR chest 2V IMPRESSION: No acute airspace disease. Acute intra-abdominal process cannot be excluded. Discharge Plan Discharge Clinical Impression: Diffuse wheezing, Recurrent cough Patient Disposition: Home, Self-Care Additional Instructions: 2 puffs of the inhaler every 4 hours for the rest of the day on nebulizer treatment every 4 hours, Tessalon Perles as needed for cough, also Flonase as on examination you have evidence of swollen nasal mucosa which is likely due to allergies, follow up with the PCP worsening issues concerns come back to the ER your blood work chest x-ray EKG viral swab has been reassuring Prescriptions: New methylprednisolone [Medrol (Obed)] 4 mg tablets,dose pack 4 mg PO DAILY Qty: 21 0RF benzonatate 200 mg capsule 200 mg PO TID PRN (Reason: cough) Qty: 14 0RF fluticasone propionate [Flonase Allergy Relief] 50 mcg/actuation spray,suspension 1 spray intranasal DAILY Qty: 16 0RF Rx Instructions: administer into each nostril No Action (DME) Knee brace Misc See Rx Instructions .ROUTE .MEDSUPPLY Qty: 1 0RF Rx Instructions: As directed (DME) Grab bar Misc See Rx Instructions .Route Qty: 2 0RF Rx Instructions: As directed rosuvastatin 10 mg tablet 10 mg PO BEDTIME 90 Days Qty: 90 3RF levothyroxine 100 mcg tablet 100 mcg PO DAILY 90 Days Qty: 90 1RF cetirizine [All Day Allergy (cetirizine)] 10 mg tablet 10 mg PO DAILY Qty: 90 1RF polyethylene glycol 3350 [Miralax] 17 gram/dose powder 17 g PO DAILY Qty: 510 6RF meclizine 25 mg tablet 25 mg PO DAILY PRN (Reason: motion sickness) 30 Days Qty: 30 0RF albuterol sulfate 90 mcg/actuation HFA aerosol inhaler 2 puff inhalation Q4-6H PRN (Reason: shortness of breath or wheezing) Qty: 6.7 7RF cholecalciferol (vitamin D3) 50 mcg (2,000 unit) capsule 50 mcg PO DAILY Qty: 30 1RF meloxicam 15 mg tablet 15 mg PO DAILY Qty: 30 1RF Arnuity Ellipta 50 mcg/actuation blister with device 1 inh inhalation DAILY 30 Days Qty: 30 2RF (DME) commode Kit See Rx Instructions .Route Qty: 1 0RF Rx Instructions: As directed (DME) cane Device See Rx Instructions .Route Qty: 1 0RF Rx Instructions: As directed fluticasone propionate [Allergy Relief (fluticasone)] 50 mcg/actuation spray,suspension 2 spray intranasal DAILY 30 Days Qty: 16 5RF Rx Instructions: administer into each nostril sertraline 50 mg tablet 50 mg PO DAILY lorazepam 0.5 mg tablet 0.5 mg PO DAILY PRN (Reason: Anxiety) sertraline 100 mg tablet 100 mg PO DAILY Myrbetriq 50 mg tablet extended release 24 hr 50 mg PO DAILY 90 Days Qty: 90 2RF bismuth subsalicylate [Bismuth] 262 mg tablet,chewable 2 tab PO QID PRN (Reason: diarrhea) 14 Days Qty: 112 0RF estradiol 0.01 % (0.1 mg/gram) cream See Rx Instructions vaginal 3XW 30 Days Qty: 42.5 0RF Rx Instructions: pea sized amount to urethra daily for the first month and then 3 times per week thereafter. pantoprazole 40 mg tablet,delayed release (DR/EC) 40 mg PO DAILY 90 Days Qty: 90 3RF Print Language: Kenyan
[2024-10-21 08:45] LABS: Influenza A PCR NEGATIVE (Negative); Influenza B PCR NEGATIVE (Negative); Resp Syncy Virus RNA Qual PCR NEGATIVE (Negative); SARS COV2 PCR INHOUSE NEGATIVE (Negative)
[2024-10-21] MEDS: dexAMETHasone 2 MG TABLET 10 MG PO (09:15)
[2024-10-21 09:36] VITALS: O2SAT 96
--- NOTE | 2024-10-21 09:37 | PC.NURSE ---
sstates she's feeling better. sniffles remain. Skin pwd. will f/u as needed.
[2024-10-21 09:38] LABS: B Type Natriuretic Peptide 20 pg/mL (<100)
--- NOTE | 2024-10-21 09:44 | PC.NURSE ---
long summers b/c patient is driving home.
[2024-10-21 10:43] VITALS: BP 120/70; PULSE 86; RESP 16; TEMP 36.8; O2SAT 96
== END 2024-10-21 10:45 | disposition home or self-care (01) ==
PROVIDERS: Emergency Provider Emergency Medicine; PCP Internal Medicine
DX: R06.02 Shortness of breath (principal); R05.9 Cough, unspecified; I49.8 Other specified cardiac arrhythmias; R06.2 Wheezing; Z79.899 Other long term (current) drug therapy; Z03.818 Encounter for observation for suspected exposure to other biological agents ruled out
CPT/HCPCS: 0241U; 36415; 71046; 83880; 93005; 94640; 99284; 99285; J8540

== ENCOUNTER → 2024-10-21 07:37 | Outpatient (BNV) | payer OTHER, SELFPAY | PROVIDERS: Emergency Provider Emergency Medicine; PCP Internal Medicine; Visit Provider Radiology Diagnostic Radiology | DX: R05.9 Cough, unspecified (principal) | CPT/HCPCS: 71046 ==

== ENCOUNTER → 2024-10-21 08:21 | Outpatient (BNV) | payer OTHER, SELFPAY | PROVIDERS: Emergency Provider Emergency Medicine; PCP Internal Medicine; Visit Provider Internal Medicine Cardiovascular Disease | DX: R94.31 Abnormal electrocardiogram [ECG] [EKG] (principal); R06.02 Shortness of breath | CPT/HCPCS: 93010 ==

== ENCOUNTER 2024-11-25 09:18 | Outpatient (AMB) | payer OTHER, SELFPAY ==
--- NOTE | 2024-11-25 09:35 | MHC.PC.OV ---
Vital Signs 11/25/24 09:36 Height 5 ft 7 in Weight 219 lb 2 oz BMI 34.3 BP 128/74 Blood Pressure Location Lt brachial Position Sitting Pulse 64 Pulse Source Pulse Oximeter Temp 97.2 F Temp Source Temporal Artery Scan Pulse Oximetry (%) 94 Oxygen Delivery Method Room Air Intake Visit Reasons: [facility] 10[place]21 difficulty breathing Allergies Sulfa (Sulfonamide Antibiotics) (Sulfa (Sulfonamides)) Allergy (Severe, Verified 10/21/24 07:27) SWELLING cbd Allergy (Intermediate, Uncoded 09/12/24 09:55) chest pain Tobacco use date assessed: 09/12/24 Dental Screening Dental Screen Date: 09/12/24 HPI HPI Comments History of Present Illness Details 59 y/o Female patient who presents to the clinic today for EDF. She was admitted at [facility] on 10/21 for an evaluation and treatment of URI associated with Cough and SOB. Xray of chest Negative. She does have h/o Asthma and currently uses inhalers daily. Today Patient c/o heart Palpitations that stated ~ 1-2 months ago. She does have an appoinment with PCP in December 05. [facility] Medical History (Updated 11/25/24 @ 10:13 by Cori Morfin NP) Acute respiratory disease Cystitis H. pylori infection Lumbar pain Osteoarthritis of left hip HUONG (generalized anxiety disorder) Mild recurrent major depression Osteoarthritis of right knee Dyslipidemia Depression with anxiety Shortness of breath Dysphagia [id number] syndrome Polyarthralgia Hypothyroidism COVID-19 Nausea Osteoarthritis Fatty liver Anxiety Fibromyalgia Hypothyroid High cholesterol Asthma Surgical History History of esophagogastroduodenoscopy (EGD) Hx of colonoscopy History of blepharoplasty History of removal of ovarian cyst Tubal ligation status H/O oophorectomy Family History Sister Breast CA Pancreatic cancer Sister Breast CA Father Myocardial infarction Diabetes Hypertension CVD (cardiovascular disease) Mother Heart problem Daughter In good health Social History Household Members: None Housing: Apartment Alcohol intake: current Alcohol intake frequency: holidays/special occasions only Alcohol type: wine Patient Tobacco Use Status: Former Tobacco user Tobacco use type: Cigarette e-Cigarette/Vaping Use: Never Used Second Hand Smoke Exposure: No service: No Current occupational status: disabled Cognitive needs: Yes Hearing needs: No Vision needs: No Female Reproductive History Menstrual Age of Menarche: 11 Questionnaire Thrive Questionnaire Date Thrive assessed: 11/25/24 I am a: Patient What is your living situation today?: I have a steady place to live Within the past 12 months, did the food you bought not last and you didn't have the money to get more?: Sometimes True Within the past 12 months, did you worry whether your food would run out before you got money to buy more?: Sometimes True Do you have trouble paying for medicines?: No Do you have trouble getting transportation to medical appointments?: No Do you have trouble paying your heating and electricity bill?: Yes Do you have trouble taking care of your child, family member or friend?: Yes Do you have trouble with day-to-day activities such as bathing, preparing meals, shopping, managing finances, etc.?: No Are you currently unemployed and looking for a job?: No Are you interested in more education?: No Please select the resources that you would like help with: None THRIVE Score: 3 HUONG-7 AMB Questionnaire HUONG-7 Date HUONG - 7 assessed: 06/06/24 Source: Developed by Drs. William Noel, Gavi Yu, Hayden Sagastume and colleagues, with an educational gris from [employer]. Review of Systems Const All systems reviewed & are unremarkable except as noted in HPI and below Physical exam (Primary Care) Vital Signs: Last Vital Signs Temp 97.2 F 11/25/24 09:36 Pulse 64 11/25/24 09:36 BP 128/74 11/25/24 09:36 Pulse Ox 94 11/25/24 09:36 Oxygen Delivery Method Room Air 11/25/24 09:36 BMI result Body Mass Index 34.3 Tobacco/Smoking Status: Tobacco use Status Tobacco use date assessed 09/12/24 11/25/24 09:42 Patient Tobacco Use Status Former Tobacco user 11/25/24 09:42 Tobacco use type Cigarette 11/25/24 09:42 e-Cigarette/Vaping Use Never Used 11/25/24 09:42 Thrive Assessment: Date of Thrive Assessment Date Thrive assessed 11/25/24 11/25/24 09:42 Const General: comfortable and no acute distress Nutritional Appearance: obese Orientation/consciousness: patient oriented x3 Resp Effort & Inspection: normal respiratory effort Auscultation: clear to auscultation bilaterally, no crackles, no rales and no rhonchi Cardio Heart sounds: S1 normal heart sound present and S2 normal heart sound present Neuro General: patient oriented x3 Coding Level of Care Code Est Pt Level 4 (84754) Diagnoses Acute respiratory disease J06.9 Time Spent (min) 20 Assessment & Plan Assessment & Plan (1) Acute respiratory disease: Code(s): J06.9 - Acute upper respiratory infection, unspecified Category: Medical Plan: Resolved.
[2024-11-25 09:36] VITALS: BP 128/74; PULSE 64; TEMP 36.2; O2SAT 94; BMI 34.3
--- OUTSIDE RECORDS SUMMARY | 2024-11-25 09:42 | XMS_ITS | Patient Health Record ---
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
== END 2024-11-25 10:32 | disposition home or self-care (01) ==
LOC: HO.HMCH 09:19
PROVIDERS: PCP Internal Medicine; Visit Provider Nurse Practitioner Family
DX: J06.9 Acute upper respiratory infection, unspecified (principal)

== ENCOUNTER → 2024-11-25 09:18 | Outpatient (BNVA) | payer OTHER, SELFPAY | PROVIDERS: PCP Internal Medicine; Visit Provider Nurse Practitioner Family | DX: M79.7 Fibromyalgia (principal); J06.9 Acute upper respiratory infection, unspecified; J45.909 Unspecified asthma, uncomplicated; Z79.899 Other long term (current) drug therapy | CPT/HCPCS: 99212 ==

== ENCOUNTER 2024-12-05 10:23 | Outpatient (AMB) | payer OTHER, SELFPAY ==
--- NOTE | 2024-12-05 10:28 | MHC.PC.OV ---
Vital Signs 12/05/24 10:30 Height 5 ft 7 in Weight 219 lb BMI 34.3 BP 112/80 Blood Pressure Location Lt brachial Position Sitting Intake Visit Reasons: bp Intake Note: Patient here for a follow up BP Strike Plate Attacher Required: No Accompanied by: Self / Same As Patient Allergies Sulfa (Sulfonamide Antibiotics) (Sulfa (Sulfonamides)) Allergy (Severe, Verified 12/05/24 10:41) SWELLING cbd Allergy (Intermediate, Uncoded 12/05/24 10:41) chest pain Medication List - Last Reconciled 12/05/24 by Kim Wang MD [air conditioner As directed] albuterol sulfate 90 mcg/actuation 2 puffs inhalation Q4-6H PRN albuterol sulfate 2.5 mg (3 mL) inhalation Q6H 30 days cane As directed cetirizine (All Day Allergy (cetirizine)) 10 mg PO DAILY cholecalciferol (vitamin D3) 50 mcg PO DAILY commode As directed estradiol 0.01%(0.1mg/gram) pea sized amount to urethra daily for the first month and then 3 times per week thereafter. 30 days fluticasone furoate 50 mcg/actuation (Arnuity Ellipta) 1 inh inhalation DAILY 30 days fluticasone propionate 50 mcg/actuation (Flonase Allergy Relief) 1 spray intranasal DAILY Grab bar As directed Knee brace As directed levothyroxine 100 mcg PO DAILY 90 days lorazepam 0.5 mg PO DAILY PRN meclizine 25 mg PO DAILY PRN 30 days meloxicam 15 mg PO DAILY mirabegron ER (Myrbetriq) 50 mg PO DAILY 90 days nebulizers (AeroEclipse II Nebulizer) As directed pantoprazole 40 mg PO DAILY 90 days polyethylene glycol 3350 (Miralax) 17 grams PO DAILY [recliner As directed] rosuvastatin 10 mg PO BEDTIME 90 days sertraline 50 mg PO DAILY sertraline 100 mg PO DAILY Tobacco use date assessed: 09/12/24 Dental Screening Dental Screen Date: 09/12/24 HPI HPI Comments History of Present Illness Details The patient is a 59-year-old female presenting for follow-up of her chronic conditions and management of new symptoms including chest pain and dyspnea. She has a history of hypertension, which is currently well-controlled as noted in the visit. She also has asthma, for which she uses a prescribed inhaler. The patient reports allergic rhinitis and is currently taking cetirizine for management. She is allergic to levothyroxine and has been managing hypothyroidism with alternative medications. Her psychiatric history includes depression, for which she is under the care of a psychiatrist and is taking sertraline. She also experiences constipation, managed with MiraLAX, and gastroesophageal reflux disease, for which she takes pantoprazole. The patient has a history of hyperlipidemia, managed with rosuvastatin, and urinary incontinence, for which she takes Myrbetriq. She was previously a smoker but has since quit and only consumes wine on special occasions. Recent laboratory tests indicated prediabetes, and she is advised to repeat the tests to monitor her glucose levels. Her cholesterol levels were satisfactory at 173 mg/dL. The patient reports experiencing chest pain localized to the left side, accompanied by dyspnea, palpitations, fatigue, and tremors. An electrocardiogram performed in September showed normal sinus rhythm with sinus arrhythmia and minimal voltage criteria for left ventricular hypertrophy, which may be a normal variant. [facility] Medical History (Updated 12/05/24 @ 11:00 by Kim Wang MD) Acute respiratory disease Cystitis H. 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 Polyarthralgia Hypothyroidism COVID-19 Nausea Osteoarthritis Fatty liver Anxiety Fibromyalgia Hypothyroid High cholesterol Asthma Surgical History History of esophagogastroduodenoscopy (EGD) Hx of colonoscopy History of blepharoplasty History of removal of ovarian cyst Tubal ligation status H/O oophorectomy Family History Sister Breast CA Pancreatic cancer Sister Breast CA Father Myocardial infarction Diabetes Hypertension CVD (cardiovascular disease) Mother Heart problem Daughter In good health Social History Household Members: None Housing: Apartment Alcohol intake: current Alcohol intake frequency: holidays/special occasions only Alcohol type: wine Patient Tobacco Use Status: Former Tobacco user Tobacco use type: Cigarette e-Cigarette/Vaping Use: Never Used Second Hand Smoke Exposure: No service: No Current occupational status: disabled Cognitive needs: Yes Hearing needs: No Vision needs: No Female Reproductive History Menstrual Age of Menarche: 11 Questionnaire PHQ-9 Over the last 2 weeks, how often have you been bothered by any of the following problems? 1. Little interest or pleasure in doing things: not at all 2. Feeling down, depressed, or hopeless: several days 3. Trouble falling or staying asleep, or sleeping too much: several days 4. Feeling tired or having little energy: more than half the days 5. Poor appetite or overeating: several days 6. Feeling bad about yourself - or that you are a failure or have let yourself or your family down: more than half the days 7. Trouble concentrating on things, such as reading the newspaper or watching television: more than half the days 8. Moving or speaking so slowly that other people could have noticed. Or the opposite - being so fidgety or restless that you have been moving around a lot more than usual: more than half the days 9. Thoughts that you would be better off or of hurting yourself in some way: not at all Total score: 11 Depression Screening Interpretation: Positive Depression Screening Follow-up: Existing condition, In treatment, Community Mental Health Worker F/U and Follow-up Visit Requested Depression Screening Done: Yes 59312 - PHQ-9 Billing: Yes Source: Developed by Drs. William Noel, Gavi Yu, Hayden Sagastume and colleagues, with an educational gris from [email or web address]. Thrive Questionnaire Date Thrive assessed: 12/05/24 I am a: Patient What is your living situation today?: I have a steady place to live Within the past 12 months, did the food you bought not last and you didn't have the money to get more?: Sometimes True Within the past 12 months, did you worry whether your food would run out before you got money to buy more?: Sometimes True Do you have trouble paying for medicines?: No Do you have trouble getting transportation to medical appointments?: No Do you have trouble paying your heating and electricity bill?: Yes Do you have trouble taking care of your child, family member or friend?: Yes Do you have trouble with day-to-day activities such as bathing, preparing meals, shopping, managing finances, etc.?: No Are you currently unemployed and looking for a job?: No Are you interested in more education?: No Please select the resources that you would like help with: None Currently or been in a relationship where the following occur: I choose not to answer THRIVE Score: 3 AUDIT C Alcohol Use Questionnaire (AUDIT-C) 1. How often do you have a drink containing alcohol?: Monthly or less 2. How many drinks containing alcohol do you have on a typical day when you are drinking?: 1 or 2 3. How often do you have six or more drinks on one occasion?: Never Total Score: 1 Score Reviewed/Action Taken: No HUONG-7 AMB Questionnaire HUONG-7 Date HUONG - 7 assessed: 12/05/24 Feeling nervous, anxious, or on edge: 0 = Not at all Not being able to stop or control worryin = Several days Worrying too much about different things: 2 = More than half the days Trouble relaxin = More than half the days Being so restless that it is hard to sit still: 2 = More than half the days Becoming easily annoyed or irritable: 2 = More than half the days Feeling afraid as if something awful might happen: 2 = More than half the days Total HUONG-7 score (0-4 normal; 5-9 mild; 10-14 moderate; 15-21 severe): 11 Source: Developed by Drs. William Noel, Gavi Yu, Hayden Sagastume and colleagues, with an educational gris from [email or web address]. HUONG-7 Assessment Billing HUONG-7 Assessment Tool: HUONG-7 Assessment 69442 Review of Systems Const All systems reviewed & are unremarkable except as noted in HPI and below Card Reports chest pain at rest, Reports chest pain with activity, Reports rapid heart rate, Denies edema, Denies irregular heart rhythm, Denies claudication, Reports dyspnea, Reports dyspnea on exertion, Denies orthopnea, Denies paroxysmal nocturnal dyspnea and Denies slow heart rate Resp Denies cough, Reports dyspnea and Reports dyspnea on exertion GI Denies abdominal pain, Denies change in bowel habits, Denies excessive flatus, Denies nausea and Denies vomiting Denies urinary incontinence, Denies urinary hesitancy and Denies urinary urgency Musc Denies atrophy, Denies deformity and Denies limited range of motion Skin/Breast Denies bleeding lesions, Denies changing lesions and Denies rash Physical exam (Primary Care) BMI result Body Mass Index 34.3 BMI Assessment/Plan discussion: High BMI High, discussed plan: lifestyle, weight reduction, dietary and physical activity Tobacco/Smoking Status: Tobacco use Status Tobacco use date assessed 09/12/24 12/05/24 10:38 Patient Tobacco Use Status Former Tobacco user 12/05/24 10:38 Tobacco use type Cigarette 12/05/24 10:38 e-Cigarette/Vaping Use Never Used 12/05/24 10:38 PHQ-9: PHQ-9 Score PHQ-9: Total score 11 12/05/24 10:38 Depression Screening Interpretation: Positive Depression Screening Follow-up: Existing condition, In treatment, Community Mental Health Worker F/U and Follow-up Visit Requested Thrive Assessment: Date of Thrive Assessment Date Thrive assessed 12/05/24 12/05/24 10:38 Currently or been in a relationship where the following occur: I choose not to answer Const Limitations: ambulation with cane Resp Effort & Inspection: normal respiratory effort Auscultation: clear to auscultation bilaterally Cardio Jugular venous distension: no JVD Rate: regular rate Rhythm: regular rhythm Heart sounds: S1 normal heart sound present and S2 normal heart sound present Extrem General: Yes full ROM Coding Level of Care Code Est Pt Level 4 (98308) Complex EM visit Add On G2211 Diagnoses Mild recurrent major depression F33.0 HUONG (generalized anxiety disorder) F41.1 Chest pain R07.9 Abnormal EKG R94.31 Dyslipidemia E78.5 Hypothyroidism, unspecified type E03.9 Hypothyroidism type: unspecified Asthma J45.909 Impaired glucose tolerance R73.02 Additional Codes PHQ-9 - 94438 - PHQ-9 Billing: Yes ([id number]) HUONG-7 Assessment Billing - HUONG-7 Assessment Tool: HUONG-7 Assessment 47143 ([id number]) Time Spent (min) 22 Assessment & Plan Assessment & Plan (1) Mild recurrent major depression: Code(s): F33.0 - Major depressive disorder, recurrent, mild Category: Medical (2) HUONG (generalized anxiety disorder): Code(s): F41.1 - Generalized anxiety disorder Category: Medical (3) Chest pain: Code(s): R07.9 - Chest pain, unspecified Category: Medical (4) Abnormal EKG: Code(s): R94.31 - Abnormal electrocardiogram [ECG] [EKG] Category: Medical (5) Dyslipidemia: Code(s): E78.5 - Hyperlipidemia, unspecified Category: Medical (6) Hypothyroidism: Code(s): E03.9 - Hypothyroidism, unspecified Category: Medical Qualifiers: Hypothyroidism type: unspecified Qualified Code(s): E03.9 - Hypothyroidism, unspecified (7) Asthma: Comment: Continue follow-up PCP- Code(s): J45.909 - Unspecified asthma, uncomplicated Category: Medical (8) Impaired glucose tolerance: Code(s): R73.02 - Impaired glucose tolerance (oral) Category: Medical Plan The patient will continue with her current antihypertensive regimen as her blood pressure is well-controlled. She should maintain her asthma management plan, including the use of her inhaler as needed. For allergic rhinitis, she will continue taking cetirizine. Her hypothyroidism management will be adjusted due to her allergy to levothyroxine. The patient will continue psychiatric care with her psychiatrist and maintain her sertraline regimen for depression. For constipation, she will continue using MiraLAX, and for gastroesophageal reflux disease, she will continue pantoprazole. She will continue rosuvastatin for hyperlipidemia and Myrbetriq for urinary incontinence. She is advised to repeat her glucose tests to monitor prediabetes and maintain her cholesterol levels. The patient should monitor her chest pain and dyspnea closely, and follow up if symptoms persist or worsen. Further evaluation may be needed if her symptoms do not improve. Patient was informed and verbally consented to the use of an ambient scribe for clinic note documentation during this visit. Orders: Orders Vitamin D 25-OH Total Today E55.9 - Vitamin D deficiency, unspecified Comprehensive [place]. Panel Fast Today R07.9 - Chest pain, unspecified Thyroid Stimulating Hormone Today E03.9 - Hypothyroidism, unspecified Referrals Pulmonology Referral J45.909 - Unspecified asthma, uncomplicated Cardiology Referral R94.31 - Abnormal electrocardiogram [ECG] [EKG] Medications: Refilled [air conditioner] As directed 1 ea 0RF J30.2 - Other seasonal allergic rhinitis
[2024-12-05 10:30] VITALS: BP 112/80; BMI 34.3
--- OUTSIDE RECORDS SUMMARY | 2024-12-05 11:13 | XMS_ITS | Clinical Summary ---
Author Organization [employer] Address [address] [facility] [address] [facility] [address] [place] [id number] Care Team Providers Care Carpet Repairer Name Role Phone Unavailable Primary Care Provider Unavailabl e Immunizations Immunization Administration Dates Next Due Hep A, Adult [...] Panel 1963 SDOH Screening 1965 Sigmoidoscopy 1963 Disability Screening 1963 Alcohol/Substance Use Screening 1975 Tobacco Screening [...] 09/22/2020, Additional history exists Influenza Vaccine (#1) 2025 , 03/07/2021, 04/04/2020, Additional history exists Hepatitis [...] BILATERAL DIAGN MAMMO 1 Procedure Note Provider, MD Valeria - 08/23/2022 Refer to the Notes tab for result details Legacy Procedure: 3D BILATERAL DIAGN MAMMO 1 Trupti Hopper DO IMG BI PROCEDURES Final Resu lt * HPV E6/E7 RFLX MARYBEL 16 18/45 (07/18/2016 10:58 AM EST) ADDITIONAL TESTING Not indicated () [facility] Comment: Test Performed by [facility], [facility], [address] [place] [address] Issa Renner M.D., Ph.D., Director of Laboratories , [place] [id number] HPV 16 RNA Test not performed [facility] HPV 18/45 RNA Test not performed [facility] HPV mRNA E6/E7 Not Detected NOT DETECTED [facility] Comment: This test was performed using the APTIMA(R) HPV Assay ([employer].). This assay detects E6/E7 viral messenger RNA (mRNA) from 14 high-risk HPV types (16,18,31,33,35,39,45,51, 52,56,58,59,66,68). For additional information please refer to: http://education.Inventure Cloud/faq/KLO545g0 (This link is being provided for informational/ educational purposes only.) Please note: Effective 02/11/2016, HPV testing will be performed using [employer]'s APTIMA test which targets mRNA. Detecting mRNA instead of DNA, as in older methods, offers significant improvements in specificity. 07/18/2016 10:5 8 AM EST us Trupti Hopper DO HISTORICAL/NON ORDERABLE LAB S Final Result [facility] [address] from Last 3 Months or Most Recently Relevant to Health Maintenance [place] [address] [place] [address] STANDARD
--- OUTSIDE RECORDS SUMMARY | 2024-12-05 11:13 | XMS_ITS | Patient Health Record ---
Author Organization [facility] Address [address] [place] [address] Care Team Providers Care Returns Supervisor Name Role Phone William Powell [phone] Reason For Referral No Information Plan Of Treatment No Information
--- OUTSIDE RECORDS SUMMARY | 2024-12-05 11:13 | XMS_ITS | Clinical Summary ---
Author Organization [employer] [facility] Address [address] [place] [address] Care Team Providers Care Global Product Manager Name Role Phone Unavailable Primary Care [...] Vaccines (1 of 2) 11/11/2013 COVID-19 Vaccine (1 - 2023-2 5 season) 2024 Influenza Vaccine (#1) 2025 RSV Immunization Adult Patie nts (1 [...]
== END 2024-12-05 10:52 | disposition home or self-care (01) ==
LOC: HO.HMCH 10:24
PROVIDERS: PCP Internal Medicine; Visit Provider Internal Medicine
DX: F33.0 Major depressive disorder, recurrent, mild (principal); F41.1 Generalized anxiety disorder; R07.9 Chest pain, unspecified; R94.31 Abnormal electrocardiogram [ECG] [EKG]; E78.5 Hyperlipidemia, unspecified; E03.9 Hypothyroidism, unspecified; J45.909 Unspecified asthma, uncomplicated; R73.02 Impaired glucose tolerance (oral)

== ENCOUNTER → 2024-12-05 10:23 | Outpatient (BNVA) | payer OTHER, SELFPAY | PROVIDERS: PCP Internal Medicine; Visit Provider Internal Medicine | DX: I10 Essential (primary) hypertension (principal); R07.9 Chest pain, unspecified; R06.00 Dyspnea, unspecified; E78.5 Hyperlipidemia, unspecified; R73.03 Prediabetes; F33.0 Major depressive disorder, recurrent, mild; F41.1 Generalized anxiety disorder; R94.31 Abnormal electrocardiogram [ECG] [EKG]; E03.9 Hypothyroidism, unspecified; J45.909 Unspecified asthma, uncomplicated; R73.02 Impaired glucose tolerance (oral); E55.9 Vitamin D deficiency, unspecified; Z79.899 Other long term (current) drug therapy | CPT/HCPCS: 96127; 99212 ==

== ENCOUNTER 2024-12-06 07:22 | Outpatient (REF) | payer OTHER, SELFPAY ==
--- OUTSIDE RECORDS SUMMARY | 2024-12-06 07:24 | XMS_ITS | Clinical Summary ---
Author Organization [employer] Address [address] [facility] [address] [place] [id number] Care Team Providers Care Vamp Marker Name Role Phone Unavailable Primary Care Provider [...] AM EST) ADDITIONAL TESTING Not indicated () [facility] Comment: Test Performed by [facility], [facility], [address] [place] [address] Issa Renner M.D., Ph.D., Director of Laboratories , [place] [id number] HPV 16 RNA Test not performed [facility] HPV 18/45 RNA Test not performed [facility] HPV mRNA E6/E7 Not Detected NOT DETECTED [facility] Comment: This test was performed using the APTIMA(R) HPV Assay ([employer] This assay detects E6/E7 viral messenger RNA (mRNA) from 14 high-risk HPV types (16,18,31,33,35,39,45,51, 52,56,58,59,66,68). For additional information please refer to: http://education.Trustifi/faq/SVW812n1 (This link is being provided for informational/ educational purposes only.) Please note: Effective 02/11/2016, HPV testing will be performed using [employer]'s APTIMA test which targets mRNA. Detecting mRNA instead of DNA, as in older methods, offers significant improvements in specificity. 07/18/2016 10:5 8 AM EST us Trupti Hopper DO HISTORICAL/NON ORDERABLE LAB S Final Result [facility] [address] from Last 3 Months or Most Recently Relevant to Health Maintenance Insurance [place] [address] STANDARD
--- OUTSIDE RECORDS SUMMARY | 2024-12-06 07:24 | XMS_ITS | Patient Health Record ---
Author Organization [facility] Address [address] [place] [address] Care Team Providers Care Agricultural Engineering Technician Name Role Phone William Powell [phone] Reason For Referral No Information Plan Of Treatment No Information
--- OUTSIDE RECORDS SUMMARY | 2024-12-06 07:24 | XMS_ITS | Clinical Summary ---
Author Organization [employer] [facility] ity Address [address] [place] [address] Care Team Providers Care Black Belt Name Role Phone Unavailable Primary Care Provider [...]
[2024-12-06 08:34] LABS: Alanine Aminotransferase 23 U/L (0-31); Albumin Level 4.2 g/dL (3.5-5.0); Alkaline Phosphatase 90 U/L (39-117); Anion Gap 10 (12-20); Aspartate Amino Transferase 25 U/L (5-31); Blood Urea Nitrogen 14 mg/dL (9-16); Calcium 8.9 mg/dL (8.4-10.2); Carbon Dioxide 26 mmol/L (22-29); Chloride 110 mmol/L (96-108); Cholesterol 142 mg/dL (<200); Estimated Glomerular Filt Rate > 60; HDL Cholesterol 42 mg/dL (>40); Potassium 4.2 mmol/L (3.3-5.1); Sodium 142 mmol/L (135-145); Total Protein 7.0 g/dL (6.5-8.0); Triglycerides 111 mg/dL (<150)
[2024-12-06 08:53] LABS: Thyroid Stimulating Hormone 0.25 uIU/mL (0.32-4.0)
== END 2024-12-06 07:23 | disposition home or self-care (01) ==
LOC: HO.LAB 07:22
PROVIDERS: Visit Provider Internal Medicine
DX: K59.09 Other constipation (principal); E78.5 Hyperlipidemia, unspecified; E03.9 Hypothyroidism, unspecified; E55.9 Vitamin D deficiency, unspecified; R41.3 Other amnesia; R07.89 Other chest pain
CPT/HCPCS: 36415; 80053; 80061; 82306; 84443

== ENCOUNTER 2024-12-20 08:03 | Outpatient (REF) | payer OTHER, SELFPAY ==
--- OUTSIDE RECORDS SUMMARY | 2024-12-20 08:07 | XMS_ITS | Clinical Summary ---
Author Organization [employer] [facility] ity Address [address] [place] [address] Care Team Providers Care Eyelet Maker Name Role Phone Unavailable Primary Care Provider [...] Vaccine (1 - 2023-2 5 season) 2024 Depression Screening 06/01/2024 Influenza Vaccine (#1) 2025 RSV Immunization Adult [...]
--- OUTSIDE RECORDS SUMMARY | 2024-12-20 08:07 | XMS_ITS | Patient Health Record ---
Author Organization [facility] Address [address] [place] [address] Care Team Providers Care Chain Maker Name Role Phone William Powell [phone] Reason For Referral No Information Plan Of Treatment No Information
--- OUTSIDE RECORDS SUMMARY | 2024-12-20 08:07 | XMS_ITS | Clinical Summary ---
Author Organization [employer] Address [address] [facility] [address] [place] [id number] Care Team Providers Care General Manager Name Role Phone Unavailable Primary Care [...] AM EST) ADDITIONAL TESTING Not indicated () [facility] Comment: Test Performed by [facility], [employer] [facility], [address] [place] [address] Issa Renner M.D., Ph.D., Director of Laboratories , [place] [id number] HPV 16 RNA Test not performed [facility] HPV 18/45 RNA Test not performed [facility] HPV mRNA E6/E7 Not Detected NOT DETECTED [facility] Comment: This test was performed using the APTIMA(R) HPV Assay ([employer]KO[employer] Inc.). This assay detects E6/E7 viral messenger RNA (mRNA) from 14 high-risk HPV types (16,18,31,33,35,39,45,51, 52,56,58,59,66,68). For additional information please refer to: http://education.eKonnekt/faq/HZU377q0 (This link is being provided for informational/ educational purposes only.) Please note: Effective 02/11/2016, HPV testing will be performed using [employer]'s APTIMA test which targets mRNA. Detecting mRNA instead of DNA, as in older methods, offers significant improvements in specificity. 07/18/2016 10:5 8 AM EST us Trupti Hopper DO HISTORICAL/NON ORDERABLE LAB S Final Result [facility] [address] from Last 3 Months or Most Recently Relevant to Health Maintenance [place] [address] [place] [address] STANDARD
== END 2024-12-20 08:04 | disposition home or self-care (01) ==
LOC: HO.MAMMO 08:03
PROVIDERS: PCP Internal Medicine; Visit Provider Internal Medicine
DX: Z13.89 Encounter for screening for other disorder (principal)

== ENCOUNTER 2024-12-21 10:31 | Outpatient (AMB) | payer OTHER, SELFPAY ==
--- NOTE | 2024-12-21 10:40 | MHC.OFFVIS ---
Intake Visit Reasons: 6M PVR Intake Note: Patient is Present for 6 mo Follow Up for LUTS Urology Medication: Myrbetriq, Estradiol Antibiotic Allergies: Sulfa Blood Thinners: None PVR:0 mls Electronic Masking System Operator Required: Yes Electronic Masking System Operator Name: [id number] Accompanied by: Self / Same As Patient Allergies Sulfa (Sulfonamide Antibiotics) (Sulfa (Sulfonamides)) Allergy (Severe, Verified 12/21/24 11:16) SWELLING cbd Allergy (Intermediate, Uncoded 12/21/24 11:16) chest pain Medication List - Last Reconciled 12/21/24 by RIVER Camacho [air conditioner As directed] albuterol sulfate 90 mcg/actuation 2 puffs inhalation Q4-6H PRN albuterol sulfate 2.5 mg (3 mL) inhalation Q6H 30 days cane As directed cetirizine (All Day Allergy (cetirizine)) 10 mg PO DAILY cholecalciferol (vitamin D3) 50 mcg PO DAILY commode As directed fluticasone furoate 50 mcg/actuation (Arnuity Ellipta) 1 inh inhalation DAILY 30 days fluticasone propionate 50 mcg/actuation (Flonase Allergy Relief) 1 spray intranasal DAILY Grab bar As directed Knee brace As directed levothyroxine (Levoxyl) 88 mcg PO DAILY 90 days lorazepam 0.5 mg PO DAILY PRN meloxicam 15 mg PO DAILY mirabegron ER (Myrbetriq) 50 mg PO DAILY 90 days nebulizers (AeroEclipse II Nebulizer) As directed pantoprazole 40 mg PO DAILY 90 days polyethylene glycol 3350 (Miralax) 17 grams PO DAILY [recliner As directed] rosuvastatin 10 mg PO BEDTIME 90 days sertraline 50 mg PO DAILY sertraline 100 mg PO DAILY HPI Comments Details: Harini is a pleasant 59 year old Polish speaking patient of Dr. Gilbert Wang. She has a PMH of asthma, depression, anxiety, dyslipidemia, fatty liver, fibromyalgia, hypothyroidism, and osteoarthritis. She presents to the office today for follow-up of her lower urinary tract symptoms. In discussion with the patient today she reports to be doing and feeling well. She reports how helpful Myrbetriq has been in alleviating her lower urinary tract symptoms of urinary urgency and frequency she had previously been experiencing however she does feel she experiences episodes of urinary hesitancy. We did discussed potential causes of urinary hesitancy. In office urinalysis results reviewed with the patient today. PVR 0 mL. Previous workup has included a retroperitoneal ultrasound 05/24 noting bilateral kidneys with no hydronephrosis or renal calculi. 1.0 cm left upper pole benign cyst the bladder is well distended. Bilateral jets are demonstrated. Pre void bladder volume is approximatly 300 mL. Postvoid bladder volume was not obtained. She denies having had any UTI like symptoms and or UTIs since her last visit. She denies hematuria, dysuria, foul smelling urine, changes to urinary stream, flank pain, fever, and or chills. She otherwise denies any other isues or concnerns at this time. [facility] Medical History Acute respiratory disease Cystitis H. pylori infection Lumbar pain Osteoarthritis of left hip HUONG (generalized anxiety disorder) Mild recurrent major depression Osteoarthritis of right knee Dyslipidemia Depression with anxiety Shortness of breath Dysphagia [id number] syndrome Polyarthralgia Hypothyroidism COVID-19 Nausea Osteoarthritis Fatty liver Anxiety Fibromyalgia Hypothyroid High cholesterol Asthma Surgical History History of esophagogastroduodenoscopy (EGD) Hx of colonoscopy History of blepharoplasty History of removal of ovarian cyst Tubal ligation status H/O oophorectomy Family History Sister Breast CA Pancreatic cancer Sister Breast CA Father Myocardial infarction Diabetes Hypertension CVD (cardiovascular disease) Mother Heart problem Daughter In good health Social History Household Members: None Housing: Apartment Alcohol intake: current Alcohol intake frequency: holidays/special occasions only Alcohol type: wine Patient Tobacco Use Status: Former Tobacco user Tobacco use type: Cigarette e-Cigarette/Vaping Use: Never Used Second Hand Smoke Exposure: No service: No Current occupational status: disabled Cognitive needs: Yes Hearing needs: No Vision needs: No Female Reproductive History Menstrual Age of Menarche: 11 Review of Systems Const Reports as per HPI Eyes Reports no additional complaints ENT Reports no additional complaints Card Reports no additional complaints Resp Reports as per HPI GI Reports no additional complaints Reports as per [facility] Musc Reports as per [facility] Neuro Reports no additional complaints Psych Reports as per HPI Sudhakar/Lymph Reports no additional complaints Aller/Immun Reports as per [facility] Physical Exam Const General: cooperative, healthy appearing, comfortable, no acute distress, well developed, alert and awake Nutritional Appearance: overweight Orientation/consciousness: patient oriented x3 Limitations: no limitations HEENT Head: Yes normal to inspection, Yes normocephalic and Yes atraumatic Ears: hearing grossly normal bilaterally Eyes General: appearance normal, both eyes and all related structures Neck Neck: Yes normal visual inspection and Yes trachea midline Chest Chest palpation & inspection: normal inspection of the chest Resp Effort & Inspection: normal respiratory effort and able to speak in complete sentences Cardio Rate: regular rate GI Inspection: Yes normal to inspection General: Yes no CVA tenderness Back/Spine/Pelvis Back: no CVA tenderness Skin General skin exam: no rashes or lesions noted Neuro General: patient oriented x3 Extrem General: Yes normal to inspection Psych Appearance: grossly normal and well kempt Mental Status: mental status grossly normal Speech and movement: Normal speech and movement present and Clear speech present Affect: normal affect Attitude: cooperative Thought process: Normal thought process present Thought content: Normal thought content present Insight: Fair insight present (Psych) Judgement: Fair judgement present (Psych) Office Procedures Post Void Residual Post Residual Void Post Void Residual (PVR): 0 [id number] Void Residual by ultrasound Results AMB Urinalysis, Automated UA Leukoctes 0 Akua/uL Last Edit by Gayathri Snow MA on 12/21/24 13:32 UA Nitrite Negative Last Edit by Gayathri Snow MA on 12/21/24 13:32 UA Urobilinogen 3.5 mg/dL Last Edit by Gayathri Snow MA on 12/21/24 13:32 UA Protein 0 mg/dL Last Edit by Gayathri Snow MA on 12/21/24 13:32 UA pH 6.0 Last Edit by Gayathri Snow MA on 12/21/24 13:32 UA Blood 0 Jacobo/uL Last Edit by Gayathri Snow MA on 12/21/24 13:32 UA Specific [place] 1.010 Last Edit by Gayathri Snow MA on 12/21/24 13:32 UA Ketone Negative Last Edit by Gayathri Snow MA on 12/21/24 13:32 UA Bilirubin 0 mg/dL Last Edit by Gayathri Snow MA on 12/21/24 13:32 UA Glucose 0 mg/dL Last Edit by Gayathri Snow MA on 12/21/24 13:32 Results Reviewed Results Reviewed: Laboratory Last Values Urine pH (Auto) 6.0 12/21/24 11:17 Specific [place] (Auto) 1.010 12/21/24 11:17 Urine Protein (Auto) 0 mg/dL 12/21/24 11:17 Glucose (UA)(Auto) 0 mg/dL 12/21/24 11:17 Urine Ketones (Auto) Negative 12/21/24 11:17 Urine Blood (Auto) 0 Jacobo/uL 12/21/24 11:17 Urine Nitrite (Auto) Negative 12/21/24 11:17 Urine Bilirubin (Auto) 0 mg/dL 12/21/24 11:17 Urine Urobilinogen (Auto) 3.5 mg/dL 12/21/24 11:17 Leukocyte Esterase (Auto) 0 Akua/uL 12/21/24 11:17 Assessment & Plan Assessment & Plan (1) Renal cyst: Code(s): N28.1 - Cyst of kidney, acquired Category: Medical (2) Urinary frequency: Code(s): R35.0 - Frequency of micturition Category: Medical (3) Lower urinary tract symptoms (LUTS): Code(s): R39.9 - Unspecified symptoms and signs involving the genitourinary system Category: Medical (4) History of urinary hesitancy: Code(s): Z87.898 - Personal history of other specified conditions Category: Medical Plan In office urinalysis results reviewed with the patient today; as noted above. PVR 0 mL. We did discussed potential causes of urinary hesitancy as well as further treatment options and risks and benefits of these treatment options. Stop Myrbetriq. Start VESIcare 5 mg daily as discussed and prescribed. All questions were answered. We discussed bladder triggers and irritants. Follow-up in 1-3 months with PVR; or sooner with any issues, concerns, and or questions. Orders: Orders AMB Urinalysis Automated Today Z13.9 - Encounter for screening, unspecified AMB Post Void Residual by ultrasound Today R35.1 - Nocturia Medications: New solifenacin (Vesicare) 5 mg PO DAILY 30 tabs 3RF 30 days Discontinued mirabegron ER (Myrbetriq) Discontinued Reason: Doctor's Order 50 mg PO DAILY 90 days 90 tabs 2RF Patient Instructions: The patient had an opportunity to ask questions regarding the treatment plan. All questions were answered. Physical exam, labs, and imaging were discussed and reviewed in detail. As well as risks, benefits, and discussion of treatment choices. No major barriers to understanding were identified. The patient expressed understanding and agreement with the above treatment plan. The patient was made aware they should contact our office by phone for worsening of their current condition, the appearance of new symptoms, or with any questions or concerns. Compliance is encouraged with any medications and follow up testing that is ordered. It is a privilege to be allowed the opportunity to participate in? your urological care.? Again, if you have any questions or concerns If you have any questions or concerns please do not hesitate to contact me. The office is [phone]. This note is constructed using voice recognition software. While every effort has been made to ensure accuracy tower equipment repairer errors may have been included. Yours sincerely, RIVER Camacho Coding Level of Care Code Est Pt Level 4 (22178) Complex EM visit Add On G2211 Diagnoses Renal cyst N28.1 Urinary frequency R35.0 Lower urinary tract symptoms (LUTS) R39.9 History of urinary hesitancy Z87.898 CPT Codes Post Residual Void - PVR CPT Code: 85921-[id number] Void Residual by ultrasound ([id number])
--- OUTSIDE RECORDS SUMMARY | 2024-12-21 11:36 | XMS_ITS | Clinical Summary ---
Author Organization [employer] Address [address] [facility] 7t h Floor [place] [id number] Care Team Providers Care Pot Fireman Name Role Phone Unavailable Primary Care Provider [...] AM EST) ADDITIONAL TESTING Not indicated () [facility] Comment: Test Performed by [facility], [facility], [address] [place] [address] Issa Renner M.D., Ph.D., Director of Laboratories , [place] [id number] HPV 16 RNA Test not performed [facility] HPV 18/45 RNA Test not performed [facility] HPV mRNA E6/E7 Not Detected NOT DETECTED [facility] Comment: This test was performed using the APTIMA(R) HPV Assay ([employer] This assay detects E6/E7 viral messenger RNA (mRNA) from 14 high-risk HPV types (16,18,31,33,35,39,45,51, 52,56,58,59,66,68). For additional information please refer to: http://education.Muse & Co/faq/NFF758s6 (This link is being provided for informational/ educational purposes only.) Please note: Effective 02/11/2016, HPV testing will be performed using [employer]'s APTIMA test which targets mRNA. Detecting mRNA instead of DNA, as in older methods, offers significant improvements in specificity. 07/18/2016 10:5 8 AM EST us Trupti Hopper DO HISTORICAL/NON ORDERABLE LAB S Final Result [facility] [address] from Last 3 Months or Most Recently Relevant to Health Maintenance Insurance [place] [address] STANDARD
--- OUTSIDE RECORDS SUMMARY | 2024-12-21 11:36 | XMS_ITS | Clinical Summary ---
Author Organization [employer] [facility] ity Address [address] [place] [address] Care Team Providers Care Vessel Manager Name Role Phone Unavailable Primary Care [...]
--- OUTSIDE RECORDS SUMMARY | 2024-12-21 11:36 | XMS_ITS | Patient Health Record ---
Author Organization [facility] Address [address] [place] [address] Care Team Providers Care Telephone Operator Name Role Phone William Powell [phone] Reason For Referral No Information Plan Of Treatment No Information
== END 2024-12-21 11:17 | disposition home or self-care (01) ==
LOC: HO.HUSH 10:32
PROVIDERS: PCP Internal Medicine; Visit Provider Nurse Practitioner Family
DX: N28.1 Cyst of kidney, acquired (principal); R35.0 Frequency of micturition; R39.9 Unspecified symptoms and signs involving the genitourinary system; Z87.898 Personal history of other specified conditions; Z13.9 Encounter for screening, unspecified
CPT/HCPCS: 99214; G2211

== ENCOUNTER → 2024-12-21 10:31 | Outpatient (BNVA) | payer OTHER, SELFPAY | PROVIDERS: PCP Internal Medicine; Visit Provider Nurse Practitioner Family | DX: N28.1 Cyst of kidney, acquired (principal); R35.0 Frequency of micturition; R39.9 Unspecified symptoms and signs involving the genitourinary system; Z87.898 Personal history of other specified conditions | CPT/HCPCS: 51798; 81003; 99212 ==

== ENCOUNTER 2025-01-02 06:10 | Outpatient (REF) | payer OTHER, SELFPAY ==
--- OUTSIDE RECORDS SUMMARY | 2025-01-02 06:12 | XMS_ITS | Clinical Summary ---
Author Organization [employer] Address [address] [facility] 7t h Floor [place] [id number] Care Team Providers Care Team Assistant Name Role Phone Unavailable Primary Care Provider [...] AM EST) ADDITIONAL TESTING Not indicated () [facility] Comment: Test Performed by [facility], [facility], [address] [place] [address] Issa Renner M.D., Ph.D., Director of Laboratories , [place] [id number] HPV 16 RNA Test not performed [facility] HPV 18/45 RNA Test not performed [facility] HPV mRNA E6/E7 Not Detected NOT DETECTED [facility] Comment: This test was performed using the APTIMA(R) HPV Assay ([employer] This assay detects E6/E7 viral messenger RNA (mRNA) from 14 high-risk HPV types (16,18,31,33,35,39,45,51, 52,56,58,59,66,68). For additional information please refer to: http://education.Sandbox/faq/IAQ310p2 (This link is being provided for informational/ educational purposes only.) Please note: Effective 02/11/2016, HPV testing will be performed using [facility] [facility]'s APTIMA test which targets mRNA. Detecting mRNA instead of DNA, as in older methods, offers significant improvements in specificity. 07/18/2016 10:5 8 AM EST us Trupti Hopper DO HISTORICAL/NON ORDERABLE LAB S Final Result [facility] [place] [facility] [address] from Last 3 Months or Most Recently Relevant to Health Maintenance [place] [address] STANDARD
--- OUTSIDE RECORDS SUMMARY | 2025-01-02 06:12 | XMS_ITS | Clinical Summary ---
Author Organization [employer] [facility] ity Address [address] [place] [address] Care Team Providers Care Wood Box Maker Name Role Phone Unavailable Primary Care [...]
--- OUTSIDE RECORDS SUMMARY | 2025-01-02 06:12 | XMS_ITS | Patient Health Record ---
Author Organization [facility] Address [address] [place] [address] Care Team Providers Care Content Designer Name Role Phone William Powell [phone] Reason For Referral No Information Plan Of Treatment No Information
[2025-01-02 08:21] LABS: Alanine Aminotransferase 25 U/L (0-31); Albumin Level 4.2 g/dL (3.5-5.0); Alkaline Phosphatase 97 U/L (39-117); Anion Gap 10 (12-20); Aspartate Amino Transferase 30 U/L (5-31); Blood Urea Nitrogen 19 mg/dL (9-16); Calcium 9.0 mg/dL (8.4-10.2); Carbon Dioxide 25 mmol/L (22-29); Chloride 108 mmol/L (96-108); Estimated Glomerular Filt Rate > 60; Potassium 4.3 mmol/L (3.3-5.1); Sodium 139 mmol/L (135-145); Total Protein 7.5 g/dL (6.5-8.0)
[2025-01-02 08:40] LABS: Thyroid Stimulating Hormone 1.51 uIU/mL (0.32-4.0)
== END 2025-01-02 06:11 | disposition home or self-care (01) ==
LOC: HO.LAB 06:10
PROVIDERS: PCP Internal Medicine; Visit Provider Internal Medicine
DX: R07.9 Chest pain, unspecified (principal); E55.9 Vitamin D deficiency, unspecified; E03.9 Hypothyroidism, unspecified
CPT/HCPCS: 36415; 80053; 82306; 84443

== ENCOUNTER 2025-02-02 07:26 | Outpatient (REF) | payer OTHER, SELFPAY ==
--- OUTSIDE RECORDS SUMMARY | 2025-02-02 07:29 | XMS_ITS | Patient Health Record ---
Author Organization [facility] Address [address] [place] [address] Care Team Providers Care Matcher [employer] Name Role Phone William Powell [phone] Reason For Referral No Information Plan Of Treatment No Information
--- OUTSIDE RECORDS SUMMARY | 2025-02-02 07:29 | XMS_ITS | Clinical Summary ---
Author Organization [employer] Address [address] [facility] 7t h Floor [place] [id number] Care Team Providers Care Final Finisher Name Role Phone Unavailable Primary Care Provider [...] 1-dose series) 2023 COVID-19 Vaccine ( season) 2025 07/17/2022, 05/02/2021, 09/22/2020, Additional history exists Influenza [...] AM EST) ADDITIONAL TESTING Not indicated () [facility] Comment: [facility] Performed by [facility], [facility], [address] [place] [address] Issa Renner M.D., Ph.D., Director of Laboratories , [place] [id number] HPV 16 RNA Test not performed [facility] HPV 18/45 RNA Test not performed [facility] HPV mRNA E6/E7 Not Detected NOT DETECTED [facility] Comment: This test was performed using the APTIMA(R) HPV Assay ([employer] This assay detects E6/E7 viral messenger RNA (mRNA) from 14 high-risk HPV types (16,18,31,33,35,39,45,51, 52,56,58,59,66,68). For additional information please refer to: http://education.Rival IQ/faq/SLF752h6 (This link is being provided for informational/ educational purposes only.) Please note: Effective 02/11/2016, HPV testing will be performed using [employer]'s APTIMA test which targets mRNA. Detecting mRNA instead of DNA, as in older methods, offers significant improvements in specificity. 07/18/2016 10:5 8 AM EST us Trupti Hopper DO HISTORICAL/NON ORDERABLE LAB S Final Result [facility] [address] from Last 3 Months or Most Recently Relevant to Health Maintenance Insurance [place] [address] STANDARD
--- OUTSIDE RECORDS SUMMARY | 2025-02-02 07:29 | XMS_ITS | Clinical Summary ---
Author Organization [employer] [facility] ity Address [address] [place] [address] Care Team Providers Care Farmworker [employer] Name Role Phone Unavailable Primary Care Provider [...] 11/11/2013 Zoster Vaccines (1 of 2) 11/11/2013 Depression Screening 06/01/2024 COVID-19 Vaccine (1 - 2023-2 5 season) 2025 Influenza Vaccine (#1) 2025 RSV Immunization Adult [...]
== END 2025-02-02 07:27 | disposition home or self-care (01) ==
LOC: HO.LAB 07:26
PROVIDERS: Visit Provider Internal Medicine
DX: Z13.89 Encounter for screening for other disorder (principal)

== ENCOUNTER 2025-02-02 12:52 | Outpatient (AMB) | payer OTHER, SELFPAY ==
--- NOTE | 2025-02-02 12:57 | A.OFFVIS_ITS ---
Vital Signs 02/02/25 12:58 Height 5 ft 7 in Weight 216 lb BMI 33.8 Intake Visit Reasons: New Pt - right foot pain Intake Note: Harini is a 59 year old female who presents today as a new patient for a evaluation of her right foot pain. She reports feeling a lump on lateral aspect of the ankle, and her toes are not feeling numb. Patient states this has been going on for 1 month . Patient has tried Aleve, advil, Nabumetone 750mg to minimize discomfort and has provided some relief. FINDINGS: This examination shows no evidence pf fracture or dislocation. There is mild loss of joint in the first metatarsophalangeal joint. A minimal plantar calcaneal bone spur is present IMPRESSION: No evidence of fracture or dislocation Allergies Sulfa (Sulfonamide Antibiotics) (Sulfa (Sulfonamides)) Allergy (Severe, Verified 02/02/25 13:02) SWELLING cbd Allergy (Intermediate, Uncoded 12/21/24 11:16) chest pain Medication List - Last Reconciled 02/02/25 by Tram Toscano DPM [air conditioner As directed] albuterol sulfate 90 mcg/actuation 2 puffs inhalation Q4-6H PRN albuterol sulfate 2.5 mg (3 mL) inhalation Q6H 30 days cane As directed cetirizine (All Day Allergy (cetirizine)) 10 mg PO DAILY cholecalciferol (vitamin D3) 50 mcg PO DAILY commode As directed fluticasone furoate 50 mcg/actuation (Arnuity Ellipta) 1 inh inhalation DAILY 30 days fluticasone propionate 50 mcg/actuation (Flonase Allergy Relief) 1 spray intranasal DAILY Grab bar As directed Knee brace As directed levothyroxine (Levoxyl) 88 mcg PO DAILY 90 days lorazepam 0.5 mg PO DAILY PRN meloxicam 15 mg PO DAILY nabumetone 750 mg PO BID 30 days nebulizers (AeroEclipse II Nebulizer) As directed pantoprazole 40 mg PO DAILY 90 days [recliner As directed] rosuvastatin 10 mg PO BEDTIME 90 days sertraline 50 mg PO DAILY sertraline 100 mg PO DAILY solifenacin (Vesicare) 5 mg PO DAILY 30 days [facility] Medical History (Updated 02/02/25 @ 13:57 by Tram Toscano DPM) Mass of left foot Calcaneal spur of right foot Right ankle pain Sprain of right ankle Right foot pain Plantar fasciitis, right Acute respiratory disease Cystitis H. pylori infection Lumbar pain Osteoarthritis of left hip HUONG (generalized anxiety disorder) Mild recurrent major depression Osteoarthritis of right knee Dyslipidemia Depression with anxiety Shortness of breath Dysphagia [id number] syndrome Polyarthralgia Hypothyroidism COVID-19 Nausea Osteoarthritis Fatty liver Anxiety Fibromyalgia Hypothyroid High cholesterol Asthma Surgical History History of esophagogastroduodenoscopy (EGD) Hx of colonoscopy History of blepharoplasty History of removal of ovarian cyst Tubal ligation status H/O oophorectomy Family History Sister Breast CA Pancreatic cancer Sister Breast CA Father Myocardial infarction Diabetes Hypertension CVD (cardiovascular disease) Mother Heart problem Daughter In good health Social History Household Members: None Housing: Apartment Alcohol intake: current Alcohol intake frequency: holidays/special occasions only Alcohol type: wine Patient Tobacco Use Status: Former Tobacco user Tobacco use type: Cigarette e-Cigarette/Vaping Use: Never Used Second Hand Smoke Exposure: No service: No Current occupational status: disabled Cognitive needs: Yes Hearing needs: No Vision needs: No Female Reproductive History Menstrual Age of Menarche: 11 Physical Exam Vital Signs: BMI result Body Mass Index 33.8 Assessment & Plan Assessment & Plan (1) Plantar fasciitis, right: Code(s): M72.2 - Plantar fascial fibromatosis Category: Medical (2) Right foot pain: Code(s): M79.671 - Pain in right foot Category: Medical (3) Sprain of right ankle: Code(s): S93.401A - Sprain of unspecified ligament of right ankle, initial encounter Category: Medical (4) Right ankle pain: Code(s): M25.571 - Pain in right ankle and joints of right foot Category: Medical (5) Calcaneal spur of right foot: Code(s): M77.31 - Calcaneal spur, right foot Category: Medical Orders: Orders XR Foot Shai 3V Today M25.571 - Pain in right ankle and joints of right foot, M72.2 - Plantar fascial fibromatosis, M77.31 - Calcaneal spur, right foot, M79.671 - Pain in right foot, S93.401A - Sprain of unspecified ligament of right ankle, initial encounter XR ankle RT min 3V Today M25.571 - Pain in right ankle and joints of right foot, S93.401A - Sprain of unspecified ligament of right ankle, initial encounter Coding Diagnoses Plantar fasciitis, right M72.2 Right foot pain M79.671 Sprain of right ankle S93.401A Right ankle pain M25.571 Calcaneal spur of right foot M77.31
[2025-02-02 12:58] VITALS: BMI 33.8
--- NOTE | 2025-02-02 12:58 | A.OFFVIS_ITS ---
Vital Signs 3 02/02/25 12:58 Height 5 ft 7 in Weight 216 lb BMI 33.8 Intake Visit Reasons: New Pt - right foot pain Allergies Sulfa (Sulfonamide Antibiotics) (Sulfa (Sulfonamides)) Allergy (Severe, Verified 02/02/25 13:02) SWELLING cbd Allergy (Intermediate, Uncoded 12/21/24 11:16) chest pain Medication List - Last Reconciled 02/02/25 by Tram Toscano DPM [air conditioner As directed] albuterol sulfate 90 mcg/actuation 2 puffs inhalation Q4-6H PRN albuterol sulfate 2.5 mg (3 mL) inhalation Q6H 30 days cane As directed cetirizine (All Day Allergy (cetirizine)) 10 mg PO DAILY cholecalciferol (vitamin D3) 50 mcg PO DAILY commode As directed fluticasone furoate 50 mcg/actuation (Arnuity Ellipta) 1 inh inhalation DAILY 30 days fluticasone propionate 50 mcg/actuation (Flonase Allergy Relief) 1 spray intranasal DAILY Grab bar As directed Knee brace As directed levothyroxine (Levoxyl) 88 mcg PO DAILY 90 days lorazepam 0.5 mg PO DAILY PRN meloxicam 15 mg PO DAILY nabumetone 750 mg PO BID 30 days nebulizers (AeroEclipse II Nebulizer) As directed pantoprazole 40 mg PO DAILY 90 days [recliner As directed] rosuvastatin 10 mg PO BEDTIME 90 days sertraline 50 mg PO DAILY sertraline 100 mg PO DAILY solifenacin (Vesicare) 5 mg PO DAILY 30 days HPI Comments Details: This is a 59-year-old female with a past medical history as seen below. Patient states in November she went camping and twisted her right foot and ankle. She states she was seen in urgent care where she had x-rays done which were found to exhibit mild 1st MPJ arthritis and calcaneal spur. She states she was prescribed nabumetone 750 mg and has been taking as needed, with relief. She states she notices intermittent swelling to the lateral aspect of the right ankle. She denies any bruising. She states she experiences pain currently localized to the plantar aspect of the heel diffusely. She states she previously experienced numbness and tingling, but states the symptoms have now resolved. She also states she has noticed a lump on the bottom of her left foot for the past 6 months. Patient states she has also been doing some plantar fascial exercises with relief (rolling her foot on a tennis ball/frozen water bottle). Denies any drainage or purulence from the sites. Denies any bug bites. Denies any other pedal concerns. Denies any nausea vomiting fever chills. [facility] Medical History (Updated 02/02/25 @ 13:57 by Tram Toscano DPM) Mass of left foot Calcaneal spur of right foot Right ankle pain Sprain of right ankle Right foot pain Plantar fasciitis, right Acute respiratory disease Cystitis H. pylori infection Lumbar pain Osteoarthritis of left hip HUONG (generalized anxiety disorder) Mild recurrent major depression Osteoarthritis of right knee Dyslipidemia Depression with anxiety Shortness of breath Dysphagia [id number] syndrome Polyarthralgia Hypothyroidism COVID-19 Nausea Osteoarthritis Fatty liver Anxiety Fibromyalgia Hypothyroid High cholesterol Asthma Surgical History History of esophagogastroduodenoscopy (EGD) Hx of colonoscopy History of blepharoplasty History of removal of ovarian cyst Tubal ligation status H/O oophorectomy Family History Sister Breast CA Pancreatic cancer Sister Breast CA Father Myocardial infarction Diabetes Hypertension CVD (cardiovascular disease) Mother Heart problem Daughter In good health Social History Household Members: None Housing: Apartment Alcohol intake: current Alcohol intake frequency: holidays/special occasions only Alcohol type: wine Patient Tobacco Use Status: Former Tobacco user Tobacco use type: Cigarette e-Cigarette/Vaping Use: Never Used Second Hand Smoke Exposure: No service: No Current occupational status: disabled Cognitive needs: Yes Hearing needs: No Vision needs: No Female Reproductive History Menstrual Age of Menarche: 11 Review of Systems Const All systems reviewed & are unremarkable except as noted in HPI and below Physical Exam Extrem Other: Bilateral lower extremity focused exam: Derm: Mass measuring approximately 0.5 x 0.5 cm noted to the plantar aspect of the left midfoot. Mass appears slightly soft. No open wounds noted. Edema noted to the lateral aspect of the right ankle. No erythema or ecchymosis noted. No clinical signs of infection. Vascular: DP/PT pulses palpable. Capillary refill time less than 3 seconds. No varicosities noted. Neuro: Protective sensations intact. Musculoskeletal: Right side-pain on palpation to the plantar aspect of the calcaneus. Range of motion of the forefoot and hindfoot within normal limits. Minimal pain with ankle range of motion. Minimal pain on palpation to the left ankle along the ATFL and CFL. No gross abnormalities noted. Left side-palpable mass on plantar aspect of left midfoot with no pain on palpation. No gross abnormalities noted. Range of motion of the foot and ankle within normal limits. Ankle/foot/toe images: 2 1. 2. 3. Results Reviewed Results Reviewed: Right foot x-rays done at [facility]: 1st metatarsophalangeal joint mild arthritis and calcaneal spur noted. Otherwise unremarkable. Assessment & Plan Assessment & Plan (1) Plantar fasciitis, right: Code(s): M72.2 - Plantar fascial fibromatosis Category: Medical (2) Right foot pain: Code(s): M79.671 - Pain in right foot Category: Medical (3) Sprain of right ankle: Code(s): S93.401A - Sprain of unspecified ligament of right ankle, initial encounter Category: Medical (4) Right ankle pain: Code(s): M25.571 - Pain in right ankle and joints of right foot Category: Medical (5) Calcaneal spur of right foot: Code(s): M77.31 - Calcaneal spur, right foot Category: Medical (6) Mass of left foot: Code(s): R22.42 - Localized swelling, mass and lump, left lower limb Category: Medical Plan Discussed conservative and surgical treatment options with patient. At this time will continue with conservative treatment. Advised patient to continue with plantar fascial exercises, educated patient on further exercises that can be done (provided patient with plantar fascial exercise information form). Advised patient to wear supportive shoe gear, avoid barefoot walking, and to utilize the insoles that she currently has in all her shoes. Advised patient to continue with nabumetone PRN for pain and utilize the RICE protocol p.r.n. for pain. Discussed with the patient the possibility of a cyst to the plantar aspect of the left foot. Discussed with the patient high reoccurrence rate of cysts. Discussed various treatment options from aspiration to surgical excision. At this time treatment is pending imaging. Discussed with patient the condition of recurrent ankle sprains. Discussed with patient if further pain arises may need to consider an ankle brace. Patient may use rice protocol as needed for pain Ordered bilateral foot three-view x-rays and right ankle three-view x-rays to be performed prior to next visit. Patient is to return to the office in 2 weeks. If pain persists to the right foot we will consider night splints, physical therapy, and/or injection. If pain worsens to the right ankle will consider utilizing an ankle brace and further imaging. If the mass noted to the left foot enlarges or causes pain may consider a more invasive treatment plan and further imaging. Orders: Orders 2 XR Foot Shai 3V Today M25.571 - Pain in right ankle and joints of right foot, M72.2 - Plantar fascial fibromatosis, M77.31 - Calcaneal spur, right foot, M79.671 - Pain in right foot, S93.401A - Sprain of unspecified ligament of right ankle, initial encounter XR ankle RT min 3V Today M25.571 - Pain in right ankle and joints of right foot, S93.401A - Sprain of unspecified ligament of right ankle, initial encounter Coding Level of Care Code New Pt Level 4 (12188) Diagnoses Plantar fasciitis, right M72.2 Right foot pain M79.671 Sprain of right ankle S93.401A Right ankle pain M25.571 Calcaneal spur of right foot M77.31 Mass of left foot R22.42 Time Spent (min) 35
== END 2025-02-02 13:32 | disposition home or self-care (01) ==
LOC: HO.HPODS 12:53
PROVIDERS: PCP Internal Medicine; Visit Provider Student in an Organized Health Care Education/Training Program
DX: M72.2 Plantar fascial fibromatosis (principal); M79.671 Pain in right foot; S93.401A Sprain of unspecified ligament of right ankle, initial encounter; M25.571 Pain in right ankle and joints of right foot; M77.31 Calcaneal spur, right foot; R22.42 Localized swelling, mass and lump, left lower limb
CPT/HCPCS: 99204

== ENCOUNTER 2025-02-06 08:27 | Outpatient (REF) | payer OTHER, SELFPAY ==
--- NOTE | ~2025-02-06 | XR_ITS ---
CLINICAL HISTORY: M25.571 - Pain in right ankle and joints of right foot --- Additional Notes or Special Instructions: weightbearing please 3 view right ankle Comparison: None provided Findings: Bones intact. No dislocations. No significant arthritic change or erosions. No ankle effusion. No radiopaque foreign body. IMPRESSION: 1. No acute findings. This document has been electronically signed by: Kaila Patricio MD on 02/06/2025 13:40:07
--- NOTE | ~2025-02-06 | XR_ITS ---
CLINICAL HISTORY: M72.2 - Plantar fascial fibromatosis --- Additional Notes or Special Instructions: Weightbearing please Exam: AP, lateral, and oblique views of the bilateral feet. Comparison: Right ankle radiographs from same time. Findings: Weight-bearing radiographs were performed. Left foot: Bony alignment of the Lisfranc articulation is anatomic. No acute fracture. No erosions. Tiny plantar calcaneal spur. Right foot: Bony alignment of the Lisfranc articulation is anatomic. Minor degenerative change of the 1st metatarsophalangeal joint. No erosions. Small plantar calcaneal spur. Impression: Bilateral plantar calcaneal spurs, [id number] This document has been electronically signed by: Collin Siu MD on 02/07/2025 09:25:50
--- OUTSIDE RECORDS SUMMARY | 2025-02-06 09:30 | XMS_ITS | Patient Health Record ---
Author Organization [facility] Address [address] [place] [address] Care Team Providers Care Lead Mechanical Engineer Name Role Phone William Powell [phone] Reason For Referral No Information Plan Of Treatment No Information
--- OUTSIDE RECORDS SUMMARY | 2025-02-06 09:30 | XMS_ITS | Clinical Summary ---
Author Organization [employer] [facility] ity Address [address] [place] [address] Care Team Providers Care Drop Hammer Setter Up Name Role Phone Unavailable Primary Care Provider [...]
== END 2025-02-06 08:28 | disposition home or self-care (01) ==
LOC: HO.XRAY 08:27
PROVIDERS: PCP Internal Medicine; Visit Provider Student in an Organized Health Care Education/Training Program
DX: M72.2 Plantar fascial fibromatosis (principal); M79.671 Pain in right foot; S93.401A Sprain of unspecified ligament of right ankle, initial encounter; M25.571 Pain in right ankle and joints of right foot; M77.31 Calcaneal spur, right foot
CPT/HCPCS: 73610; 73630

== ENCOUNTER → 2025-02-06 08:35 | Outpatient (BNV) | payer OTHER, SELFPAY | PROVIDERS: PCP Internal Medicine; Visit Provider Radiology Diagnostic Radiology | DX: M25.571 Pain in right ankle and joints of right foot (principal) | CPT/HCPCS: 73610; 73630 ==

== ENCOUNTER 2025-02-09 08:29 | Outpatient (REF) | payer OTHER, SELFPAY ==
--- OUTSIDE RECORDS SUMMARY | 2025-02-09 09:33 | XMS_ITS | Clinical Summary ---
Author Organization [employer] Address [address] [place] [id number] Care Team Providers Care Engineering Laboratory Technician Name Role Phone Unavailable Primary Care Provider [...] AM EST) ADDITIONAL TESTING Not indicated () [facility] Comment: [facility] Per[facility] by [facility], [facility], [address] [place] [address] Issa Renner M.D., Ph.D., Director of Laboratories , [place] [id number] HPV 16 RNA Test not performed [facility] HPV 18/45 RNA Test not performed [facility] HPV mRNA E6/E7 Not Detected NOT DETECTED [facility] Comment: This test was performed using the APTIMA(R) HPV Assay ([employer] This assay detects E6/E7 viral messenger RNA (mRNA) from 14 high-risk HPV types (16,18,31,33,35,39,45,51, 52,56,58,59,66,68). For additional information please refer to: http://education.[employer]/faq/ZWR018t6 (This link is being provided for informational/ educational purposes only.) Please note: Effective 02/11/2016, HPV testing will be performed using [employer]'s APTIMA test which targets mRNA. Detecting mRNA instead of DNA, as in older methods, offers significant improvements in specificity. 07/18/2016 10:5 8 AM EST us Trupti Hopper DO HISTORICAL/NON ORDERABLE LAB S Final Result [facility] [address] from Last 3 Months or Most Recently Relevant to Health Maintenance Insurance [place] [address] STANDARD
--- OUTSIDE RECORDS SUMMARY | 2025-02-09 09:33 | XMS_ITS | Patient Health Record ---
Author Organization [facility] Address [address] [place] [address] Care Team Providers Care Metal Miner Blasting Name Role Phone William Powell [phone] Reason For Referral No Information Plan Of Treatment No Information
--- OUTSIDE RECORDS SUMMARY | 2025-02-09 09:33 | XMS_ITS | Clinical Summary ---
Author Organization [employer] [facility] ity Address [address] [place] [address] Care Team Providers Care Career Education Teacher Name Role Phone Unavailable Primary Care Provider [...]
== END 2025-02-09 08:30 | disposition home or self-care (01) ==
LOC: HO.LAB 08:29
PROVIDERS: PCP Internal Medicine; Visit Provider Internal Medicine
DX: Z13.89 Encounter for screening for other disorder (principal)

== ENCOUNTER 2025-02-14 11:11 | Outpatient (AMB) | payer OTHER, SELFPAY ==
[2025-02-14 11:24] VITALS: BMI 33.8
--- NOTE | 2025-02-14 11:24 | MHC.OFFVIS ---
Vital Signs 02/14/25 11:24 Height 5 ft 7 in Weight 216 lb BMI 33.8 Intake Visit Reasons: Follow Up Rt Foot Pain Intake Note: Harini is a 59 year old female who presents to the office today for a 2 follow up for right foot pain. Ankle and foot X-rays completed and in chart. She states she has been following the exercises that where given to her and now her right foot pain has improved. Patient mentions she still has pain when she walks alot and Aleve medication provides temporary relief Allergies Sulfa (Sulfonamide Antibiotics) (Sulfa (Sulfonamides)) Allergy (Severe, Verified 02/02/25 13:02) SWELLING cbd Allergy (Intermediate, Uncoded 12/21/24 11:16) chest pain HPI Comments Details: This is a 59-year-old female who presents for follow-up of right plantar fasciitis. Patient states she has noticed an improvement in her symptoms end-stage she experiences intermittent mild pain to the plantar aspect of the right foot. Patient states the pain is localized to the heel. Patient denies any current pain to bilateral ankles or the left foot. She states she has been consistent with plantar fascial exercises and has continued to use Aleve for pain relief. She denies any new inciting injuries. She denies any other pedal concerns. [facility] Medical History (Updated 02/14/25 @ 11:42 by Tram Toscano DPM) Plantar fascial fibromatosis of left foot Mass of left foot Calcaneal spur of right foot Right ankle pain Sprain of right ankle Right foot pain Plantar fasciitis, right Acute respiratory disease Cystitis H. pylori infection Lumbar pain Osteoarthritis of left hip HUONG (generalized anxiety disorder) Mild recurrent major depression Osteoarthritis of right knee Dyslipidemia Depression with anxiety Shortness of breath Dysphagia [id number] syndrome Polyarthralgia Hypothyroidism COVID-19 Nausea Osteoarthritis Fatty liver Anxiety Fibromyalgia Hypothyroid High cholesterol Asthma Surgical History History of esophagogastroduodenoscopy (EGD) Hx of colonoscopy History of blepharoplasty History of removal of ovarian cyst Tubal ligation status H/O oophorectomy Family History Sister Breast CA Pancreatic cancer Sister Breast CA Father Myocardial infarction Diabetes Hypertension CVD (cardiovascular disease) Mother Heart problem Daughter In good health Social History Household Members: None Housing: Apartment Alcohol intake: current Alcohol intake frequency: holidays/special occasions only Alcohol type: wine Patient Tobacco Use Status: Former Tobacco user Tobacco use type: Cigarette e-Cigarette/Vaping Use: Never Used Second Hand Smoke Exposure: No service: No Current occupational status: disabled Cognitive needs: Yes Hearing needs: No Vision needs: No Female Reproductive History Menstrual Age of Menarche: 11 Review of Systems Const Details: - Musculoskeletal: Reports pain to the plantar aspect of the right foot in the area of the calcaneus. All systems reviewed & are unremarkable except as noted in HPI and below Physical Exam Vital Signs: BMI result Body Mass Index 33.8 Extrem Other: Bilateral lower extremity focused exam: Derm: Mass measuring approximately 0.5 x 0.5 cm noted to the plantar aspect of the left midfoot - no change from previous visit. Mass appears slightly soft. No open wounds noted. No edema noted . No erythema or ecchymosis noted. No clinical signs of infection. Vascular: DP/PT pulses palpable. Capillary refill time less than 3 seconds. No varicosities noted. Pedal hair absent. Temperature gradient warm to warm. Neuro: Protective sensations grossly intact. Musculoskeletal: Right side-pain on palpation to the plantar aspect of the calcaneus in the area of the central aspect of the calcaneus. Range of motion of the forefoot and hindfoot within normal limits. No pain with ankle range of motion. No pain on palpation to the left ankle along the ATFL and CFL. No gross abnormalities noted. Left side-palpable mass on plantar aspect of left midfoot with no pain on palpation. No gross abnormalities noted. Range of motion of the foot and ankle within normal limits. Results Reviewed Results Reviewed: Podiatry read of bilateral foot and right ankle x-ray (February 06 in February 07 2025): Plantar calcaneal spurring noted bilaterally worsened to the right. Minimal joint space narrowing noted to the right ankle. No acute fractures or dislocations noted. Right ankle x-ray (02/06/2025): Findings: Bones intact. No dislocations. No significant arthritic change or erosions. No ankle effusion. No radiopaque foreign body. IMPRESSION: 1. No acute findings. Bilateral foot x-ray (02/07/2025): Findings: Weight-bearing radiographs were performed. Left foot: Bony alignment of the Lisfranc articulation is anatomic. No acute fracture. No erosions. Tiny plantar calcaneal spur. Right foot: Bony alignment of the Lisfranc articulation is anatomic. Minor degenerative change of the 1st metatarsophalangeal joint. No erosions. Small plantar calcaneal spur. Impression: Bilateral plantar calcaneal spurs, [id number] Right foot x-rays done at [facility]: 1st metatarsophalangeal joint mild arthritis and calcaneal spur noted. Otherwise unremarkable. Assessment & Plan Assessment & Plan (1) Plantar fasciitis, right: Code(s): M72.2 - Plantar fascial fibromatosis Category: Medical (2) Right foot pain: Code(s): M79.671 - Pain in right foot Category: Medical (3) Sprain of right ankle: Code(s): S93.401A - Sprain of unspecified ligament of right ankle, initial encounter Category: Medical Qualifiers: Encounter type: subsequent encounter Involved ligament of ankle: unspecified ligament Qualified Code(s): S93.401D - Sprain of unspecified ligament of right ankle, subsequent encounter (4) Right ankle pain: Code(s): M25.571 - Pain in right ankle and joints of right foot Category: Medical (5) Calcaneal spur of right foot: Code(s): M77.31 - Calcaneal spur, right foot Category: Medical (6) Mass of left foot: Code(s): R22.42 - Localized swelling, mass and lump, left lower limb Category: Medical (7) Plantar fascial fibromatosis of left foot: Code(s): M72.2 - Plantar fascial fibromatosis Category: Medical Plan Patient was informed and verbally consented to the use of an ambient scribe for clinic note documentation during this visit. I discussed with the patient the presence of plantar fasciitis and the associated bone spurs, explaining that these have likely developed over time due to chronic stress on the plantar fascia. We reviewed the imaging findings, which showed mild arthritis in the right ankle, and I reassured her that this is a common finding at her age and not a cause for concern. I recommended the use of a night splint to help alleviate the plantar fasciitis symptoms and suggested a follow-up in three weeks to evaluate progress. If the symptoms persist, I advised considering physical therapy as the next step, with injection therapy as a future option if necessary. 1. Plantar Fasciitis - provided patient with a night splint to be worn during sleep to alleviate symptoms by stretching the plantar fascia. - advised patient to continue with plantar fascial stretching exercises. -patient may continue taking a leave as needed for pain. 2. Bone Spur - Managed as part of the treatment for plantar fasciitis, with the use of a night splint and stretching exercises. 3. Ankle Arthritis - Mild arthritis noted on imaging, no specific treatment required at this time. 4. Plantar fibromatosis of left foot - we will continue to monitor for any growth or changes. Patient is to return to the office in 3 weeks for re-evaluation. Coding Level of Care Code Est Pt Level 4 (57031) Diagnoses Plantar fasciitis, right M72.2 Right foot pain M79.671 Sprain of right ankle, unspecified ligament, subsequent encounter S93.401D Encounter type: subsequent encounter Involved ligament of ankle: unspecified ligament Right ankle pain M25.571 Calcaneal spur of right foot M77.31 Mass of left foot R22.42 Plantar fascial fibromatosis of left foot M72.2 Time Spent (min) 45
--- OUTSIDE RECORDS SUMMARY | 2025-02-14 15:18 | XMS_ITS | Clinical Summary ---
Author Organization [employer] [facility] ity Address [address] [place] [address] Care Team Providers Care Rib Puller Name Role Phone Unavailable Primary Care Provider [...]
--- OUTSIDE RECORDS SUMMARY | 2025-02-14 15:18 | XMS_ITS | Patient Health Record ---
Author Organization [facility] Address [address] [place] [address] Care Team Providers Care Babcock Tester Name Role Phone William Powell [phone] Reason For Referral No Information Plan Of Treatment No Information
--- OUTSIDE RECORDS SUMMARY | 2025-02-14 15:18 | XMS_ITS | Clinical Summary ---
Author Organization [employer] Address [address] [place] [id number] Care Team Providers Care Software Project Engineer Name Role Phone Unavailable Primary Care Provider [...] AM EST) ADDITIONAL TESTING Not indicated () [facility] Comment: Test Performed by [facility], [facility], [address] [place] [address] Issa Renner M.D., Ph.D., Director of Laboratories , [place] [id number] HPV 16 RNA Test not performed [facility] HPV 18/45 RNA Test not performed [facility] HPV mRNA E6/E7 Not Detected NOT DETECTED [facility] Comment: This test was performed using the APTIMA(R) HPV Assay ([employer] This assay detects E6/E7 viral messenger RNA (mRNA) from 14 high-risk HPV types (16,18,31,33,35,39,45,51, 52,56,58,59,66,68). For additional information please refer to: http://education.[employer]/faq/QLP735l3 (This link is being provided for informational/ educational purposes only.) Please note: Effective 02/11/2016, HPV testing will be performed using [employer]'s APTIMA test which targets mRNA. Detecting mRNA instead of DNA, as in older methods, offers significant improvements in specificity. 07/18/2016 10:5 8 AM EST us Trupti Hopper DO HISTORICAL/NON ORDERABLE LAB S Final Result [facility] [address] from Last 3 Months or Most Recently Relevant to Health Maintenance [place] [address] [place] [address] STANDARD
== END 2025-02-14 11:42 | disposition home or self-care (01) ==
LOC: HO.HPODS 11:12
PROVIDERS: PCP Internal Medicine; Visit Provider Student in an Organized Health Care Education/Training Program
DX: M72.2 Plantar fascial fibromatosis (principal); M79.671 Pain in right foot; S93.401D Sprain of unspecified ligament of right ankle, subsequent encounter; M25.571 Pain in right ankle and joints of right foot; M77.31 Calcaneal spur, right foot; R22.42 Localized swelling, mass and lump, left lower limb
CPT/HCPCS: 99214

== ENCOUNTER → 2025-02-14 11:11 | Outpatient (BNVA) | payer OTHER, SELFPAY | PROVIDERS: PCP Internal Medicine; Visit Provider Student in an Organized Health Care Education/Training Program | DX: M79.671 Pain in right foot (principal); M72.2 Plantar fascial fibromatosis; M25.571 Pain in right ankle and joints of right foot; M77.31 Calcaneal spur, right foot; R22.42 Localized swelling, mass and lump, left lower limb | CPT/HCPCS: 99212 ==

== ENCOUNTER 2025-02-16 11:03 | Outpatient (AMB) | payer OTHER, SELFPAY ==
--- NOTE | 2025-02-16 11:19 | A.OFFVIS_ITS ---
Vital Signs 02/16/25 11:20 Height 5 ft 7 in Weight 222 lb 10.67 oz BMI 34.9 BP 120/80 Blood Pressure Location Lt brachial Position Sitting Pulse 73 Pulse Source Pulse Oximeter Pulse Oximetry (%) 97 Oxygen Delivery Method Room Air Intake Visit Reasons: asthma Intake Note: pt is here as a new patient for asthma, she states she gets short of breath, of note, pt had abnormal ekg and is waiting for cardiology appt in April. Trust Operations Assistant Required: Yes Trust Operations Assistant Services: Trust Operations Assistant Present Trust Operations Assistant Name: Trupti lewis Osorio (RMA) Allergies Sulfa (Sulfonamide Antibiotics) (Sulfa (Sulfonamides)) Allergy (Severe, Verified 02/16/25 12:00) SWELLING cbd Allergy (Intermediate, Uncoded 02/16/25 12:00) chest pain Medication List - Last Reconciled 02/16/25 by Garrick Howard MD [air conditioner As directed] albuterol sulfate 90 mcg/actuation 2 puffs inhalation Q4-6H PRN albuterol sulfate 2.5 mg (3 mL) inhalation Q6H 30 days cane As directed cetirizine (All Day Allergy (cetirizine)) 10 mg PO DAILY cholecalciferol (vitamin D3) 50 mcg PO DAILY commode As directed fluticasone furoate 50 mcg/actuation (Arnuity Ellipta) 1 inh inhalation DAILY 30 days fluticasone propionate 50 mcg/actuation (Flonase Allergy Relief) 1 spray intranasal DAILY Grab bar As directed Knee brace As directed levothyroxine (Levoxyl) 88 mcg PO DAILY 90 days lorazepam 0.5 mg PO DAILY PRN meloxicam 15 mg PO DAILY nabumetone 750 mg PO BID 30 days nebulizers (AeroEclipse II Nebulizer) As directed pantoprazole 40 mg PO DAILY 90 days [recliner As directed] rosuvastatin 10 mg PO BEDTIME 90 days sertraline 50 mg PO DAILY sertraline 100 mg PO DAILY solifenacin (Vesicare) 5 mg PO DAILY 30 days Do you need a note to return to daycare/school/sports/work: No HPI HPI asthma: Details: THIS PATIENT 59 YEARS OLD FEMALE IS HERE FOR THE 1ST TIME FOR PULMONARY EVALUATION AND MANAGEMENT. SHE HAS HISTORY OF BRONCHIAL ASTHMA FOR MANY YEARS. SHE HAD PULMONARY FUNCTION TEST MANY YEARS AGO, BUT WHEN I CHECKED IN OUR SYSTEM IT WAS IN 2020 SHOWING MILD OBSTRUCTIVE AIRWAY DISORDER WITH GOOD RESPONSE TO BRONCHODILATORS. SHE HAS BEEN TREATED WITH THE LOW DO'S INHALED STEROID, ARNUITY-40 1 INHALATION DAILY AND ALBUTEROL HFA 2 PUFFS Q 6 HOURS P.R.N.. ALSO HAS NEBULIZER AT HOME AND USES ALBUTEROL SOLUTION IN THE NEBULIZER PRN. THE USE OF NEBULIZER WELL THE HFA HAS BEEN ONLY INTERMITTENT. MAYBE ONCE OR TWICE A WEEK. SHE HAS HAD NO SUSTAINED ATTACKS OF WHEEZING OR RESPIRATORY DISTRESS. IN ADDITION SHE ALSO HAS NASAL CONGESTION ALMOST ON A DAILY BASIS, BUT WORSE IN SOME SEASONS, SHE IS USUALLY WORSE DURING SUMMER MONTHS. SHE ALSO HAS HISTORY OF GETTING NASAL CONGESTION WHEN EXPOSED TO HOUSEHOLD AGENTS SUCH DUST CLEANING AGENT PERFUMES AND SMOKE ETC.. SHE IS HAVING GOOD RESULTS FROM USING CETIRIZINE 10 MG ONCE A DAY AND IT HELPS HER TO SLEEP BETTER. SHE USES FLONASE 1 SPRAY IN EACH NOSTRIL DAILY. SHE IS QUESTIONING IF SHE SHOULD HAVE ALLERGY SKIN TESTING. SHE ALSO HAS BEEN OVERWEIGHT FOR MANY YEARS, CLAIMS THAT SHE HAS HAD THYROID DYSFUNCTION, AND HER WEIGHT HAS BEEN FLUCTUATING UP AND DOWN. CURRENTLY SHE IS ON THYROID REPLACEMENT THERAPY WITH 88 MCG DAILY QUESTIONED HER ABOUT SLEEP ISSUES. SHE CLAIMS THAT LONG SHE USES CETIRIZINE 10 MG DAILY SHE SLEEPS FAIRLY GOOD. HOWEVER SHE DOES WAKE UP ONCE OR TWICE PER NIGHT WITH SOME GASPING FEELING. SHE ALSO SNORES AT NIGHT. SHE DENIES ANY EXCESSIVE DAYTIME SLEEPINESS DURING THE DAYTIME, BUT DOES FEEL TIRED IN THE AFTERNOONS. SHE HAS HAD NO SLEEP STUDY AT ANY TIME. SHE IS NONSMOKER AND DENIES USING ANY ADDICTIVE DRUGS. [facility] Medical History Allergic rhinitis due to allergen Plantar fascial fibromatosis of left foot Mass of left foot Calcaneal spur of right foot Right ankle pain Sprain of right ankle Right foot pain Plantar fasciitis, right Acute respiratory disease Cystitis H. pylori infection Lumbar pain Osteoarthritis of left hip HUONG (generalized anxiety disorder) Mild recurrent major depression (~02/16/25) Osteoarthritis of right knee Dyslipidemia Depression with anxiety Shortness of breath Dysphagia [id number] syndrome Polyarthralgia Hypothyroidism COVID-19 Nausea Osteoarthritis Fatty liver Anxiety Fibromyalgia Hypothyroid High cholesterol Asthma Surgical History History of esophagogastroduodenoscopy (EGD) Hx of colonoscopy History of blepharoplasty History of removal of ovarian cyst Tubal ligation status H/O oophorectomy Family History Sister Breast CA Pancreatic cancer Sister Breast CA Father Myocardial infarction Diabetes Hypertension CVD (cardiovascular disease) Mother Heart problem Daughter In good health Social History Household Members: None Housing: Apartment Alcohol intake: current Alcohol intake frequency: holidays/special occasions only Alcohol type: wine Patient Tobacco Use Status: Former Tobacco user Tobacco use type: Cigarette e-Cigarette/Vaping Use: Never Used Second Hand Smoke Exposure: No service: No Current occupational status: disabled Cognitive needs: Yes Hearing needs: No Vision needs: No Female Reproductive History Menstrual Age of Menarche: 11 Review of Systems Const All systems reviewed & are unremarkable except as noted in HPI and below Eyes Reports no additional complaints ENT Reports nasal congestion and Reports nasal discharge Card Reports chest pain (MILD NON SPECIFIC ), Denies irregular heart rhythm and Denies leg edema Resp Reports as per HPI GI Reports heartburn (BEING TREATED FOR GERD SYMPTOMS) Reports no additional complaints Musc Reports back pain and Reports arthralgias (KNEES PAIN) Skin/Breast Reports system reviewed and no additional complaints, except as documented Neuro Reports no additional complaints Psych Reports depression (MILD OFF AND ON IN THE PAST) Endo Reports no additional complaints Sudhakar/Lymph Reports no additional complaints Aller/Immun Reports no additional complaints Physical Exam Vital Signs: Last Vital Signs Pulse 73 02/16/25 11:20 BP 120/80 02/16/25 11:20 Pulse Ox 97 02/16/25 11:20 Oxygen Delivery Method Room Air 02/16/25 11:20 BMI result Body Mass Index 34.9 Const General: healthy appearing (EXCEPT FOR BEING OVERWEIGHT), comfortable, no acute distress, alert and awake Orientation/consciousness: patient oriented x3 HEENT Head: Yes normal to inspection General nose exam: No nasal polyps present and No nasal discharge present Face and sinus: Yes sinuses nontender Mouth: oropharynx abnormals (MODERATELY NARROW AND CROWDED, MALLAMPATI SCALE 3) Throat: Yes posterior oropharynx normal Eyes General: appearance normal, both eyes and all related structures Neck Neck: Yes normal visual inspection, Yes no lymphadenopathy, Yes trachea midline and Yes no JVD Thyroid: Thyroid normal Chest Chest palpation & inspection: normal inspection of the chest, normal palpation of entire chest wall and no tenderness Resp Effort & Inspection: normal respiratory effort Auscultation: clear to auscultation bilaterally, no rhonchi and no wheezes Cardio Palpation: normal PMI Rate: regular rate Rhythm: regular rhythm Heart sounds: no gallops and no murmurs Peripheral pulses: Peripheral pulses 2+ throughout GI Palpation (GI): Soft to palpation, nontender, No hepatosplenomegaly present and no masses Auscultation: normal bowel sounds Back/Spine/Pelvis Thoracic/Lumbar Spine: thoracic and lumbar spine normal to inspection Skin General skin exam: no rashes or lesions noted Neuro General: patient oriented x3 and no focal motor deficits Cranial nerves: Yes CN's II-XII intact bilaterally Extrem General: Yes normal to inspection, Yes no clubbing, cyanosis or edema and Yes no calf tenderness Psych Appearance: grossly normal and well kempt Speech and movement: Normal speech and movement present Results Reviewed Results Reviewed: PFT 11/13/20 NO SIGNIFICANT OBSTRUCTIVE AIRWAY DISORDER BUT EVIDENCE OF MILD RESTRICTIVE DISORDER. THERE WAS POSITIVE RESPONSE TO BRONCHODILATOR THERAPY SUGGESTING THAT SHE MAY HAVE MILD BRONCHIAL ASTHMA. Assessment & Plan Assessment & Plan (1) Asthma: Comment: PATIENT DOES HAVE LONGSTANDING HISTORY OF ALLERGIC BRONCHIAL ASTHMA, MILD INTERMITTENT, SYMPTOMS WORSE IN CERTAIN SEASONS. HAS REMAINED FAIRLY WELL CONTROLLED WITH INHALED STEROIDS AND ALBUTEROL P.R.N. Code(s): J45.909 - Unspecified asthma, uncomplicated Category: Medical Plan: PATIENT IS SCHEDULED FOR COMPLETE PULMONARY FUNCTION TEST AGAIN CONTINUE USING ANNUITY -50 1 INHALATION DAILY. USE ALBUTEROL HFA 2 PUFFS Q 6 HOURS P.R.N./ ALTERNATIVELY MAY USE ALBUTEROL IN THE NEBULIZER Q.6 HOURS.. TREATMENT REGIMEN WILL BE ADJUSTED AFTER THE PULMONARY FUNCTION TEST. (2) Allergic rhinitis due to allergen: Comment: HISTORY OF ALLERGIC RHINITIS, AROUND THE YEAR, FOR MANY YEARS. SHE REPORTS REACTION TO ENVIRONMENTAL ALLERGIES WELL HOUSEHOLD ALLERGIES. HAS HAD NO ALLERGY TESTING IN THE PAST. WOULD LIKE TO HAVE A COMPLETE ALLERGY TEST, TO DETERMINE THE LIST OF ALLERGENS Code(s): J30.9 - Allergic rhinitis, unspecified Category: Medical Plan: CBC WITH DIFF AND IGE LEVELS ARE REQUESTED. ALSO RAST TEST TO DETERMINE THE LIST OF ALLERGENS . (3) Obesity (BMI 30-39.9): Comment: PATIENT IS MODERATELY OBESE CURRENT BMI 34.9. SHE WAS SCREENED FOR SLEEP APNEA AND HAS ONLY SNORING BUT NO SIGNIFICANT SLEEP APNEA SYMPTOMS. Code(s): E66.9 - Obesity, unspecified Category: Medical Plan: EDUCATED ABOUT OBESITY AND SLEEP APNEA. ADVISED TO WATCH HER WEIGHT AND MAY BE SHE SHOULD BE ON A DIETARY PROGRAM TO LOSE SOME WEIGHT. Orders: Orders Complete Blood Count Auto Diff Today J30.9 - Allergic rhinitis, unspecified Immunoglobulin E Today J30.9 - Allergic rhinitis, unspecified, J45.909 - Unspecified asthma, uncomplicated PFT pulmonary function test Today J30.9 - Allergic rhinitis, unspecified, J45.909 - Unspecified asthma, uncomplicated Coding Level of Care Code New Pt Level 4 (22573) Diagnoses Asthma J45.909 Allergic rhinitis due to allergen J30.9 Obesity (BMI 30-39.9) E66.9
[2025-02-16 11:20] VITALS: BP 120/80; PULSE 73; O2SAT 97; BMI 34.9
--- OUTSIDE RECORDS SUMMARY | 2025-02-16 13:11 | XMS_ITS | Clinical Summary ---
Author Organization [facility] [employer] [facility] ity Address [address] [place] [address] Care Team Providers Care Health Service Worker Name Role Phone Unavailable Primary Care Provider [...]
--- OUTSIDE RECORDS SUMMARY | 2025-02-16 13:11 | XMS_ITS | Patient Health Record ---
Author Organization [facility] Address [address] [place] [address] Care Team Providers Care Director Of Veterans Affairs Name Role Phone William Powell [phone] Reason For Referral No Information Plan Of Treatment No Information
--- OUTSIDE RECORDS SUMMARY | 2025-02-16 13:11 | XMS_ITS | Clinical Summary ---
Author Organization [employer] Address [address] [place] [id number] Care Team Providers Care Communications Administrator Name Role Phone Unavailable Primary Care Provider [...] AM EST) ADDITIONAL TESTING Not indicated () [email or web address] Comment: Test Performed by [facility], [facility], [address] [place] [address] Issa Renner M.D., Ph.D., Director of Laboratories , [place] [id number] HPV 16 RNA Test not performed [email or web address] HPV 18/45 RNA Test not performed [email or web address] HPV mRNA E6/E7 Not Detected NOT DETECTED [email or web address] Comment: This test was performed using the APTIMA(R) HPV Assay ([employer] This assay detects E6/E7 viral messenger RNA (mRNA) from 14 high-risk HPV types (16,18,31,33,35,39,45,51, 52,56,58,59,66,68). For additional information please refer to: http://education.[employer]/faq/ZSI597n5 (This link is being provided for informational/ educational purposes only.) Please note: Effective 02/11/2016, HPV testing will be performed using [employer]'s APTIMA test which targets mRNA. Detecting mRNA instead of DNA, as in older methods, offers significant improvements in specificity. 07/18/2016 10:5 8 AM EST us Trupti Hopper DO HISTORICAL/NON ORDERABLE LAB S Final Result [facility] [address] from Last 3 Months or Most Recently Relevant to Health Maintenance [place] [address] [address] STANDARD
== END 2025-02-16 11:56 | disposition home or self-care (01) ==
LOC: HO.HPS 11:04
PROVIDERS: PCP Internal Medicine; Visit Provider Internal Medicine
DX: J45.909 Unspecified asthma, uncomplicated (principal); J30.9 Allergic rhinitis, unspecified; E66.9 Obesity, unspecified
CPT/HCPCS: 99204

== ENCOUNTER 2025-02-16 11:03 | Outpatient (REF) | payer OTHER, SELFPAY ==
[2025-02-16 12:22] LABS: MANUAL DIFF FLAG NO
[2025-02-16 13:43] LABS: Hematocrit 36.6 % (37.0-47.0); Hemoglobin 11.6 g/dl (12.0-16.0); Imm Gran Abs Auto 0.02 X10*3/uL (0.00-0.03); Imm Gran Pct Auto 0.4 % (0.0-0.4); Lymphocytes Absolute Auto 1.7 X10*3/uL (1.2-4.9); Mean Corpuscular HGB Conc 31.7 g/dl (31.0-35.0); Mean Corpuscular Hemoglobin 28.2 pg (27.0-33.0); Mean Corpuscular Volume 88.8 fL (80.0-98.0); NRBC Abs Auto 0.000 X10*3/uL (0.0-0.012); NRBC Pct Auto 0.0 /100WBC (0.0-0.2); Platelet Count 293 X10*3/uL (160-400); Red Blood Count 4.12 X10*6/uL (4.20-5.50); White Blood Count 5.4 X10*3/uL (4.8-10.8)
[2025-02-17 22:08] LABS: Class Alternaria alternata 0; Class Aspergillus fumigatus 0; Class Bermuda Grass 0; Class Birch 2; Class Cat Dander 0; Class Cladosporium herbarum 0; Class Cockroach 0; Class Common Ragweed 0; Class Cottonwood 0; Class Derm. pterony 0; Class Dermatophagoides farinae 0; Class Dog Dander 0; Class Elm 0; Class Maple Box Elder 0; Class Mountain Cedar 0; Class Mouse Urine Protein 0; Class Mugwort 0; Class Oak 0/1; Class Penicillium crysogenum 0; Class Rough Pigweed 0; Class Sheep Sorrel 0; Class Sycamore 0; Class Timothy Grass 0; Class Walnut Tree 0; Class White Ash 0; Class White Mulberry 0; D002 - IgE D farinae <0.10 kU/L; E001 - IgE Cat Dander <0.10 kU/L; E005 - IgE Dog Dander <0.10 kU/L; G006 - IgE Timothy Grass <0.10 kU/L; I006-IgE Cockroach, German <0.10 kU/L; M002 - IgE Cladosporium herbar <0.10 kU/L; M003 - IgE Aspergillus fumigat <0.10 kU/L; M006 - IgE Alternaria alternat <0.10 kU/L; T001 IgE Maple/Box Elder <0.10 kU/L; T006 - IgE Cedar, Mountain <0.10 kU/L; T007 - IgE Oak, White 0.21 kU/L; T008 IgE Elm, American <0.10 kU/L; T010 - IgE Walnut <0.10 kU/L; T011 - IgE Maple Leaf Sycamore <0.10 kU/L; T014 - IgE Cottonwood <0.10 kU/L; T015 - IgE Ash, White <0.10 kU/L; T070 - IgE White Mulberry <0.10 kU/L; W001 - IgE Ragweed, Short <0.10 kU/L; W006 - IgE Mugwort <0.10 kU/L; W014 IgE Pigweed, Common <0.10 kU/L; W018 IgE Sheep Sorrel <0.10 kU/L
== END 2025-02-16 11:04 | disposition home or self-care (01) ==
LOC: HO.LAB 11:03
PROVIDERS: PCP Internal Medicine; Visit Provider Internal Medicine
DX: J45.909 Unspecified asthma, uncomplicated (principal); J30.9 Allergic rhinitis, unspecified; Z79.51 Long term (current) use of inhaled steroids; Z68.34 Body mass index [BMI] 34.0-34.9, adult; E66.01 Morbid (severe) obesity due to excess calories; E07.9 Disorder of thyroid, unspecified
CPT/HCPCS: 36415; 82785; 85025; 86003; 99202

== ENCOUNTER 2025-03-07 08:50 | Outpatient (AMB) | payer OTHER, SELFPAY ==
--- NOTE | 2025-03-07 08:54 | MHC.OFFVIS ---
Vital Signs 03/07/25 08:55 Height 5 ft 7 in Weight 220 lb BMI 34.5 BP 101/74 Blood Pressure Location Lt brachial Position Sitting Pulse 75 Pulse Oximetry (%) 98 Oxygen Delivery Method Room Air Intake Visit Reasons: 6 mo f/u Intake Note: Patient follow up for Chronic constipation Patient cc: abdominal bloating, acid reflux is much better with medication, constipation and some swallowing difficulties, with solid food. Project Control Analyst Required: Yes Project Control Analyst Name: [facility] Interpeter Accompanied by: Self / Same As Patient Allergies Sulfa (Sulfonamide Antibiotics) (Sulfa (Sulfonamides)) Allergy (Severe, Verified 03/07/25 08:54) SWELLING cbd Allergy (Intermediate, Uncoded 02/16/25 12:00) chest pain Medication List - Last Reconciled 03/07/25 by Liz King CNP [air conditioner As directed] albuterol sulfate 90 mcg/actuation 2 puffs inhalation Q4-6H PRN albuterol sulfate 2.5 mg (3 mL) inhalation Q6H 30 days cane As directed cetirizine (All Day Allergy (cetirizine)) 10 mg PO DAILY cholecalciferol (vitamin D3) 50 mcg PO DAILY commode As directed fluticasone furoate 50 mcg/actuation (Arnuity Ellipta) 1 inh inhalation DAILY 30 days fluticasone propionate 50 mcg/actuation (Flonase Allergy Relief) 1 spray intranasal DAILY Grab bar As directed Knee brace As directed levothyroxine (Levoxyl) 88 mcg PO DAILY 90 days lorazepam 0.5 mg PO DAILY PRN meloxicam 15 mg PO DAILY nabumetone 750 mg PO BID 30 days nebulizers (AeroEclipse II Nebulizer) As directed pantoprazole 40 mg PO DAILY 90 days [recliner As directed] rosuvastatin 10 mg PO BEDTIME 90 days sertraline 50 mg PO DAILY sertraline 100 mg PO DAILY solifenacin (Vesicare) 5 mg PO DAILY 30 days HPI HPI 6 mo f/u: Details: Patient is a 58-year-old female with PMH of HUONG, major depression, dyslipidemia, hypothyroidism, GERD and obesity. F/u for GERD and chronic constipation. Pt reports that since last visit, constipation continues to requires daily use of OTC herbal tea for regular BMs; if dose is missed, no stool passage occurs. BM consistency/shapes WNL when tea used. Admits to reduced efficacy and unpleasant taste, affecting adherence. Denies abdominal pain except intermittent bloating which improves post-BM. No rectal bleeding. Continues to hydrate well and eat fiber-rich foods (vegetables, potatoes, carrots). For GERD, continues pantoprazole 40mg daily with partial improvement in reflux; still reports intermittent dysphagia, especially when not on med. Reports increased fatigue and daytime sleepiness, ?eyes closing,? requiring frequent eating due to persistent hunger. Has not yet seen PCP for evaluation. Thyroid med dose recently decreased to 88mcg. Has not had recent hospitalizations or ER visits. No acute GI flares reported. [facility] Medical History (Updated 03/07/25 @ 09:40 by Liz King CNP) Fatigue Allergic rhinitis due to allergen Plantar fascial fibromatosis of left foot Mass of left foot Calcaneal spur of right foot Right ankle pain Sprain of right ankle Right foot pain Plantar fasciitis, right Acute respiratory disease Cystitis H. pylori infection Lumbar pain Osteoarthritis of left hip HUONG (generalized anxiety disorder) Mild recurrent major depression (~02/16/25) Osteoarthritis of right knee Dyslipidemia Depression with anxiety Shortness of breath Dysphagia [id number] syndrome Polyarthralgia Hypothyroidism COVID-19 Nausea Osteoarthritis Fatty liver Anxiety Fibromyalgia Hypothyroid High cholesterol Asthma Surgical History History of esophagogastroduodenoscopy (EGD) Hx of colonoscopy History of blepharoplasty History of removal of ovarian cyst Tubal ligation status H/O oophorectomy Family History Sister Breast CA Pancreatic cancer Sister Breast CA Father Myocardial infarction Diabetes Hypertension CVD (cardiovascular disease) Mother Heart problem Daughter In good health Social History Household Members: None Housing: Apartment Alcohol intake: current Alcohol intake frequency: holidays/special occasions only Alcohol type: wine Patient Tobacco Use Status: Former Tobacco user Tobacco use type: Cigarette e-Cigarette/Vaping Use: Never Used Second Hand Smoke Exposure: No service: No Current occupational status: disabled Cognitive needs: Yes Hearing needs: No Vision needs: No Female Reproductive History Menstrual Age of Menarche: 11 Review of Systems Const Reports as per HPI ENT Reports as per HPI Card Reports as per HPI Resp Reports as per HPI GI Reports as per [facility] Reports as per [facility] Physical Exam Vital Signs: Last Vital Signs Pulse 75 03/07/25 08:55 BP 101/74 03/07/25 08:55 Pulse Ox 98 03/07/25 08:55 Oxygen Delivery Method Room Air 03/07/25 08:55 BMI result Body Mass Index 34.5 Const General: healthy appearing, no acute distress and well developed Nutritional Appearance: well nourished Orientation/consciousness: patient oriented x3 HEENT Head: Yes normal to inspection, Yes normocephalic and Yes atraumatic Face and sinus: Yes normal facial exam Eyes General: appearance normal, both eyes and all related structures Neck Neck: Yes normal visual inspection Resp Effort & Inspection: normal respiratory effort, able to speak in complete sentences, no tracheal deviation and symmetric chest movement Cardio Jugular venous distension: no JVD Neuro General: patient oriented x3 Gait exam (Neuro): Normal gait present Psych Appearance: grossly normal Mental Status: mental status grossly normal Speech and movement: Normal speech and movement present Affect: normal affect Attitude: cooperative Thought process: Normal thought process present Thought content: Normal thought content present Insight: Good insight present (Psych) Judgement: Good judgement present (Psych) Results Reviewed Results Reviewed: Follow-up [] or sooner as needed Time: I spent a total of [] minutes on the date of encounter which includes: Preparing to see the patient (reviewed previous documentation, test results and medical history) Performing a medically appropriate exam and/or evaluation Ordering medications, tests, and procedures Documenting clinical information in the health record Assessment & Plan Assessment & Plan (1) Gastro-esophageal reflux disease without esophagitis: Comment: 08/19/23 EGD - Schatzki's ring, mild esophagitis, hiatal hernia ( sliding 3 cm), gastritis. Code(s): K21.9 - Gastro-esophageal reflux disease without esophagitis Category: Medical Plan: Partial control; persistent mild-moderate symptoms, intermittent dysphagia/choking with solids/pills when off PPI. No acute deterioration. Prior EGD findings (hiatal hernia, esophagitis); barium swallow last done 2021 WNL. Additional testing: - Repeat barium swallow ordered to reassess anatomy and rule out interval changes. Medications: - Continue pantoprazole 40mg PO daily, instruct to take AM on empty stomach, 30 min pre-food. Lifestyle Recommendations: - Continue emphasis on upright posture with meals, avoid late night eating, encourage small/frequent meals. - Pt re-educated on dietary triggers, hydration. Referrals / Coordination of Care: - Radiology scheduling for repeat barium swallow. F/U Plan: - F/u after completion of barium swallow or sooner for escalation in dysphagia, inability to tolerate PO, new GI bleeding, worsening abd pain, nausea, failure to pass flatus. (2) Chronic constipation: Comment: 11/13/22 colonoscopy complete with adequate prep-Normal colon and terminal ileum mucosa, Internal and external hemorrhoids. Recommendations for repeat in 10 years. Code(s): K59.09 - Other constipation Category: Medical Plan: - Worsening control. Requires daily OTC herbal tea (Loly) for regularity; reduced efficacy, poor palatability limits adherence. No alarm sx. 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 - Additional testing: - None this visit (Colonoscopy 2022 ). - Medications: - Continue current regimen - start miralax 17G daily PRN - Lifestyle Recommendations: - Reinforce daily fiber intake (fruits/veggies/legumes/whole grains), target 25?30g/day as tolerated. - Maintain adequate hydration - Referrals / Coordination of Care: - None at present. - F/U Plan: - Monitor for worsening constipation, new-onset abd pain, hematochezia, or inability to pass stool/gas. (3) Fatigue: Code(s): R53.83 - Other fatigue Category: Medical Qualifiers: Fatigue type: unspecified Qualified Code(s): R53.83 - Other fatigue Plan: sx overlap w/metabolic derangements; recent labs WNL for thyroid/Vit D/LFTs. No recent iron or A1c/glucose, not yet evaluated by PCP. Additional testing: - Advise pt to f/u with PCP promptly for A1c, iron studies. Medications: - No changes?encourage continued T4 as prescribed, discuss adherence and GI side effects of oral iron if reinitiated. Lifestyle Recommendations: - Encourage balanced meals to prevent hypo/hyperglycemia; monitor for hypoglycemic sx. Referrals / Coordination of Care: - Advise direct PCP contact; suggested pt to use portal for expedited response. F/U Plan: - Contingent on PCP workup; GI to reassess if additional GI-related sx develop. Plan Follow-up after barium swallow or sooner as needed Time: I spent a total of 23 minutes on the date of encounter which includes: Preparing to see the patient (reviewed previous documentation, test results and medical history) Performing a medically appropriate exam and/or evaluation Ordering medications, tests, and procedures Documenting clinical information in the health record Orders: Orders FL barium swallow Today K21.9 - Gastro-esophageal reflux disease without esophagitis, K44.9 - Diaphragmatic hernia without obstruction or gangrene, R13.10 - Dysphagia, unspecified Medications: New polyethylene glycol 3350 (Miralax) Take 17G (one cap full) daily as needed for constipation. Mix with 8oz of water 17 grams PO DAILY PRN 510 grams 2RF constipation 30 days Coding Level of Care Code Established Pt Est Pt Level 3 (82715) Patient Type Established Diagnoses Gastro-esophageal reflux disease without esophagitis K21.9 Chronic constipation K59.09 Fatigue, unspecified type R53.83 Fatigue type: unspecified
[2025-03-07 08:55] VITALS: BP 101/74; PULSE 75; O2SAT 98; BMI 34.5
--- OUTSIDE RECORDS SUMMARY | 2025-03-07 09:36 | XMS_ITS | Clinical Summary ---
Author Organization [employer] Address [address] [facility] 7t h Floor [place] [id number] Care Team Providers Care Books Salesperson Name Role Phone Unavailable Primary Care Provider [...] AM EST) ADDITIONAL TESTING Not indicated () [facility] Comment: [facility] Performed by [facility], [facility], [address] [place] [address] Issa Renner M.D., Ph.D., Director of Laboratories , [place] [id number] HPV 16 RNA Test not performed [facility] HPV 18/45 RNA Test not performed [facility] HPV mRNA E6/E7 Not Detected NOT DETECTED [facility] Comment: This test was performed using the APTIMA(R) HPV Assay ([employer] This assay detects E6/E7 viral messenger RNA (mRNA) from 14 high-risk HPV types (16,18,31,33,35,39,45,51, 52,56,58,59,66,68). For additional information please refer to: http://education.UI Robot/faq/FYT800k0 (This link is being provided for informational/ educational purposes only.) Please note: Effective 02/11/2016, HPV testing will be performed using [employer]'s APTIMA test which targets mRNA. Detecting mRNA instead of DNA, as in older methods, offers significant improvements in specificity. 07/18/2016 10:5 8 AM EST us Trupti Hopper DO HISTORICAL/NON ORDERABLE LAB S Final Result [facility] [address] from Last 3 Months or Most Recently Relevant to Health Maintenance [place] [address] [place] [address] STANDARD
--- OUTSIDE RECORDS SUMMARY | 2025-03-07 09:36 | XMS_ITS | Clinical Summary ---
Author Organization [employer] [facility] ity Address [address] [place] [address] Care Team Providers Care Offset Lithographic Press Setter Name Role Phone Unavailable Primary Care Provider [...]
--- OUTSIDE RECORDS SUMMARY | 2025-03-07 09:36 | XMS_ITS | Patient Health Record ---
Author Organization [facility] Address [address] [place] [address] Care Team Providers Care Felt Dyeing Machine Tender Name Role Phone William Powell [phone] Reason For Referral No Information Plan Of Treatment No Information
== END 2025-03-07 09:25 | disposition home or self-care (01) ==
LOC: HO.HGI 08:51
PROVIDERS: PCP Internal Medicine; Visit Provider Nurse Practitioner Family
DX: K21.9 Gastro-esophageal reflux disease without esophagitis (principal); K59.09 Other constipation; R53.83 Other fatigue
CPT/HCPCS: 99213

== ENCOUNTER → 2025-03-07 08:50 | Outpatient (BNVA) | payer OTHER, SELFPAY | PROVIDERS: PCP Internal Medicine; Visit Provider Nurse Practitioner Family | DX: K21.9 Gastro-esophageal reflux disease without esophagitis (principal); K59.09 Other constipation; R53.83 Other fatigue; K44.9 Diaphragmatic hernia without obstruction or gangrene; R13.10 Dysphagia, unspecified | CPT/HCPCS: 99212 ==

== ENCOUNTER 2025-03-08 10:32 | Outpatient (AMB) | payer OTHER, SELFPAY ==
--- NOTE | 2025-03-08 10:58 | A.OFFVIS_ITS ---
Vital Signs 03/08/25 10:59 Height 5 ft 7 in Weight 220 lb BMI 34.5 Intake Visit Reasons: Follow up Rt Foot Pain Intake Note: Harini is a 59 year old female who presents today as a follow up on her calcaneal spur of right foot. She was advised to perform stretching exercises and was provided with a night splint. Pt states her plantar fasciitis pain has improved and she has no concerns at this time. Allergies Sulfa (Sulfonamide Antibiotics) (Sulfa (Sulfonamides)) Allergy (Severe, Verified 03/08/25 10:59) SWELLING cbd Allergy (Intermediate, Uncoded 02/16/25 12:00) chest pain HPI Comments Details: The patient is a 59-year-old female presenting for follow-up of right foot plantar fasciitis. The patient states she no longer experiences pain to the right foot. She states she has been consistent with the plantar fascial exercises and the use of a night splint. Patient denies any current pain to bilateral ankles or the left foot. She denies any new inciting injuries. She denies any other pedal concerns. [facility] Medical History (Updated 03/07/25 @ 09:40 by Liz King CNP) Fatigue Allergic rhinitis due to allergen Plantar fascial fibromatosis of left foot Mass of left foot Calcaneal spur of right foot Right ankle pain Sprain of right ankle Right foot pain Plantar fasciitis, right Acute respiratory disease Cystitis H. pylori infection Lumbar pain Osteoarthritis of left hip HUONG (generalized anxiety disorder) Mild recurrent major depression (~02/16/25) Osteoarthritis of right knee Dyslipidemia Depression with anxiety Shortness of breath Dysphagia [id number] syndrome Polyarthralgia Hypothyroidism COVID-19 Nausea Osteoarthritis Fatty liver Anxiety Fibromyalgia Hypothyroid High cholesterol Asthma Surgical History History of esophagogastroduodenoscopy (EGD) Hx of colonoscopy History of blepharoplasty History of removal of ovarian cyst Tubal ligation status H/O oophorectomy Family History Sister Breast CA Pancreatic cancer Sister Breast CA Father Myocardial infarction Diabetes Hypertension CVD (cardiovascular disease) Mother Heart problem Daughter In good health Social History Household Members: None Housing: Apartment Alcohol intake: current Alcohol intake frequency: holidays/special occasions only Alcohol type: wine Patient Tobacco Use Status: Former Tobacco user Tobacco use type: Cigarette e-Cigarette/Vaping Use: Never Used Second Hand Smoke Exposure: No service: No Current occupational status: disabled Cognitive needs: Yes Hearing needs: No Vision needs: No Female Reproductive History Menstrual Age of Menarche: 11 Review of Systems Const Details: - Musculoskeletal: No pain reported to the plantar aspect of the right foot in the area of the calcaneus. All systems reviewed & are unremarkable except as noted in HPI and below Physical Exam Extrem Other: Bilateral lower extremity focused exam: Derm: Mass measuring approximately 0.5 x 0.5 cm noted to the plantar aspect of the left midfoot - no change from previous visit. Mass appears slightly soft. No open wounds noted. No edema noted . No erythema or ecchymosis noted. No clinical signs of infection. Vascular: DP/PT pulses palpable. Capillary refill time less than 3 seconds. No varicosities noted. Pedal hair absent. Temperature gradient warm to warm. Neuro: Protective sensations grossly intact. Musculoskeletal: Right side-no pain on palpation to the plantar aspect of the calcaneus in the area of the central aspect of the calcaneus. Negative windlass mechanism. Range of motion of the forefoot and hindfoot within normal limits. No pain with ankle range of motion. No pain on palpation to the lateral aspect of the ankle along the ATFL and CFL. No gross abnormalities noted. Left side-palpable mass on plantar aspect of left midfoot with no pain on palpation. No gross abnormalities noted. Range of motion of the foot and ankle within normal limits. Results Reviewed Results Reviewed: Podiatry read of bilateral foot and right ankle x-ray (February 06 & February 07 2025): Plantar calcaneal spurring noted bilaterally worsened to the right. Minimal joint space narrowing noted to the right ankle. No acute fractures or dislocations noted. Right ankle x-ray (02/06/2025): Findings: Bones intact. No dislocations. No significant arthritic change or erosions. No ankle effusion. No radiopaque foreign body. IMPRESSION: 1. No acute findings. Bilateral foot x-ray (02/07/2025): Findings: Weight-bearing radiographs were performed. Left foot: Bony alignment of the Lisfranc articulation is anatomic. No acute fracture. No erosions. Tiny plantar calcaneal spur. Right foot: Bony alignment of the Lisfranc articulation is anatomic. Minor degenerative change of the 1st metatarsophalangeal joint. No erosions. Small plantar calcaneal spur. Impression: Bilateral plantar calcaneal spurs, [id number] Right foot x-rays done at [facility] [place]: 1st metatarsophalangeal joint mild arthritis and calcaneal spur noted. Otherwise unremarkable. Assessment & Plan Assessment & Plan (1) Plantar fasciitis, right: Code(s): M72.2 - Plantar fascial fibromatosis Category: Medical (2) Right foot pain: Code(s): M79.671 - Pain in right foot Category: Medical (3) Sprain of right ankle: Code(s): S93.401A - Sprain of unspecified ligament of right ankle, initial encounter Category: Medical Qualifiers: Encounter type: subsequent encounter Involved ligament of ankle: unspecified ligament Qualified Code(s): S93.401D - Sprain of unspecified ligament of right ankle, subsequent encounter (4) Right ankle pain: Code(s): M25.571 - Pain in right ankle and joints of right foot Category: Medical (5) Calcaneal spur of right foot: Code(s): M77.31 - Calcaneal spur, right foot Category: Medical (6) Mass of left foot: Code(s): R22.42 - Localized swelling, mass and lump, left lower limb Category: Medical (7) Plantar fascial fibromatosis of left foot: Code(s): M72.2 - Plantar fascial fibromatosis Category: Medical Plan Patient was informed and verbally consented to the use of an ambient scribe for clinic note documentation during this visit. I discussed with the patient the importance of continuing exercises and using the night splint to manage foot pain even after resolution of pain. I advised her to wear supportive shoes and avoid walking barefoot to prevent recurrence of pain. I informed her to contact us if she experiences any further issues. - Continue plantar fascial exercises and use of night splint to manage foot pain. - Advised wearing supportive shoes and avoiding walking barefoot to prevent recurrence of pain. - Patient may take Aleve prn for pain. - Patient to call if further assistance is needed. RTC prn if any new or worsening symptoms arise. Coding Level of Care Code Est Pt Level 3 (74700) Diagnoses Plantar fasciitis, right M72.2 Right foot pain M79.671 Sprain of right ankle, unspecified ligament, subsequent encounter S93.401D Encounter type: subsequent encounter Involved ligament of ankle: unspecified ligament Right ankle pain M25.571 Calcaneal spur of right foot M77.31 Mass of left foot R22.42 Plantar fascial fibromatosis of left foot M72.2 Time Spent (min) 30
[2025-03-08 10:59] VITALS: BMI 34.5
== END 2025-03-08 11:03 | disposition home or self-care (01) ==
LOC: HO.HPODS 10:33
PROVIDERS: PCP Internal Medicine; Visit Provider Student in an Organized Health Care Education/Training Program
DX: M72.2 Plantar fascial fibromatosis (principal); M79.671 Pain in right foot; S93.401D Sprain of unspecified ligament of right ankle, subsequent encounter; M25.571 Pain in right ankle and joints of right foot; M77.31 Calcaneal spur, right foot; R22.42 Localized swelling, mass and lump, left lower limb
CPT/HCPCS: 99213

== ENCOUNTER → 2025-03-08 10:32 | Outpatient (BNVA) | payer OTHER, SELFPAY | PROVIDERS: PCP Internal Medicine; Visit Provider Student in an Organized Health Care Education/Training Program | DX: M79.671 Pain in right foot (principal); M72.2 Plantar fascial fibromatosis; S93.401D Sprain of unspecified ligament of right ankle, subsequent encounter; M77.31 Calcaneal spur, right foot; R22.42 Localized swelling, mass and lump, left lower limb | CPT/HCPCS: 99212 ==

== ENCOUNTER 2025-03-10 07:39 | Outpatient (REF) | payer OTHER, SELFPAY ==
--- OUTSIDE RECORDS SUMMARY | 2025-03-10 07:43 | XMS_ITS | Patient Health Record ---
Author Organization [facility] Address [address] [place] [address] Care Team Providers Care Quality Associate Name Role Phone William Powell [phone] Reason For Referral No Information Plan Of Treatment No Information
--- OUTSIDE RECORDS SUMMARY | 2025-03-10 07:43 | XMS_ITS | Clinical Summary ---
Author Organization [employer] Address [address] [facility] 7t h Floor [place] [id number] Care Team Providers Care Dewer Name Role Phone Unavailable Primary Care Provider [...] AM EST) ADDITIONAL TESTING Not indicated () [facility] Comment: [facility] Performed by [facility], [facility], [address] [place] [address] Issa Renner M.D., Ph.D., Director of Laboratories , [place] [id number] HPV 16 RNA Test not performed [facility] HPV 18/45 RNA Test not performed [facility] HPV mRNA E6/E7 Not Detected NOT DETECTED [facility] Comment: This test was performed using the APTIMA(R) HPV Assay ([employer] This assay detects E6/E7 viral messenger RNA (mRNA) from 14 high-risk HPV types (16,18,31,33,35,39,45,51, 52,56,58,59,66,68). For additional information please refer to: http://education.Three Rings/faq/JPK085l8 (This link is being provided for informational/ educational purposes only.) Please note: Effective 02/11/2016, HPV testing will be performed using [employer]'s APTIMA test which targets mRNA. Detecting mRNA instead of DNA, as in older methods, offers significant improvements in specificity. 07/18/2016 10:5 8 AM EST us Trupti Hopper DO HISTORICAL/NON ORDERABLE LAB S Final Result [facility] [address] from Last 3 Months or Most Recently Relevant to Health Maintenance [place] [address] [address] STANDARD
--- OUTSIDE RECORDS SUMMARY | 2025-03-10 07:43 | XMS_ITS | Clinical Summary ---
Author Organization [employer] [facility] ity Address [address] [place] [address] Care Team Providers Care Product Development Assistant Name Role Phone Unavailable Primary Care [...]
[2025-03-10 08:50] LABS: Alanine Aminotransferase 20 U/L (0-31); Albumin Level 4.4 g/dL (3.5-5.0); Alkaline Phosphatase 87 U/L (39-117); Anion Gap 9 (12-20); Aspartate Amino Transferase 19 U/L (5-31); Blood Urea Nitrogen 18 mg/dL (9-16); Calcium 9.4 mg/dL (8.4-10.2); Carbon Dioxide 30 mmol/L (22-29); Chloride 106 mmol/L (96-108); Estimated Glomerular Filt Rate > 60; Potassium 4.4 mmol/L (3.3-5.1); Sodium 141 mmol/L (135-145); Total Protein 7.5 g/dL (6.5-8.0)
== END 2025-03-10 07:40 | disposition home or self-care (01) ==
LOC: HO.LAB 07:39
PROVIDERS: PCP Internal Medicine; Visit Provider Internal Medicine
DX: R73.02 Impaired glucose tolerance (oral) (principal)
CPT/HCPCS: 36415; 80053

== ENCOUNTER 2025-03-28 11:24 | Outpatient (AMB) | payer OTHER, SELFPAY ==
--- NOTE | 2025-03-28 11:31 | MHC.OFFVIS ---
Intake Visit Reasons: 3m/PVR Intake Note: Patient is Present for: 3m/PVR Urology Medication: solifenacin Blood Thinners: None PVR: 38mls Metallurgical Laboratory Assistant Required: Yes Metallurgical Laboratory Assistant Services: Metallurgical Laboratory Assistant Present Metallurgical Laboratory Assistant Name: Kerry Accompanied by: Self / Same As Patient Allergies Sulfa (Sulfonamide Antibiotics) (Sulfa (Sulfonamides)) Allergy (Severe, Verified 03/28/25 12:05) SWELLING cbd Allergy (Intermediate, Uncoded 03/28/25 12:05) chest pain Medication List - Last Reconciled 03/28/25 by RIVER Camacho [air conditioner As directed] albuterol sulfate 90 mcg/actuation 2 puffs inhalation Q4-6H PRN albuterol sulfate 2.5 mg (3 mL) inhalation Q6H 30 days cane As directed cetirizine (All Day Allergy (cetirizine)) 10 mg PO DAILY cholecalciferol (vitamin D3) 50 mcg PO DAILY commode As directed fluticasone furoate 50 mcg/actuation (Arnuity Ellipta) 1 inh inhalation DAILY 30 days fluticasone propionate 50 mcg/actuation (Flonase Allergy Relief) 1 spray intranasal DAILY Grab bar As directed Knee brace As directed levothyroxine (Levoxyl) 88 mcg PO DAILY 90 days lorazepam 0.5 mg PO DAILY PRN meloxicam 15 mg PO DAILY nabumetone 750 mg PO BID 30 days nebulizers (AeroEclipse II Nebulizer) As directed pantoprazole 40 mg PO DAILY 90 days polyethylene glycol 3350 (Miralax) 17 grams PO DAILY PRN 30 days [recliner As directed] rosuvastatin 10 mg PO BEDTIME 90 days sertraline 50 mg PO DAILY sertraline 100 mg PO DAILY solifenacin (Vesicare) 5 mg PO DAILY 30 days HPI Comments Details: Harini is a pleasant 59 year old [place] Citizen speaking patient of Dr. Gilbert Wang. She has a PMH of asthma, depression, anxiety, dyslipidemia, fatty liver, fibromyalgia, hypothyroidism, and osteoarthritis. She presents to the office today for follow-up of her lower urinary tract symptoms. In discussion with the patient today she reports to be doing and feeling well. She reports significant improvement in urinary urgency and frequency she had been experiencing with VESIcare as prescribed. She currently denies any bothersome urinary issues or concerns. In office urinalysis results reviewed with the patient today. PVR 38 mL. She also reports having increased her fluid intake and feels this has also been helpful. Previous workup has included a retroperitoneal ultrasound 05/24 noting bilateral kidneys with no hydronephrosis or renal calculi. 1.0 cm left upper pole benign cyst the bladder is well distended. Bilateral jets are demonstrated. Pre void bladder volume is approximatly 300 mL. Postvoid bladder volume was not obtained. She denies having had any UTI like symptoms and or UTIs since her last visit. She denies hematuria, dysuria, foul smelling urine, changes to urinary stream, flank pain, fever, and or chills. She otherwise denies any other isues or concnerns at this time. [facility] Medical History Fatigue Allergic rhinitis due to allergen Plantar fascial fibromatosis of left foot Mass of left foot Calcaneal spur of right foot Right ankle pain Sprain of right ankle Right foot pain Plantar fasciitis, right Acute respiratory disease Cystitis H. pylori infection Lumbar pain Osteoarthritis of left hip HUONG (generalized anxiety disorder) Mild recurrent major depression (~02/16/25) Osteoarthritis of right knee Dyslipidemia Depression with anxiety Shortness of breath Dysphagia [id number] syndrome Polyarthralgia Hypothyroidism COVID-19 Nausea Osteoarthritis Fatty liver Anxiety Fibromyalgia Hypothyroid High cholesterol Asthma Surgical History History of esophagogastroduodenoscopy (EGD) Hx of colonoscopy History of blepharoplasty History of removal of ovarian cyst Tubal ligation status H/O oophorectomy Family History Sister Breast CA Pancreatic cancer Sister Breast CA Father Myocardial infarction Diabetes Hypertension CVD (cardiovascular disease) Mother Heart problem Daughter In good health Social History Household Members: None Housing: Apartment Alcohol intake: current Alcohol intake frequency: holidays/special occasions only Alcohol type: wine Patient Tobacco Use Status: Former Tobacco user Tobacco use type: Cigarette e-Cigarette/Vaping Use: Never Used Second Hand Smoke Exposure: No service: No Current occupational status: disabled Cognitive needs: Yes Hearing needs: No Vision needs: No Female Reproductive History Menstrual Age of Menarche: 11 Review of Systems Const Reports as per [facility] Eyes Reports no additional complaints ENT Reports no additional complaints Card Reports no additional complaints Resp Reports as per [facility] GI Reports no additional complaints Reports as per [facility] Musc Reports as per [facility] Neuro Reports no additional complaints Psych Reports as per HPI Sudhakar/Lymph Reports no additional complaints Aller/Immun Reports as per [facility] Physical Exam Const General: cooperative, healthy appearing, comfortable, no acute distress, well developed, alert and awake Nutritional Appearance: overweight Orientation/consciousness: patient oriented x3 Limitations: no limitations HEENT Head: Yes normal to inspection, Yes normocephalic and Yes atraumatic Ears: hearing grossly normal bilaterally Eyes General: appearance normal, both eyes and all related structures Neck Neck: Yes normal visual inspection and Yes trachea midline Chest Chest palpation & inspection: normal inspection of the chest Resp Effort & Inspection: normal respiratory effort and able to speak in complete sentences Cardio Rate: regular rate GI Inspection: Yes normal to inspection General: Yes no CVA tenderness Back/Spine/Pelvis Back: no CVA tenderness Skin General skin exam: no rashes or lesions noted Neuro General: patient oriented x3 Extrem General: Yes normal to inspection Psych Appearance: grossly normal and well kempt Mental Status: mental status grossly normal Speech and movement: Normal speech and movement present and Clear speech present Affect: normal affect Attitude: cooperative Thought process: Normal thought process present Thought content: Normal thought content present Insight: Fair insight present (Psych) Judgement: Fair judgement present (Psych) Office Procedures Post Void Residual Post Residual Void Post Void Residual (PVR): 38 [id number] Void Residual by ultrasound Results AMB Urinalysis, Automated UA Leukoctes 0 Akua/uL Last Edit by LINDA Escobar on 03/28/25 11:46 UA Nitrite Last Edit by LINDA Escobar on 03/28/25 11:46 UA Urobilinogen 0.2 mg/dL Last Edit by LINDA Escobar on 03/28/25 11:46 UA Protein 0 mg/dL Last Edit by LINDA Escobar on 03/28/25 11:46 UA pH 7.0 Last Edit by LINDA Escobar on 03/28/25 11:46 UA Blood 0 Jacobo/uL Last Edit by LINDA Escobar on 03/28/25 11:46 UA Specific [place] 1.010 Last Edit by LINDA Escobar on 03/28/25 11:46 UA Ketone Last Edit by LINDA Escobar on 03/28/25 11:46 UA Bilirubin 0 mg/dL Last Edit by LINDA Escobar on 03/28/25 11:46 UA Glucose 0 mg/dL Last Edit by LINDA Escobar on 03/28/25 11:46 Results Reviewed Results Reviewed: Laboratory Last Values Urine pH (Auto) 7.0 03/28/25 11:45 Specific [place] (Auto) 1.010 03/28/25 11:45 Urine Protein (Auto) 0 mg/dL 03/28/25 11:45 Glucose (UA)(Auto) 0 mg/dL 03/28/25 11:45 Urine Blood (Auto) 0 Jacobo/uL 03/28/25 11:45 Urine Bilirubin (Auto) 0 mg/dL 03/28/25 11:45 Urine Urobilinogen (Auto) 0.2 mg/dL 03/28/25 11:45 Leukocyte Esterase (Auto) 0 Akua/uL 03/28/25 11:45 Assessment & Plan Assessment & Plan (1) Renal cyst: Code(s): N28.1 - Cyst of kidney, acquired Category: Medical (2) Stress incontinence: Code(s): N39.3 - Stress incontinence (female) (male) Category: Medical (3) Urinary frequency: Code(s): R35.0 - Frequency of micturition Category: Medical (4) Lower urinary tract symptoms (LUTS): Code(s): R39.9 - Unspecified symptoms and signs involving the genitourinary system Category: Medical (5) Urge incontinence: Code(s): N39.41 - Urge incontinence Category: Medical Plan In office urinalysis results with the patient today; as noted above. PVR 38 mL. Patient currently denies any bothersome urinary issues or concerns. She reports be happy with current voiding parameters. Will continue VESIcare as discussed and prescribed; refill provided. Will continue with surveillance monitoring. Follow-up in 6 months with PVR; or sooner with any issues, concerns, and or questions. Orders: Orders AMB Post Void Residual by ultrasound Today R30.0 - Dysuria AMB Urinalysis Automated Today Z13.9 - Encounter for screening, unspecified Medications: Changed From solifenacin (Vesicare) 5 mg PO DAILY 30 days 30 tabs 3RF To solifenacin (Vesicare) 5 mg PO DAILY 90 tabs 3RF 90 days Patient Instructions: The patient had an opportunity to ask questions regarding the treatment plan. All questions were answered. Physical exam, labs, and imaging were discussed and reviewed in detail. As well as risks, benefits, and discussion of treatment choices. No major barriers to understanding were identified. The patient expressed understanding and agreement with the above treatment plan. The patient was made aware they should contact our office by phone for worsening of their current condition, the appearance of new symptoms, or with any questions or concerns. Compliance is encouraged with any medications and follow up testing that is ordered. It is a privilege to be allowed the opportunity to participate in? your urological care.? Again, if you have any questions or concerns If you have any questions or concerns please do not hesitate to contact me. The office is [phone]. This note is constructed using voice recognition software. While every effort has been made to ensure accuracy director of human resources errors may have been included. Yours sincerely, RIVER Camacho Coding Level of Care Code Est Pt Level 3 (84477) Complex EM visit Add On G2211 Diagnoses Renal cyst N28.1 Stress incontinence N39.3 Urinary frequency R35.0 Lower urinary tract symptoms (LUTS) R39.9 Urge incontinence N39.41 CPT Codes Post Residual Void - PVR CPT Code: 39732-Vuge Void Residual by ultrasound ([id number])
== END 2025-03-28 12:06 | disposition home or self-care (01) ==
LOC: HO.HUSH 11:25
PROVIDERS: PCP Internal Medicine; Visit Provider Nurse Practitioner Family
DX: N28.1 Cyst of kidney, acquired (principal); N39.3 Stress incontinence (female) (male); R35.0 Frequency of micturition; R39.9 Unspecified symptoms and signs involving the genitourinary system; N39.41 Urge incontinence; Z13.9 Encounter for screening, unspecified
CPT/HCPCS: 99213; G2211

== ENCOUNTER → 2025-03-28 11:24 | Outpatient (BNVA) | payer OTHER, SELFPAY | PROVIDERS: PCP Internal Medicine; Visit Provider Nurse Practitioner Family | DX: N39.3 Stress incontinence (female) (male) (principal); N28.1 Cyst of kidney, acquired; R35.0 Frequency of micturition; R39.9 Unspecified symptoms and signs involving the genitourinary system; N39.41 Urge incontinence; R30.0 Dysuria | CPT/HCPCS: 51798; 81003; 99212 ==

== ENCOUNTER 2025-04-03 08:18 | Outpatient (AMB) | payer OTHER, SELFPAY ==
--- OUTSIDE RECORDS SUMMARY | 2025-04-03 08:34 | XMS_ITS | Patient Health Record ---
Author Organization [facility] Address [address] [place] [address] Care Team Providers Care Direct Chill Casting Operator Name Role Phone William Powell [phone] Reason For Referral No Information Plan Of Treatment No Information
--- OUTSIDE RECORDS SUMMARY | 2025-04-03 08:34 | XMS_ITS | Clinical Summary ---
Author Organization [employer] Address [address] [facility] 7t h Floor [place] [id number] Care Team Providers Care Egyptologist Name Role Phone Unavailable Primary Care Provider [...] AM EST) ADDITIONAL TESTING Not indicated () [facility] Comment: [facility], [facility], [address] [place] [address] Issa Renner M.D., Ph.D., Director of Laboratories , [place] [id number] HPV 16 RNA Test not performed [facility] HPV 18/45 RNA Test not performed [facility] HPV mRNA E6/E7 Not Detected NOT DETECTED [facility] Comment: This test was performed using the APTIMA(R) HPV Assay ([employer] This assay detects E6/E7 viral messenger RNA (mRNA) from 14 high-risk HPV types (16,18,31,33,35,39,45,51, 52,56,58,59,66,68). For additional information please refer to: http://education.Scriptick/faq/EXA522l3 (This link is being provided for informational/ educational purposes only.) Please note: Effective 02/11/2016, HPV testing will be performed using [employer]'s APTIMA test which targets mRNA. Detecting mRNA instead of DNA, as in older methods, offers significant improvements in specificity. 07/18/2016 10:5 8 AM EST us Trupti Hopper DO HISTORICAL/NON ORDERABLE LAB S Final Result [facility] [address] from Last 3 Months or Most Recently Relevant to Health Maintenance [place] [address] [place] [address] STANDARD
--- OUTSIDE RECORDS SUMMARY | 2025-04-03 08:34 | XMS_ITS | Clinical Summary ---
Author Organization [facility] ity Address [address] [place] [address] Care Team Providers Care Process Development Manager Name Role Phone Unavailable Primary Care [...]
[2025-04-03 08:35] VITALS: BP 106/62; PULSE 76; BMI 33.5
--- NOTE | 2025-04-03 08:35 | A.OFFVIS_ITS ---
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/Gilbert/Abnormal EKG/ECG Software Development Advisor Required: Yes Software Development Advisor Name: SCAR [id number] Allergies Sulfa (Sulfonamide Antibiotics) (Sulfa (Sulfonamides)) Allergy (Severe, Verified 03/28/25 12:05) SWELLING cbd Allergy (Intermediate, Uncoded 03/28/25 12:05) chest pain Medication List - Last Reconciled 04/03/25 by Demetrius Vicente MD [air conditioner As directed] albuterol sulfate 90 mcg/actuation 2 puffs inhalation Q4-6H PRN albuterol sulfate 2.5 mg (3 mL) inhalation Q6H 30 days cane As directed cetirizine (All Day Allergy (cetirizine)) 10 mg PO DAILY cholecalciferol (vitamin D3) 50 mcg PO DAILY commode As directed fluticasone furoate 50 mcg/actuation (Arnuity Ellipta) 1 inh inhalation DAILY 30 days fluticasone propionate 50 mcg/actuation (Flonase Allergy Relief) 1 spray intranasal DAILY Grab bar As directed Knee brace As directed levothyroxine (Levoxyl) 88 mcg PO DAILY 90 days lorazepam 0.5 mg PO DAILY PRN meloxicam 15 mg PO DAILY nebulizers (AeroEclipse II Nebulizer) As directed pantoprazole 40 mg PO DAILY 90 days polyethylene glycol 3350 (Miralax) 17 grams PO DAILY PRN 30 days [recliner As directed] rosuvastatin 10 mg PO BEDTIME 90 days sertraline 50 mg PO DAILY sertraline 100 mg PO DAILY solifenacin (Vesicare) 5 mg PO DAILY 90 days HPI Comments Details: The patient is a 59-year-old female presenting with chest pain and breathing difficulties. The chest pain is located on the side of the heart and worsens with physical activity. This symptom has persisted for more than a year. Breathing difficulties have been present for over a year, with a history of ast hma potentially contributing to these symptoms. The patient denies any history of heart attacks or significant cardiac problems. She experiences seasonal allergies but has no known allergy to IV contrast dye. [facility] Medical History (Updated 04/03/25 @ 09:03 by Demetrius Vicente MD) Fatigue Allergic rhinitis due to allergen Plantar fascial fibromatosis of left foot Mass of left foot Calcaneal spur of right foot Right ankle pain Sprain of right ankle Right foot pain Plantar fasciitis, right Acute respiratory disease Cystitis H. pylori infection Lumbar pain Osteoarthritis of left hip HUONG (generalized anxiety disorder) Mild recurrent major depression (~02/16/25) Osteoarthritis of right knee Dyslipidemia Depression with anxiety Shortness of breath Dysphagia [id number] syndrome Polyarthralgia Hypothyroidism COVID-19 Nausea Osteoarthritis Fatty liver Anxiety Fibromyalgia Hypothyroid High cholesterol Asthma Surgical History History of esophagogastroduodenoscopy (EGD) Hx of colonoscopy History of blepharoplasty History of removal of ovarian cyst Tubal ligation status H/O oophorectomy Family History Sister Breast CA Pancreatic cancer Sister Breast CA Father Myocardial infarction Diabetes Hypertension CVD (cardiovascular disease) Mother Heart problem Daughter In good health Social History Household Members: None Housing: Apartment Alcohol intake: current Alcohol intake frequency: holidays/special occasions only Alcohol type: wine Patient Tobacco Use Status: Former Tobacco user Tobacco use type: Cigarette e-Cigarette/Vaping Use: Never Used Second Hand Smoke Exposure: No service: No Current occupational status: disabled Cognitive needs: Yes Hearing needs: No Vision needs: No Female Reproductive History Menstrual Age of Menarche: 11 Review of Systems Const Denies weakness ENT Reports dizziness Card Denies chest pain, Denies chest pain with activity, Denies syncope, Denies rapid heart rate, Denies pedal edema, Denies edema, Denies leg edema, Denies lightheadedness, Reports palpitations, Reports dyspnea, Reports dyspnea on exertion and Denies orthopnea Resp Denies cough, Reports dyspnea and Reports dyspnea on exertion GI Denies hematochezia and Denies change in stool character Musc Denies abnormal gait, Reports myalgias, Denies muscle cramps, Denies muscle weakness, Denies numbness, Denies radiating pain into limb and Denies tingling Neuro Denies abnormal gait, Reports dizziness, Denies syncope, Denies numbness, Denies tingling and Denies weakness Endo Reports palpitations Physical Exam Vital Signs: Last Vital Signs Pulse 76 04/03/25 08:35 BP 106/62 04/03/25 08:35 BMI result Body Mass Index 33.5 Const General: comfortable and no acute distress Orientation/consciousness: patient oriented x3 HEENT Other: Unremarkable Head: Yes normal to inspection Neck Neck: Yes normal visual inspection Chest Chest palpation & inspection: normal inspection of the chest Resp Auscultation: clear to auscultation bilaterally Cardio Palpation: normal PMI Heart sounds: S1 normal heart sound present, S2 normal heart sound present, no gallops, no murmurs and no rubs GI Palpation (GI): Soft to palpation Back/Spine/Pelvis Other: unremarkable Skin General skin exam: no rashes or lesions noted Neuro General: patient oriented x3 Extrem General: Yes normal to inspection Psych Mental Status: mental status grossly normal Assessment & Plan Assessment & Plan (1) Abnormal EKG: Code(s): R94.31 - Abnormal electrocardiogram [ECG] [EKG] Category: Medical (2) Chest pain: Code(s): R07.9 - Chest pain, unspecified Category: Medical (3) Shortness of breath: Code(s): R06.02 - Shortness of breath Category: Medical Plan EKG shows underlying sinus rhythm at 81/Min; minimal criteria for LVH; anterior nonspecific ST-T changes. She has had a similar pattern of EKG findings going back several years. Not clear if it is something nonspecific versus truly related to coronary disease. However, she is describing some symptoms of chest discomfort and shortness of breath, this needs further workup. Symptoms could also be related to asthma and allergies. We will plan on getting an echocardiogram and coronary CTA. Further plan based on the findings. Discussion Notes I discussed with the patient the plan to conduct a cardiac ultrasound and CT scan to investigate the cause of her chest pain. We reviewed her history of asthma and allergies, ensuring there are no contraindications for the planned imaging studies. Patient was informed and verbally consented to the use of an ambient scribe for clinic note documentation during this visit. Orders: Orders CT Cardiac Coronary Angio Today I25.10 - Atherosclerotic heart disease of [place] coronary artery without angina pectoris, R07.9 - Chest pain, unspecified Basic Metabolic Panel Today R07.9 - Chest pain, unspecified CA echo transthoracic complete Today R06.02 - Shortness of breath, R07.9 - Chest pain, unspecified Coding Level of Care Code New Pt Level 4 (13247) Complex EM visit Add On G2211 Diagnoses Abnormal EKG R94.31 Chest pain R07.9 Shortness of breath R06.02
== END 2025-04-03 09:02 | disposition home or self-care (01) ==
LOC: HO.HCS 08:19
PROVIDERS: PCP Internal Medicine; Visit Provider Internal Medicine
DX: R94.31 Abnormal electrocardiogram [ECG] [EKG] (principal); R07.9 Chest pain, unspecified; R06.02 Shortness of breath
CPT/HCPCS: 99204; G2211

== ENCOUNTER → 2025-04-03 08:18 | Outpatient (BNVA) | payer OTHER, SELFPAY | PROVIDERS: PCP Internal Medicine; Visit Provider Internal Medicine | DX: R94.31 Abnormal electrocardiogram [ECG] [EKG] (principal); R07.9 Chest pain, unspecified; R06.02 Shortness of breath | CPT/HCPCS: 99202 ==

== ENCOUNTER 2025-04-11 08:11 | Outpatient (REF) | payer OTHER, SELFPAY | END 2025-04-11 08:12 | disposition home or self-care (01) | LOC: HO.LNP 08:11 | PROVIDERS: PCP Internal Medicine; Visit Provider Obstetrics & Gynecology | DX: Z01.419 Encounter for gynecological examination (general) (routine) without abnormal findings (principal); N63.11 Unspecified lump in the right breast, upper outer quadrant; Z98.51 Tubal ligation status; Z11.51 Encounter for screening for human papillomavirus (HPV) | CPT/HCPCS: 87626; 88175; 99396 ==

== ENCOUNTER 2025-04-11 08:11 | Outpatient (AMB) | payer OTHER, SELFPAY ==
--- OUTSIDE RECORDS SUMMARY | 2025-04-11 08:16 | XMS_ITS | Clinical Summary ---
Author Organization [facility] ity Address [address] [place] [address] Care Team Providers Care Stage Builder Name Role Phone Unavailable Primary Care Provider [...]
--- OUTSIDE RECORDS SUMMARY | 2025-04-11 08:16 | XMS_ITS | Patient Health Record ---
Author Organization [facility] Address [address] [place] [address] Care Team Providers Care Lead Person Name Role Phone William Powell [phone] Reason For Referral No Information Plan Of Treatment No Information
--- OUTSIDE RECORDS SUMMARY | 2025-04-11 08:16 | XMS_ITS | Clinical Summary ---
Author Organization [employer] Address [address] [facility] 7t h Floor [place] [id number] Care Team Providers Care Advisory Software Engineer Name Role Phone Unavailable Primary Care [...] AM EST) ADDITIONAL TESTING Not indicated () [facility] Comment: [facility], [facility], [address] [place] [address] Issa Renner M.D., Ph.D., Director of Laboratories , [place] [id number] HPV 16 RNA Test not performed [facility] HPV 18/45 RNA Test not performed [facility] HPV mRNA E6/E7 Not Detected NOT DETECTED [facility] Comment: This test was performed using the APTIMA(R) HPV Assay ([employer] This assay detects E6/E7 viral messenger RNA (mRNA) from 14 high-risk HPV types (16,18,31,33,35,39,45,51, 52,56,58,59,66,68). For additional information please refer to: http://education.Internet college internation S.L./faq/CWT804z0 (This link is being provided for informational/ educational purposes only.) Please note: Effective 02/11/2016, HPV testing will be performed using [employer]'s APTIMA test which targets mRNA. Detecting mRNA instead of DNA, as in older methods, offers significant improvements in specificity. 07/18/2016 10:5 8 AM EST us Trupti Hopper DO HISTORICAL/NON ORDERABLE LAB S Final Result [facility] [address] from Last 3 Months or Most Recently Relevant to Health Maintenance [place] [address] [address] STANDARD
--- NOTE | 2025-04-11 08:32 | A.OFFVIS_ITS ---
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 Complaining of right breast lump no associated nipple discharge or any other concerns Last Pap/HPV unknown Last Mammogram was BI-RADS 2 in 10/23 Last Colonoscopy was done in 11/21, the recommendation was to repeat in 10 years [facility] Medical History Fatigue Allergic rhinitis due to allergen Plantar fascial fibromatosis of left foot Mass of left foot Calcaneal spur of right foot Right ankle pain Sprain of right ankle Right foot pain Plantar fasciitis, right Acute respiratory disease Cystitis H. pylori infection Lumbar pain Osteoarthritis of left hip HUONG (generalized anxiety disorder) Mild recurrent major depression (~02/16/25) Osteoarthritis of right knee Dyslipidemia Depression with anxiety Shortness of breath Dysphagia [id number] syndrome Polyarthralgia Hypothyroidism COVID-19 Nausea Osteoarthritis Fatty liver Anxiety Fibromyalgia Hypothyroid High cholesterol Asthma Surgical History History of esophagogastroduodenoscopy (EGD) Hx of colonoscopy History of blepharoplasty History of removal of ovarian cyst Tubal ligation status H/O oophorectomy Family History Sister Breast CA Pancreatic cancer Sister Breast CA Father Myocardial infarction Diabetes Hypertension CVD (cardiovascular disease) Mother Heart problem Daughter In good health Social History Household Members: None Housing: Apartment Alcohol intake: current Alcohol intake frequency: holidays/special occasions only Alcohol type: wine Patient Tobacco Use Status: Former Tobacco user Tobacco use type: Cigarette e-Cigarette/Vaping Use: Never Used Second Hand Smoke Exposure: No service: No Current occupational status: disabled Cognitive needs: Yes Hearing needs: No Vision needs: No Female Reproductive History Menstrual Age of Menarche: 11 control method: permanent sterilization Menopause type: natural Total pregnancies: 3 Full term: 3 Number of Living Children: 3 Date of Mammogram: 10/06/24 Review of Systems Const All systems reviewed & are unremarkable except as noted in HPI and below Card Reports as per HPI Resp Reports as per HPI GI Reports as per HPI and Reports no additional complaints Reports as per HPI Physical Exam Vital Signs: BMI result Body Mass Index 33.4 Const General: cooperative, healthy appearing and comfortable Chest Chest palpation & inspection: normal inspection of the chest and normal palpation of entire chest wall Breast/axilla inspection: inspection of breasts abnormal (Left breast within normal, right breast lump 7 cm from the nipple at 10 ) and normal inspection of the axillae Breast/axilla palpation: normal palpation of the breasts, normal palpation of the axillae and no axillary lymphadenopathy Resp Effort & Inspection: normal respiratory effort Auscultation: clear to auscultation bilaterally Percussion: percussion normal Cardio Palpation: normal PMI Rate: regular rate Rhythm: regular rhythm Heart sounds: no murmurs and no rubs Peripheral pulses: Peripheral pulses 2+ throughout GI Inspection: Yes normal to inspection Palpation (GI): Soft to palpation, nontender, no guarding, not rigid and No hepatosplenomegaly present Percussion: Yes normal to percussion Auscultation: normal bowel sounds Rectal Exam - Female: deferred General: Yes bladder normal to palpation External Female Exam: No lesion Speculum Exam - Vagina: normal appearance of the vagina, normal palpation, normal vaginal discharge and not erythematous Speculum Exam - Cervix: normal appearance of the cervix and normal palpation Bimanual exam- vagina & uterus: normal bimanual exam, normal palpation, uterine size normal, bladder normal to palpation, consistency normal and normal palpation Bimanual Exam- Adnexa, other: normal adnexae, no masses and no tenderness Assessment & Plan Assessment & Plan (1) Well woman exam: Code(s): Z01.419 - Encounter for gynecological examination (general) (routine) without abnormal findings Category: Medical Plan: Co testing done. Counseled the patient about the recommended dietary allowance of 1200 mg of Calcium & 600 IU of vitamin D. Instructions given to patient to schedule next screening Mammogram in 10/24. The patient was instructed to perform monthly self-breast exams and schedule annual exam in a year. All questions answered and the patient verbalized understanding. (2) Breast lump on right side at 10 o'clock position: Code(s): N63.11 - Unspecified lump in the right breast, upper outer quadrant Category: Medical Plan: Discussed with the patient the finding on Breast exam (breast lump) .The differential diagnosis includes but not limited to lump/cyst/pre cancer/cancer or dense breast tissue. The work up includes breast US and diagnostic mammogram and referred the patient for surgical breast consult. Orders: Orders MM tomosynthesis diagnostic RT Today N63.11 - Unspecified lump in the right breast, upper outer quadrant US breast RT limited Today N63.11 - Unspecified lump in the right breast, upper outer quadrant Referrals General Surgery Referral N63.11 - Unspecified lump in the right breast, upper outer quadrant Coding Level of Care Code Est Pt Prev Care 40-64y(33012) Diagnoses Well woman exam Z01.419 Breast lump on right side at 10 o'clock position N63.11
[2025-04-11 08:36] VITALS: BMI 33.4
== END 2025-04-11 09:06 | disposition home or self-care (01) ==
LOC: HO.HWS 08:12
PROVIDERS: PCP Internal Medicine; Visit Provider Obstetrics & Gynecology
DX: Z01.419 Encounter for gynecological examination (general) (routine) without abnormal findings (principal); N63.11 Unspecified lump in the right breast, upper outer quadrant
CPT/HCPCS: 99396; 99459

== ENCOUNTER 2025-04-20 09:14 | Outpatient (REF) | payer OTHER, SELFPAY ==
--- NOTE | 2025-04-20 10:03 | PFT_ITS ---
Flows: FEV1: 99 % of predicted at 2.67 L FVC: 93 % of predicted at 3.22 L FEV1/FVC: 83 % Bronchodilator response: Absent Volumes: Total lung capacity: 77 % of predicted at 4.35 L Residual volume: 63 % of predicted at 1.23 L Slow vital capacity: 85 % of predicted at 3.13 L Expiratory reserve volume: 52 % of predicted at 0.48 L Diffusion capacity: Normal Impression: Mild restrictive ventilatory defect with no bronchodilator response. Decreased expiratory reserve volume suggests extrathoracic restriction likely secondary to abdominal obesity. MTDD
[2025-04-20 10:38] VITALS: PULSE 72
--- OUTSIDE RECORDS SUMMARY | 2025-04-20 11:57 | XMS_ITS | Clinical Summary ---
Author Organization [employer] Address [address] [facility] 7t h Floor [place] [id number] Care Team Providers Care Soa Architect Name Role Phone Unavailable Primary Care [...] - Risk 3-dose series) 09/03/2004 08/06/2004, 06/18/2004 RSV Patients and Patients Aged 60 years or older (1 - Risk 50-74 years 1-dose series) 11/11/2013 Zoster Vaccines (1 of 2) 11/11/2013 Pneumococcal Vaccine: 50+ Years (2 of 2 - PCV) 10/26/2015 10/25/2014 DTaP/Tdap/Td Vaccines (2 - Td or Tdap) 07/02/2019 07/02/2009, 06/18/2004 Mammogram 08/19/2020 08/19/2018, 01/30, 09/03/2017 Cervical Cancer Screening 07/18/2021 HPV/Cotest 07/18/2021 07/18/2016 COVID-19 Vaccine ( season) 2025 07/17/2022, 05/02/2021, [...] AM EST) ADDITIONAL TESTING Not indicated () [facility] Comment: [facility], [employer] [facility], [address] [place] [address] Issa Renner M.D., Ph.D., Director of Laboratories , [place] [id number] HPV 16 RNA Test not performed [facility] HPV 18/45 RNA Test not performed [facility] HPV mRNA E6/E7 Not Detected NOT DETECTED [facility] Comment: This test was performed using the APTIMA(R) HPV Assay ([employer] This assay detects E6/E7 viral messenger RNA (mRNA) from 14 high-risk HPV types (16,18,31,33,35,39,45,51, 52,56,58,59,66,68). For additional information please refer to: http://education.NorSun/faq/ZFP783p8 (This link is being provided for informational/ educational purposes only.) Please note: Effective 02/11/2016, HPV testing will be performed using [employer]'s APTIMA test which targets mRNA. Detecting mRNA instead of DNA, as in older methods, offers significant improvements in specificity. 07/18/2016 10:5 8 AM EST us Trupti Hopper DO HISTORICAL/NON ORDERABLE LAB S Final Result [facility] [place] [facility] [address] from Last 3 Months or Most Recently Relevant to Health Maintenance [place] [address] [address] [place] [address] STANDARD
--- OUTSIDE RECORDS SUMMARY | 2025-04-20 11:57 | XMS_ITS | Patient Health Record ---
Author Organization [facility] Address [address] [place] [address] Care Team Providers Care Placement Assistant Name Role Phone William Powell [phone] Reason For Referral No Information Plan Of Treatment No Information
== END 2025-04-20 09:15 | disposition home or self-care (01) ==
LOC: HO.RESP 09:14
PROVIDERS: PCP Internal Medicine; Visit Provider Internal Medicine
DX: J45.909 Unspecified asthma, uncomplicated (principal); Z87.891 Personal history of nicotine dependence
CPT/HCPCS: 94060; 94640; 94727; 94729

== ENCOUNTER → 2025-04-20 10:03 | Outpatient (BNV) | payer OTHER, SELFPAY | PROVIDERS: PCP Internal Medicine; Visit Provider Internal Medicine Pulmonary Disease | DX: J98.4 Other disorders of lung (principal) | CPT/HCPCS: 94060; 94727; 94729 ==

== ENCOUNTER 2025-04-25 07:38 | Outpatient (REF) | payer OTHER, SELFPAY ==
--- OUTSIDE RECORDS SUMMARY | 2025-04-25 07:41 | XMS_ITS | Clinical Summary ---
Author Organization [employer] Address [address] [facility] 7t h Floor [place] [id number] Care Team Providers Care Manager Auto Name Role Phone Unavailable Primary Care Provider [...] AM EST) ADDITIONAL TESTING Not indicated () [facility] Comment: Test Performed by [facility], [facility], [address] [place] [address] Issa Renner M.D., Ph.D., Director of Laboratories , [place] [id number] HPV 16 RNA Test not performed [facility] HPV 18/45 RNA Test not performed [facility] HPV mRNA E6/E7 Not Detected NOT DETECTED [facility] Comment: This test was performed using the APTIMA(R) HPV Assay ([employer] This assay detects E6/E7 viral messenger RNA (mRNA) from 14 high-risk HPV types (16,18,31,33,35,39,45,51, 52,56,58,59,66,68). For additional information please refer to: http://education.Cellular Bioengineering/faq/BYS988v5 (This link is being provided for informational/ educational purposes only.) Please note: Effective 02/11/2016, HPV testing will be performed using [employer]'s APTIMA test which targets mRNA. Detecting mRNA instead of DNA, as in older methods, offers significant improvements in specificity. 07/18/2016 10:5 8 AM EST us Trupti Hopper DO HISTORICAL/NON ORDERABLE LAB S Final Result [facility] Anywhere [address] from Last 3 Months or Most Recently Relevant to Health Maintenance Insurance [place] [address] STANDARD
--- OUTSIDE RECORDS SUMMARY | 2025-04-25 07:41 | XMS_ITS | Clinical Summary ---
Author Organization [facility] ity Address [address] [place] [address] Care Team Providers Care Milanese Knitting Machine Operator Name Role Phone Unavailable Primary Care Provider [...] Depression Screening 06/01/2024 COVID-19 Vaccine (1 - 2024-2 6 season) 2025 Influenza Vaccine (#1) 2025 RSV [...]
[2025-04-25 08:42] LABS: Anion Gap 10 (12-20); Blood Urea Nitrogen 12 mg/dL (9-16); Calcium 9.3 mg/dL (8.4-10.2); Carbon Dioxide 27 mmol/L (22-29); Chloride 108 mmol/L (96-108); Estimated Glomerular Filt Rate > 60; Potassium 4.4 mmol/L (3.3-5.1); Sodium 141 mmol/L (135-145)
== END 2025-04-25 07:39 | disposition home or self-care (01) ==
LOC: HO.LAB 07:38
PROVIDERS: PCP Internal Medicine; Visit Provider Internal Medicine
DX: R07.9 Chest pain, unspecified (principal)
CPT/HCPCS: 36415; 80048

== ENCOUNTER → 2025-04-26 10:13 | Outpatient (REF) | payer OTHER, SELFPAY ==
--- NOTE | 2025-04-26 10:16 | CA_ITS ---
Transthoracic Echocardiogram Patient (Last, First, Middle): Harini Hoyos, Gender: F Date of : 1965 Age: 59 Procedure Date: 04/26/2025 Procedure Type: Transthoracic Echocardiogram Location: OP Height: 170.18 cm Weight: 96.62 kg BSA: 2.08 m2 Heart Rate: 72 bpm BP: 106 / 62 mmHg Screener Perfumer: SB Referring MD: Demetrius Vicente MD Symptoms: R07.9 - Chest pain, unspecified Study Quality: Adequate ECG Rhythm: Sinus Conclusions: - The left ventricular systolic function is low normal. The calculated ejection fraction is 53% by biplane method. - No obvious valvular pathology seen on this study. Findings Left Ventricle Normal left ventricular cavity size. The left ventricular systolic function is low normal. The calculated ejection fraction is 53% by biplane method. There is no evidence of regional wall motion abnormalities. Diastolic function is normal for age. There is mild septal asymmetric hypertrophy. Right Ventricle Normal right ventricular cavity size and systolic function. Atria Both atria are normal in size. Aortic Valve There is a normal trileaflet aortic valve. There is no aortic valve stenosis. There is no aortic valve regurgitation. Mitral Valve The mitral valve appears normal. There is trace mitral valve regurgitation. There is no mitral valve stenosis. Pulmonic Valve The pulmonic valve is likely normal. Tricuspid Valve There is trace tricuspid valve regurgitation. Tricuspid regurgitation envelope is inadequate for calculation of right ventricular systolic pressure. Great Vessels The asc aorta and aortic arch are normal in size. Venous The inferior vena cava is normal in size and collapses greater than 50% with inspiration. Pericardium/Pleural There is no evidence of pericardial effusion. Prior Study Comparison No significant change compared to prior study dated: 03/29/2018. Recommendations, Care & Conclusions No obvious valvular pathology seen on this study. Measurements 2D Linear Measurements IVSd: 1.11 0.6-0.9/0.6-1.0 cm LVIDd: 4.32 3.9-5.3/4.2-5.9 cm LVIDd Index: 2.08 2.4-3.2/2.2-3.1 cm/m2 LVIDs: 3.47 2.0-3.6 cm LVPWd: 0.59 0.7-1.1 cm LA Diam: 3.30 2.7-3.8/3.0-4.0 cm LAIDs Index: 1.59 1.5-2.3 cm/m2 LV Mass: 143.16 67-162/88-224 g LV Mass Index: 68.83 43-95/49-115 g/m2 LVOT Diam: 2.30 3.0+(-)1.3 cm 2D Systolic Function EF 4C: 56.10 >55% EF 2C: 47.20 >55% EF BiP: 52.80 >55% Mitral Valve MV Pk E: 0.36 MV PK A: 0.59 MV Decel Time: 429.00 E/A: 0.60 E'Lateral: 7.18 E'Medial: 4.13 E/E' Med: 8.80 E/E' Lat: 5.10 PHT: 126.00 MVA PHT: 1.75 Decel Pasco: 0.85 Aortic Valve AoV Pk Tommy: 0.94 AoV Pk Grad: 4.00 OBINNA: 3.33 LVOT LVOT Pk Tommy: 0.76 LVOT Mn Tommy: 0.46 LVOT VTI: 0.16 LVOT Pk Grad: 2.00 LVOT Mn Grad: 1.00 LVOT Diam: 2.30 LVOT Area: 4.15 Diastolic Function MV Pk E: 0.36 MV Pk A: 0.59 E/A: 0.60 E'Medial: 4.13 E/E' Med: 8.80 E' Laterial: 7.18 E/E' Lat: 5.10 Right Ventricle TAPSE (mm): 25.30 TVS' Tommy: 11.60 Tricuspid Valve RA Press: 3.00 Great Vessels Aorta Sinus of Valsalva: 3.40 2.0-3.5 cm Ao Asc: 3.40 2.1-3.4 cm Ao Arch: 2.80 Pulmonary Veins Pulm Vein S/D 1.70 Pulmonary Valve PV Pk Tommy: 0.83 Peak PV Grad: 3.00 Updated in Other Vendor System with Status of Final Demetrius Vicente MD electronically signed on 04/26/2025 12:22:07 PM with status of Final
--- OUTSIDE RECORDS SUMMARY | 2025-04-26 11:56 | XMS_ITS | Clinical Summary ---
Author Organization [facility] Address [address] [place] [address] Care Team Providers Care Door Fitter Name Role Phone Unavailable Primary Care Provider [...]
--- OUTSIDE RECORDS SUMMARY | 2025-04-26 11:56 | XMS_ITS | Clinical Summary ---
Author Organization [employer] Address [address] [facility] 7t h Floor [place] [id number] Care Team Providers Care Inventory Worker Name Role Phone Unavailable Primary Care [...] AM EST) ADDITIONAL TESTING Not indicated () [facility] Comment: Test Performed by [facility], [facility], [address] [place] [address] Issa Renner M.D., Ph.D., Director of Laboratories , [place] [id number] HPV 16 RNA Test not performed [facility] HPV 18/45 RNA Test not performed [facility] HPV mRNA E6/E7 Not Detected NOT DETECTED [facility] Comment: This test was performed using the APTIMA(R) HPV Assay ([employer] This assay detects E6/E7 viral messenger RNA (mRNA) from 14 high-risk HPV types (16,18,31,33,35,39,45,51, 52,56,58,59,66,68). For additional information please refer to: http://education.Melodigram/faq/CJV877j5 (This link is being provided for informational/ educational purposes only.) Please note: Effective 02/11/2016, HPV testing will be performed using [employer]'s APTIMA test which targets mRNA. Detecting mRNA instead of DNA, as in older methods, offers significant improvements in specificity. 07/18/2016 10:5 8 AM EST us Trupti Hopper DO HISTORICAL/NON ORDERABLE LAB S Final Result [facility] Anywhere [address] from Last 3 Months or Most Recently Relevant to Health Maintenance [place] [address] STANDARD
== END ==
LOC: HO.CARD 10:13
PROVIDERS: PCP Internal Medicine; Visit Provider Internal Medicine
DX: R06.02 Shortness of breath (principal); R07.9 Chest pain, unspecified
CPT/HCPCS: 93306

== ENCOUNTER → 2025-04-26 10:16 | Outpatient (BNV) | payer OTHER, SELFPAY | PROVIDERS: PCP Internal Medicine; Visit Provider Internal Medicine | DX: R07.9 Chest pain, unspecified (principal) | CPT/HCPCS: 93306 ==

== ENCOUNTER 2025-05-04 15:20 | Outpatient (AMB) | payer OTHER, SELFPAY ==
[2025-05-04 15:27] VITALS: BP 110/70; PULSE 73; O2SAT 99; BMI 34.7
--- NOTE | 2025-05-04 15:27 | A.OFFVIS_ITS ---
Vital Signs 05/04/25 15:27 Height 5 ft 7 in Weight 221 lb 9.033 oz BMI 34.7 BP 110/70 Blood Pressure Location Lt brachial Position Sitting Pulse 73 Pulse Source Pulse Oximeter Pulse Oximetry (%) 99 Oxygen Delivery Method Room Air Intake Visit Reasons: asthma Intake Note: pt is here for follow up of pft and states her asthma is good. pt needs refill on arnuity Mannequin Wig Maker Required: Yes Mannequin Wig Maker Services: Mannequin Wig Maker Present Mannequin Wig Maker Name: Sasha (OA) Allergies Sulfa (Sulfonamide Antibiotics) (Sulfa (Sulfonamides)) Allergy (Severe, Verified 05/04/25 17:05) SWELLING cbd Allergy (Intermediate, Uncoded 05/04/25 17:05) chest pain Medication List - Last Reconciled 05/04/25 by Garrick Howard MD [air conditioner As directed] albuterol sulfate 90 mcg/actuation 2 puffs inhalation Q4-6H PRN albuterol sulfate 2.5 mg (3 mL) inhalation Q6H 30 days cane As directed cetirizine (All Day Allergy (cetirizine)) 10 mg PO DAILY cholecalciferol (vitamin D3) 50 mcg PO DAILY ciclesonide 80 mcg/actuation (Alvesco) 2 puffs inhalation BID 30 days commode As directed fluticasone furoate 50 mcg/actuation (Arnuity Ellipta) 1 inh inhalation DAILY 30 days fluticasone propionate 50 mcg/actuation (Flonase Allergy Relief) 1 spray intranasal DAILY Grab bar As directed Knee brace As directed levothyroxine (Levoxyl) 88 mcg PO DAILY 90 days lorazepam 0.5 mg PO DAILY PRN meloxicam 15 mg PO DAILY nebulizers (AeroEclipse II Nebulizer) As directed pantoprazole 40 mg PO DAILY 90 days polyethylene glycol 3350 (Miralax) 17 grams PO DAILY PRN 30 days [recliner As directed] rosuvastatin 10 mg PO BEDTIME 90 days sertraline 50 mg PO DAILY sertraline 100 mg PO DAILY solifenacin (Vesicare) 5 mg PO DAILY 90 days Do you need a note to return to daycare/school/sports/work: No HPI HPI asthma: Details: 59 YEARS OLD FEMALE IS HERE FOR FOLLOW-UP, FOR HER BREATHING ISSUES, AND ALLERGIES. SHE HAS HAD PULMONARY FUNCTION TEST. ON HER CURRENT REGIMEN SHE FEELS BETTER, BUT STILL HAS MILD BOUTS OF COUGH AND SOME SHORTNESS OF BREATH ON WALKING. NASAL CONGESTION IS MUCH LESS THAN BEFORE. CONTINUED USE OF ARNUITY HAS DECREASED HER SYMPTOMS OF COUGH AND WHEEZING. SHE HAD CBC WITH SHOWS MILD EOSINOPHILIA ( 5.4 ) IGE LEVEL WAS NORMAL RAST TEST THE SENSITIVITY LEVEL SLIGHTLY ELEVATED FOR WHITE 0 CASE AND CLASS BIRCH [facility] Medical History Fatigue Allergic rhinitis due to allergen Plantar fascial fibromatosis of left foot Mass of left foot Calcaneal spur of right foot Right ankle pain Sprain of right ankle Right foot pain Plantar fasciitis, right Acute respiratory disease Cystitis H. 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 Polyarthralgia Hypothyroidism COVID-19 Nausea Osteoarthritis Fatty liver Anxiety Fibromyalgia Hypothyroid High cholesterol Asthma Surgical History History of esophagogastroduodenoscopy (EGD) Hx of colonoscopy History of blepharoplasty History of removal of ovarian cyst Tubal ligation status H/O oophorectomy Family History Sister Breast CA Pancreatic cancer Sister Breast CA Father Myocardial infarction Diabetes Hypertension CVD (cardiovascular disease) Mother Heart problem Daughter In good health Social History Household Members: None Housing: Apartment Alcohol intake: current Alcohol intake frequency: holidays/special occasions only Alcohol type: wine Patient Tobacco Use Status: Former Tobacco user Tobacco use type: Cigarette e-Cigarette/Vaping Use: Never Used Second Hand Smoke Exposure: No service: No Current occupational status: disabled Cognitive needs: Yes Hearing needs: No Vision needs: No Female Reproductive History Menstrual Age of Menarche: 11 Review of Systems Const All systems reviewed & are unremarkable except as noted in HPI and below Eyes Reports no additional complaints ENT Reports nasal congestion and Reports nasal discharge Card Reports chest pain (MILD NON SPECIFIC ), Denies irregular heart rhythm and Denies leg edema Resp Reports as per HPI GI Reports heartburn (BEING TREATED FOR GERD SYMPTOMS) Reports no additional complaints Musc Reports back pain and Reports arthralgias (KNEES PAIN) Skin/Breast Reports system reviewed and no additional complaints, except as documented Neuro Reports no additional complaints Psych Reports depression (MILD OFF AND ON IN THE PAST) Endo Reports no additional complaints Sudhakar/Lymph Reports no additional complaints Aller/Immun Reports no additional complaints Physical Exam Vital Signs: Last Vital Signs Pulse 73 05/04/25 15:27 BP 110/70 05/04/25 15:27 Pulse Ox 99 05/04/25 15:27 Oxygen Delivery Method Room Air 05/04/25 15:27 BMI result Body Mass Index 34.7 Const General: healthy appearing (EXCEPT FOR BEING OVERWEIGHT), comfortable, no acute distress, alert and awake Orientation/consciousness: patient oriented x3 HEENT Head: Yes normal to inspection General nose exam: No nasal polyps present and No nasal discharge present Face and sinus: Yes sinuses nontender Mouth: oropharynx abnormals (MODERATELY NARROW AND CROWDED, MALLAMPATI SCALE 3) Throat: Yes posterior oropharynx normal Eyes General: appearance normal, both eyes and all related structures Neck Neck: Yes normal visual inspection, Yes no lymphadenopathy, Yes trachea midline and Yes no JVD Thyroid: Thyroid normal Chest Chest palpation & inspection: normal inspection of the chest, normal palpation of entire chest wall and no tenderness Resp Effort & Inspection: normal respiratory effort Auscultation: clear to auscultation bilaterally, no rhonchi and no wheezes Cardio Palpation: normal PMI Rate: regular rate Rhythm: regular rhythm Heart sounds: no gallops and no murmurs Peripheral pulses: Peripheral pulses 2+ throughout GI Palpation (GI): Soft to palpation, nontender, No hepatosplenomegaly present and no masses Auscultation: normal bowel sounds Back/Spine/Pelvis Thoracic/Lumbar Spine: thoracic and lumbar spine normal to inspection Skin General skin exam: no rashes or lesions noted Neuro General: patient oriented x3 and no focal motor deficits Cranial nerves: Yes CN's II-XII intact bilaterally Extrem General: Yes normal to inspection, Yes no clubbing, cyanosis or edema and Yes no calf tenderness Psych Appearance: grossly normal and well kempt Speech and movement: Normal speech and movement present Results Reviewed Results Reviewed: PULMONARY FUNCTION TEST ON 04/2025. ESSENTIALLY NORMAL BUT SLIGHTLY AUGMENTED RESPONSE TO BRONCHODILATOR THERAPY INDICATED BY 10% INCREASE IN FEV1 AND 18% INCREASE IN FEF 25-75 CBC, EOSINOPHIL COUNT 5.4 IGE LEVEL 74 (NORMAL ) REST TEST, MILDLY POSITIVE FOR BIRCH AND OAK Assessment & Plan Assessment & Plan (1) Asthma: Comment: PATIENT DOES HAVE LONGSTANDING HISTORY OF ALLERGIC BRONCHIAL ASTHMA, MILD INTERMITTENT, SYMPTOMS WORSE IN CERTAIN SEASONS. HAS REMAINED FAIRLY WELL CONTROLLED WITH INHALED STEROIDS AND ALBUTEROL P.R.N. PFT RESULTS EXPLAINED TO THE PATIENT, TREATMENT PLAN EXPLAINED . SHE IS DOING WELL WITH INHALED STEROIDS. NO NEED OF ANY EXTRA LEVEL OF TREATMENT Code(s): J45.909 - Unspecified asthma, uncomplicated Category: Medical Plan: CONTINUE USING ICS , BUT ARNUITY IS NOT ON THE PANEL LIST OF INSURANCE, ALTERNATE INHALER IS ALVESCO 80 MCGM 2 PUFFS B.I.D. WHICH HAS BEEN PRESCRIBED USE ALBUTEROL HFA 2 PUFFS Q 6 HOURS ONLY P.R.N. (2) Allergic rhinitis due to allergen: Comment: HISTORY OF ALLERGIC RHINITIS, AROUND THE YEAR, FOR MANY YEARS. SHE REPORTS REACTION TO ENVIRONMENTAL ALLERGIES WELL HOUSEHOLD ALLERGIES. HAS HAD NO ALLERGY TESTING IN THE PAST. RESULTS OF CBC SHOWING MILD EOSINOPHILIA AND ALSO RAST TEST SHOWING POSITIVE REACTION TO BIRCH AND OAK IS EXPLAINED SHE IS ADVISE THAT THE CURRENT LEVEL OF TREATMENT IS FINE AND WE DO NOT ANY ADDITIONAL AGENTS Code(s): J30.9 - Allergic rhinitis, unspecified Category: Medical Plan: CONTINUE FLONASE -50 2 SPRAY EACH NOSTRIL DAILY MAY USE CETIRIZINE 10 MG ONCE A DAY PRN (3) Obesity (BMI 30-39.9): Comment: PATIENT IS MODERATELY OBESE CURRENT BMI 34.7 SHE WAS SCREENED FOR SLEEP APNEA AND HAS ONLY SNORING BUT NO SIGNIFICANT SLEEP APNEA SYMPTOMS. Code(s): E66.9 - Obesity, unspecified Category: Medical Plan: DISCUSSED ABOUT THE WEIGHT AND STRESSED THAT SHE NEEDS TO CONTROL HER DIET AND DO MORE EXERCISE SO THAT SHE CAN LOSE SOME WEIGHT. Medications: New ciclesonide 80 mcg/actuation (Alvesco) 2 puffs inhalation BID 6.1 grams 4RF as thma 30 days Coding Level of Care Code Est Pt Level 3 (94993) Diagnoses Asthma J45.909 Allergic rhinitis due to allergen J30.9 Obesity (BMI 30-39.9) E66.9
--- OUTSIDE RECORDS SUMMARY | 2025-05-04 21:33 | XMS_ITS | Clinical Summary ---
Author Organization [employer] Address [address] [facility] 7t h Floor [place] [id number] Care Team Providers Care Director Water And Waste Services Name Role Phone Unavailable Primary Care Provider [...] AM EST) ADDITIONAL TESTING Not indicated () [facility] Comment: [facility] Performed by [facility], [facility], [address] [place] [address] Issa Renner M.D., Ph.D., Director of Laboratories , [place] [id number] HPV 16 RNA Test not performed [facility] HPV 18/45 RNA Test not performed [facility] HPV mRNA E6/E7 Not Detected NOT DETECTED [facility] Comment: This test was performed using the APTIMA(R) HPV Assay ([employer] This assay detects E6/E7 viral messenger RNA (mRNA) from 14 high-risk HPV types (16,18,31,33,35,39,45,51, 52,56,58,59,66,68). For additional information please refer to: http://education.[employer] Research/faq/KMW919t1 (This link is being provided for informational/ educational purposes only.) Please note: Effective 02/11/2016, HPV testing will be performed using [employer]'s APTIMA test which targets mRNA. Detecting mRNA instead of DNA, as in older methods, offers significant improvements in specificity. 07/18/2016 10:5 8 AM EST us Trupti Hopper DO HISTORICAL/NON ORDERABLE LAB S Final Result [facility] Anywhere [address] from Last 3 Months or Most Recently Relevant to Health Maintenance Insurance [address] [address] STANDARD
== END 2025-05-04 16:01 | disposition home or self-care (01) ==
LOC: HO.HPS 15:21
PROVIDERS: PCP Internal Medicine; Visit Provider Internal Medicine
DX: J45.909 Unspecified asthma, uncomplicated (principal); J30.9 Allergic rhinitis, unspecified; E66.9 Obesity, unspecified
CPT/HCPCS: 99213

== ENCOUNTER → 2025-05-04 15:20 | Outpatient (BNVA) | payer OTHER, SELFPAY | PROVIDERS: PCP Internal Medicine; Visit Provider Internal Medicine | DX: J45.20 Mild intermittent asthma, uncomplicated (principal); J82.83 Eosinophilic asthma; E66.9 Obesity, unspecified; Z79.51 Long term (current) use of inhaled steroids | CPT/HCPCS: 99212 ==

== ENCOUNTER 2025-05-08 08:42 | Outpatient (REF) | payer OTHER, SELFPAY ==
--- NOTE | ~2025-05-08 | FL_ITS ---
EXAMINATION: XR BARIUM SWALLOW CLINICAL INFORMATION: Dysphagia COMPARISON: Previous barium swallow exams most recent July 2021 TECHNIQUE: Patient was administered thin and thick barium and effervescent granules. Barium tablet was also administered. FINDINGS: Swallowing mechanism is normal. No aspiration or penetration. Normal esophageal motility. Small sliding-type hiatal hernia. Mild gastroesophageal reflux. No mass or stricture. Barium tablet passed freely into the stomach. FLUOROSCOPY TIME: 1 minute 58 seconds DOSE AREA PRODUCT: 1261 uGy-m2 (microgray-meter squared) FL/FL barium swallow with air IMPRESSION: Small sliding-type hiatal hernia and mild gastroesophageal reflux. Electronically signed by: Tamara Hauser MD 05/08/2025 12:46 PM [facility]
== END 2025-05-08 08:43 | disposition home or self-care (01) ==
LOC: HO.XRAY 08:42
PROVIDERS: PCP Internal Medicine; Visit Provider Nurse Practitioner Family
DX: R13.10 Dysphagia, unspecified (principal); K21.9 Gastro-esophageal reflux disease without esophagitis; K44.9 Diaphragmatic hernia without obstruction or gangrene; M72.2 Plantar fascial fibromatosis
CPT/HCPCS: 74221

== ENCOUNTER → 2025-05-08 08:43 | Outpatient (BNV) | payer OTHER, SELFPAY | PROVIDERS: PCP Internal Medicine; Visit Provider Radiology Diagnostic Radiology | DX: K21.9 Gastro-esophageal reflux disease without esophagitis (principal) | CPT/HCPCS: 74221 ==

== ENCOUNTER 2025-05-29 10:21 | Outpatient (REF) | payer OTHER, SELFPAY ==
--- NOTE | ~2025-05-29 | US_ITS ---
EXAMINATION(S): 1. MM DIAGNOSTIC DIGITAL BREAST TOMOSYNTHESIS, RIGHT 2. TARGETED ULTRASOUND OF THE RIGHT BREAST CLINICAL INFORMATION: -According to requisition: right breast lump 7 cm from the nipple at 10:00 -According to patient, two lumps in the upper outer quadrant of the right breast. COMPARISON: Comparison made to multiple prior, most recent October 06, 2024, and most remote August 19, 2018. TECHNIQUE: Digital breast tomosynthesis is performed in both the mediolateral oblique, craniocaudal and XCCL views along with computer-aided detection (CAD). Synthesized 2D images are generated from the tomosynthesis. Two skin BB markers were placed at the location of the palpable concerns as directed by the patient. FINDINGS: BREAST COMPOSITION: There are scattered areas of fibroglandular density. RIGHT BREAST: No significant masses, suspicious calcifications or other abnormalities are seen. In particular, no suspicious mammographic findings adjacent to the skin BB markers in the upper outer quadrant. Targeted ultrasound of the right breast was performed at the location of the palpable concern as indicated by the patient. The survey throughout the upper outer quadrant, which includes the 10:00 at 7 cm from the nipple area, did not reveal suspicious sonographic findings. US/US Breast RT Limited Mamm Only IMPRESSION: RIGHT BREAST: Negative, no evidence of malignancy. In particular, no mammographic or sonographic findings to accounts for patient's palpable concerns. Clinical follow-up is recommended. Otherwise, patient may return to bilateral screening mammogram expected in September 2025. ASSESSMENT: BI-RADS: Category 1: Negative RECOMMENDATION: 1. Patient should be managed based on the clinical impression. 2. Otherwise, routine annual screening mammography. Results were provided to the patient at time of visit by the technologist. This patient's information was entered into a reminder system with a target due date for their next mammogram. Electronically signed by: Vannesa Banuelos MD 05/29/2025 11:20 AM [facility]
--- OUTSIDE RECORDS SUMMARY | 2025-05-29 11:43 | XMS_ITS | Clinical Summary ---
Author Organization [employer] Address 75 [facility] 7t h Floor [place] [id number] Care Team Providers Care Fishing Tackle Repairer Name Role Phone Unavailable Primary Care [...] AM EST) ADDITIONAL TESTING Not indicated () [facility] Comment: Test Performed by [facility] [place], [facility]], [address] [place] [address] Issa Renner M.D., Ph.D., Director of Laboratories , [place] [id number] HPV 16 RNA Test not performed [facility] HPV 18/45 RNA Test not performed [facility] HPV mRNA E6/E7 Not Detected NOT DETECTED [facility] Comment: This test was performed using the APTIMA(R) HPV Assay ([employer] This assay detects E6/E7 viral messenger RNA (mRNA) from 14 high-risk HPV types (16,18,31,33,35,39,45,51, 52,56,58,59,66,68). For additional information please refer to: http://education.[employer]um [employer]/faq/HCE524c0 (This link is being provided for informational/ educational purposes only.) Please note: Effective 02/11/2016, HPV testing will be performed using [employer]'s APTIMA test which targets mRNA. Detecting mRNA instead of DNA, as in older methods, offers significant improvements in specificity. 07/18/2016 10:5 8 AM EST us Trupti Hopper DO HISTORICAL/NON ORDERABLE LAB S Final Result [facility] Anywhere [address] from Last 3 Months or Most Recently Relevant to Health Maintenance [place] [address] STANDARD
--- OUTSIDE RECORDS SUMMARY | 2025-05-29 11:43 | XMS_ITS | Patient Health Record ---
Author Organization [facility] Address [address] [place] [address] Care Team Providers Care Design Project Manager Name Role Phone William Powell [phone] Reason For Referral No Information Plan Of Treatment No Information
--- OUTSIDE RECORDS SUMMARY | 2025-05-29 11:43 | XMS_ITS | Clinical Summary ---
Author Organization [employer] [facility] ity Address [address] [place] [address] Care Team Providers Care Cereal Supervisor Name Role Phone Unavailable Primary Care Provider [...]
== END 2025-05-29 10:22 | disposition home or self-care (01) ==
LOC: HO.MAMMO 10:21
PROVIDERS: PCP Internal Medicine; Visit Provider Internal Medicine
DX: N63.11 Unspecified lump in the right breast, upper outer quadrant (principal)
CPT/HCPCS: 76642; 77061; 77065

== ENCOUNTER → 2025-05-29 11:00 | Outpatient (BNV) | payer OTHER, SELFPAY | PROVIDERS: PCP Internal Medicine; Visit Provider Radiology Body Imaging | DX: N63.11 Unspecified lump in the right breast, upper outer quadrant (principal) | CPT/HCPCS: 76642; 77065; G0279 ==